=== PATIENT | male | born 1960 | race Caucasian/White ===

== ENCOUNTER 2018-08-09 10:18 | Emergency (ER) | payer OTHER ==
[2018-08-09 11:12] VITALS: RESP 18
--- NOTE | 2018-08-09 11:50 | ED ---
General Adult HPI - General Chief complaint: Fall Stated complaint: Knee popped Time Seen by Provider: 08/09/18 11:31 Source: patient Mode of arrival: wheelchair Limitations: no limitations - History of Present Illness Initial comments: Dictation was produced using [employer] dictation software. please excuse any grammatical, word or spelling errors. Chief Complaint: 58-year-old male presents with chief complaint of right knee pain. History of Present Illness: A 78-year-old male. Presents today with right knee pain. Patient [place] him. He lost balance and fell backwards. Prior to the fall he felt severe pain to his right knee. Patient states he is able to appear weight however is limping. He took 2 of his pain medications at home with persistent pain. Patient denies any significant swelling to the right knee. Patient denies any history of surgery to that knee. The ROS documented in this emergency department record has been reviewed and confirmed by me. Those systems with pertinent positive or negative responses have been documented in the HPI. All other systems are other negative and/or noncontributory. PHYSICAL EXAM: General Impression: Alert and oriented x3, not in acute distress HEENT: Normocephalic atraumatic, extra-ocular movements intact, pupils equal and reactive to light bilaterally, mucous membranes moist. Cardiovascular: Heart regular rate and rhythm, S1&S2 audible, no murmurs, rubs or gallops Chest: Lungs clear to auscultation bilaterally, no rhonchi, no wheeze, no rales Abdomen: Bowel sounds present, abdomen soft, non-tender, non-distended, no organomegaly Musculoskeletal: Pulses present and equal in all extremities, no peripheral edema, pain elicited with flexion of the right knee Motor: no focal deficits noted Neurological: CN II-XII grossly intact, no focal motor or sensory deficits noted Skin: Intact with no visualized rashes Psych: Normal affect and mood ED course: 58-year-old male presents with right knee pain after fall. Vital signs upon arrival are within acceptable limits.X-rays were obtained with no acute processes. Patient refusing pain medications at this time. Uncle presentation consistent with right knee strain. Patient requested Magno wrap. Patient given referral to orthopedic surgery for outpatient management of the symptoms. Return parameters discussed. - Related Data Home Medications Medication Instructions Recorded Confirmed Aspirin 325 mg PO DAILY 08/09/18 08/09/18 [id number] 1 tab PO DAILY 08/09/18 08/09/18 [Excedrin] Medication W/ Codiene (Unknown 2 tab PO Q8HR 08/09/18 08/09/18 Naproxen Sodium [Aleve] 220 mg PO DAILY 08/09/18 08/09/18 Allergies Allergy/AdvReac Type Severity Reaction Status Date / Time No Known Allergies Allergy Verified 08/09/18 11:38 Review of Systems ROS Statement: Those systems with pertinent positive or pertinent negative responses have been documented in the HPI. ROS Other: All systems not noted in ROS Statement are negative. Past Medical History Past Medical History: No Reported History History of Any Multi-Drug Resistant Organisms: None Reported Past Surgical History: Back Surgery, Cholecystectomy, Orthopedic Surgery Past Psychological History: No Psychological Hx Reported Smoking Status: Current every day smoker Past Alcohol Use History: Rare Past Drug Use History: None Reported General Exam Limitations: no limitations Course Vital Signs 08/09/18 11:08 Temperature 99.0 F Pulse Rate 95 Respiratory 18 Rate Blood Pressure 140/91 O2 Sat by Pulse 96 Oximetry Disposition Clinical Impression: Knee pain, acute Disposition: HOME SELF-CARE Condition: Good Instructions (If sedation given, give patient instructions): Knee Pain (ED) Is patient prescribed a controlled substance at d/c from ED?: No Referrals: Alphonso Thomson MD [STAFF PHYSICIAN] - 1-2 days Time of Disposition: 12:39
--- NOTE | 2018-08-09 12:20 | XR ---
EXAMINATION TYPE: XR knee complete RT DATE OF EXAM: 08/09/2018 CLINICAL HISTORY: Right knee pain since fall injury yesterday. TECHNIQUE: Three views of the right knee are obtained. COMPARISON: None. FINDINGS: There is no acute fracture/dislocation evident in right knee. The tri-compartment joint s paces appear within normal limits. Pants or clothing material overlies the distal femur. IMPRESSION: There is no acute fracture or dislocation in the right knee.
[2018-08-09 12:59] VITALS: BP 135/91; PULSE 80; TEMP 98.7
== END 2018-08-09 12:58 | disposition home or self-care (01) ==
LOC: EC 10:18
DX: M25.561 Pain in right knee (principal); F17.200 Nicotine dependence, unspecified, uncomplicated; Z79.1 Long term (current) use of non-steroidal anti-inflammatories (NSAID); Z79.82 Long term (current) use of aspirin; Z79.891 Long term (current) use of opiate analgesic; Z53.20 Procedure and treatment not carried out because of patient's decision for unspecified reasons; W01.0XXA Fall on same level from slipping, tripping and stumbling without subsequent striking against object, initial encounter; Y93.K1 Activity, walking an animal; Y92.832 Beach as the place of occurrence of the external cause
CPT/HCPCS: 99283

== ENCOUNTER 2018-11-27 11:36 | Emergency (ER) | payer OTHER ==
[2018-11-27] MEDS ORDERED: KETOROLAC 30 MG/ML 1 ML VIAL IVP STA (12:15)
[2018-11-27] MEDS ORDERED: METOCLOPRAMIDE 5 MG/ML 2 ML VIAL IVP STA (12:15)
[2018-11-27] MEDS ORDERED: SODIUM CHLORIDE 0.9% 1,000 ML IV STA (12:15)
--- NOTE | 2018-11-27 12:23 | ED ---
General Adult HPI - General Chief complaint: Abdominal Pain Stated complaint: abd, back pain Time Seen by Provider: 11/27/18 11:44 Source: patient, RN notes reviewed Mode of arrival: ambulatory Limitations: no limitations - History of Present Illness Initial comments: Patient is a pleasant 58-year-old male presenting to the emergency department with complaints of back and flank discomfort. Symptoms have been waxing and waning over the past couple of weeks. Symptoms are somewhat similar to previous kidney stones. Patient has noticed blood in his urine previously. Discomfort is moderate at this time. Discomfort is sometimes severe. Patient does have some associated nausea. No fevers. Discomfort is lower back and does radiate. Discomfort is also radiating to the bilateral flanks and somewhat towards the abdomen. No groin pain. No dysuria. 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 - Related Data Home Medications Medication Instructions Recorded Confirmed Naproxen Sodium [Aleve] 440 mg PO BID PRN 08/09/18 11/27/18 Previous Rx's Medication Instructions Recorded Levofloxacin [Levaquin] 500 mg PO DAILY #7 tab 11/27/18 Allergies Allergy/AdvReac Type Severity Reaction Status Date / Time No Known Allergies Allergy Verified 11/27/18 11:56 Review of Systems ROS Statement: Those systems with pertinent positive or pertinent negative responses have been documented in the HPI. ROS Other: All systems not noted in ROS Statement are negative. Constitutional: Denies: fever Eyes: Denies: eye pain ENT: Denies: ear pain Respiratory: Denies: cough Cardiovascular: Denies: chest pain Endocrine: Denies: fatigue Gastrointestinal: Reports: as per HPI Genitourinary: Reports: hematuria. Denies: dysuria Musculoskeletal: Reports: back pain Skin: Denies: rash Neurological: Denies: weakness Past Medical History Past Medical History: No Reported History History of Any Multi-Drug Resistant Organisms: None Reported Past Surgical History: Back Surgery, Cholecystectomy, Orthopedic Surgery Past Psychological History: No Psychological Hx Reported Smoking Status: Current every day smoker Past Alcohol Use History: Rare Past Drug Use History: None Reported General Exam Limitations: no limitations General appearance: alert, in no apparent distress Head exam: Present: normocephalic Eye exam: Present: normal appearance, PERRL ENT exam: Present: normal oropharynx Neck exam: Present: normal inspection Respiratory exam: Present: normal lung sounds bilaterally Cardiovascular Exam: Present: regular rate, normal rhythm Expanded Peripheral pulses: 2+: Radial (R), Radial (L), Posterior Tibialis (R), Posterior Tibialis (L) GI/Abdominal exam: Present: soft, normal bowel sounds. Absent: distended, tenderness, guarding, rebound, rigid, pulsatile mass Extremities exam: Present: normal inspection. Absent: pedal edema, calf tenderness Back exam: Present: normal inspection. Absent: tenderness, vertebral tenderness Neurological exam: Present: alert. Absent: motor sensory deficit Psychiatric exam: Present: normal affect, normal mood Skin exam: Present: normal color Course Vital Signs 11/27/18 11/27/18 11:46 12:53 Temperature 97.9 F Pulse Rate 76 75 Respiratory 16 16 Rate Blood Pressure 158/121 138/89 O2 Sat by Pulse 99 98 Oximetry Medical Decision Making - Medical Decision Making Patient reevaluated and resting comfortably in bed. Patient updated on results and plan. - Lab Data Result diagrams: 11/27/18 12:45 11/27/18 12:45 Lab Results 11/27/18 11/27/18 11/27/18 Range/Units 12:00 12:45 12:45 WBC 12.4 H (3.8-10.6) k/uL RBC 5.71 (4.30-5.90) m/uL Hgb 16.2 (13.0-17.5) gm/dL Hct 48.1 (39.0-53.0) % MCV 84.2 (80.0-100.0) fL MCH 28.4 (25.0-35.0) pg MCHC 33.7 (31.0-37.0) g/dL RDW 16.0 H (11.5-15.5) % Plt Count 220 (150-450) k/uL Neutrophils % 66 % Lymphocytes % 26 % Monocytes % 5 % Eosinophils % 2 % Basophils % 1 % Neutrophils # 8.1 H (1.3-7.7) k/uL Lymphocytes # 3.2 (1.0-4.8) k/uL Monocytes # 0.6 (0-1.0) k/uL Eosinophils # 0.2 (0-0.7) k/uL Basophils # 0.1 (0-0.2) k/uL Anisocytosis Slight PT (9.0-12.0) sec INR (<1.2) APTT (22.0-30.0) sec Sodium 143 (137-145) mmol/L Potassium 4.3 (3.5-5.1) mmol/L Chloride 106 (98-107) mmol/L Carbon Dioxide 29 (22-30) mmol/L Anion Gap 8 mmol/L BUN 20 (9-20) mg/dL Creatinine 0.81 (0.66-1.25) mg/dL Est GFR (CKD-EPI)AfAm >90 (>60 ml/min/1.73 sqM) Est GFR (CKD-EPI)NonAf >90 (>60 ml/min/1.73 sqM) Glucose 96 (74-99) mg/dL Calcium 9.8 (8.4-10.2) mg/dL Total Bilirubin 0.7 (0.2-1.3) mg/dL AST 23 (17-59) U/L ALT 31 (21-72) U/L Alkaline Phosphatase 79 (38-126) U/L Total Protein 7.0 (6.3-8.2) g/dL Albumin 4.1 (3.5-5.0) g/dL Amylase 38 (30-110) U/L Lipase 103 (23-300) U/L Urine Color Yellow Urine Appearance Clear (Clear) Urine pH 6.0 (5.0-8.0) Ur Specific [place] 1.023 (1.001-1.035) Urine Protein Negative (Negative) Urine Glucose (UA) Negative (Negative) Urine Ketones 2+ H (Negative) Urine Blood Negative (Negative) Urine Nitrite Negative (Negative) Urine Bilirubin Negative (Negative) Urine Urobilinogen 2.0 (<2.0) mg/dL Ur Leukocyte Esterase Trace H (Negative) Urine RBC 1 (0-5) /hpf Urine WBC 8 H (0-5) /hpf Ur Squamous Epith Cells <1 (0-4) /hpf Urine Mucus Few H (None) /hpf 11/27/18 Range/Units 12:45 WBC (3.8-10.6) k/uL RBC (4.30-5.90) m/uL Hgb (13.0-17.5) gm/dL Hct (39.0-53.0) % MCV (80.0-100.0) fL MCH (25.0-35.0) pg MCHC (31.0-37.0) g/dL RDW (11.5-15.5) % Plt Count (150-450) k/uL Neutrophils % % Lymphocytes % % Monocytes % % Eosinophils % % Basophils % % Neutrophils # (1.3-7.7) k/uL Lymphocytes # (1.0-4.8) k/uL Monocytes # (0-1.0) k/uL Eosinophils # (0-0.7) k/uL Basophils # (0-0.2) k/uL Anisocytosis PT 10.0 (9.0-12.0) sec INR 0.9 (<1.2) APTT 25.9 (22.0-30.0) sec Sodium (137-145) mmol/L Potassium (3.5-5.1) mmol/L Chloride (98-107) mmol/L Carbon Dioxide (22-30) mmol/L Anion Gap mmol/L BUN (9-20) mg/dL Creatinine (0.66-1.25) mg/dL Est GFR (CKD-EPI)AfAm (>60 ml/min/1.73 sqM) Est GFR (CKD-EPI)NonAf (>60 ml/min/1.73 sqM) Glucose (74-99) mg/dL Calcium (8.4-10.2) mg/dL Total Bilirubin (0.2-1.3) mg/dL AST (17-59) U/L ALT (21-72) U/L Alkaline Phosphatase (38-126) U/L Total Protein (6.3-8.2) g/dL Albumin (3.5-5.0) g/dL Amylase (30-110) U/L Lipase (23-300) U/L Urine Color Urine Appearance (Clear) Urine pH (5.0-8.0) Ur Specific [place] (1.001-1.035) Urine Protein (Negative) Urine Glucose (UA) (Negative) Urine Ketones (Negative) Urine Blood (Negative) Urine Nitrite (Negative) Urine Bilirubin (Negative) Urine Urobilinogen (<2.0) mg/dL Ur Leukocyte Esterase (Negative) Urine RBC (0-5) /hpf Urine WBC (0-5) /hpf Ur Squamous Epith Cells (0-4) /hpf Urine Mucus (None) /hpf - Radiology Data Radiology results: report reviewed (Computed tomography scan the abdomen pelvis shows some scattered groundglass opacities that may represent alveolitis or atypical pneumonia. No hepatosplenomegaly. Mucosal thickening with skip areas. Osiris for colitis.), image reviewed (KUB shows no acute process) Disposition Clinical Impression: Colitis Disposition: HOME SELF-CARE Condition: Stable Instructions (If sedation given, give patient instructions): Colitis (ED) Additional Instructions: Please follow-up with primary care physician in the next couple days for recheck. Return for increased pain, fevers, difficulty breathing, worsening symptoms or other concerns. Prescriptions sent to [facility] on Prescriptions: Levofloxacin [Levaquin] 500 mg PO DAILY #7 tab Is patient prescribed a controlled substance at d/c from ED?: No Referrals: Martha Suarez MD [STAFF PHYSICIAN] - 1-2 days Time of Disposition: 15:04
[2018-11-27 13:17] LABS: Anisocytosis Slight; Basophils # (A) 0.1 k/uL (0-0.2); Basophils % (A) 1 %; Eosinophils # (A) 0.2 k/uL (0-0.7); Eosinophils % (A) 2 %; HCT 48.1 % (39.0-53.0); HGB 16.2 gm/dL (13.0-17.5); Lymphocytes # (A) 3.2 k/uL (1.0-4.8); Lymphocytes % (A) 26 %; MCH 28.4 pg (25.0-35.0); MCHC 33.7 g/dL (31.0-37.0); MCV 84.2 fL (80.0-100.0); Mean Platelet Volume 8.8; Monocytes # (A) 0.6 k/uL (0-1.0); Monocytes % (A) 5 %; Neutrophils # (A) 8.1 k/uL (1.3-7.7); Neutrophils % (A) 66 %; Platelet Count 220 k/uL (150-450); RBC 5.71 m/uL (4.30-5.90); WBC 12.4 k/uL (3.8-10.6)
[2018-11-27 13:22] LABS: Appearance,Urine Clear (Clear); Bilirubin,Urine Negative (Negative); Blood,Urine Negative (Negative); Color,Urine Yellow; Glucose,Urine (UA) Negative (Negative); Ketones,Urine 2+ (Negative); Leukocyte Esterase,Urine Trace (Negative); Mucus,Urine Few /hpf; Nitrite,Urine Negative (Negative); Protein,Urine Negative (Negative); RBC,Urine 1 /hpf (0-5); Specific Gravity,Urine 1.023 (1.001-1.035); Squamous Epithelial Cell,Urine <1 /hpf (0-4); WBC,Urine 8 /hpf (0-5)
[2018-11-27 13:22] LABS: ALT 31 U/L (21-72); AST 23 U/L (17-59); African American GFR (CKD) >90 (>60 ml/min/1.73 sqM); Albumin 4.1 g/dL (3.5-5.0); Alkaline Phosphatase 79 U/L (38-126); Amylase 38 U/L (30-110); Anion Gap 8 mmol/L; Blood Urea Nitrogen 20 mg/dL (9-20); Calcium 9.8 mg/dL (8.4-10.2); Carbon Dioxide 29 mmol/L (22-30); Chloride 106 mmol/L (98-107); Glucose 96 mg/dL (74-99); Potassium 4.3 mmol/L (3.5-5.1); Sodium 143 mmol/L (137-145); Total Bilirubin 0.7 mg/dL (0.2-1.3)
--- NOTE | 2018-11-27 13:22 | XR ---
EXAMINATION TYPE: XR KUB , 2 VIEWS DATE OF EXAM ORDERED: 11/27/2018 HISTORY: abdominal pain. COMPARISON: Previous study dated 05/07/2011. FINDINGS: The lung bases are clear. Within the abdomen, the gallbladder is been removed. The abdominal gas pattern is within normal limit s. There is no evidence of obstruction or free air. There are phleboliths within the pelvis. IMPRESSION: NO ACUTE INTRA-ABDOMINAL ABNORMALITY.
[2018-11-27 13:23] LABS: INR 0.9 (<1.2); Partial Thromboplastin Time 25.9 sec (22.0-30.0)
--- NOTE | 2018-11-27 14:20 | CT ---
EXAMINATION TYPE: CT abdomen pelvis w con DATE OF EXAM: 11/27/2018 REFERENCE: NONE HISTORY: abdominal pain HISTORY: Abdominal and back pain CT DLP: 2203.6 mGy Automated exposure control for dose reduction was used. TECHNIQUE: Helical acquisition through the abdomen and pelvis was obtained following the oral ingesti on of without Oral Contrast and following intravenous administration of 100 ml mL of Isovue 300. The data was reformatted in axial, coronal and sagittal projections. FINDINGS: There are scattered groundglass opacities in the visualized portions of the lungs. There i s no pleural or pericardial fluid. The heart is not enlarged. Within the abdomen, there is mild hepatosplenomegaly with the liver measuring 19 cm and the spleen me asuring 14 cm. The liver is low attenuating and may be fatty infiltrated. The gallbladder is been rem truman. Both adrenal glands are normal. There is a 4.7 mm nonobstructing calculus in the anterior lower pole calyx of the left kidney and a s maller 1 to 2 mm calculus in the anterior middle pole calyx of the left kidney. The right kidney has a normal morphology. The pancreas is normal. There is no significant retroperitoneal, iliac or inguinal adenopathy. The bladder is unremarkable. There are multiple areas of mucosal thickening involving the sigmoid colon, descending colon and part s of the transverse colon. The appendix is not visualized with certainty. Small bowel loops are normal caliber. There is no free fluid and no free air. There is degenerative disc disease and vacuum phenomena present at L3-4, L4-5 and L5-S1 as well as T1 1-12. IMPRESSION: 1. SCATTERED GROUNDGLASS OPACITIES PRESENT BILATERALLY MAY REPRESENT ALVEOLITIS OR ATYPICAL PNEUMONIA . 2. MILD HEPATOSPLENOMEGALY WITH FATTY INFILTRATION OF THE LIVER NONOBSTRUCTING LEFT-SIDED NEPHROLITHI ASIS. 4. MUCOSAL THICKENING INVOLVING THE TRANSVERSE, DESCENDING AND SIGMOID COLONS WITH SKIP AREAS. PLEASE CORRELATE FOR COLITIS. 5. DEGENERATIVE CHANGES WITHIN THE SPINE.
[2018-11-27 16:12] VITALS: BP 132/88; PULSE 76; RESP 18; TEMP 97.8
== END 2018-11-27 16:00 | disposition home or self-care (01) ==
LOC: EC 11:36
DX: K52.9 Noninfective gastroenteritis and colitis, unspecified (principal); F17.200 Nicotine dependence, unspecified, uncomplicated; Z87.442 Personal history of urinary calculi
CPT/HCPCS: 36415; 80053; 82150; 83690; 85025; 85610; 85730; 81001; 74018; 74177; 99284; 96374; 96375; 96361 ×2; J2765; J1885; Q9967

== ENCOUNTER 2018-11-28 08:22 | Inpatient (IN) | payer MEDICARE, OTHER ==
[2018-11-28] MEDS ORDERED: KETOROLAC 30 MG/ML 1 ML VIAL IVP STA (08:48)
[2018-11-28] MEDS ORDERED: SODIUM CHLORIDE 0.9% 1,000 ML IV STA (08:48)
--- NOTE | 2018-11-28 08:51 | ED ---
Abdominal Pain HPI - General Chief Complaint: Abdominal Pain Stated Complaint: BACK AND ABDOMINAL PAIN, NAUSEA Time Seen by Provider: 11/28/18 08:27 Source: patient, RN notes reviewed Mode of arrival: ambulatory Limitations: no limitations - History of Present Illness Initial Comments: This is a 58-year-old male with a history of being diagnosed with colitis yesterday in this emergency department and was subsequently discharged on oral medication states his pain was doing well until about 2 or 3 hours after he left the pain started recurring thing going on since yesterday now. He's had nausea no vomiting he has moderate to severe pain mostly in the anterior upper abdomen some lower abdomen and some radiating to his back. He states this is similar to what it felt like yesterday. He does have a history of kidney stones but none were discovered yesterday. He back today because of the persistent pain. He has had some sweating with it also no other modifying factors other than he does state he gets worse with deep breathing and certain movements is worse in supine position than upright. MD Complaint: abdominal pain - Related Data Home Medications Medication Instructions Recorded Confirmed Naproxen Sodium [Aleve] 220 - 440 mg PO BID PRN 08/09/18 11/28/18 Levofloxacin [Levaquin] 500 mg PO DAILY 11/28/18 11/28/18 Previous Rx's Medication Instructions Recorded Famotidine [Pepcid] 20 mg PO BID #30 tablet 11/28/18 Allergies Allergy/AdvReac Type Severity Reaction Status Date / Time No Known Allergies Allergy Verified 11/28/18 08:57 Review of Systems ROS Statement: Those systems with pertinent positive or pertinent negative responses have been documented in the HPI. ROS Other: All systems not noted in ROS Statement are negative. Past Medical History Past Medical History: No Reported History History of Any Multi-Drug Resistant Organisms: None Reported Past Surgical History: Back Surgery, Cholecystectomy, Orthopedic Surgery Past Psychological History: No Psychological Hx Reported Smoking Status: Current every day smoker Past Alcohol Use History: Rare Past Drug Use History: None Reported General Exam - General Exam Comments Initial Comments: Is a well-developed well-nourished awake alert oriented 3 male Limitations: no limitations General appearance: alert, anxious, in distress Head exam: Present: atraumatic, normocephalic, normal inspection Eye exam: Present: normal appearance, PERRL, EOMI. Absent: scleral icterus, conjunctival injection, periorbital swelling ENT exam: Present: normal exam, mucous membranes moist Neck exam: Present: normal inspection. Absent: tenderness, meningismus, lymphadenopathy Respiratory exam: Present: normal lung sounds bilaterally. Absent: respiratory distress, wheezes, rales, rhonchi, stridor Cardiovascular Exam: Present: regular rate, normal rhythm, normal heart sounds. Absent: systolic murmur, diastolic murmur, rubs, gallop, clicks GI/Abdominal exam: Present: soft, tenderness (Obese abdomen some mild), normal bowel sounds. Absent: distended, guarding, rebound, rigid Rectal exam: Present: deferred ( mid abdominal tenderness no guarding rebound masses or bruits) Extremities exam: Present: normal inspection, full ROM, normal capillary refill. Absent: tenderness, pedal edema, joint swelling, calf tenderness Back exam: Present: normal inspection Neurological exam: Present: alert, oriented X3, CN II-XII intact Psychiatric exam: Present: normal affect, normal mood Skin exam: Present: warm, dry, intact, normal color. Absent: rash Course Vital Signs 11/28/18 08:23 Temperature 98.4 F Pulse Rate 89 Respiratory 18 Rate Blood Pressure 149/84 O2 Sat by Pulse 99 Oximetry Medical Decision Making - Medical Decision Making I did discuss [employer] the patient is feeling improved he was heme positive with respect to the guaiac. I did discuss the case with Dr. Farris. Patient will be able to be seen in the office tomorrow he is to call for an appointment today. The patient is in agreement with this. - Lab Data Result diagrams: 11/28/18 09:05 11/28/18 09:05 Lab Results 11/28/18 11/28/18 11/28/18 Range/Units 09:05 09:05 09:05 WBC 12.8 H (3.8-10.6) k/uL RBC 5.88 (4.30-5.90) m/uL Hgb 16.4 (13.0-17.5) gm/dL Hct 48.8 (39.0-53.0) % MCV 82.9 (80.0-100.0) fL MCH 27.9 (25.0-35.0) pg MCHC 33.7 (31.0-37.0) g/dL RDW 13.8 (11.5-15.5) % Plt Count 228 (150-450) k/uL Neutrophils % 71 % Lymphocytes % 20 % Monocytes % 5 % Eosinophils % 2 % Basophils % 1 % Neutrophils # 9.1 H (1.3-7.7) k/uL Lymphocytes # 2.6 (1.0-4.8) k/uL Monocytes # 0.6 (0-1.0) k/uL Eosinophils # 0.2 (0-0.7) k/uL Basophils # 0.1 (0-0.2) k/uL Sodium 144 (137-145) mmol/L Potassium 4.2 (3.5-5.1) mmol/L Chloride 108 H (98-107) mmol/L Carbon Dioxide 26 (22-30) mmol/L Anion Gap 10 mmol/L BUN 20 (9-20) mg/dL Creatinine 0.79 (0.66-1.25) mg/dL Est GFR (CKD-EPI)AfAm >90 (>60 ml/min/1.73 sqM) Est GFR (CKD-EPI)NonAf >90 (>60 ml/min/1.73 sqM) Glucose 101 H (74-99) mg/dL Calcium 9.9 (8.4-10.2) mg/dL Total Bilirubin 0.9 (0.2-1.3) mg/dL AST 22 (17-59) U/L ALT 34 (21-72) U/L Alkaline Phosphatase 81 (38-126) U/L Creatine Kinase 38 L (55-170) U/L Total Protein 7.1 (6.3-8.2) g/dL Albumin 4.2 (3.5-5.0) g/dL Amylase 38 (30-110) U/L Lipase 115 (23-300) U/L Urine Color Yellow Urine Appearance Clear (Clear) Urine pH 7.0 (5.0-8.0) Ur Specific [place] 1.018 (1.001-1.035) Urine Protein Negative (Negative) Urine Glucose (UA) Negative (Negative) Urine Ketones 2+ H (Negative) Urine Blood Negative (Negative) Urine Nitrite Negative (Negative) Urine Bilirubin Negative (Negative) Urine Urobilinogen 2.0 (<2.0) mg/dL Ur Leukocyte Esterase Negative (Negative) - Radiology Data Radiology results: report reviewed (I did review the imaging and report no acute findings.), image reviewed Disposition Clinical Impression: Gastritis, GI bleed Disposition: HOME SELF-CARE Condition: Good Instructions (If sedation given, give patient instructions): Gastritis (ED), Gastrointestinal Bleeding (ED) Additional Instructions: Call today for appointment to be seen tomorrow. Medication prescription sent to [facility] pharmacy Prescriptions: Famotidine [Pepcid] 20 mg PO BID #30 tablet Is patient prescribed a controlled substance at d/c from ED?: No Referrals: None,Stated [Primary Care Provider] - 1-2 days Angelita Farris MD [STAFF PHYSICIAN] - 1-2 days
[2018-11-28 09:18] LABS: Basophils # (A) 0.1 k/uL (0-0.2); Basophils % (A) 1 %; Eosinophils # (A) 0.2 k/uL (0-0.7); Eosinophils % (A) 2 %; HCT 48.8 % (39.0-53.0); HGB 16.4 gm/dL (13.0-17.5); Lymphocytes # (A) 2.6 k/uL (1.0-4.8); Lymphocytes % (A) 20 %; MCH 27.9 pg (25.0-35.0); MCHC 33.7 g/dL (31.0-37.0); MCV 82.9 fL (80.0-100.0); Mean Platelet Volume 8.5; Monocytes # (A) 0.6 k/uL (0-1.0); Monocytes % (A) 5 %; Neutrophils # (A) 9.1 k/uL (1.3-7.7); Neutrophils % (A) 71 %; Platelet Count 228 k/uL (150-450); RBC 5.88 m/uL (4.30-5.90); RDW 13.8 % (11.5-15.5); WBC 12.8 k/uL (3.8-10.6)
--- NOTE | 2018-11-28 09:18 | XR ---
EXAMINATION TYPE: XR KUB DATE OF EXAM: 11/28/2018 CLINICAL DATA: 58 year-old male abdominal pain, [facility] COMPARISON: 11/27/2018 FINDINGS: Lung bases are clear. No evidence for free intraperitoneal air. Scattered small colonic air-fluid levels. Mild overall stool burden. Cholecystectomy clips. No dilated small bowel or differential air-fluid levels IMPRESSION: Scattered small colonic air-fluid levels could represent generalized ileus or enteritis/colitis. Over all nonobstructive bowel gas pattern. No free air.
[2018-11-28] MEDS ORDERED: HYDROmorphone 1 MG/ML 1 ML SYRINGE IVP STA (09:23)
[2018-11-28 09:29] LABS: Appearance,Urine Clear (Clear); Bilirubin,Urine Negative (Negative); Blood,Urine Negative (Negative); Color,Urine Yellow; Glucose,Urine (UA) Negative (Negative); Ketones,Urine 2+ (Negative); Leukocyte Esterase,Urine Negative (Negative); Nitrite,Urine Negative (Negative); Protein,Urine Negative (Negative); Specific Gravity,Urine 1.018 (1.001-1.035)
[2018-11-28 09:30] LABS: ALT 34 U/L (21-72); AST 22 U/L (17-59); African American GFR (CKD) >90 (>60 ml/min/1.73 sqM); Albumin 4.2 g/dL (3.5-5.0); Alkaline Phosphatase 81 U/L (38-126); Amylase 38 U/L (30-110); Anion Gap 10 mmol/L; Blood Urea Nitrogen 20 mg/dL (9-20); Calcium 9.9 mg/dL (8.4-10.2); Carbon Dioxide 26 mmol/L (22-30); Chloride 108 mmol/L (98-107); Creatine Kinase 38 U/L (55-170); Glucose 101 mg/dL (74-99); Potassium 4.2 mmol/L (3.5-5.1); Sodium 144 mmol/L (137-145); Total Bilirubin 0.9 mg/dL (0.2-1.3); Total Protein 7.1 g/dL (6.3-8.2)
--- NOTE | 2018-11-28 09:58 | ED ---
Medical Decision Making - Medical Decision Making I did have discussion with the patient regarding findings he did get some improvement in pain however still has some discomfort in left lower quadrant tenderness palpation at this time. Will be admitted I did discuss case with Dr. Evans. GI will be consulted - Lab Data Result diagrams: 11/28/18 09:05 11/28/18 09:05 Lab Results 11/28/18 11/28/18 11/28/18 Range/Units 09:05 09:05 09:05 WBC 12.8 H (3.8-10.6) k/uL RBC 5.88 (4.30-5.90) m/uL Hgb 16.4 (13.0-17.5) gm/dL Hct 48.8 (39.0-53.0) % MCV 82.9 (80.0-100.0) fL MCH 27.9 (25.0-35.0) pg MCHC 33.7 (31.0-37.0) g/dL RDW 13.8 (11.5-15.5) % Plt Count 228 (150-450) k/uL Neutrophils % 71 % Lymphocytes % 20 % Monocytes % 5 % Eosinophils % 2 % Basophils % 1 % Neutrophils # 9.1 H (1.3-7.7) k/uL Lymphocytes # 2.6 (1.0-4.8) k/uL Monocytes # 0.6 (0-1.0) k/uL Eosinophils # 0.2 (0-0.7) k/uL Basophils # 0.1 (0-0.2) k/uL Sodium 144 (137-145) mmol/L Potassium 4.2 (3.5-5.1) mmol/L Chloride 108 H (98-107) mmol/L Carbon Dioxide 26 (22-30) mmol/L Anion Gap 10 mmol/L BUN 20 (9-20) mg/dL Creatinine 0.79 (0.66-1.25) mg/dL Est GFR (CKD-EPI)AfAm >90 (>60 ml/min/1.73 sqM) Est GFR (CKD-EPI)NonAf >90 (>60 ml/min/1.73 sqM) Glucose 101 H (74-99) mg/dL Calcium 9.9 (8.4-10.2) mg/dL Total Bilirubin 0.9 (0.2-1.3) mg/dL AST 22 (17-59) U/L ALT 34 (21-72) U/L Alkaline Phosphatase 81 (38-126) U/L Creatine Kinase 38 L (55-170) U/L Total Protein 7.1 (6.3-8.2) g/dL Albumin 4.2 (3.5-5.0) g/dL Amylase 38 (30-110) U/L Lipase 115 (23-300) U/L Urine Color Yellow Urine Appearance Clear (Clear) Urine pH 7.0 (5.0-8.0) Ur Specific [place] 1.018 (1.001-1.035) Urine Protein Negative (Negative) Urine Glucose (UA) Negative (Negative) Urine Ketones 2+ H (Negative) Urine Blood Negative (Negative) Urine Nitrite Negative (Negative) Urine Bilirubin Negative (Negative) Urine Urobilinogen 2.0 (<2.0) mg/dL Ur Leukocyte Esterase Negative (Negative) - Radiology Data Radiology results: report reviewed (CC the complete report. Evidence of ileus versus (), image reviewed Disposition Clinical Impression: Intractable abdominal pain, Colitis, Leukocytosis, Failure of outpatient treatment Disposition: ADMITTED IP TO THIS HOSP Condition: Fair Prescriptions: Famotidine [Pepcid] 20 mg PO BID #30 tablet Referrals: None,Stated [Primary Care Provider] - 1-2 days
[2018-11-28] MEDS ORDERED: NALOXONE 0.4 MG/ML 1 ML VIAL IV PRN (10:26)
[2018-11-28] MEDS ORDERED: PIPERACILLIN-TAZOBACTAM 3.375 GM in SODIUM CHLORIDE 0.9% 100 ML IVPB STA (10:33)
[2018-11-28] MEDS ORDERED: metroNIDAZOLE-NS PMX 500 MG in SALINE 1 100ML.BAG IVPB STA (10:36)
[2018-11-28] MEDS: SODIUM CHLORIDE 0.9% 1,000 ML IV SCH ×2 (10:52→17:53)
--- NOTE | 2018-11-28 12:11 | XR ---
EXAMINATION TYPE: XR chest 2V DATE OF EXAM: 11/28/2018 COMPARISON: Chest x-ray dated 11/13/[address] 11/27/2018 HISTORY: Abnormal CT TECHNIQUE: Frontal and lateral views of the chest are obtained. FINDINGS: Patient is increased. There is no evident airspace disease, pneumothorax, or pleural effus ion. The right hemidiaphragm is mildly elevated likely due to eventration. Heart size is normal. The aorta is dense. Patient is rotated. IMPRESSION: Interstitial lung disease.
[2018-11-28] MEDS: HYDROmorphone 1 MG/ML 1 ML SYRINGE IVP PRN ×2 (12:39→18:47)
[2018-11-28] MEDS: metroNIDAZOLE-NS PMX 500 MG in SALINE 1 100ML.BAG IVPB SCH (17:52)
[2018-11-28] MEDS: ONDANSETRON 4 MG/2 ML VIAL IVP PRN (18:57)
--- NOTE | 2018-11-28 22:44 | P.HPIM ---
History of Present Illness H&P Date: 11/28/18 Chief Complaint: Abdominal pain 78-year-old male with a known history of chronic back pain and history of back surgery and nicotine addiction came to ER with the complaints of abdominal pain mainly bilateral lower abdomen and patient felt like he was passing a stone. Patient says that he was similar to his previous pain with kidney stones. Patient presented to ER with similar complaints yesterday, but improved symptomatically and was discharged home with antibiotics. Patient cannot able to fill his prescriptions. WBC count was 12.4 yesterday. Patient started having abdominal pain again today associated with nausea and vomiting. patient says that he has been having moderate to severe pain mostly in the anterior lower abdominal bilaterally and radiating to his back. ct abdomen showed nonobstructing left renal calculus. patient also says that he has been having back pain since yesterday. He has had some sweating with it also no other modifying factors other than he does state he gets worse with deep breathing and certain movements is worse in supine position than upright. Patient denied any diarrhea. Able to pass flatus. No fever no chills. No chest pain or shortness of breath. Denied any recent illnesses or upper respiratory infections. No cough or sputum production. No sore throat or runny nose. Patient otherwise continues to smoke on a daily basis. CT of abdomen pelvis showed scattered groundglass opacities present bilaterally may represent Alveolytis or atypical pneumonia. Mild hepatosplenomegaly with fatty infiltration Nonobstructing 4.7 mm nonobstructing left renal calculus. Mucosal thickening involving transverse sigmoid and descending colons with skip areas: Correlate for colitis. Degenerative changes within the spine. Chest x-ray showed interstitial lung disease WBC 12.8 and UA negative for infection Liver enzymes within normal limits Review of Systems Constitutional: Patient denies any fever or chills . No generalized weakness or weight loss. Abdomen: Pain associated with nausea. No diarrhea. No constipation.. Cardiovascular: Patient denies any chest pain or short of breath no palpitations. Respiratory: patient denied any cough is from production. No shortness of breath Neurologic: Patient denied any numbness or tingling headache. Musculoskeletal: Patient denies any complaints of joint swelling or deformity. Skin: Negative Psychiatric: Negative Endocrine: No heat or cold intolerance. No recent weight gain. Genitourinary: No dysuria or hematuria. All other 14 point ROS negative except the above Past Medical History Past Medical History: No Reported History History of Any Multi-Drug Resistant Organisms: None Reported Past Surgical History: Back Surgery, Cholecystectomy, Orthopedic Surgery Past Psychological History: No Psychological Hx Reported Smoking Status: Current every day smoker Past Alcohol Use History: Rare Past Drug Use History: None Reported - Past Family History Father History Unknown: Yes Mother History Unknown: Yes Medications and Allergies Home Medications Medication Instructions Recorded Confirmed Type Naproxen Sodium [Aleve] 220 - 440 mg PO BID PRN 08/09/18 11/28/18 History Famotidine [Pepcid] 20 mg PO BID #30 tablet 11/28/18 Rx Levofloxacin [Levaquin] 500 mg PO DAILY 11/28/18 11/28/18 History Allergies Allergy/AdvReac Type Severity Reaction Status Date / Time No Known Allergies Allergy Verified 11/28/18 08:57 Physical Exam Vitals: Vital Signs Temp Pulse Resp BP Pulse Ox 11/28/18 10:56 75 16 146/83 99 11/28/18 08:23 98.4 F 89 18 149/84 99 Intake and Output 11/27/18 11/28/18 11/28/18 22:59 06:59 14:59 Other: Weight 115.212 kg PHYSICAL EXAMINATION: Patient is lying in the bed comfortably, no acute distress, awake alert and oriented.. HEENT: Normocephalic. Neck is supple. Pupils reactive. Nostrils clear. Oral cavity is moist. Ears reveal no drainage. Neck reveals no JVD, carotid bruits, or thyromegaly. CHEST EXAMINATION: Trachea is central. Symmetrical expansion. Lung whitaker clear to auscultation and percussion. CARDIAC: Normal S1, S2 with no gallops. No murmurs ABDOMEN: Soft. Mild to moderate tenderness left and right quadrants. No flank tenderness. Bowel sounds normal. No organomegaly. No abdominal bruits. Extremities: reveal no edema. No clubbing or cyanosis Neurologically awake, alert, oriented x3 with well-coordinated movements. No focal deficits noted Skin: No rash or skin lesions. Psychiatric: Coperative. Nonsuicidal Musculoskeletal: No joint swelling or deformity. Normal range of motion. Results CBC & Chem 7: 11/28/18 09:05 11/28/18 09:05 Labs: Abnormal Lab Results - Last 24 Hours (Table) 11/28/18 11/28/18 11/28/18 Range/Units 09:05 09:05 09:05 WBC 12.8 H (3.8-10.6) k/uL Neutrophils # 9.1 H (1.3-7.7) k/uL Chloride 108 H (98-107) mmol/L Glucose 101 H (74-99) mg/dL Creatine Kinase 38 L (55-170) U/L Urine Ketones 2+ H (Negative) Thrombosis Risk Factor Assmnt - DVT/VTE Prophylaxis DVT/VTE Prophylaxis: Pharmacologic Prophylaxis ordered Assessment and Plan Assessment: Abdominal pain likely due to colitis involving transverse sigmoid and descending colon. History of nephrolithiasis Nonobstructing 4.7 mm left renal stone Nicotine addiction More weak to the BMI 38.6 Chronic back pain with history of back surgery History of cholecystectomy DVT prophylaxis with heparin subcu Plan: Patient will be continued on IV hydration and antibiotics. Patient was given Zosyn and Flagyl in the ER. Continue with Levaquin and Flagyl at this time. Clear liquids. Gastroenterology was consulted for further evaluation due to colitis. Smoking cessation has been counseled extensively. Discussed with family at bedside in detail. Time with Patient: Greater than 30
[2018-11-28] MEDS: LEVOFLOXACIN 500MG-D5W PMX 500 MG in DEXTROSE/WATER 1 100ML.BAG IVPB SCH (22:47)
--- NOTE | 2018-11-28 23:50 | CONS ---
CONSULTATION DATE OF DICTATION: November 28, 2018. REQUESTING PHYSICIAN: Dr. Evans. REASON FOR CONSULTATION: Abdominal pain. HISTORY OF PRESENT ILLNESS: The patient is a 58-year-old white male who came to the emergency room complaining of diffuse abdominal pain mostly in the upper abdominal area on and off for the last 1 month duration. Symptoms have been going on for a few weeks. Initially, he thought it was related to the kidney stone as he thought he passed a kidney stone when he had some blood in the urine. However, the pain continued to progressively get worse and now it localized more in the epigastric area associated with nausea, vomiting. He also started having some discomfort in both flank areas. He denies any significant change in his bowel habits. He usually has bowel movements every 3-4 days. No rectal bleeding or melena. Came to the emergency room. He had a CT of the abdomen and pelvis done that showed mucosal thickening involving the descending and sigmoid colon suspicious for colitis. The patient was then discharged home. However, a few hours later, the pain continued to progressively get worse. He came back to the emergency room and now admitted to hospital for further evaluation. PAST MEDICAL HISTORY: Past medical history unremarkable. MEDICATIONS: At home, Aleve. ALLERGIES: No known drug allergies. FAMILY HISTORY: Unremarkable. PAST SURGICAL HISTORY: Back surgery, cholecystectomy. SOCIAL HISTORY: Chronic smoker but no alcohol use. REVIEW OF SYSTEMS: Cardiopulmonary: No chest pain, shortness of breath. Genitourinary: No dysuria or hematuria. Musculoskeletal unremarkable. Skin unremarkable. Endocrine unremarkable. Psychiatric unremarkable. Neurology unremarkable. ENT/vision unremarkable. CONSTITUTIONAL: No recent weight loss. No fever, chills, night sweats. PHYSICAL EXAMINATION: He appears comfortable. No apparent distress. VITAL SIGNS: Stable. Blood pressure is 112/86, pulse rate 75 per minute and afebrile. HEENT examination unremarkable. Conjunctivae pink. Sclerae anicteric. Oral cavity no lesions. NECK: No jugular venous distention or lymph node enlargement. CHEST: Clear to auscultation. HEART: Regular rate and rhythm. ABDOMEN: Soft. Bowel sounds are positive. There was mild diffuse tenderness. Extremities: No pedal edema. Skin no rashes. NEUROLOGIC: Alert and oriented x3. No focal deficits. LABS: Done today: WBC 12.8, hemoglobin 16.4, platelets are normal. Basic metabolic panel is within normal limits. ALT, AST, bilirubin and alkaline phosphatase are normal. Amylase and lipase are normal. Urinalysis is negative. IMPRESSION: Diffuse abdominal pain on and off for the last 1 month duration associated with nausea, vomiting, and some change in bowel habits. CT of the abdomen done yesterday in the emergency room showed thickening of the left colon suspicious for acute colitis. Presently, the patient does not have any diarrhea. He was given a dose of Zosyn and Flagyl in the emergency room and his symptoms are somewhat better today. RECOMMENDATIONS: 1. Continue with empiric antibiotics with Flagyl and Levaquin. 2. Clear liquid diet. 3. If symptoms do not improve in the next 1 or 2 days, we will consider an EGD and colonoscopy during this hospitalization. 4. The plan was discussed with the patient. He is agreeable to it. Thank you for this consultation. SOFIA / MIKE: [id number] /
[2018-11-29] MEDS: SODIUM CHLORIDE 0.9% 1,000 ML IV SCH ×3 (00:21→18:09)
[2018-11-29] MEDS: HEPARIN SODIUM,PORCINE 5,000 UNIT/ML 1 ML VIAL SQ SCH ×3 (00:21→16:11)
[2018-11-29] MEDS: metroNIDAZOLE-NS PMX 500 MG in SALINE 1 100ML.BAG IVPB SCH ×3 (00:21→16:10)
[2018-11-29] MEDS: HYDROmorphone 1 MG/ML 1 ML SYRINGE IVP PRN ×5 (00:30→20:58)
[2018-11-29] MEDS: ONDANSETRON 4 MG/2 ML VIAL IVP PRN ×2 (02:25→19:18)
[2018-11-29] MEDS: PANTOPRAZOLE 40 MG/10 ML VIAL IV SCH (07:52)
[2018-11-29 08:06] LABS: ALT 110 U/L (21-72); AST 78 U/L (17-59); African American GFR (CKD) >90 (>60 ml/min/1.73 sqM); Albumin 3.2 g/dL (3.5-5.0); Alkaline Phosphatase 72 U/L (38-126); Anion Gap 6 mmol/L; Blood Urea Nitrogen 18 mg/dL (9-20); Calcium 8.9 mg/dL (8.4-10.2); Carbon Dioxide 26 mmol/L (22-30); Chloride 108 mmol/L (98-107); Glucose 86 mg/dL (74-99); Potassium 4.3 mmol/L (3.5-5.1); Sodium 140 mmol/L (137-145); Total Bilirubin 0.9 mg/dL (0.2-1.3); Total Protein 5.8 g/dL (6.3-8.2)
[2018-11-29 11:49] VITALS: BMI 38.6
[2018-11-29 15:56] LABS: Basophils % (A) 0 %; Eosinophils # (A) 0.2 k/uL (0-0.7); Eosinophils % (A) 2 %; HGB 14.3 gm/dL (13.0-17.5); Lymphocytes # (A) 2.1 k/uL (1.0-4.8); Lymphocytes % (A) 22 %; MCH 28.3 pg (25.0-35.0); MCHC 33.4 g/dL (31.0-37.0); MCV 84.9 fL (80.0-100.0); Mean Platelet Volume 8.6; Monocytes # (A) 0.6 k/uL (0-1.0); Monocytes % (A) 6 %; Neutrophils # (A) 6.7 k/uL (1.3-7.7); Neutrophils % (A) 68 %; Platelet Count 171 k/uL (150-450); RBC 5.06 m/uL (4.30-5.90); RDW 13.9 % (11.5-15.5); WBC 9.8 k/uL (3.8-10.6)
--- NOTE | 2018-11-29 16:06 | US ---
EXAMINATION TYPE: US kidneys/renal and bladder DATE OF EXAM: 11/29/2018 COMPARISON: CT 11/27/2018 CLINICAL HISTORY: left Renal Calculi. Left flank pain. Patient states just voiding. EXAM MEASUREMENTS: Right Kidney: 10.5 x 4.7 x 4.9 cm Left Kidney: 9.6 x 4.0 x 5.2 cm Right Kidney: No hydronephrosis or masses seen Left Kidney: lower pole echogenic focus visualized - 0.5 x 0.5 cm Bladder: nondistended, limited visualization Bilateral Jets not seen Kidneys show normal cortical medullary differentiation. No evident hydronephrosis bilaterally. No sabas dent renal mass. IMPRESSION: Nephrolithiasis lower pole left kidney.
[2018-11-29] MEDS ORDERED: PEG 3350-NA SULF,BICARB,CL/KCL 4,000 ML BOTTLE PO ONE (17:00)
--- NOTE | 2018-11-29 18:27 | PN ---
PROGRESS NOTE DATE OF SERVICE: November 29, 2018 Patient is a 58-year-old pleasant white male admitted to the hospital with diffuse abdominal pain mostly in the upper abdominal area associated with nausea, vomiting on and off for the last 1 month duration. Symptoms have been progressively getting worse. He came to the emergency room yesterday, had a CT of the abdomen and pelvis done that showed thickening of the transverse and descending colon suspicious for acute nonspecific colitis. Surprisingly, the patient does not have any diarrhea. In fact, he has alternating diarrhea and constipation of almost 1 month duration. He denies any weight loss. Reports no fever, chills or night sweats. PHYSICAL EXAMINATION: Appears comfortable in no apparent distress. Vital signs stable. Blood pressure is 136/83, pulse is 65, temperature 98. HEENT examination unremarkable. Conjunctivae pink. Sclerae anicteric. Oral cavity no lesions. Neck: No JVD or lymph node enlargement. Chest: Clear to auscultation. HEART: Regular rate and rhythm. ABDOMEN: Soft. Mild tenderness in the epigastric and periumbilical area. Bowel sounds are positive. No organomegaly. Extremities: No pedal edema. Skin no rashes. NEUROLOGIC: Alert and oriented x3. No focal deficits. LABORATORY DATA: Labs from today AST and ALT are 78 and 110 respectively. Rest of the labs are within normal limits. IMPRESSION: Diffuse abdominal pain mostly in the upper abdomen associated with nausea, vomiting for the last 1 month duration. He also has been complaining of alternating diarrhea and constipation for the last few months. CT of the abdomen showed nonspecific colitis involving the left colon. The patient on empiric antibiotics with Levaquin and Flagyl with no significant improvement in his symptoms. RECOMMENDATIONS: 1. Proceed with EGD and colonoscopy tomorrow to investigate his symptoms. 2. Continue with antibiotics. 3. Clear liquid diet. 4. We will follow with you closely during his hospital stay. Thank you for this consultation. MMODL / IJN: [id number] /
--- NOTE | 2018-11-29 21:41 | P.PN ---
Subjective Progress Note Date: 11/29/18 Principal diagnosis: Abdominal pain secondary to colitis 78-year-old male with a known history of chronic back pain and history of back surgery and nicotine addiction came to ER with the complaints of abdominal pain mainly bilateral lower abdomen and patient felt like he was passing a stone. Patient says that he was similar to his previous pain with kidney stones. Patient presented to ER with similar complaints yesterday, but improved symptomatically and was discharged home with antibiotics. Patient cannot able to fill his prescriptions. WBC count was 12.4 yesterday. Patient started having abdominal pain again today associated with nausea and vomiting. patient says that he has been having moderate to severe pain mostly in the anterior lower abdominal bilaterally and radiating to his back. ct abdomen showed nonobstructing left renal calculus. patient also says that he has been having back pain since yesterday. He has had some sweating with it also no other modifying factors other than he does state he gets worse with deep breathing and certain movements is worse in supine position than upright. Patient denied any diarrhea. Able to pass flatus. No fever no chills. No chest pain or shortness of breath. Denied any recent illnesses or upper respiratory infections. No cough or sputum production. No sore throat or runny nose. Patient otherwise continues to smoke on a daily basis. CT of abdomen pelvis showed scattered groundglass opacities present bilaterally may represent Alveolytis or atypical pneumonia. Mild hepatosplenomegaly with fatty infiltration Nonobstructing 4.7 mm nonobstructing left renal calculus. Mucosal thickening involving transverse sigmoid and descending colons with skip areas: Correlate for colitis. Degenerative changes within the spine. Chest x-ray showed interstitial lung disease WBC 12.8 and UA negative for infection Liver enzymes within normal limits 11/29/2018 Patient is still having abdominal pain mainly bilateral anterior abdominen. Patient is being continued on antibiotics in the form of Levaquin and Flagyl. Ultrasound of THE KIDNEY SHOWED NO HYDRONEPHROSIS.. Patient says that he has been having symptoms for the first one we can CT showed evidence of colitis with skip areas. Pulse Is Planning for EGD and Colonoscopy Tomorrow for Further Evaluation. Patient Is Currently on Clear Liquid Diet. No Fever No Chills. Leukocytosis Improved. No Chest Pain or Shortness of Breath. Patient Is Also Complaining of Lower Back Pain. Current Medications Reviewed. Objective - Vital Signs Vital signs: Vital Signs Temp 97.7 F 11/29/18 07:00 Pulse 65 11/29/18 07:00 Resp 16 11/29/18 07:00 BP 145/76 11/29/18 07:00 Pulse Ox 97 11/29/18 07:00 Intake & Output 11/28/18 11/29/18 11/29/18 18:59 06:59 18:59 Intake Total 500 Balance 500 Weight 115.212 kg 115.212 kg Intake: Oral 500 Other: # Voids 0 1 - Exam PHYSICAL EXAMINATION: Patient is lying in the bed comfortably, no acute distress, awake alert and oriented.. HEENT: Normocephalic. Neck is supple. Pupils reactive. Nostrils clear. Oral cavity is moist. Ears reveal no drainage. Neck reveals no JVD, carotid bruits, or thyromegaly. CHEST EXAMINATION: Trachea is central. Symmetrical expansion. Lung whitaker clear to auscultation and percussion. CARDIAC: Normal S1, S2 with no gallops. No murmurs ABDOMEN: Soft. Mild to moderate tenderness left and right quadrants. No flank tenderness. Bowel sounds normal. No organomegaly. No abdominal bruits. Extremities: reveal no edema. No clubbing or cyanosis Neurologically awake, alert, oriented x3 with well-coordinated movements. No focal deficits noted Skin: No rash or skin lesions. Psychiatric: Coperative. Nonsuicidal Musculoskeletal: No joint swelling or deformity. Normal range of motion. - Labs CBC & Chem 7: 11/29/18 14:34 11/29/18 07:23 Labs: Abnormal Lab Results - Last 24 Hours (Table) 11/29/18 Range/Units 07:23 Chloride 108 H (98-107) mmol/L AST 78 H (17-59) U/L ALT 110 H (21-72) U/L Total Protein 5.8 L (6.3-8.2) g/dL Albumin 3.2 L (3.5-5.0) g/dL Microbiology - Last 24 Hours (Table) 11/28/18 10:50 Blood Culture Gram Stain - Preliminary Blood Blood Culture - Preliminary Coagulase Negative Staph 11/28/18 10:50 Blood Culture - Final Blood Assessment and Plan Assessment: Abdominal pain due to colitis involving transverse sigmoid and descending colon. GI is following. EGD and colonoscopy tomorrow. History of nephrolithiasis Nonobstructing 4.7 mm left renal stone. No evidence of hydronephrosis. Nicotine addiction More weak to the BMI 38.6 Chronic back pain with history of back surgery History of cholecystectomy DVT prophylaxis with heparin subcu Plan: Patient will be continued on IV hydration and antibiotics. Patient was given Zosyn and Flagyl in the ER. Continue with Levaquin and Flagyl at this time. Clear liquids. Gastroenterology is following. Continue with IV hydration. EGD and colonoscopy tomorrow.. Smoking cessation has been counseled extensively. Time with Patient: Greater than 30
[2018-11-30] MEDS: LEVOFLOXACIN 500MG-D5W PMX 500 MG in DEXTROSE/WATER 1 100ML.BAG IVPB SCH (01:21)
[2018-11-30] MEDS: HEPARIN SODIUM,PORCINE 5,000 UNIT/ML 1 ML VIAL SQ SCH ×3 (01:22→15:45)
[2018-11-30] MEDS: metroNIDAZOLE-NS PMX 500 MG in SALINE 1 100ML.BAG IVPB SCH ×3 (02:32→15:45)
[2018-11-30] MEDS: HYDROmorphone 1 MG/ML 1 ML SYRINGE IVP PRN ×2 (04:06→07:16)
[2018-11-30] MEDS ORDERED: LACTATED RINGERS 1,000 ML IV SCH ×2 (05:30→12:00)
[2018-11-30] MEDS: SODIUM CHLORIDE 0.9% 1,000 ML IV SCH (07:09)
[2018-11-30] MEDS: PANTOPRAZOLE 40 MG/10 ML VIAL IV SCH (07:16)
[2018-11-30 08:12] VITALS: RESP 16
[2018-11-30 09:08] LABS: Glucose,Whole Blood 71 mg/dL (75-99)
[2018-11-30] MEDS ORDERED: PROPOFOL 10 MG/ML 20 ML VIAL IV ONE (13:11)
[2018-11-30] MEDS ORDERED: MIDAZOLAM 2 MG/2 ML VIAL ONE (13:11)
[2018-11-30] MEDS ORDERED: LIDOCAINE 1% INJ 10MG/ML (20 ML MDV) ONE (13:11)
[2018-11-30] MEDS ORDERED: KETAMINE 10 MG/ML 20 ML VIAL ONE (13:11)
[2018-11-30] MEDS ORDERED: fentaNYL (PF) 50 MCG/ML 2 ML AMP ONE (13:11)
[2018-11-30] MEDS ORDERED: IV FLUID CONTINUATION 800 ML IV ONE (13:13)
--- NOTE | 2018-11-30 13:37 | P.PCN ---
Date of Procedure: 11/30/18 Procedure(s) Performed: Brief history: Patient is a pleasant 58-year-old pleasant white male admitted hospital with abdominal pain associated with nausea vomiting and change in bowel habits for the last 1 month duration. He has these episodes almost daily basis. He came into the emergency room and a CT of the abdomen done that showed thinning of the transverse colon and descending colon consistent with colitis. He was started on empiric antibiotics with Flagyl and Levaquin with no change in his symptoms. He is hence scheduled for an elective upper endoscopy as well as colonoscopy as a part of evaluation of abdominal pain and change in bowel Procedure performed: Esophagogastroduodenoscopy with biopsy Colonoscopy with biopsy Preoperative diagnosis: Abdominal pain/nausea vomiting Change in bowel habits/colitis Anesthesia: MAC Procedure: After informed consent was obtained from the patient was brought into the endoscopy unit and IV sedation was administered by anesthesia under continuous monitoring. Initially upper endoscopy was done. The Olympus GF 160 video endoscope was inserted inserted into the mouth and esophagus intubated without any difficulty and was gradually advanced into the stomach and duodenum and carefully examined. The bulb and second part of the duodenum appeared normal. The scope was then withdrawn into the stomach adequately insufflated with air and upon careful examination the antrum had diffuse antral erosive gastritis and a 1 cm superficial ulceration which was biopsied. The body, cardia and fundus appeared normal. The scope was then withdrawn into the esophagus. The GE junction was located at 40 cm to the incisors. It appeared regular with no erythema erosions or ulcerations. Rest of the esophagus appeared normal. Patient tolerated the procedure well. At this time the patient continued to remain sedation. Initial digital rectal examination was normal. Olympus CF 160 video colonoscope was then inserted into the rectum and gradually advanced to the cecum without any difficulty. Careful examination was performed as the scope was gradually being withdrawn. The prep was excellent. The cecum appeared normal. There was a 2 mm ascending colon polyp that was removed by cold biopsy. Rest of the ascending colon, transverse colon, descending colon, sigmoid colon and rectum appeared normal. The 5 mm mid rectal polyp that was removed by cold biopsy. Retroflexion was performed in the rectum and no lesions were noted. Patient tolerated the procedure well. Impression: 1. Upper endoscopy revealed antral erosive gastritis and a superficial 1 cm antral ulcers status post biopsy 2.. Colonoscopy revealed a 2 mm ascending colon polyp and a 5 mm rectal polyp both of which were removed by cold biopsy. No evidence of colitis. Recommendations: Findings of this examination were discussed with the patient . He was advised to follow with the biopsy results. He'll continue with Protonix 40 mg daily. Diet will be advanced as tolerated.
[2018-11-30 14:14] VITALS: TEMP 97.8
[2018-11-30] MEDS ORDERED: HYDROcodone/APAP 5-325MG 1 EACH TAB PO PRN (15:30)
[2018-11-30 16:02] VITALS: BP 141/82; PULSE 84
--- NOTE | 2018-11-30 18:32 | XR ---
EXAMINATION TYPE: XR lumbar spine 2 or 3V DATE OF EXAM: 11/30/2018 COMPARISON: NONE HISTORY: Back pain TECHNIQUE: 3 views FINDINGS: Lumbar vertebra have fairly normal alignment. There is mild spurring of the endplates. Ther e is no compression fracture. Posterior elements appear intact. Sacroiliac joints appear intact. IMPRESSION: Mild hypertrophic degenerative disc changes. L5-S1 disc space mild narrowing. No fracture .
--- NOTE | 2018-12-11 21:42 | P.DS ---
Providers Date of admission: 11/29/18 10:37 Expected date of discharge: 12/01/18 Attending physician: Poncho Evans Consults: 11/28/18 10:27 Consult Physician Routine Consulting Provider: Angelita Farris Consult Reason/Comments: Colitis, intractable pain Do you want consulting provider notified?: Yes Primary care physician: Stated None Hospital Course: Discharge diagnosis Abdominal pain due to colitis involving transverse sigmoid and descending colon. GI is following. EGD and colonoscopy today. No colitis noted.. Antral erosive gastritis History of nephrolithiasis Nonobstructing 4.7 mm left renal stone. No evidence of hydronephrosis. Nicotine addiction More weak to the BMI 38.6 Chronic back pain with history of back surgery History of cholecystectomy DVT prophylaxis with heparin subcu Hospital course 78-year-old male with a known history of chronic back pain and history of back surgery and nicotine addiction came to ER with the complaints of abdominal pain mainly bilateral lower abdomen and patient felt like he was passing a stone. Patient says that he was similar to his previous pain with kidney stones. Patient presented to ER with similar complaints yesterday, but improved symptomatically and was discharged home with antibiotics. Patient cannot able to fill his prescriptions. WBC count was 12.4 yesterday. Patient started having abdominal pain again today associated with nausea and vomiting. patient says that he has been having moderate to severe pain mostly in the anterior lower abdominal bilaterally and radiating to his back. ct abdomen showed nonobstructing left renal calculus. patient also says that he has been having back pain since yesterday. He has had some sweating with it also no other modifying factors other than he does state he gets worse with deep breathing and certain movements is worse in supine position than upright. Patient denied any diarrhea. Able to pass flatus. No fever no chills. No chest pain or shortness of breath. Denied any recent illnesses or upper respiratory infections. No cough or sputum production. No sore throat or runny nose. Patient otherwise continues to smoke on a daily basis. CT of abdomen pelvis showed scattered groundglass opacities present bilaterally may represent Alveolytis or atypical pneumonia. Mild hepatosplenomegaly with fatty infiltration Nonobstructing 4.7 mm nonobstructing left renal calculus. Mucosal thickening involving transverse sigmoid and descending colons with skip areas: Correlate for colitis. Degenerative changes within the spine. Chest x-ray showed interstitial lung disease WBC 12.8 and UA negative for infection Liver enzymes within normal limits 11/29/2018 Patient is still having abdominal pain mainly bilateral anterior abdominen. Patient is being continued on antibiotics in the form of Levaquin and Flagyl. Ultrasound of THE KIDNEY SHOWED NO HYDRONEPHROSIS.. Patient says that he has been having symptoms for the first one we can CT showed evidence of colitis with skip areas. Pulse Is Planning for EGD and Colonoscopy Tomorrow for Further Evaluation. Patient Is Currently on Clear Liquid Diet. No Fever No Chills. Leukocytosis Improved. No Chest Pain or Shortness of Breath. Patient Is Also Complaining of Lower Back Pain. 12/01/2018 Patient is status post EGD and colonoscopy today. Patient is being converted on PPI. Patient was cleared from gastroenterology standpoint. No complaints of chest pain or shortness of breath. No fever no chills. Improving clinically. Impression: 1. Upper endoscopy revealed antral erosive gastritis and a superficial 1 cm antral ulcers status post biopsy 2.. Colonoscopy revealed a 2 mm ascending colon polyp and a 5 mm rectal polyp both of which were removed by cold biopsy. No evidence of colitis. PHYSICAL EXAMINATION: Patient is lying in the bed comfortably, no acute distress, awake alert and oriented.. HEENT: Normocephalic. Neck is supple. Pupils reactive. Nostrils clear. Oral cavity is moist. Ears reveal no drainage. Neck reveals no JVD, carotid bruits, or thyromegaly. CHEST EXAMINATION: Trachea is central. Symmetrical expansion. Lung whitaker clear to auscultation and percussion. CARDIAC: Normal S1, S2 with no gallops. No murmurs ABDOMEN: Soft. Bowel sounds normal. No organomegaly. No abdominal bruits. Extremities: reveal no edema. No clubbing or cyanosis Neurologically awake, alert, oriented x3 with well-coordinated movements. No focal deficits noted Skin: No rash or skin lesions. Psychiatric: Coperative. Nonsuicidal Musculoskeletal: No joint swelling or deformity. Normal range of motion. Discharge vitals reviewed. Patient Condition at Discharge: Fair Plan - Discharge Summary Discharge Rx Participant: No New Discharge Prescriptions: New Pantoprazole Sodium [Protonix] [facility]. HYDROcodone/APAP 5-325MG [[place] 5-325] 1 tab PO Q6HR PRN 3 Days #12 tab PRN Reason: Pain Discontinued Naproxen Sodium [Aleve] 220 - 440 mg PO BID PRN PRN Reason: Pain Levofloxacin [Levaquin] 500 mg PO DAILY Discharge Medication List HYDROcodone/APAP 5-325MG [[place] 5-325] 1 tab PO Q6HR PRN 3 Days #12 tab 11/30/18 [Rx] Pantoprazole Sodium [Protonix] 40 mg PO [facility] #30 tablet. 11/30/18 [Rx] Follow up Appointment(s)/Referral(s): Angelita Farris MD [STAFF PHYSICIAN] - 1 Week None,Stated [Primary Care Provider] - 1-2 days Discharge Disposition: HOME SELF-CARE
== END 2018-11-30 19:03 | disposition home or self-care (01) | DRG 392 ==
LOC: EC 08:22 → 4MS4W 10:26 → OBSVTOIN 11-29 10:37
PROVIDERS: ADMIT Internal Medicine; ATTEND Internal Medicine
PROC: 0DBP8ZX Excision of Rectum, Via Natural or Artificial Opening Endoscopic, Diagnostic (ICD-10-PCS; 2018-11-30)
PROC: 0DB78ZX Excision of Stomach, Pylorus, Via Natural or Artificial Opening Endoscopic, Diagnostic (ICD-10-PCS; principal; 2018-11-30 08:00)
PROC: 0DBK8ZX Excision of Ascending Colon, Via Natural or Artificial Opening Endoscopic, Diagnostic (ICD-10-PCS; 2018-11-30 08:00)
DX: K52.9 Noninfective gastroenteritis and colitis, unspecified (principal); J84.9 Interstitial pulmonary disease, unspecified; D12.2 Benign neoplasm of ascending colon; R16.2 Hepatomegaly with splenomegaly, not elsewhere classified; K76.0 Fatty (change of) liver, not elsewhere classified; K63.5 Polyp of colon; K62.1 Rectal polyp; F17.200 Nicotine dependence, unspecified, uncomplicated; G89.29 Other chronic pain; N20.0 Calculus of kidney; K29.60 Other gastritis without bleeding; K25.9 Gastric ulcer, unspecified as acute or chronic, without hemorrhage or perforation; M54.9 Dorsalgia, unspecified; Z87.442 Personal history of urinary calculi; Z90.49 Acquired absence of other specified parts of digestive tract; Z71.6 Tobacco abuse counseling
CPT/HCPCS: 36415; 43239; 45380; 71046; 72100; 74018; 76770; 80053; 81003; 82150; 82550; 83690; 85025; 87040; 87077; 87186; 88305; 88342; 96361; 96365; 96367; 96375; 99285

== ENCOUNTER 2019-03-17 19:16 | Emergency (ER) | payer MEDICARE, OTHER ==
[2019-03-17] MEDS ORDERED: SODIUM CHLORIDE 0.9% 1,000 ML IV STA (20:11)
[2019-03-17] MEDS ORDERED: ONDANSETRON 4 MG/2 ML VIAL IVP STA (20:11)
[2019-03-17] MEDS ORDERED: HYDROmorphone 0.5 MG/0.5 ML SYRINGE IVP STA ×2 (20:11→22:41)
--- NOTE | 2019-03-17 20:22 | ED ---
General Adult HPI - General Chief complaint: Nausea/Vomiting/Diarrhea Stated complaint: abd pain/vomiting Time Seen by Provider: 03/17/19 19:52 Source: patient, RN notes reviewed Mode of arrival: ambulatory Limitations: no limitations - History of Present Illness Initial comments: 58-year-old male with a past medical history of pancreatic cancer, cholec ystectomy presents to the emergency department for a chief nausea vomiting as well as abdominal pain. Patient states he has had severe right abdominal pain for the past 2 days. States he has had nausea and vomiting as well. Patient states he is supposed to start chemo in about 5 days. States he called Dr. Pascal his oncologist today and his partner told him he needed to come to the emergency Department and wanted a CAT scan performed. He denies fevers or chills. States that he also ran out of his Zofran for nausea.Patient has no other complaints at this time including shortness of breath, chest pain, abdominal pain, nausea or vomiting, headache, or visual changes. - Related Data Previous Rx's Medication Instructions Recorded HYDROcodone/APAP 5-325MG [[place] 1 tab PO Q6HR PRN 3 Days #12 tab 11/30/18 5-325] Pantoprazole Sodium [Protonix] 40 mg PO [facility] #30 tablet. 11/30/18 Ondansetron [Zofran ODT] 4 mg PO Q8HR PRN #15 tab 03/17/19 Allergies Allergy/AdvReac Type Severity Reaction Status Date / Time No Known Allergies Allergy Verified 03/17/19 19:24 Review of Systems ROS Statement: Those systems with pertinent positive or pertinent negative responses have been documented in the HPI. ROS Other: All systems not noted in ROS Statement are negative. Past Medical History Past Medical History: No Reported History Additional Past Medical History / Comment(s): pancreatic cancer History of Any Multi-Drug Resistant Organisms: None Reported Past Surgical History: Back Surgery, Cholecystectomy, Orthopedic Surgery Additional Past Surgical History / Comment(s): Laminectomy L4-L5/S1-S2, lower back laser surgery to cut nerves, L knee arthroscopy-meniscal and ACL, L ankle reconstructive surgery x 3, R hand surgery d/t trauma, colonoscopy, lithostripsy. Past Anesthesia/Blood Transfusion Reactions: Motion Sickness Past Psychological History: No Psychological Hx Reported Smoking Status: Former smoker Past Alcohol Use History: None Reported Past Drug Use History: None Reported - Past Family History Father History Unknown: Yes Mother History Unknown: Yes General Exam Limitations: no limitations General appearance: alert, in no apparent distress Head exam: Present: atraumatic, normocephalic, normal inspection Eye exam: Present: normal appearance, PERRL, EOMI. Absent: scleral icterus, conjunctival injection, periorbital swelling ENT exam: Present: normal exam, mucous membranes moist Neck exam: Present: normal inspection. Absent: tenderness, meningismus, lymphadenopathy Respiratory exam: Present: normal lung sounds bilaterally. Absent: respiratory distress, wheezes, rales, rhonchi, stridor Cardiovascular Exam: Present: regular rate, normal rhythm, normal heart sounds. Absent: systolic murmur, diastolic murmur, rubs, gallop, clicks GI/Abdominal exam: Present: soft, tenderness (Right lower quadrant tenderness), normal bowel sounds. Absent: distended, guarding, rebound, rigid Expanded GI/Abdominal exam: Absent: psoas sign, obturator sign, heel tap sign, Thomson's sign, Rovsing's sign, tenderness at McBurney's Point Course Vital Signs 03/17/19 19:21 Temperature 98.6 F Pulse Rate 90 Respiratory 20 Rate Blood Pressure 138/79 O2 Sat by Pulse 96 Oximetry Medical Decision Making - Medical Decision Making Vitals are stable. On exam patient Has mild right mid abdominal pain. CBC does show mild leukocytosis of 12.8. Ketones in the urine are 1+, patient given fluids. CT abdomen and pelvis with contrast was obtained which was a new hypodensity measuring 2.7 cm within the body of the pancreas suspicious for neoplastic process but differential includes pseudocyst. 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 Appendix is normal as visualized. 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 At this time patient was given Dilaudid. He did not have any episodes of vomiting here in the emergency department. He did run out of Zofran so he was written a prescription. At this point patient is supposed to be getting chemo on Wednesday. I recommend he follows up with his oncologist Wednesday morning and return if he has any worsening symptoms over the weekend. - Lab Data Result diagrams: 03/17/19 21:07 03/17/19 21:07 Lab Results 03/17/19 03/17/19 03/17/19 Range/Units 21:07 21:07 21:20 WBC 12.3 H (3.8-10.6) k/uL RBC 5.58 (4.30-5.90) m/uL Hgb 15.2 (13.0-17.5) gm/dL Hct 47.0 (39.0-53.0) % MCV 84.2 (80.0-100.0) fL MCH 27.2 (25.0-35.0) pg MCHC 32.3 (31.0-37.0) g/dL RDW 13.7 (11.5-15.5) % Plt Count 444 (150-450) k/uL Neutrophils % 51 % Lymphocytes % 35 % Monocytes % 8 % Eosinophils % 4 % Basophils % 0 % Neutrophils # 6.3 (1.3-7.7) k/uL Lymphocytes # 4.3 (1.0-4.8) k/uL Monocytes # 1.0 (0-1.0) k/uL Eosinophils # 0.4 (0-0.7) k/uL Basophils # 0.0 (0-0.2) k/uL Sodium 139 (137-145) mmol/L Potassium 4.3 (3.5-5.1) mmol/L Chloride 103 (98-107) mmol/L Carbon Dioxide 26 (22-30) mmol/L Anion Gap 10 mmol/L BUN 16 (9-20) mg/dL Creatinine 0.67 (0.66-1.25) mg/dL Est GFR (CKD-EPI)AfAm >90 (>60 ml/min/1.73 sqM) Est GFR (CKD-EPI)NonAf >90 (>60 ml/min/1.73 sqM) Glucose 95 (74-99) mg/dL Calcium 10.2 (8.4-10.2) mg/dL Total Bilirubin 0.9 (0.2-1.3) mg/dL AST 35 (17-59) U/L ALT 35 (4-49) U/L Alkaline Phosphatase 76 (38-126) U/L Total Protein 7.1 (6.3-8.2) g/dL Albumin 4.1 (3.5-5.0) g/dL Amylase 39 (30-110) U/L Lipase 28 (23-300) U/L Urine Color Yellow Urine Appearance Cloudy (Clear) Urine pH 7.5 (5.0-8.0) Ur Specific [place] 1.024 (1.001-1.035) Urine Protein 1+ H (Negative) Urine Glucose (UA) Negative (Negative) Urine Ketones 1+ H (Negative) Urine Blood Negative (Negative) Urine Nitrite Negative (Negative) Urine Bilirubin Negative (Negative) Urine Urobilinogen 2.0 (<2.0) mg/dL Ur Leukocyte Esterase Negative (Negative) Urine RBC 3 (0-5) /hpf Urine WBC 2 (0-5) /hpf Calcium Oxalate Crystal Occasional H (None) /hpf Amorphous Sediment Rare H (None) /hpf Urine Bacteria Rare H (None) /hpf Urine Mucus Many H (None) /hpf Disposition Clinical Impression: Abdominal pain, Pancreatic lesion Disposition: HOME SELF-CARE Condition: Good Instructions (If sedation given, give patient instructions): Abdominal Pain (ED) Additional Instructions: Please follow-up with your oncologist on Wednesday. If you're having any worsening symptoms such as increased pain or worsening nausea vomiting return to the emergency department. Prescriptions: Ondansetron [Zofran ODT] 4 mg PO Q8HR PRN #15 tab PRN Reason: Nausea Is patient prescribed a controlled substance at d/c from ED?: No Referrals: Raghu Pascal MD [Primary Care Provider] - 1-2 days Time of Disposition: 22:59
[2019-03-17 21:13] LABS: Basophils % (A) 0 %; Eosinophils # (A) 0.4 k/uL (0-0.7); Eosinophils % (A) 4 %; HGB 15.2 gm/dL (13.0-17.5); Lymphocytes # (A) 4.3 k/uL (1.0-4.8); Lymphocytes % (A) 35 %; MCH 27.2 pg (25.0-35.0); MCHC 32.3 g/dL (31.0-37.0); MCV 84.2 fL (80.0-100.0); Mean Platelet Volume 8.8; Monocytes % (A) 8 %; Neutrophils # (A) 6.3 k/uL (1.3-7.7); Neutrophils % (A) 51 %; Platelet Count 444 k/uL (150-450); RBC 5.58 m/uL (4.30-5.90); RDW 13.7 % (11.5-15.5); WBC 12.3 k/uL (3.8-10.6)
[2019-03-17 21:19] LABS: ALT 35 U/L (4-49); AST 35 U/L (17-59); African American GFR (CKD) >90 (>60 ml/min/1.73 sqM); Albumin 4.1 g/dL (3.5-5.0); Alkaline Phosphatase 76 U/L (38-126); Amylase 39 U/L (30-110); Anion Gap 10 mmol/L; Blood Urea Nitrogen 16 mg/dL (9-20); Calcium 10.2 mg/dL (8.4-10.2); Carbon Dioxide 26 mmol/L (22-30); Chloride 103 mmol/L (98-107); Glucose 95 mg/dL (74-99); Non-African American GFR(CKD) >90 (>60 ml/min/1.73 sqM); Potassium 4.3 mmol/L (3.5-5.1); Sodium 139 mmol/L (137-145); Total Bilirubin 0.9 mg/dL (0.2-1.3); Total Protein 7.1 g/dL (6.3-8.2)
[2019-03-17 22:02] LABS: Amorphous Sediment,Urine Rare /hpf; Appearance,Urine Cloudy (Clear); Bacteria,Urine Rare /hpf; Bilirubin,Urine Negative (Negative); Blood,Urine Negative (Negative); Calcium Oxalate Crystals,Urine Occasional /hpf; Color,Urine Yellow; Glucose,Urine (UA) Negative (Negative); Ketones,Urine 1+ (Negative); Leukocyte Esterase,Urine Negative (Negative); Mucus,Urine Many /hpf; Nitrite,Urine Negative (Negative); PH, Urine 7.5 (5.0-8.0); Protein,Urine 1+ (Negative); RBC,Urine 3 /hpf (0-5); Specific Gravity,Urine 1.024 (1.001-1.035); WBC,Urine 2 /hpf (0-5)
--- NOTE | 2019-03-17 22:26 | CT ---
EXAMINATION TYPE: CT abdomen pelvis w con DATE OF EXAM: 03/17/2019 COMPARISON: 11/27/2018 INDICATION: Right sided abdominal pain. DLP: 1391.7 mGycm, Automated exposure control for dose reduction was used. CONTRAST: 100ml mL of Isovue 300. Study performed without Oral Contrast TECHNIQUE: Axial images were obtained from above the diaphragm to the pubic rami in the axial plane a t 5 mm thick sections. Reconstructed images are reviewed on the computer in the coronal plane. FINDINGS: Limited CT sections are obtained the lung bases. The lung bases are clear. CT ABDOMEN: Liver: Normal Spleen: Absent. Pancreas: There is interval development of a hypodensity within the posterior body of the pancreas di ameter 2.7 cm. Tail the pancreas is not identified. What may be a suture line is along the medial wal l of the hypodense collection. Correlate with surgical history. Has there been prior pancreatectomy Adrenal glands: The adrenal glands are normal. Gallbladder: Surgically absent Kidneys: No masses are evident. No hydronephrosis is present. No cysts are present. Delayed images were obtained through the kidneys, which remain unremarkable. Aorta: Vascular calcification is within the aorta. Inferior vena cava: Normal. CT PELVIS: Loops of bowel within the abdomen and pelvis are normal. Study is without oral contrast limiting bowel evaluation. Appendix: Normal as visualized. Urinary bladder: Decompressed with limited evaluation. Genitourinary structures: Prostate is unremarkable. Osseous structures: No suspicious lytic or sclerotic lesions. IMPRESSIONS: 1. There is a new hypodensity measuring 2.7 cm within the body of the pancreas suspicious for neopla stic process. Differential diagnosis could include a pseudocyst. Correlate with patient's surgical hi story.
[2019-03-17 23:43] VITALS: BP 147/91; PULSE 65; RESP 18; TEMP 98.2
== END 2019-03-17 23:53 | disposition home or self-care (01) ==
LOC: EC 19:16
DX: K86.89 Other specified diseases of pancreas (principal); R10.9 Unspecified abdominal pain; D72.829 Elevated white blood cell count, unspecified; R82.4 Acetonuria; Z76.0 Encounter for issue of repeat prescription; R11.2 Nausea with vomiting, unspecified; Z87.891 Personal history of nicotine dependence; Z85.07 Personal history of malignant neoplasm of pancreas; Z90.410 Acquired total absence of pancreas; Z90.81 Acquired absence of spleen; Z90.49 Acquired absence of other specified parts of digestive tract
CPT/HCPCS: 36415; 80053; 82150; 83690; 85025; 81001; 74177; 99284; 96374; 96375; 96376; 96361 ×3; J2405; J1170; Q9967

== ENCOUNTER 2019-03-27 15:20 | Inpatient (IN) | payer MEDICARE, OTHER ==
[2019-03-27] MEDS ORDERED: SODIUM CHLORIDE 0.9% 1,000 ML IV STA (16:06)
[2019-03-27] MEDS ORDERED: SODIUM CHLORIDE 0.9% 500 ML 500 ML IV STA (16:06)
[2019-03-27] MEDS ORDERED: ONDANSETRON 4 MG/2 ML VIAL IVP STA (16:12)
--- NOTE | 2019-03-27 16:19 | ED ---
General Adult HPI - General Chief complaint: Syncope Stated complaint: dizziness Time Seen by Provider: 03/27/19 15:40 Source: patient, RN notes reviewed, old records reviewed Mode of arrival: wheelchair Limitations: no limitations - History of Present Illness Initial comments: This a 58-year-old male who presents emergency Department complaining of syn copal episode. Patient states she has a past medical history significant for pancreas cancer. Patient states he's been having diarrhea for over a week now. Patient states he got his first chemo treatment last Wednesday and since then he is passed out yesterday at lunch he passed out again today. Patient states he hit the front of his forehead on the toilet but he has only a very minimal headache and no neck pain patient denies any numbness weakness. Patient states anytime he stands up he feels like is a passout. Patient denies any chest pain palpitations difficulty breathing shortness of breath. Patient denies any dark bloody stools. Patient denies any swelling to the legs or calf tenderness. - Related Data Home Medications Medication Instructions Recorded Confirmed HYDROcodone/APAP 5-325MG [[place] 1 tab PO TID PRN 03/27/19 03/27/19 5-325] Loperamide HCl [Imodium A-D] 2 mg PO Q8H PRN 03/27/19 03/27/19 Lubiprostone [Amitiza] 24 mcg PO BID 03/27/19 03/27/19 Morphine Sulfate ER [Ms Contin] 30 mg PO BID@0900,1200 03/27/19 03/27/19 Morphine Sulfate ER [Ms Contin] 30 mg PO HS 03/27/19 03/27/19 Prochlorperazine [Compazine] 10 mg PO TID PRN 03/27/19 03/27/19 Allergies Allergy/AdvReac Type Severity Reaction Status Date / Time No Known Allergies Allergy Verified 03/27/19 16:34 Review of Systems ROS Statement: Those systems with pertinent positive or pertinent negative responses have been documented in the HPI. ROS Other: All systems not noted in ROS Statement are negative. Past Medical History Past Medical History: No Reported History Additional Past Medical History / Comment(s): pancreatic cancer History of Any Multi-Drug Resistant Organisms: None Reported Past Surgical History: Back Surgery, Cholecystectomy, Orthopedic Surgery Additional Past Surgical History / Comment(s): Laminectomy L4-L5/S1-S2, lower back laser surgery to cut nerves, L knee arthroscopy-meniscal and ACL, L ankle reconstructive surgery x 3, R hand surgery d/t trauma, colonoscopy, lithostripsy. Past Anesthesia/Blood Transfusion Reactions: Motion Sickness Past Psychological History: No Psychological Hx Reported Smoking Status: Former smoker Past Alcohol Use History: None Reported Past Drug Use History: None Reported - Past Family History Father History Unknown: Yes Mother History Unknown: Yes General Exam - General Exam Comments Initial Comments: GENERAL: Patient is well-developed and well-nourished. Patient is nontoxic and well- hydrated and is in mild distress. ENT: Neck is soft and supple. No significant lymphadenopathy is noted. Oropharynx is clear. Moist mucous membranes. Neck has full range of motion without eliciting any pain. EYES: The sclera were anicteric and conjunctiva were pink and moist. Extraocular movements were intact and pupils were equal round and reactive to light. Eyelids were unremarkable. PULMONARY: Unlabored respirations. Good breath sounds bilaterally. No audible rales r honchi or wheezing was noted. CARDIOVASCULAR: There is a regular rate and rhythm without any murmurs gallops or rubs. ABDOMEN: Soft and nontender with normal bowel sounds. SKIN: Skin is clear with no lesions or rashes and otherwise unremarkable. NEUROLOGIC: Patient is alert and oriented x3. Cranial nerves II through XII are grossly intact. Motor and sensory are also intact. Normal speech, volume and content. Symmetrical smile. MUSCULOSKELETAL: Normal extremities with adequate strength and full range of motion. No lower extremity swelling or edema. No calf tenderness. LYMPHATICS: No significant lymphadenopathy is noted PSYCHIATRIC: Normal psychiatric evaluation. Limitations: no limitations Course Vital Signs 03/27/19 03/27/19 15:38 16:05 Temperature 98.6 F Pulse Rate 120 H 105 H Respiratory 18 18 Rate Blood Pressure 103/70 112/79 O2 Sat by Pulse 99 97 Oximetry Medical Decision Making - Medical Decision Making EKG shows normal sinus rhythm at 92 bpm UT interval 236 QRS is 86 QT interval 370 QTC is 457. Patient's EKG shows no ST segment elevation or depression. Patient did orthostatic but was unable to stand because of dizziness so therefore he was positive orthostatics I spoke with Dr. Howell he agreed that the patient needed to be admitted. I spoke with the [facility] hospitalist agreed to admit the patient admitted the patient to Dr. Weber and I consulted Dr. Howell. I also ordered a blood culture urinalysis and chest x-ray at this time we are holding antibiotics per Dr. Howell's instructions - Lab Data Result diagrams: 03/27/19 16:02 03/27/19 16:02 Lab Results 03/27/19 03/27/19 03/27/19 Range/Units 16:02 16:02 16:02 WBC 73.8 H* (3.8-10.6) k/uL RBC 5.47 (4.30-5.90) m/uL Hgb 14.9 (13.0-17.5) gm/dL Hct 45.5 (39.0-53.0) % MCV 83.3 (80.0-100.0) fL MCH 27.2 (25.0-35.0) pg MCHC 32.7 (31.0-37.0) g/dL RDW 13.6 (11.5-15.5) % Plt Count 285 (150-450) k/uL Neutrophils % 95 % Lymphocytes % 3 % Monocytes % 1 % Eosinophils % 1 % Basophils % 0 % Neutrophils # 70.0 H (1.3-7.7) k/uL Lymphocytes # 2.3 (1.0-4.8) k/uL Monocytes # 0.6 (0-1.0) k/uL Eosinophils # 0.6 (0-0.7) k/uL Basophils # 0.2 (0-0.2) k/uL PT 9.7 (9.0-12.0) sec INR 0.9 (<1.2) APTT 23.3 (22.0-30.0) sec Sodium 136 L (137-145) mmol/L Potassium 4.3 (3.5-5.1) mmol/L Chloride 104 (98-107) mmol/L Carbon Dioxide 20 L (22-30) mmol/L Anion Gap 12 mmol/L BUN 24 H (9-20) mg/dL Creatinine 0.61 L (0.66-1.25) mg/dL Est GFR (CKD-EPI)AfAm >90 (>60 ml/min/1.73 sqM) Est GFR (CKD-EPI)NonAf >90 (>60 ml/min/1.73 sqM) Glucose 108 H (74-99) mg/dL Calcium 10.0 (8.4-10.2) mg/dL Magnesium 1.8 (1.6-2.3) mg/dL Total Bilirubin 0.9 (0.2-1.3) mg/dL AST 61 H (17-59) U/L ALT 131 H (4-49) U/L Alkaline Phosphatase 139 H (38-126) U/L Troponin I (0.000-0.034) ng/mL Total Protein 6.8 (6.3-8.2) g/dL Albumin 4.0 (3.5-5.0) g/dL 03/27/19 Range/Units 16:02 WBC (3.8-10.6) k/uL RBC (4.30-5.90) m/uL Hgb (13.0-17.5) gm/dL Hct (39.0-53.0) % MCV (80.0-100.0) fL MCH (25.0-35.0) pg MCHC (31.0-37.0) g/dL RDW (11.5-15.5) % Plt Count (150-450) k/uL Neutrophils % % Lymphocytes % % Monocytes % % Eosinophils % % Basophils % % Neutrophils # (1.3-7.7) k/uL Lymphocytes # (1.0-4.8) k/uL Monocytes # (0-1.0) k/uL Eosinophils # (0-0.7) k/uL Basophils # (0-0.2) k/uL PT (9.0-12.0) sec INR (<1.2) APTT (22.0-30.0) sec Sodium (137-145) mmol/L Potassium (3.5-5.1) mmol/L Chloride (98-107) mmol/L Carbon Dioxide (22-30) mmol/L Anion Gap mmol/L BUN (9-20) mg/dL Creatinine (0.66-1.25) mg/dL Est GFR (CKD-EPI)AfAm (>60 ml/min/1.73 sqM) Est GFR (CKD-EPI)NonAf (>60 ml/min/1.73 sqM) Glucose (74-99) mg/dL Calcium (8.4-10.2) mg/dL Magnesium (1.6-2.3) mg/dL Total Bilirubin (0.2-1.3) mg/dL AST (17-59) U/L ALT (4-49) U/L Alkaline Phosphatase (38-126) U/L Troponin I <0.012 (0.000-0.034) ng/mL Total Protein (6.3-8.2) g/dL Albumin (3.5-5.0) g/dL Disposition Clinical Impression: Syncope, Orthostatic hypotension, Dehydration, Leukocytosis, History of pancreatic cancer Disposition: ADMITTED IP TO THIS HOSP Referrals: Raghu Pascal MD [Primary Care Provider] - 1-2 days Time of Disposition: 17:24
[2019-03-27 16:22] LABS: Basophils # (A) 0.2 k/uL (0-0.2); Basophils % (A) 0 %; Eosinophils # (A) 0.6 k/uL (0-0.7); Eosinophils % (A) 1 %; HCT 45.5 % (39.0-53.0); HGB 14.9 gm/dL (13.0-17.5); Lymphocytes # (A) 2.3 k/uL (1.0-4.8); Lymphocytes % (A) 3 %; MCH 27.2 pg (25.0-35.0); MCHC 32.7 g/dL (31.0-37.0); MCV 83.3 fL (80.0-100.0); Mean Platelet Volume 9.5; Monocytes # (A) 0.6 k/uL (0-1.0); Monocytes % (A) 1 %; Neutrophils % (A) 95 %; Platelet Count 285 k/uL (150-450); RBC 5.47 m/uL (4.30-5.90); RDW 13.6 % (11.5-15.5)
[2019-03-27 16:27] LABS: WBC 73.8 k/uL (3.8-10.6)
[2019-03-27 16:29] LABS: ALT 131 U/L (4-49); AST 61 U/L (17-59); African American GFR (CKD) >90 (>60 ml/min/1.73 sqM); Alkaline Phosphatase 139 U/L (38-126); Anion Gap 12 mmol/L; Blood Urea Nitrogen 24 mg/dL (9-20); Carbon Dioxide 20 mmol/L (22-30); Chloride 104 mmol/L (98-107); Glucose 108 mg/dL (74-99); Magnesium 1.8 mg/dL (1.6-2.3); Non-African American GFR(CKD) >90 (>60 ml/min/1.73 sqM); Potassium 4.3 mmol/L (3.5-5.1); Sodium 136 mmol/L (137-145); Total Bilirubin 0.9 mg/dL (0.2-1.3); Total Protein 6.8 g/dL (6.3-8.2)
[2019-03-27 16:31] LABS: INR 0.9 (<1.2); Partial Thromboplastin Time 23.3 sec (22.0-30.0); Prothrombin Time 9.7 sec (9.0-12.0)
[2019-03-27] MEDS ORDERED: NITROGLYCERIN SL TABS 0.4 MG TAB SUBLINGUAL PRN (17:19)
--- NOTE | 2019-03-27 18:35 | XR ---
EXAMINATION TYPE: XR chest 2V DATE OF EXAM: 03/27/2019 COMPARISON: 11/28/2018 HISTORY: Short of breath TECHNIQUE: FINDINGS: Heart is normal. There is some coarsening of the interstitial markings. There is no pulmona ry consolidation. There is no evidence of a pulmonary mass. There is no pleural effusion. Heart size is normal. There is right central venous catheter with the tip in the superior vena cava. There are c hest leads. Bony thorax is intact. IMPRESSION: Pulmonary interstitial fibrosis unchanged. Normal heart.
[2019-03-27 19:28] LABS: Appearance,Urine Clear (Clear); Bilirubin,Urine Negative (Negative); Blood,Urine Small (Negative); Calcium Oxalate Crystals,Urine Few /hpf; Color,Urine Yellow; Glucose,Urine (UA) Negative (Negative); Hyaline Casts,Urine 1 /lpf (0-2); Ketones,Urine 1+ (Negative); Leukocyte Esterase,Urine Negative (Negative); Mucus,Urine Few /hpf; Nitrite,Urine Negative (Negative); PH, Urine 5.5 (5.0-8.0); Protein,Urine Trace (Negative); RBC,Urine 35 /hpf (0-5); Specific Gravity,Urine 1.028 (1.001-1.035); Squamous Epithelial Cell,Urine <1 /hpf (0-4); Urobilinogen,Urine <2.0 mg/dL (<2.0); WBC,Urine 4 /hpf (0-5)
[2019-03-27] MEDS: SODIUM CHLORIDE 0.9% 1,000 ML IV SCH (22:45)
[2019-03-28 04:43] LABS: Cholesterol 72 mg/dL (<200); HDL Cholesterol 35 mg/dL (40-60); LDL Cholesterol,Calculated 26 mg/dL (0-99); Triglycerides 54 mg/dL (<150)
[2019-03-28] MEDS: SODIUM CHLORIDE 0.9% 1,000 ML IV SCH ×3 (05:44→15:46)
[2019-03-28] MEDS: ASPIRIN 325 MG TAB PO SCH (08:53)
--- NOTE | 2019-03-28 11:22 | P.HPIM ---
History of Present Illness This is a pleasant 58 years old male with past medical history of gastroesophageal reflux disease, pneumonia, pancreatic cancer diagnosed 7-8 months ago in [place] status post surgery and started chemotherapy on 03/22/2019. Chronic low back pain status post laminectomy on L4-L5/S1-S2. Patient presents because of 3-4 days duration of recurrent nausea vomiting and loose bowel movement, yesterday he had 3 loose bowel movements which were watery, since yesterday morning he has normal bowel movements. However he still have recurrent nausea vomiting including this morning and he could not eat. Patient was having symptoms of hypervolemia with low blood pressure, his blood pressure systolic was 109, where usually his blood pressure is 140-150/70-90 as per patient Also he had presyncope, passed out, feeling dizzy with postural symptoms. He states that his abdominal pain is at the same level he had that for the last 6-7 months with no notice recent worsening as per patient patient feels hungry and he wants liquid diet Vital signs stable. Patient is afebrile since admission. WBC is 73K, compared to 10 days ago was 12.3 K. Sodium 136, creatinine 0.6, liver enzymes slightly elevated with AST 61 and ALT 131, serial troponins are negative. Lipid profile left elevated. Chest x-ray showing pulmonary interstitial fibrosis and changes per Radiologist. EKG showing normal sinus rhythm at 92. In the emergency room patient was given fluids about 1.5 L and started on normal saline and 1 50 mL/h, also was started and aspirin. Hematology/oncology team was consulted From emergency room and as per staff Dr. Howell does not want antibiotics for now MAPS were checked and he is an [place] 5 mg and morphine sulfate 30 mg Review of Systems CONSTITUTIONAL: No fever, no malaise, no fatigue. HEENT: No recent visual problems or hearing problems. Denied any sore throat. CARDIOVASCULAR: No orthopnea, PND, no palpitations, no syncope. PULMONARY: No shortness of breath, no cough, no hemoptysis. GASTROINTESTINAL:Normoactive bowel sounds. NEUROLOGICAL: No headaches, no weakness, no numbness. HEMATOLOGICAL: Denies any bleeding or petechiae. GENITOURINARY: Denies any burning micturition, frequency, or urgency. MUSCULOSKELETAL/RHEUMATOLOGICAL: Denies any joint pain, swelling, or any muscle pain. ENDOCRINE: Denies any polyuria or polydipsia. Past Medical History Past Medical History: Cancer, GERD/Reflux, Pneumonia Additional Past Medical History / Comment(s): Pt states he was diagnosed with pancreatic cancer 7-8 months ago in [place]/had surgery in [place] and started chemo 03/22/19, EGD/colonoscopy dated 11/2018 states pt has duodenitis/antral gastritis/antral ulcer/colon and rectal polyp but pt does not recall this, nephrolithiasis, murmur. History of Any Multi-Drug Resistant Organisms: None Reported Past Surgical History: Back Surgery, Cholecystectomy, Orthopedic Surgery Additional Past Surgical History / Comment(s): Tail of pancreas removed along with spleen in [place], [facility], laminectomy L4-L5/S1-S2, lower back laser surgery to cut nerves, L knee arthroscopy-meniscal and ACL, L ankle reconstructive surgery x 3, R hand surgery d/t trauma, EGD/colonoscopy, lithostripsy. Past Anesthesia/Blood Transfusion Reactions: No Reported Reaction Additional Past Anesthesia/Blood Transfusion Reaction / Comment(s): Pt has received blood in past without reaction. Smoking Status: Former smoker - Past Family History Father History Unknown: Yes Additional Family Medical History / Comment(s): Pt does not know his father. Mother History Unknown: Yes Additional Family Medical History / Comment(s): Pt states he does not know mother's medical hx Medications and Allergies Home Medications Medication Instructions Recorded Confirmed Type HYDROcodone/APAP 5-325MG [[place] 1 tab PO TID PRN 03/27/19 03/27/19 History 5-325] Loperamide HCl [Imodium A-D] 2 mg PO Q8H PRN 03/27/19 03/27/19 History Lubiprostone [Amitiza] 24 mcg PO BID 03/27/19 03/27/19 History Morphine Sulfate ER [Ms Contin] 30 mg PO BID@0900,1200 03/27/19 03/27/19 History Morphine Sulfate ER [Ms Contin] 30 mg PO HS 03/27/19 03/27/19 History Prochlorperazine [Compazine] 10 mg PO TID PRN 03/27/19 03/27/19 History Allergies Allergy/AdvReac Type Severity Reaction Status Date / Time No Known Allergies Allergy Verified 03/27/19 16:34 Physical Exam Vitals: Vital Signs Temp Pulse Pulse Resp BP BP Pulse Ox 03/28/19 08:00 98.4 F 82 18 138/82 97 03/28/19 05:35 74 18 118/65 96 03/27/19 22:00 70 18 125/70 96 03/27/19 20:00 90 16 130/83 97 03/27/19 16:05 105 H 18 112/79 97 03/27/19 15:38 98.6 F 120 H 18 103/70 99 Intake and Output 03/27/19 03/28/19 03/28/19 22:59 06:59 14:59 Other: Voiding Method Urinal Weight 92.079 kg 92.079 kg GENERAL: The patient is alert and oriented x3, not in any acute distress. Well developed, well nourished. -HEENT: Pupils are round and equally reacting to light. EOMI. No scleral icterus. No conjunctival pallor. Normocephalic, atraumatic. No pharyngeal er ythema. No thyromegaly. Dry mucous membranes CARDIOVASCULAR: S1 and S2 present. No murmurs, rubs, or gallops. PULMONARY: Chest is clear to auscultation, no wheezing or crackles. -ABDOMEN: Soft, right lower quadrant tenderness, with no rebound tenderness or guarding (chronic since he had pancreatic cancer about 6 months ago as per patient) , nondistended, normoactive bowel sounds. No palpable organomegaly. MUSCULOSKELETAL: No joint swelling or deformity. EXTREMITIES: No cyanosis, clubbing, or pedal edema. NEUROLOGICAL: Gross neurological examination did not reveal any focal deficits. SKIN: No rashes. No petechiae Results CBC & Chem 7: 03/27/19 16:02 03/27/19 16:02 Labs: Abnormal Lab Results - Last 24 Hours (Table) 03/27/19 03/27/19 03/27/19 Range/Units 16:02 16:02 19:00 WBC 73.8 H* (3.8-10.6) k/uL Neutrophils # 70.0 H (1.3-7.7) k/uL Sodium 136 L (137-145) mmol/L Carbon Dioxide 20 L (22-30) mmol/L BUN 24 H (9-20) mg/dL Creatinine 0.61 L (0.66-1.25) mg/dL Glucose 108 H (74-99) mg/dL AST 61 H (17-59) U/L ALT 131 H (4-49) U/L Alkaline Phosphatase 139 H (38-126) U/L HDL Cholesterol (40-60) mg/dL Urine Protein Trace H (Negative) Urine Ketones 1+ H (Negative) Urine Blood Small H (Negative) Urine RBC 35 H (0-5) /hpf Calcium Oxalate Crystal Few H (None) /hpf Urine Mucus Few H (None) /hpf 03/28/19 Range/Units 04:01 WBC (3.8-10.6) k/uL Neutrophils # (1.3-7.7) k/uL Sodium (137-145) mmol/L Carbon Dioxide (22-30) mmol/L BUN (9-20) mg/dL Creatinine (0.66-1.25) mg/dL Glucose (74-99) mg/dL AST (17-59) U/L ALT (4-49) U/L Alkaline Phosphatase (38-126) U/L HDL Cholesterol 35 L (40-60) mg/dL Urine Protein (Negative) Urine Ketones (Negative) Urine Blood (Negative) Urine RBC (0-5) /hpf Calcium Oxalate Crystal (None) /hpf Urine Mucus (None) /hpf Thrombosis Risk Factor Assmnt - Choose All That Apply Any of the Below Risk Factors Present?: Yes Each Factor Represents 1 point: Age 41-60 years, Obesity (BMI >25) Other Risk Factors: Yes Each Risk Factor Represents 2 Points: Malignancy Other congenital or acquired thrombophilia - If yes, enter type in comment: No Thrombosis Risk Factor Assessment Total Risk Factor Score: 4 Thrombosis Risk Factor Assessment Level: Moderate Risk Assessment and Plan Assessment: Recurrent nausea and vomiting, with diarrhea suspicious for gastroenteritis versus others worsening Leukocytosis Dehydration Recent history of pancreatic cancer about 7-8 months ago status post surgery and chemotherapy started on 03/22/2019 Chronic low back pain status post laminectomy on L4-L5/S1-S2 Gastroesophageal reflux disease Recent history of colitis Peptic ulcer disease with duodenitis/gastritis on recent EGD done on 11/2018 History of nephrolithiasis , Nonobstructing 4.7 mm left renal stone. No evid ence of hydronephrosis. History of pneumonia Plan: This is a pleasant 58 years old male who presents with worsening leukocytosis. Follow-up recommendation by hematology/oncology team. Pain management.We'll do abdominal x-ray . Continue with IV hydration Labs and medication were reviewed.. Continue same treatment. Continue with symptomatic treatment. Resume home medication. Monitor lytes and vitals. DVT and GI prophylaxis. Further recommendations of the clinical course of the patient DVT prophylaxis: Subcutaneous heparin GI Prophylaxis: Pepcid PT/OT: Pending Prognosis is guarded
--- NOTE | 2019-03-28 12:30 | XR ---
2 view abdomen HISTORY: Recurrent nausea and vomiting 2 views the abdomen on 3 images correlated to prior CT 03/17/2019, prior KUB 11/28/2018 Surgical clips are present right upper quadrant. There are multiple air-fluid levels without bowel di stention. Lung bases are clear. There are overlying cardiac leads. No evident pneumoperitoneum. Thora cic and lumbar spondylosis is present. Probable vascular calcifications within the pelvis. Left adren al calcification is present. There are overlying cardiac leads. IMPRESSION: Correlate for enteritis, ileus, follow-up as indicated.
[2019-03-28] MEDS: metroNIDAZOLE-NS PMX 500 MG in SALINE 1 100ML.BAG IVPB SCH (19:29)
[2019-03-28] MEDS ORDERED: FAMOTIDINE 20 MG/2 ML VIAL IV SCH (21:00)
[2019-03-28] MEDS: HEPARIN SODIUM,PORCINE 5,000 UNIT/ML 1 ML VIAL SQ SCH (22:05)
[2019-03-28] MEDS: FAMOTIDINE 20 MG TAB PO SCH (22:06)
[2019-03-29] MEDS: metroNIDAZOLE-NS PMX 500 MG in SALINE 1 100ML.BAG IVPB SCH ×4 (00:43→23:40)
[2019-03-29] MEDS: SODIUM CHLORIDE 0.9% 1,000 ML IV SCH ×3 (06:54→23:41)
[2019-03-29 08:09] LABS: Basophils # (A) 0.1 k/uL (0-0.2); Basophils % (A) 0 %; Eosinophils # (A) 0.6 k/uL (0-0.7); Eosinophils % (A) 2 %; HCT 37.9 % (39.0-53.0); HGB 12.2 gm/dL (13.0-17.5); Lymphocytes % (A) 10 %; MCH 27.8 pg (25.0-35.0); MCHC 32.1 g/dL (31.0-37.0); MCV 86.4 fL (80.0-100.0); Mean Platelet Volume 10.4; Monocytes # (A) 0.6 k/uL (0-1.0); Monocytes % (A) 2 %; Neutrophils # (A) 24.7 k/uL (1.3-7.7); Neutrophils % (A) 85 %; Platelet Count 205 k/uL (150-450); RBC 4.38 m/uL (4.30-5.90); RDW 13.6 % (11.5-15.5); WBC 29.2 k/uL (3.8-10.6)
--- NOTE | 2019-03-29 08:11 | P.PN ---
Subjective This is a pleasant 58 years old male with past medical history of gastroesophageal reflux disease, pneumonia, pancreatic cancer diagnosed 7-8 months ago in [place] status post surgery and started chemotherapy on 03/22/2019. Chronic low back pain status post laminectomy on L4-L5/S1-S2. Patient presents because of 3-4 days duration of recurrent nausea vomiting and loose bowel movement, yesterday he had 3 loose bowel movements which were wate ry, since yesterday morning he has normal bowel movements. However he still have recurrent nausea vomiting including this morning and he could not eat. Patient was having symptoms of hypervolemia with low blood pressure, his blood pressure systolic was 109, where usually his blood pressure is 140-150/70-90 as per patient Also he had presyncope, passed out, feeling dizzy with postural symptoms. He states that his abdominal pain is at the same level he had that for the last 6-7 months with no notice recent worsening as per patient patient feels hungry and he wants liquid diet Vital signs stable. Patient is afebrile since admission. WBC is 73K, compared to 10 days ago was 12.3 K. Sodium 136, creatinine 0.6, liver enzymes slightly elevated with AST 61 and ALT 131, serial troponins are negative. Lipid profile left elevated. Chest x-ray showing pulmonary interstitial fibrosis and changes per Radiologist. EKG showing normal sinus rhythm at 92. In the emergency room patient was given fluids about 1.5 L and started on normal saline and 1 50 mL/h, also was started and aspirin. Hematology/oncology team was consulted From emergency room and as per staff Dr. Howell does not want antibiotics for now MAPS were checked and he is an [place] 5 mg and morphine sulfate 30 mg 03/29/2019 Patient feels better, he feels hungry, his nausea is better and he is not vomiting anymore. He still hadn't area when he had 1 watery bowel movements since yesterday. However patient wants his diet to be advanced from liquids to soft. He denies abdominal pain today. Vitals are stable. Labs are pending C. diff came back negative. Stool culture and see are pending. Patient was started on antibiotics for possible enteritis versus ileus. Surgical team consulted. Continue with Rocephin and Flagyl and lower IV fluids to 75 mL/h. Review of Systems Review of systems CONSTITUTIONAL: No fever, no malaise, no fatigue. HEENT: No recent visual problems or hearing problems. Denied any sore throat. CARDIOVASCULAR: No orthopnea, PND, no palpitations, no syncope. PULMONARY: No shortness of breath, no cough, no hemoptysis. GASTROINTESTINAL:Normoactive bowel sounds. NEUROLOGICAL: No headaches, no weakness, no numbness. HEMATOLOGICAL: Denies any bleeding or petechiae. GENITOURINARY: Denies any burning micturition, frequency, or urgency. MUSCULOSKELETAL/RHEUMATOLOGICAL: Denies any joint pain, swelling, or any muscle pain. ENDOCRINE: Denies any polyuria or polydipsia. Objective - Vital Signs Vital signs: Vital Signs Temp 98.1 F 03/29/19 05:42 Pulse 62 03/29/19 05:42 Resp 18 03/29/19 05:42 BP 112/63 03/29/19 05:42 Pulse Ox 97 03/29/19 05:42 Intake & Output 03/28/19 03/29/19 03/29/19 18:59 06:59 18:59 Intake Total 1700 Balance 1700 Weight 92.079 kg 91.5 kg Intake: Intake, IV Titration 1700 Amount Sodium Chloride 0.9% 1, 1500 000 ml @ 150 mls/hr IV . Q6H40M [facility] Rx#:[id number] metroNIDAZOLE-NS PMX 500 200 mg In Saline 1 100ml.bag @ 100 mls/hr IVPB Q8HR [facility] Rx#:[id number] Other: Voiding Method Urinal Urinal # Voids 1 - Exam GENERAL: The patient is alert and oriented x3, not in any acute distress. Well developed, well nourished. HEENT: Pupils are round and equally reacting to light. EOMI. No scleral icterus. No conjunctival pallor. Normocephalic, atraumatic. No pharyngeal erythema. No thyromegaly. CARDIOVASCULAR: S1 and S2 present. No murmurs, rubs, or gallops. PULMONARY: Chest is clear to auscultation, no wheezing or crackles. -ABDOMEN: Soft, right lower quadrant tenderness, with no rebound tenderness or guarding (chronic since he had pancreatic cancer about 6 months ago as per patient) , nondistended, normoactive bowel sounds. No palpable organomegaly. MUSCULOSKELETAL: No joint swelling or deformity. EXTREMITIES: No cyanosis, clubbing, or pedal edema. NEUROLOGICAL: Gross neurological examination did not reveal any focal deficits. SKIN: No rashes. No petechiae - Labs CBC & Chem 7: 03/27/19 16:02 03/27/19 16:02 Labs: Microbiology - Last 24 Hours (Table) 03/28/19 19:15 Stool Culture - Preliminary Stool 03/27/19 19:09 Blood Culture - Preliminary Blood No Growth after 24 hours Assessment and Plan Assessment: Recurrent nausea and vomiting, with diarrhea suspicious for gastroenteritis versus others Acute Gastroenteritis versus ileus worsening Leukocytosis Dehydration Recent history of pancreatic cancer about 7-8 months ago status post surgery and chemotherapy started on 03/22/2019 Chronic low back pain status post laminectomy on L4-L5/S1-S2 Gastroesophageal reflux disease Recent history of colitis Peptic ulcer disease with duodenitis/gastritis on recent EGD done on 11/2018 History of nephrolithiasis , Nonobstructing 4.7 mm left renal stone. No evidence of hydronephrosis. History of pneumonia Plan: This is a pleasant 58 years old male who presents with worsening leukocytosis. Follow-up recommendation by hematology/oncology team. Pain management.. Continue with IV hydration Labs and medication were reviewed.. Continue same treatment. Continue with symptomatic treatment. Resume home medication. Monitor lytes and vitals. DVT and GI prophylaxis. Further recommendations of the clinical course of the patient DVT prophylaxis: Subcutaneous heparin GI Prophylaxis: Pepcid PT/OT: Pending Prognosis is guarded
[2019-03-29] MEDS: HEPARIN SODIUM,PORCINE 5,000 UNIT/ML 1 ML VIAL SQ SCH ×2 (08:19→21:30)
[2019-03-29] MEDS: ASPIRIN 325 MG TAB PO SCH (08:19)
[2019-03-29] MEDS: FAMOTIDINE 20 MG TAB PO SCH ×2 (08:19→21:29)
[2019-03-29 08:37] LABS: ALT 81 U/L (4-49); AST 40 U/L (17-59); African American GFR (CKD) >90 (>60 ml/min/1.73 sqM); Albumin 2.9 g/dL (3.5-5.0); Alkaline Phosphatase 156 U/L (38-126); Anion Gap 6 mmol/L; Blood Urea Nitrogen 11 mg/dL (9-20); Calcium 8.7 mg/dL (8.4-10.2); Carbon Dioxide 23 mmol/L (22-30); Chloride 107 mmol/L (98-107); Glucose 72 mg/dL (74-99); Non-African American GFR(CKD) >90 (>60 ml/min/1.73 sqM); Sodium 136 mmol/L (137-145); Total Bilirubin 0.6 mg/dL (0.2-1.3); Total Protein 5.3 g/dL (6.3-8.2)
[2019-03-29 08:38] LABS: Potassium 3.8 mmol/L (3.5-5.1)
[2019-03-29] MEDS: ONDANSETRON 4 MG/2 ML VIAL IVP PRN ×2 (09:14→15:10)
--- NOTE | 2019-03-29 11:01 | P.GSCN ---
History of Present Illness Consult date: 03/29/19 Reason for Consult: ileus Requesting physician: Dario E Sheet History of present illness: CHIEF COMPLAINT: Ileus HISTORY OF PRESENT ILLNESS: This is a 58 year old male with a history of pancreatic cancer who completed his first round of chemotherapy on 03/22/2019. Patient developed nausea and an episode of vomiting yesterday. He had an abdominal x-ray completed yesterday revealing multiple air-fluid levels without bowel distention. Impression revealed correlate for enteritis or ileus. General surgery was consulted for evaluation. Patient examined this morning at the bedside. Patient denies abdominal pain. Denies further episodes of vomiting this morning. He is passing flatus and had a BM. He has been tolerating liquids. PAST MEDICAL HISTORY: See list. PAST SURGICAL HISTORY: See list. SOCIAL HISTORY: No illicit drug use. REVIEW OF SYSTEMS: CONSTITUTIONAL: Denies fever or chills. HEENT: Denies blurred vision, vision changes, or eye pain. Denies hemoptysis CARDIOVASCULAR: Denies chest pain or pressure. RESPIRATORY: No shortness of breath. GASTROINTESTINAL: Refer to [facility] for pertinent findings HEMATOLOGIC: Denies bleeding disorders. GENITOURINARY: Denies any blood in urine. SKIN: Denies pruitis. Denies rash. PHYSICAL EXAM: VITAL SIGNS: Reviewed. GENERAL: Well-developed in no acute distress. HEENT: No sclera icterus. Extraocular movements grossly intact. Moist buccal mucosa. Head is atraumatic, normocephalic. ABDOMEN: Soft. Nondistended. Nontender. NEUROLOGIC: Alert and oriented. Cranial nerves II through XII grossly intact. LABORATORY DATA: WBC 29.2. Hemoglobin 12.2. Platelet count 205. Potassium 3.8. BUN 11. Creatinine 0.50. IMAGING: Abdominal x-ray completed yesterday revealing multiple air-fluid levels without bowel distention. Impression revealed correlate for enteritis or ileus. ASSESSMENT: 1. Nausea and vomiting, resolved 2. Possible ileus versus enteritis per abdominal xray PLAN: Patients symptoms have resolved at the time of examination. He is requesting to have his diet advanced, which surgical team is agreeable to. Continue with supportive measures. No surgical intervention recommended. Nurse practitioner note has been reviewed by physician. Signing provider agrees with the documented findings, assessment, and plan of care. Past Medical History Past Medical History: Cancer, GERD/Reflux, Pneumonia Additional Past Medical History / Comment(s): Pt states he was diagnosed with pancreatic cancer 7-8 months ago in [place]/had surgery in [place] and started chemo 03/22/19, EGD/colonoscopy dated 11/2018 states pt has duodenitis/antral gastritis/antral ulcer/colon and rectal polyp but pt does not recall this, nephrolithiasis, murmur. History of Any Multi-Drug Resistant Organisms: None Reported Past Surgical History: Back Surgery, Cholecystectomy, Orthopedic Surgery Additional Past Surgical History / Comment(s): Tail of pancreas removed along with spleen in [place], [facility], laminectomy L4-L5/S1-S2, lower back laser surgery to cut nerves, L knee arthroscopy-meniscal and ACL, L ankle r econstructive surgery x 3, R hand surgery d/t trauma, EGD/colonoscopy, lithostripsy. Past Anesthesia/Blood Transfusion Reactions: No Reported Reaction Additional Past Anesthesia/Blood Transfusion Reaction / Comm: Pt has received blood in past without reaction. Smoking Status: Former smoker - Past Family History Father History Unknown: Yes Additional Family Medical History / Comment(s): Pt does not know his father. Mother History Unknown: Yes Additional Family Medical History / Comment(s): Pt states he does not know mother's medical hx Medications and Allergies Home Medications Medication Instructions Recorded Confirmed Type HYDROcodone/APAP 5-325MG [[place] 1 tab PO TID PRN 03/27/19 03/27/19 History 5-325] Loperamide HCl [Imodium A-D] 2 mg PO Q8H PRN 03/27/19 03/27/19 History Lubiprostone [Amitiza] 24 mcg PO BID 03/27/19 03/27/19 History Morphine Sulfate ER [Ms Contin] 30 mg PO BID@0900,1200 03/27/19 03/27/19 History Morphine Sulfate ER [Ms Contin] 30 mg PO HS 03/27/19 03/27/19 History Prochlorperazine [Compazine] 10 mg PO TID PRN 03/27/19 03/27/19 History Allergies Allergy/AdvReac Type Severity Reaction Status Date / Time No Known Allergies Allergy Verified 03/27/19 16:34 Surgical - Exam Vital Signs Temp Pulse Resp BP Pulse Ox 98.6 F 120 H 18 103/70 99 03/27/19 15:38 03/27/19 15:38 03/27/19 15:38 03/27/19 15:38 03/27/19 15:38 Results - Labs 03/29/19 07:23 03/29/19 07:23 Abnormal Lab Results - Last 24 Hours (Table) 03/29/19 03/29/19 Range/Units 07:23 07:23 WBC 29.2 H (3.8-10.6) k/uL Hgb 12.2 L (13.0-17.5) gm/dL Hct 37.9 L (39.0-53.0) % Neutrophils # 24.7 H (1.3-7.7) k/uL Sodium 136 L (137-145) mmol/L Creatinine 0.50 L (0.66-1.25) mg/dL Glucose 72 L (74-99) mg/dL ALT 81 H (4-49) U/L Alkaline Phosphatase 156 H (38-126) U/L Total Protein 5.3 L (6.3-8.2) g/dL Albumin 2.9 L (3.5-5.0) g/dL Microbiology - Last 24 Hours (Table) 03/28/19 19:15 Stool Culture - Preliminary Stool 03/27/19 19:09 Blood Culture - Preliminary Blood No Growth after 24 hours Diabetes panel 03/29/19 Range/Units 07:23 Sodium 136 L (137-145) mmol/L Potassium 3.8 (3.5-5.1) mmol/L Chloride 107 (98-107) mmol/L Carbon Dioxide 23 (22-30) mmol/L BUN 11 (9-20) mg/dL Creatinine 0.50 L (0.66-1.25) mg/dL Glucose 72 L (74-99) mg/dL Calcium 8.7 (8.4-10.2) mg/dL AST 40 (17-59) U/L ALT 81 H (4-49) U/L Alkaline Phosphatase 156 H (38-126) U/L Total Protein 5.3 L (6.3-8.2) g/dL Albumin 2.9 L (3.5-5.0) g/dL Calcium panel 03/29/19 Range/Units 07:23 Calcium 8.7 (8.4-10.2) mg/dL Albumin 2.9 L (3.5-5.0) g/dL Pituitary panel 03/29/19 Range/Units 07:23 Sodium 136 L (137-145) mmol/L Potassium 3.8 (3.5-5.1) mmol/L Chloride 107 (98-107) mmol/L Carbon Dioxide 23 (22-30) mmol/L BUN 11 (9-20) mg/dL Creatinine 0.50 L (0.66-1.25) mg/dL Glucose 72 L (74-99) mg/dL Calcium 8.7 (8.4-10.2) mg/dL Adrenal panel 03/29/19 Range/Units 07:23 Sodium 136 L (137-145) mmol/L Potassium 3.8 (3.5-5.1) mmol/L Chloride 107 (98-107) mmol/L Carbon Dioxide 23 (22-30) mmol/L BUN 11 (9-20) mg/dL Creatinine 0.50 L (0.66-1.25) mg/dL Glucose 72 L (74-99) mg/dL Calcium 8.7 (8.4-10.2) mg/dL Total Bilirubin 0.6 (0.2-1.3) mg/dL AST 40 (17-59) U/L ALT 81 H (4-49) U/L Alkaline Phosphatase 156 H (38-126) U/L Total Protein 5.3 L (6.3-8.2) g/dL Albumin 2.9 L (3.5-5.0) g/dL
[2019-03-29] MEDS: METOCLOPRAMIDE 5 MG/ML 2 ML VIAL IVP PRN ×2 (11:59→18:00)
[2019-03-29 13:17] VITALS: BMI 30.7
[2019-03-29] MEDS ORDERED: diphenhydrAMINE 50 MG/ML 1 ML VIAL IVP STA (18:26)
--- NOTE | 2019-03-29 18:31 | P.CONS ---
History of Present Illness - Reason for Consult Consult date: 03/29/19 pancreatic adenocarcinoma, leukocytosis Requesting physician: Tunde Murphy - Chief Complaint syncopy, head trauma - History of Present Illness Mr Jovel is a very pleasant 58-year-old male patient of Dr. Pascal who was first seen inpatient at [facility] on 02/04/2019. Patient was admitted at that time for urosepsis related to nephrolithiasis. Continued to have abdominal pain and in November 2018 at [facility] he had a CT of the abdomen which reported mild hepatosplenomegaly. EGD/colonoscopy were unremarkable. Patient then moved to [place]. December 2018, In [place], had a repeat CT of the abdomen showing an ill-defined mass in the body of the pancreas, MRI confirmed. On 12/29/18 he had a core biopsy, positive for adenocarcinoma. On 01/03/2019 he had a distal pancreatectomy with splenectomy, pathology revealed adenocarcinoma infiltrating the surrounding peripancreatic soft tissues and directly invading into 2 of 9 peripancreatic nodes, closely approaching serosal surface, extension to multiple cut surfaces, distal and proximal margins were negative, perineural invasion was positive, tumor measured 7.1 cm. He relocated to [place] in January/2019. Repeat CT AP 02/25/19 which revealed cystic lesion in the body of pancreas. He was seen by Dr. Pascal 03/01/19. Dr. Pascal discussed with him that he was a very high risk for systemic and local recurrence of disease. Adjuvant therapy, risk reduction, different treatments were reviewed. Adjuvant mFOLFIRINOX with Neulasta was decided upon, Radiation to be added after 6-8 cycles. Pt had his first cycle last week. Patient states that after treatment he had progressive nausea, vomiting, diarrhea, he was using antiemetics twice a day, he ultimately ended up with dizziness and syncope secondary to dehydration, hitting his head. Since admission patient feels he is doing better, we reviewed symptom management versus dose reduction for future treatments. Review of Systems 14 point review of systems is negative except as stated in HPI Past Medical History Past Medical History: Cancer, GERD/Reflux, Pneumonia Additional Past Medical History / Comment(s): Pt states he was diagnosed with pancreatic cancer 7-8 months ago in [place]/had surgery in [place] and started chemo 03/22/19, EGD/colonoscopy dated 11/2018 states pt has duodenitis/antral gastritis/antral ulcer/colon and rectal polyp but pt does not recall this, nephrolithiasis, murmur. History of Any Multi-Drug Resistant Organisms: None Reported Past Surgical History: Back Surgery, Cholecystectomy, Orthopedic Surgery Additional Past Surgical History / Comment(s): Tail of pancreas removed along with spleen in [place], [facility], laminectomy L4-L5/S1-S2, lower back laser surgery to cut nerves, L knee arthroscopy-meniscal and ACL, L ankle reconstructive surgery x 3, R hand surgery d/t trauma, EGD/colonoscopy, lithostripsy. Past Anesthesia/Blood Transfusion Reactions: No Reported Reaction Additional Past Anesthesia/Blood Transfusion Reaction / Comm: Pt has received blood in past without reaction. Smoking Status: Former smoker - Past Family History Father History Unknown: Yes Additional Family Medical History / Comment(s): Pt does not know his father. Mother History Unknown: Yes Additional Family Medical History / Comment(s): Pt states he does not know mother's medical hx Medications and Allergies Home Medications Medication Instructions Recorded Confirmed Type HYDROcodone/APAP 5-325MG [Cuero 1 tab PO TID PRN 03/27/19 03/27/19 History 5-325] Loperamide HCl [Imodium A-D] 2 mg PO Q8H PRN 03/27/19 03/27/19 History Lubiprostone [Amitiza] 24 mcg PO BID 03/27/19 03/27/19 History Morphine Sulfate ER [Ms Contin] 30 mg PO BID@0900,1200 03/27/19 03/27/19 History Morphine Sulfate ER [Ms Contin] 30 mg PO HS 03/27/19 03/27/19 History Prochlorperazine [Compazine] 10 mg PO TID PRN 03/27/19 03/27/19 History Allergies Allergy/AdvReac Type Severity Reaction Status Date / Time No Known Allergies Allergy Verified 03/27/19 16:34 Physical Exam Vitals: Vital Signs Temp Pulse Resp BP Pulse Ox 03/29/19 11:54 98.2 F 63 17 123/75 97 03/29/19 05:42 98.1 F 62 18 112/63 97 03/28/19 21:31 98.2 F 68 18 141/81 97 Intake and Output 03/29/19 03/29/1903/29/20 06:59 14:59 22:59 Intake Total 1700 600 Balance 1700 600 Intake: Intake, IV Titration 1700 600 Amount Sodium Chloride 0.9% 1, 1500 600 000 ml @ 75 mls/hr IV . [id number] [facility] Rx#:[id number] metroNIDAZOLE-NS PMX 500 200 mg In Saline 1 100ml.bag @ 100 mls/hr IVPB Q8HR [facility] Rx#:[id number] Other: Voiding Method Urinal Weight 91.5 kg 91.5 kg - Constitutional General appearance: average body habitus, cooperative, no acute distress - EENT Eyes: anicteric sclerae, EOMI ENT: hearing grossly normal, normal oropharynx - Neck Neck: no lymphadenopathy - Respiratory Respiratory: bilateral: CTA - Cardiovascular Rhythm: regular Heart sounds: normal: S1, S2 Abnormal Heart Sounds: no systolic murmur, no diastolic murmur, no rub, no S3 Gallop, no S4 Gallop, no click, no other leg Peripheral Edema: bilateral: None - Gastrointestinal General gastrointestinal: no absent bowel sounds, no decreased bowel sounds, no distended, no hepatomegaly, no hyperactive bowel sounds, normal bowel sounds, no organomegaly, no rigid, no scaphoid, soft, no splenomegaly, no tenderness, no umbilical hernia, no ventral hernia - Integumentary Integumentary: normal - Neurologic Neurologic: CNII-XII intact - Musculoskeletal Musculoskeletal: strength equal bilaterally - Psychiatric Psychiatric: A&O x's 3, appropriate affect, intact judgment & insight Results CBC & Chem 7: 03/29/19 07:23 03/29/19 07:23 Labs: Abnormal Lab Results - Last 24 Hours (Table) 03/28/19 03/29/19 03/29/19 Range/Units 19:15 07:23 07:23 WBC 29.2 H (3.8-10.6) k/uL Hgb 12.2 L (13.0-17.5) gm/dL Hct 37.9 L (39.0-53.0) % Neutrophils # 24.7 H (1.3-7.7) k/uL Sodium 136 L (137-145) mmol/L Creatinine 0.50 L (0.66-1.25) mg/dL Glucose 72 L (74-99) mg/dL ALT 81 H (4-49) U/L Alkaline Phosphatase 156 H (38-126) U/L Total Protein 5.3 L (6.3-8.2) g/dL Albumin 2.9 L (3.5-5.0) g/dL Stool Lactoferrin POSITIVE H (NEGATIVE) Microbiology - Last 24 Hours (Table) 03/28/19 19:15 Stool Culture - Preliminary Stool 03/27/19 19:09 Blood Culture - Preliminary Blood No Growth after 24 hours Chest x-ray: report reviewed Abdominal x-ray: report reviewed Assessment and Plan (1) Leukocytosis Narrative/Plan: Secondary to G-CSF administration. White blood cell count has come down signif icantly since, admission increase is all neutrophils. Patient is on antibiotics. No acute intervention is needed at this time. Current Visit: Yes Status: Acute Priority: Low Code(s): D72.829 - ELEVATED WHITE BLOOD CELL COUNT, UNSPECIFIED SNOMED Code(s): 639290463 (2) Nausea & vomiting Current Visit: Yes Status: Acute Priority: High Code(s): R11.2 - NAUSEA WITH VOMITING, UNSPECIFIED SNOMED Code(s): 62376707 (3) Diarrhea Current Visit: Yes Status: Acute Priority: High Code(s): R19.7 - DIARRHEA, UNSPECIFIED SNOMED Code(s): 93735381 (4) Dehydration Current Visit: Yes Status: Acute Priority: High Code(s): E86.0 - DEHYDRATION SNOMED Code(s): 81142504 (5) History of pancreatic cancer Narrative/Plan: Patient is on adjuvant treatment. This is to reduce his risk of recurrence. I discussed with patient side effects and side effect management. I mentioned dose reducing of chemo to reduce side effects, patient is opting for better side effect management. We reviewed appropriate use of anti-emetics, maximum doses, and antidiarrheals. Nutrition and hydration recommendations-need to be reinforced. Patient did verbalize understanding. Erx anti-emetic. Plan is to keep patient on time with treatment. Current Visit: No Status: Chronic Priority: Medium Code(s): Z85.07 - PERSONAL HISTORY OF MALIGNANT NEOPLASM OF PANCREAS SNOMED Code(s): 22343372776667 Plan: Agree wit hydration and symptom management, pt is doing well with the same. Pt is ok from Hem/Onc to be discharged once cleared by Attending and Consulting Physicians
[2019-03-30 07:37] LABS: Basophils # (A) 0.1 k/uL (0-0.2); Basophils % (A) 1 %; Eosinophils # (A) 0.3 k/uL (0-0.7); Eosinophils % (A) 2 %; HCT 38.7 % (39.0-53.0); HGB 13.1 gm/dL (13.0-17.5); Lymphocytes # (A) 2.9 k/uL (1.0-4.8); Lymphocytes % (A) 19 %; MCH 28.6 pg (25.0-35.0); MCHC 33.8 g/dL (31.0-37.0); MCV 84.7 fL (80.0-100.0); Mean Platelet Volume 10.1; Monocytes # (A) 0.5 k/uL (0-1.0); Monocytes % (A) 4 %; Neutrophils # (A) 11.1 k/uL (1.3-7.7); Neutrophils % (A) 73 %; Platelet Count 275 k/uL (150-450); RBC 4.57 m/uL (4.30-5.90); RDW 13.4 % (11.5-15.5); WBC 15.1 k/uL (3.8-10.6)
--- NOTE | 2019-03-30 07:42 | P.PN ---
Subjective This is a pleasant 58 years old male with past medical history of gastroesophageal reflux disease, pneumonia, pancreatic cancer diagnosed 7-8 months ago in [place] status post surgery and started chemotherapy on 03/22/2019. Chronic low back pain status post laminectomy on L4-L5/S1-S2. Patient presents because of 3-4 days duration of recurrent nausea vomiting and loose bowel movement, yesterday he had 3 loose bowel movements which were wate ry, since yesterday morning he has normal bowel movements. However he still have recurrent nausea vomiting including this morning and he could not eat. Patient was having symptoms of hypervolemia with low blood pressure, his blood pressure systolic was 109, where usually his blood pressure is 140-150/70-90 as per patient Also he had presyncope, passed out, feeling dizzy with postural symptoms. He states that his abdominal pain is at the same level he had that for the last 6-7 months with no notice recent worsening as per patient patient feels hungry and he wants liquid diet Vital signs stable. Patient is afebrile since admission. WBC is 73K, compared to 10 days ago was 12.3 K. Sodium 136, creatinine 0.6, liver enzymes slightly elevated with AST 61 and ALT 131, serial troponins are negative. Lipid profile left elevated. Chest x-ray showing pulmonary interstitial fibrosis and changes per Radiologist. EKG showing normal sinus rhythm at 92. In the emergency room patient was given fluids about 1.5 L and started on normal saline and 1 50 mL/h, also was started and aspirin. Hematology/oncology team was consulted From emergency room and as per staff Dr. Howell does not want antibiotics for now MAPS were checked and he is an Chambers 5 mg and morphine sulfate 30 mg 03/29/2019 Patient feels better, he feels hungry, his nausea is better and he is not vomiting anymore. He still hadn't area when he had 1 watery bowel movements since yesterday. However patient wants his diet to be advanced from liquids to soft. He denies abdominal pain today. Vitals are stable. Labs are pending C. diff came back negative. Stool culture and see are pending. Patient was started on antibiotics for possible enteritis versus ileus. Surgical team consulted. Continue with Rocephin and Flagyl and lower IV fluids to 75 mL/h. 03/30/2019 Patient inserted diet was advanced, however he could not tolerated and he started vomiting last night. No more vomiting this morning. Patient was placed back on liquid diet and is going to be advanced gradually as tolerated. Patient has chronic diarrhea for 3 months which is stable and controlled with oral hydration as per patient, patient was instructed to follow up with PCP and ABEL upon discharge and he agrees. His WBC is coming down significantly 15.1 K this morning , with antibiotics and stoping his colony-stimulating factor, as to test was positive for WBC with just indicative for possible gastroenteritis. Continue with ceftriaxone and Flagyl for now, continue with IV fluids C. diff negative Possible discharge in 24-48 hours if Patient keep improving Objective - Vital Signs Vital signs: Vital Signs Temp 98.6 F 03/30/19 05:11 Pulse 77 03/30/19 05:11 Resp 16 03/30/19 05:11 BP 129/76 03/30/19 05:11 Pulse Ox 97 03/30/19 05:11 Intake & Output 03/29/19 03/30/19 03/30/19 18:59 06:59 18:59 Intake Total 600 1395 Balance 600 1395 Weight 91.5 kg 90.5 kg Intake: Intake, IV Titration 600 975 Amount Sodium Chloride 0.9% 1, 600 775 000 ml @ 75 mls/hr IV . [id number] [facility] Rx#:[id number] metroNIDAZOLE-NS PMX 500 200 mg In Saline 1 100ml.bag @ 100 mls/hr IVPB Q8HR [facility] Rx#:[id number] Oral 420 Other: Voiding Method Urinal # Voids 2 - Exam GENERAL: The patient is alert and oriented x3, not in any acute distress. Well developed, well nourished. HEENT: Pupils are round and equally reacting to light. EOMI. No scleral icterus. No conjunctival pallor. Normocephalic, atraumatic. No pharyngeal erythema. No thyromegaly. CARDIOVASCULAR: S1 and S2 present. No murmurs, rubs, or gallops. PULMONARY: Chest is clear to auscultation, no wheezing or crackles. -ABDOMEN: Soft, right lower quadrant tenderness, with no rebound tenderness or guarding (chronic since he had pancreatic cancer about 6 months ago as per sussy cain) , nondistended, normoactive bowel sounds. No palpable organomegaly. MUSCULOSKELETAL: No joint swelling or deformity. EXTREMITIES: No cyanosis, clubbing, or pedal edema. NEUROLOGICAL: Gross neurological examination did not reveal any focal deficits. SKIN: No rashes. No petechiae - Labs CBC & Chem 7: 03/30/19 06:58 03/29/19 07:23 Labs: Abnormal Lab Results - Last 24 Hours (Table) 03/28/19 03/29/19 03/29/19 Range/Units 19:15 07:23 07:23 WBC 29.2 H (3.8-10.6) k/uL Hgb 12.2 L (13.0-17.5) gm/dL Hct 37.9 L (39.0-53.0) % Neutrophils # 24.7 H (1.3-7.7) k/uL Sodium 136 L (137-145) mmol/L Creatinine 0.50 L (0.66-1.25) mg/dL Glucose 72 L (74-99) mg/dL ALT 81 H (4-49) U/L Alkaline Phosphatase 156 H (38-126) U/L Total Protein 5.3 L (6.3-8.2) g/dL Albumin 2.9 L (3.5-5.0) g/dL Stool Lactoferrin POSITIVE H (NEGATIVE) 03/30/19 Range/Units 06:58 WBC 15.1 H (3.8-10.6) k/uL Hgb (13.0-17.5) gm/dL Hct 38.7 L (39.0-53.0) % Neutrophils # 11.1 H (1.3-7.7) k/uL Sodium (137-145) mmol/L Creatinine (0.66-1.25) mg/dL Glucose (74-99) mg/dL ALT (4-49) U/L Alkaline Phosphatase (38-126) U/L Total Protein (6.3-8.2) g/dL Albumin (3.5-5.0) g/dL Stool Lactoferrin (NEGATIVE) Microbiology - Last 24 Hours (Table) 03/27/19 19:09 Blood Culture - Preliminary Blood No Growth after 48 hours 03/28/19 19:15 Stool Culture - Preliminary Stool Assessment and Plan Assessment: Recurrent nausea and vomiting, with diarrhea suspicious for gastroenteritis versus others Acute Gastroenteritis versus ileus worsening Leukocytosis Dehydration Recent history of pancreatic cancer about 7-8 months ago status post surgery and chemotherapy started on 03/22/2019 Chronic low back pain status post laminectomy on L4-L5/S1-S2 Gastroesophageal reflux disease Recent history of colitis Peptic ulcer disease with duodenitis/gastritis on recent EGD done on 11/2018 History of nephrolithiasis , Nonobstructing 4.7 mm left renal stone. No evidence of hydronephrosis. History of pneumonia Plan: This is a pleasant 58 years old male who presents with worsening leukocytosis. Follow-up recommendation by hematology/oncology team. Pain management.. Continue with IV hydration Labs and medication were reviewed.. Continue same treatment. Continue with symptomatic treatment. Resume home medication. Monitor lytes and vitals. DVT and GI prophylaxis. Further recommendations of the clinical course of the patient DVT prophylaxis: Subcutaneous heparin GI Prophylaxis: Pepcid PT/OT: Pending Prognosis is guarded
[2019-03-30 07:48] LABS: ALT 71 U/L (4-49); AST 29 U/L (17-59); African American GFR (CKD) >90 (>60 ml/min/1.73 sqM); Albumin 3.1 g/dL (3.5-5.0); Alkaline Phosphatase 142 U/L (38-126); Anion Gap 10 mmol/L; Blood Urea Nitrogen 8 mg/dL (9-20); Calcium 9.1 mg/dL (8.4-10.2); Carbon Dioxide 22 mmol/L (22-30); Chloride 106 mmol/L (98-107); Glucose 76 mg/dL (74-99); Non-African American GFR(CKD) >90 (>60 ml/min/1.73 sqM); Potassium 3.6 mmol/L (3.5-5.1); Sodium 138 mmol/L (137-145); Total Bilirubin 0.5 mg/dL (0.2-1.3); Total Protein 5.6 g/dL (6.3-8.2)
[2019-03-30] MEDS: metroNIDAZOLE-NS PMX 500 MG in SALINE 1 100ML.BAG IVPB SCH ×2 (08:22→16:59)
[2019-03-30] MEDS: HEPARIN SODIUM,PORCINE 5,000 UNIT/ML 1 ML VIAL SQ SCH ×2 (08:23→21:51)
[2019-03-30] MEDS: FAMOTIDINE 20 MG TAB PO SCH ×2 (08:23→21:51)
[2019-03-30] MEDS: ASPIRIN 325 MG TAB PO SCH (08:23)
--- NOTE | 2019-03-30 13:10 | P.PN ---
Subjective Progress Note Date: 03/30/19 CHIEF COMPLAINT: Ileus HISTORY OF PRESENT ILLNESS: Patient examined this morning at the bedside with Dr. Bundy. Patients diet was advanced yesterday to a regular diet. Patient reports throwing up yesterday. No emesis today. He does report some nausea. Denies abdominal pain. WBC 15.1. PHYSICAL EXAM: VITAL SIGNS: Reviewed. GENERAL: Well-developed in no acute distress. HEENT: No sclera icterus. Extraocular movements grossly intact. Moist buccal mucosa. Head is atraumatic, normocephalic. ABDOMEN: Soft. Nondistended. Nontender. NEUROLOGIC: Alert and oriented. Cranial nerves II through XII grossly intact. ASSESSMENT: 1. Nausea and vomiting, resolved 2. Possible ileus versus enteritis per abdominal xray PLAN: Clear liquid diet. Advance as tolerated Continue antiemetics Dr. Bundy believes patients symptoms may be secondary to viral gastroenteritis or also may be secondary to recent chemotherapy. Continue with supportive measures. No surgical intervention recommended. Nurse practitioner note has been reviewed by physician. Signing provider agrees with the documented findings, assessment, and plan of care. Objective - Vital Signs Vital signs: Vital Signs Temp 98.4 F 03/30/19 11:40 Pulse 80 03/30/19 11:40 Resp 17 03/30/19 11:40 BP 133/81 03/30/19 11:40 Pulse Ox 98 03/30/19 11:40 Intake & Output 03/29/19 03/30/19 03/30/19 18:59 06:59 18:59 Intake Total 600 1395 Balance 600 1395 Weight 91.5 kg 90.5 kg Intake: Intake, IV Titration 600 975 Amount Sodium Chloride 0.9% 1, 600 775 000 ml @ 75 mls/hr IV . [id number] [facility] Rx#:[id number] metroNIDAZOLE-NS PMX 500 200 mg In Saline 1 100ml.bag @ 100 mls/hr IVPB Q8HR [facility] Rx#:[id number] Oral 420 Other: Voiding Method Urinal Urinal # Voids 2 - Labs CBC & Chem 7: 03/30/19 06:58 03/30/19 06:58 Labs: Abnormal Lab Results - Last 24 Hours (Table) 03/28/19 03/30/19 03/30/19 Range/Units 19:15 06:58 06:58 WBC 15.1 H (3.8-10.6) k/uL Hct 38.7 L (39.0-53.0) % Neutrophils # 11.1 H (1.3-7.7) k/uL BUN 8 L (9-20) mg/dL Creatinine 0.53 L (0.66-1.25) mg/dL ALT 71 H (4-49) U/L Alkaline Phosphatase 142 H (38-126) U/L Total Protein 5.6 L (6.3-8.2) g/dL Albumin 3.1 L (3.5-5.0) g/dL Stool Lactoferrin POSITIVE H (NEGATIVE) Microbiology - Last 24 Hours (Table) 03/27/19 19:09 Blood Culture - Preliminary Blood No Growth after 48 hours
[2019-03-30] MEDS: SODIUM CHLORIDE 0.9% 1,000 ML IV SCH (16:59)
[2019-03-30] MEDS: PANTOPRAZOLE 40 MG/10 ML VIAL IVP SCH (22:34)
[2019-03-31] MEDS: metroNIDAZOLE-NS PMX 500 MG in SALINE 1 100ML.BAG IVPB SCH ×2 (00:08→07:41)
[2019-03-31] MEDS: SODIUM CHLORIDE 0.9% 1,000 ML IV SCH (03:42)
[2019-03-31 07:40] LABS: Basophils # (A) 0.1 k/uL (0-0.2); Basophils % (A) 1 %; Eosinophils # (A) 0.4 k/uL (0-0.7); Eosinophils % (A) 3 %; HCT 39.7 % (39.0-53.0); HGB 12.8 gm/dL (13.0-17.5); Lymphocytes # (A) 3.6 k/uL (1.0-4.8); Lymphocytes % (A) 29 %; MCH 27.2 pg (25.0-35.0); MCHC 32.2 g/dL (31.0-37.0); MCV 84.4 fL (80.0-100.0); Mean Platelet Volume 10.2; Monocytes # (A) 0.6 k/uL (0-1.0); Monocytes % (A) 5 %; Neutrophils # (A) 7.3 k/uL (1.3-7.7); Neutrophils % (A) 59 %; Platelet Count 261 k/uL (150-450); RDW 13.8 % (11.5-15.5); WBC 12.4 k/uL (3.8-10.6)
[2019-03-31] MEDS: PANTOPRAZOLE 40 MG/10 ML VIAL IVP SCH (07:41)
[2019-03-31] MEDS: HEPARIN SODIUM,PORCINE 5,000 UNIT/ML 1 ML VIAL SQ SCH (07:41)
[2019-03-31] MEDS: ASPIRIN 325 MG TAB PO SCH (07:41)
[2019-03-31 07:54] LABS: ALT 60 U/L (4-49); AST 29 U/L (17-59); African American GFR (CKD) >90 (>60 ml/min/1.73 sqM); Alkaline Phosphatase 116 U/L (38-126); Anion Gap 9 mmol/L; Blood Urea Nitrogen 8 mg/dL (9-20); Calcium 8.9 mg/dL (8.4-10.2); Carbon Dioxide 22 mmol/L (22-30); Chloride 106 mmol/L (98-107); Glucose 84 mg/dL (74-99); Non-African American GFR(CKD) >90 (>60 ml/min/1.73 sqM); Potassium 3.6 mmol/L (3.5-5.1); Sodium 137 mmol/L (137-145); Total Bilirubin 0.5 mg/dL (0.2-1.3); Total Protein 5.3 g/dL (6.3-8.2)
--- NOTE | 2019-03-31 10:37 | P.PN ---
Subjective Progress Note Date: 03/31/19 CHIEF COMPLAINT: Ileus HISTORY OF PRESENT ILLNESS: Patient examined this morning at the bedside. Patient denies abdominal pain. He reports he is tolerating full liquid diet. Denies nausea or vomiting. WBC 12.4. Hemoglobin 12.8. Vital signs stable. He is afebrile. PHYSICAL EXAM: VITAL SIGNS: Reviewed. GENERAL: Well-developed in no acute distress. HEENT: No sclera icterus. Extraocular movements grossly intact. Moist buccal mucosa. Head is atraumatic, normocephalic. ABDOMEN: Soft. Nondistended. Nontender. NEUROLOGIC: Alert and oriented. Cranial nerves II through XII grossly intact. ASSESSMENT: 1. Nausea and vomiting, resolved 2. Possible ileus versus enteritis per abdominal xray PLAN: Continue diet as tolerated Continue antiemetics Dr. Bundy believes patients symptoms may be secondary to viral gastroenteritis or also may be secondary to recent chemotherapy. Continue with supportive measures. No surgical intervention recommended. Patient is stable for discharge from a surgical standpoint. We will sign off. Please reconsult if needed. Nurse practitioner note has been reviewed by physician. Signing provider agrees with the documented findings, assessment, and plan of care. Objective - Vital Signs Vital signs: Vital Signs Temp 98.2 F 03/31/19 05:08 Pulse 74 03/31/19 05:08 Resp 17 03/31/19 05:08 BP 136/84 03/31/19 05:08 Pulse Ox 97 03/31/19 05:08 Intake & Output 03/30/19 03/31/19 03/31/19 18:59 06:59 18:59 Intake Total 637.5 1170 Balance 637.5 1170 Weight 90.5 kg Intake: Intake, IV Titration 637.5 750 Amount Sodium Chloride 0.9% 1, 487.5 650 000 ml @ 75 mls/hr IV . [id number] [facility] Rx#:[id number] cefTRIAXone 1 gm In 50 Sodium Chloride 0.9% 50 ml @ 100 mls/hr IVPB Q24HR [facility] Rx#:[id number] metroNIDAZOLE-NS PMX 500 100 100 mg In Saline 1 100ml.bag @ 100 mls/hr IVPB Q8HR [facility] Rx#:[id number] Oral 420 Other: Voiding Method Urinal Urinal Urinal # Voids 2 - Labs CBC & Chem 7: 01/17/20 07:02 03/31/19 07:02 Labs: Abnormal Lab Results - Last 24 Hours (Table) 03/31/19 03/31/19 Range/Units 07:02 07:02 WBC 12.4 H (3.8-10.6) k/uL Hgb 12.8 L (13.0-17.5) gm/dL BUN 8 L (9-20) mg/dL Creatinine 0.52 L (0.66-1.25) mg/dL ALT 60 H (4-49) U/L Total Protein 5.3 L (6.3-8.2) g/dL Albumin 3.0 L (3.5-5.0) g/dL Microbiology - Last 24 Hours (Table) 03/27/19 19:09 Blood Culture - Preliminary Blood No Growth after 72 hours 03/28/19 19:15 Stool Culture - Preliminary Stool
[2019-03-31 12:01] VITALS: BP 151/81; PULSE 78; RESP 20; TEMP 97.8
--- NOTE | 2019-03-31 13:00 | P.DS ---
Providers Date of admission: 03/28/19 18:54 Attending physician: Erick Weber Consults: 03/27/19 17:22 Consult Physician Urgent Consulting Provider: Arnold Howell Consult Reason/Comments: History of pancreatitis, leukocytosis Do you want consulting provider notified?: Yes 03/28/19 16:53 Consult Physician Urgent Consulting Provider: Reid Bundy Consult Reason/Comments: possilpetra ilwalter Do you want consulting provider notified?: Yes Primary care physician: Raghu Naida [facility] Course: Diagnoses: Acute gastroenteritis, infectious versus chemotherapy-induced Acute Gastroenteritis versus ileus worsening Leukocytosis, improved Presyncope, related to dehydration. Improved Dehydration, improved Recent history of pancreatic cancer about 7-8 months ago status post surgery and chemotherapy started on 03/22/2019 Chronic low back pain status post laminectomy on L4-L5/S1-S2 Gastroesophageal reflux disease Recent history of colitis Peptic ulcer disease with duodenitis/gastritis on recent EGD done on 11/2018 History of nephrolithiasis , Nonobstructing 4.7 mm left renal stone. No evidence of hydronephrosis. History of pneumonia Hospital course: This is a pleasant 58 years old male with past medical history of gastroesophageal reflux disease, pneumonia, pancreatic cancer diagnosed 7-8 months ago in [place] status post surgery and started chemotherapy on 03/22/2019. Chronic low back pain status post laminectomy on L4-L5/S1-S2. Patient presents because of 3-4 days duration of recurrent nausea vomiting and loose bowel movement, yesterday he had 3 loose bowel movements which were wa laurence, since yesterday morning he has normal bowel movements. However he still have recurrent nausea vomiting including this morning and he could not eat. Patient was having symptoms of hypervolemia with low blood pressure, his blood pressure systolic was 109, where usually his blood pressure is 140-150/70-90 as per patient Also he had presyncope, passed out, feeling dizzy with postural symptoms. Patient had elevated WBC is 73K, compared to 10 days ago was 12.3 K. Patient was found to have acute gastroenteritis. Patient was treated with antibiotics and IV fluids. The patient showed interval improvement, his nausea vomiting has stopped, he is tolerating regular diet. He had no diarrhea. His mild right lower quadrant abdominal pain however is significantly improved with minimal or no tenderness. Patient feels he is ready to be discharged today. Patient will be discharged to short course of antibiotics No other symptoms. No chest pain or dyspnea. No fever. No urinary complaints. He is tolerating diet well Patient was cleared for surgery and oncology teams Problems and management plan were discussed with the patient and he verbalized understanding and acceptance Patient was found stable and can be discharged home however he needs follow-up as an outpatient. Patient was instructed to follow up with PCP within one week and patient agrees. Patient agrees with the appointments made for him with GI and PCP and the timing and states he will follow-up. Gen: patient is a AAOx3, no distress CVS: S1-S2, RRR, no murmur Lungs: B/L CTA, no wheezing Abdomen: soft, no distention, no tenderness, positive bowel sounds Extremity: no leg edema or induration Time spent more than 35 minutes Plan - Discharge Summary Discharge Rx Participant: No New Discharge Prescriptions: New Cefuroxime Axetil [Ceftin] 500 mg PO BID 3 Days #6 tab metroNIDAZOLE [Flagyl] 250 mg PO Q8H 4 Days #12 tab Pantoprazole Sodium [Protonix] 40 mg PO DAILY #15 tablet. Ondansetron HCl [Zofran] 4 mg PO Q8H PRN #20 tab PRN Reason: Nausea And Vomiting Continue Prochlorperazine [Compazine] 10 mg PO TID PRN PRN Reason: Nausea Lubiprostone [Amitiza] 24 mcg PO BID Morphine Sulfate ER [Ms Contin] 30 mg PO HS Morphine Sulfate ER [Ms Contin] 30 mg PO BID@0900,1200 HYDROcodone/APAP 5-325MG [[place] 5-325] 1 tab PO TID PRN PRN Reason: Pain Loperamide HCl [Imodium A-D] 2 mg PO Q8H PRN PRN Reason: Diarrhea Discharge Medication List HYDROcodone/APAP 5-325MG [[place] 5-325] 1 tab PO TID PRN 03/27/19 [History] Loperamide HCl [Imodium A-D] 2 mg PO Q8H PRN 03/27/19 [History] Lubiprostone [Amitiza] 24 mcg PO BID 03/27/19 [History] Morphine Sulfate ER [Ms Contin] 30 mg PO BID@0900,1200 03/27/19 [History] Morphine Sulfate ER [Ms Contin] 30 mg PO HS 03/27/19 [History] Prochlorperazine [Compazine] 10 mg PO TID PRN 03/27/19 [History] Cefuroxime Axetil [Ceftin] 500 mg PO BID 3 Days #6 tab 03/31/19 [Rx] Ondansetron HCl [Zofran] 4 mg PO Q8H PRN #20 tab 03/31/19 [Rx] Pantoprazole Sodium [Protonix] 40 mg PO DAILY #15 tablet. 03/31/19 [Rx] metroNIDAZOLE [Flagyl] 250 mg PO Q8H 4 Days #12 tab 03/31/19 [Rx] Follow up Appointment(s)/Referral(s): Angelita Farris MD [STAFF PHYSICIAN] - 04/13/19 4:30 pm ([facility], for your chronic diarrhea) Raghu Pascal MD [Primary Care Provider] - 04/05/19 8:30 am Patient Instructions/Handouts: Cefuroxime (By mouth), Metronidazole (By mouth), Ondansetron (By mouth), Pantoprazole (By mouth), Dehydration (DC), Syncope (DC) Activity/Diet/Wound Care/Special Instructions: Resume previous diet Activity is limited till you see your doctor Discharge Disposition: HOME SELF-CARE
== END 2019-03-31 13:10 | disposition home or self-care (01) | DRG 392 ==
LOC: EC 15:20 → 3SCARD 17:19 → INTOOBSV 17:19 → 3SCARD 23:12 → 5NMEDONC 03-28 11:23 → OBSVTOIN 03-28 18:54
PROVIDERS: ADMIT Internal Medicine; ATTEND Internal Medicine
DX: A09 Infectious gastroenteritis and colitis, unspecified (principal); K52.1 Toxic gastroenteritis and colitis; C25.2 Malignant neoplasm of tail of pancreas; K56.7 Ileus, unspecified; T45.1X5A Adverse effect of antineoplastic and immunosuppressive drugs, initial encounter; E86.0 Dehydration; G89.29 Other chronic pain; I95.1 Orthostatic hypotension; J84.10 Pulmonary fibrosis, unspecified; N20.0 Calculus of kidney; Z87.01 Personal history of pneumonia (recurrent); Z87.11 Personal history of peptic ulcer disease; Z87.442 Personal history of urinary calculi; Z87.891 Personal history of nicotine dependence; Z86.010 Personal history of colon polyps; Z90.49 Acquired absence of other specified parts of digestive tract; Z90.81 Acquired absence of spleen; M54.5 Low back pain; K21.9 Gastro-esophageal reflux disease without esophagitis; Z79.899 Other long term (current) drug therapy; Z79.891 Long term (current) use of opiate analgesic
CPT/HCPCS: 36415; 71046; 74019; 80053; 80061; 81001; 83630; 83735; 84145; 84484; 85025; 85610; 85730; 87040; 87045; 87046; 87324; 93005; 96361; 96374; 99285

== ENCOUNTER 2019-04-01 21:53 | Inpatient (IN) | payer MEDICARE, OTHER ==
[2019-04-01 22:25] LABS: Basophils # (A) 0.2 k/uL (0-0.2); Basophils % (A) 1 %; Eosinophils # (A) 0.4 k/uL (0-0.7); Eosinophils % (A) 2 %; HCT 42.4 % (39.0-53.0); HGB 13.9 gm/dL (13.0-17.5); Lymphocytes # (A) 4.5 k/uL (1.0-4.8); Lymphocytes % (A) 24 %; MCHC 32.8 g/dL (31.0-37.0); MCV 82.6 fL (80.0-100.0); Mean Platelet Volume 8.3; Monocytes # (A) 1.7 k/uL (0-1.0); Monocytes % (A) 9 %; Neutrophils # (A) 11.5 k/uL (1.3-7.7); Neutrophils % (A) 60 %; Platelet Count 331 k/uL (150-450); RBC 5.13 m/uL (4.30-5.90); RDW 14.2 % (11.5-15.5); WBC 19.1 k/uL (3.8-10.6)
--- NOTE | 2019-04-01 22:25 | ED ---
Weakness HPI - General Stated complaint: Chest pain Time Seen by Provider: 04/01/19 21:59 Source: patient, RN notes reviewed, old records reviewed Mode of arrival: ambulatory Limitations: no limitations - History of Present Illness Initial comments: This is a 38-year-old female who presents today for evaluation. This patient presents today for evaluation regards to weakness. Not Britney. Currently going through chemotherapy chemo story for pancreatic cancer. Patient was to severe dehydration severe weakness decreased appetite and weight loss. Generalized body aches and pains but new-onset headache. Mild nausea no active vomiting but no appetite. Patient states otherwise does not feel well. His been an ongoing issue and is progressively worsening. Denying fever MD Complaint: generalized weakness -: week(s) Location: generalized Severity: mild Severity scale (1-10): 3 Quality: numbness Consistency: constant Improves with: none Worsens with: medication (L[place] was stable at ovules [facility] without the use he [place]) Context: recent illness ('s usually do) Associated Symptoms: loss of appetite, nausea/vomiting, myalgias (rather ), shortness of breath - Related Data Home Medications Medication Instructions Recorded Confirmed HYDROcodone/APAP 5-325MG [[place] 1 tab PO TID PRN 03/27/19 03/27/19 5-325] Loperamide HCl [Imodium A-D] 2 mg PO Q8H PRN 03/27/19 03/27/19 Lubiprostone [Amitiza] 24 mcg PO BID 03/27/19 03/27/19 Morphine Sulfate ER [Ms Contin] 30 mg PO BID@0900,1200 03/27/19 03/27/19 Morphine Sulfate ER [Ms Contin] 30 mg PO HS 03/27/19 03/27/19 Prochlorperazine [Compazine] 10 mg PO TID PRN 03/27/19 03/27/19 Previous Rx's Medication Instructions Recorded Cefuroxime Axetil [Ceftin] 500 mg PO BID 3 Days #6 tab 03/31/19 Ondansetron HCl [Zofran] 4 mg PO Q8H PRN #20 tab 03/31/19 Pantoprazole Sodium [Protonix] 40 mg PO DAILY #15 tablet. 03/31/19 metroNIDAZOLE [Flagyl] 250 mg PO Q8H 4 Days #12 tab 03/31/19 Allergies Allergy/AdvReac Type Severity Reaction Status Date / Time No Known Allergies Allergy Verified 04/01/19 22:03 Review of Systems ROS Statement: Those systems with pertinent positive or pertinent negative responses have been documented in the HPI. ROS Other: All systems not noted in ROS Statement are negative. Past Medical History Past Medical History: Cancer, GERD/Reflux, Pneumonia Additional Past Medical History / Comment(s): Pt states he was diagnosed with pancreatic cancer 7-8 months ago in [place]/had surgery in [place] and started chemo 03/22/19, EGD/colonoscopy dated 11/2018 states pt has duodenitis/antral gastritis/antral ulcer/colon and rectal polyp but pt does not recall this, nephrolithiasis, murmur. History of Any Multi-Drug Resistant Organisms: None Reported Past Surgical History: Back Surgery, Cholecystectomy, Orthopedic Surgery Additional Past Surgical History / Comment(s): Tail of pancreas removed along with spleen in [place], [facility], laminectomy L4-L5/S1-S2, lower back laser surgery to cut nerves, L knee arthroscopy-meniscal and ACL, L ankle reconstructive surgery x 3, R hand surgery d/t trauma, EGD/colonoscopy, lithostripsy. Past Anesthesia/Blood Transfusion Reactions: No Reported Reaction Additional Past Anesthesia/Blood Transfusion Reaction / Comment(s): Pt has received blood in past without reaction. Past Psychological History: No Psychological Hx Reported Smoking Status: Former smoker - Past Family History Father History Unknown: Yes Additional Family Medical History / Comment(s): Pt does not know his father. Mother History Unknown: Yes Additional Family Medical History / Comment(s): Pt states he does not know mother's medical hx General Exam Limitations: no limitations General appearance: alert, in no apparent distress Head exam: Present: atraumatic, normocephalic, normal inspection Eye exam: Present: normal appearance, PERRL, EOMI. Absent: scleral icterus, conjunctival injection, periorbital swelling ENT exam: Present: normal exam, mucous membranes moist Neck exam: Present: normal inspection. Absent: tenderness, meningismus, lymphadenopathy Respiratory exam: Present: normal lung sounds bilaterally. Absent: respiratory distress, wheezes, rales, rhonchi, stridor Cardiovascular Exam: Present: regular rate, normal rhythm, normal heart sounds. Absent: systolic murmur, diastolic murmur, rubs, gallop, clicks GI/Abdominal exam: Present: soft, normal bowel sounds. Absent: distended, tenderness, guarding, rebound, rigid Extremities exam: Present: normal inspection, full ROM, normal capillary refill. Absent: tenderness, pedal edema, joint swelling, calf tenderness Back exam: Present: normal inspection Neurological exam: Present: alert, oriented X3, CN II-XII intact Psychiatric exam: Present: normal affect, normal mood Skin exam: Present: warm, dry, intact, normal color. Absent: rash Course Vital Signs 04/01/19 04/01/19 22:01 22:50 Temperature 98.7 F Pulse Rate 94 80 Respiratory 16 16 Rate Blood Pressure 156/104 132/90 O2 Sat by Pulse 97 94 L Oximetry - Reevaluation(s) Reevaluation #1: 04/01/19 23:52 Medical records reviewed Reevaluation #2: 04/01/19 23:52 no improvement in clinical signs - Consultations Consultation #1: spoke w [facility] who is agreeable to admit EKG Findings - EKG Comments: EKG Findings:: EKS shows Sinus Tach rate 111 AK 138 QRS 92 QTc 476 Medical Decision Making - Medical Decision Making 58 male with significant weakness cancer related symptoms, new pancreatic cancer with new chemo. Patient be admitted for severe dehydration, pain control and symptom management - Lab Data Result diagrams: 04/01/19 22:17 04/01/19 22:17 Lab Results 04/01/19 04/01/19 04/01/19 Range/Units 22:17 22:17 22:17 WBC 19.1 H (3.8-10.6) k/uL RBC 5.13 (4.30-5.90) m/uL Hgb 13.9 (13.0-17.5) gm/dL Hct 42.4 (39.0-53.0) % MCV 82.6 (80.0-100.0) fL MCH 27.0 (25.0-35.0) pg MCHC 32.8 (31.0-37.0) g/dL RDW 14.2 (11.5-15.5) % Plt Count 331 (150-450) k/uL Neutrophils % 60 % Lymphocytes % 24 % Monocytes % 9 % Eosinophils % 2 % Basophils % 1 % Neutrophils # 11.5 H (1.3-7.7) k/uL Lymphocytes # 4.5 (1.0-4.8) k/uL Monocytes # 1.7 H (0-1.0) k/uL Eosinophils # 0.4 (0-0.7) k/uL Basophils # 0.2 (0-0.2) k/uL PT (9.0-12.0) sec INR (<1.2) APTT (22.0-30.0) sec Sodium 137 (137-145) mmol/L Potassium 3.4 L (3.5-5.1) mmol/L Chloride 104 (98-107) mmol/L Carbon Dioxide 21 L (22-30) mmol/L Anion Gap 12 mmol/L BUN 7 L (9-20) mg/dL Creatinine 0.63 L (0.66-1.25) mg/dL Est GFR (CKD-EPI)AfAm >90 (>60 ml/min/1.73 sqM) Est GFR (CKD-EPI)NonAf >90 (>60 ml/min/1.73 sqM) Glucose 92 (74-99) mg/dL Calcium 9.8 (8.4-10.2) mg/dL Magnesium 1.5 L (1.6-2.3) mg/dL Total Bilirubin 0.5 (0.2-1.3) mg/dL AST 85 H (17-59) U/L ALT 109 H (4-49) U/L Alkaline Phosphatase 133 H (38-126) U/L Troponin I (0.000-0.034) ng/mL NT-Pro-B Natriuret Pep 128 pg/mL Total Protein 6.0 L (6.3-8.2) g/dL Albumin 3.6 (3.5-5.0) g/dL Lipase 65 (23-300) U/L Influenza Type A RNA (Not Detectd) Influenza Type B (PCR) (Not Detectd) 04/01/19 04/01/19 04/01/19 Range/Units 22:17 22:17 22:17 WBC (3.8-10.6) k/uL RBC (4.30-5.90) m/uL Hgb (13.0-17.5) gm/dL Hct (39.0-53.0) % MCV (80.0-100.0) fL MCH (25.0-35.0) pg MCHC (31.0-37.0) g/dL RDW (11.5-15.5) % Plt Count (150-450) k/uL Neutrophils % % Lymphocytes % % Monocytes % % Eosinophils % % Basophils % % Neutrophils # (1.3-7.7) k/uL Lymphocytes # (1.0-4.8) k/uL Monocytes # (0-1.0) k/uL Eosinophils # (0-0.7) k/uL Basophils # (0-0.2) k/uL PT 10.7 (9.0-12.0) sec INR 1.0 (<1.2) APTT 22.0 (22.0-30.0) sec Sodium (137-145) mmol/L Potassium (3.5-5.1) mmol/L Chloride (98-107) mmol/L Carbon Dioxide (22-30) mmol/L Anion Gap mmol/L BUN (9-20) mg/dL Creatinine (0.66-1.25) mg/dL Est GFR (CKD-EPI)AfAm (>60 ml/min/1.73 sqM) Est GFR (CKD-EPI)NonAf (>60 ml/min/1.73 sqM) Glucose (74-99) mg/dL Calcium (8.4-10.2) mg/dL Magnesium (1.6-2.3) mg/dL Total Bilirubin (0.2-1.3) mg/dL AST (17-59) U/L ALT (4-49) U/L Alkaline Phosphatase (38-126) U/L Troponin I <0.012 (0.000-0.034) ng/mL NT-Pro-B Natriuret Pep pg/mL Total Protein (6.3-8.2) g/dL Albumin (3.5-5.0) g/dL Lipase 67 (23-300) U/L Influenza Type A RNA (Not Detectd) Influenza Type B (PCR) (Not Detectd) 04/01/19 Range/Units 23:10 WBC (3.8-10.6) k/uL RBC (4.30-5.90) m/uL Hgb (13.0-17.5) gm/dL Hct (39.0-53.0) % MCV (80.0-100.0) fL MCH (25.0-35.0) pg MCHC (31.0-37.0) g/dL RDW (11.5-15.5) % Plt Count (150-450) k/uL Neutrophils % % Lymphocytes % % Monocytes % % Eosinophils % % Basophils % % Neutrophils # (1.3-7.7) k/uL Lymphocytes # (1.0-4.8) k/uL Monocytes # (0-1.0) k/uL Eosinophils # (0-0.7) k/uL Basophils # (0-0.2) k/uL PT (9.0-12.0) sec INR (<1.2) APTT (22.0-30.0) sec Sodium (137-145) mmol/L Potassium (3.5-5.1) mmol/L Chloride (98-107) mmol/L Carbon Dioxide (22-30) mmol/L Anion Gap mmol/L BUN (9-20) mg/dL Creatinine (0.66-1.25) mg/dL Est GFR (CKD-EPI)AfAm (>60 ml/min/1.73 sqM) Est GFR (CKD-EPI)NonAf (>60 ml/min/1.73 sqM) Glucose (74-99) mg/dL Calcium (8.4-10.2) mg/dL Magnesium (1.6-2.3) mg/dL Total Bilirubin (0.2-1.3) mg/dL AST (17-59) U/L ALT (4-49) U/L Alkaline Phosphatase (38-126) U/L Troponin I (0.000-0.034) ng/mL NT-Pro-B Natriuret Pep pg/mL Total Protein (6.3-8.2) g/dL Albumin (3.5-5.0) g/dL Lipase (23-300) U/L Influenza Type A RNA Not Detected (Not Detectd) Influenza Type B (PCR) Not Detected (Not Detectd) - Radiology Data Radiology results: report reviewed (CT brain is negative for acute disease), image reviewed Disposition Clinical Impression: History of pancreatic cancer, Pancreatic lesion, Dehydration, Intractable abdominal pain, Diarrhea Disposition: ADMITTED IP TO THIS HOSP Condition: Fair Is patient prescribed a controlled substance at d/c from ED?: No Referrals: Raghu Pascal MD [STAFF PHYSICIAN] - 1-2 days
[2019-04-01 22:36] LABS: ALT 109 U/L (4-49); AST 85 U/L (17-59); African American GFR (CKD) >90 (>60 ml/min/1.73 sqM); Albumin 3.6 g/dL (3.5-5.0); Alkaline Phosphatase 133 U/L (38-126); Anion Gap 12 mmol/L; Blood Urea Nitrogen 7 mg/dL (9-20); Calcium 9.8 mg/dL (8.4-10.2); Carbon Dioxide 21 mmol/L (22-30); Chloride 104 mmol/L (98-107); Glucose 92 mg/dL (74-99); Magnesium 1.5 mg/dL (1.6-2.3); Non-African American GFR(CKD) >90 (>60 ml/min/1.73 sqM); Potassium 3.4 mmol/L (3.5-5.1); Sodium 137 mmol/L (137-145); Total Bilirubin 0.5 mg/dL (0.2-1.3)
--- NOTE | 2019-04-01 22:42 | XR ---
EXAMINATION TYPE: XR chest 2V DATE OF EXAM: 04/01/2019 COMPARISON: 03/27/2019 HISTORY: Chest pain TECHNIQUE: FINDINGS: There is right central venous catheter with the tip in the superior vena cava. There is coa rse interstitial density in both lungs. There is no pleural effusion. Heart size is normal. There are no hilar masses. Bony thorax is intact. IMPRESSION: Pulmonary interstitial fibrotic changes. Stable compared to recent exam. Normal heart.
[2019-04-01 22:47] LABS: Prothrombin Time 10.7 sec (9.0-12.0)
--- NOTE | 2019-04-01 23:31 | CT ---
EXAMINATION TYPE: CT brain wo con DATE OF EXAM: 04/01/2019 COMPARISON: None HISTORY: Patient presents with headache. CT DLP: 1107.4 mGycm Automated exposure control for dose reduction was used. Multiple axial sections were obtained of the brain without contrast. Ventricles have normal size. There is no mass effect nor midline shift. There is no sign of intracran ial hemorrhage. Calvarium is intact. There is no evidence of cerebral edema. IMPRESSION: Negative head CT scan.
[2019-04-01] MEDS ORDERED: SODIUM CHLORIDE 0.9% 500 ML 500 ML IV STA (23:44)
[2019-04-01] MEDS ORDERED: SODIUM CHLORIDE 0.9% 1,000 ML IV STA ×2 (23:44)
[2019-04-01] MEDS ORDERED: MORPHINE SULFATE 4 MG/ML SYRINGE IV PRN (23:45)
[2019-04-01] MEDS ORDERED: NALOXONE 0.4 MG/ML 1 ML VIAL IV PRN (23:45)
[2019-04-02] MEDS: DEXTROSE 5%-0.45% NACL 1,000 ML IV SCH ×3 (00:22→19:52)
[2019-04-02] MEDS: ONDANSETRON 4 MG/2 ML VIAL IVP PRN ×2 (01:37→12:16)
[2019-04-02] MEDS: ENOXAPARIN 40 MG/0.4 ML SYRINGE SQ SCH (08:12)
[2019-04-02] MEDS ORDERED: PANTOPRAZOLE 40 MG/10 ML VIAL IV SCH (09:00)
[2019-04-02] MEDS ORDERED: PROCHLORPERAZINE 10 MG TAB PO PRN (11:06)
[2019-04-02] MEDS ORDERED: ONDANSETRON 4 MG TAB PO PRN (11:06)
[2019-04-02] MEDS ORDERED: HYDROcodone/APAP 5-325MG 1 EACH TAB PO PRN (11:06)
[2019-04-02] MEDS: MORPHINE SULFATE ER 30 MG TABLET PO SCH (12:42)
--- NOTE | 2019-04-02 15:30 | P.HPIM ---
History of Present Illness This is a pleasant 58 years old male with past medical history of gastroesophageal reflux disease, pneumonia, pancreatic cancer diagnosed 7-8 months ago in [place] status post surgery and started chemotherapy on 03/22/2019. Chronic low back pain status post laminectomy on L4-L5/S1-S2. Patient was recently discharged from this hospital 2 days ago for gastroenteritis and leukocytosis. He was discharged on Ceftin and Flagyl, However this time patient states that after his been discharged he starts having neck pain radiating from the left side down to the back and symptoms of the chest however his chest pain resolved and is still complaining from left sided neck pain and back pain. Also he was complaining of from nausea vomiting, he vomited about 3 times with no blood. However his bowel movement was loose but is getting forms gradually. Vitals stable are stable. He has worsening leukocytosis at 19.1 K, potassium was 3.4, magnesium 1.5, liver enzymes slightly elevated with ALT 109 compared to 60 the day before and AST of 85 compared to 29 the day before. Influenza is negative. Stool culture from recent admission is negative. He had negative for brain CT. Chest x-ray showing stable fibrotic interstitial changes compared to last exam by radiologist. EKG showing sinus tachycardia at 111, no significant ST-T changes and QTC is 476. [facility] [employer] team as per a consult from emergency room. He was started on normal saline Review of Systems CONSTITUTIONAL: No fever, no malaise, no fatigue. HEENT: No recent visual problems or hearing problems. Denied any sore throat. CARDIOVASCULAR: No orthopnea, PND, no palpitations, no syncope. PULMONARY: No shortness of breath, no cough, no hemoptysis. GASTROINTESTINAL: No diarrhea, no nausea, no vomiting, no abdominal pain. Normoactive bowel sounds. NEUROLOGICAL: No headaches, no weakness, no numbness. HEMATOLOGICAL: Denies any bleeding or petechiae. GENITOURINARY: Denies any burning micturition, frequency, or urgency. MUSCULOSKELETAL/RHEUMATOLOGICAL: Denies any joint pain, swelling, or any muscle pain. ENDOCRINE: Denies any polyuria or polydipsia. Past Medical History Past Medical History: Cancer, GERD/Reflux, Pneumonia Additional Past Medical History / Comment(s): Pt states he was diagnosed with pancreatic cancer 7-8 months ago in [place]/had surgery in [place] and started chemo 03/22/19, EGD/colonoscopy dated 11/2018 states pt has duodenitis/antral gastritis/antral ulcer/colon and rectal polyp but pt does not recall this, nephrolithiasis, murmur. History of Any Multi-Drug Resistant Organisms: None Reported Past Surgical History: Back Surgery, Cholecystectomy, Orthopedic Surgery Additional Past Surgical History / Comment(s): Tail of pancreas removed along with spleen in [place], mediport, laminectomy L4-L5/S1-S2, lower back laser surgery to cut nerves, L knee arthroscopy-meniscal and ACL, L ankle reconstructive surgery x 3, R hand surgery d/t trauma, EGD/colonoscopy, lithostripsy. Past Anesthesia/Blood Transfusion Reactions: No Reported Reaction Additional Past Anesthesia/Blood Transfusion Reaction / Comment(s): Pt has received blood in past without reaction. Past Psychological History: No Psychological Hx Reported Additional Psychological History / Comment(s): Pt resides alone in a home without steps. He uses no assistive devices. He does not drive, his kids are helpful and drive pt to [employer]. Smoking Status: Former smoker Past Alcohol Use History: Occasional Additional Past Alcohol Use History / Comment(s): Pt started smoking in 1969 and was up to 1.5 ppd. He quit smoking 7 months ago. Pt states he drinks alcohol occasionally. Past Drug Use History: None Reported - Past Family History Father History Unknown: Yes Additional Family Medical History / Comment(s): Pt does not know his father. Mother History Unknown: Yes Additional Family Medical History / Comment(s): Pt states he does not know mother's medical hx Medications and Allergies Home Medications Medication Instructions Recorded Confirmed Type HYDROcodone/APAP 5-325MG [[place] 1 tab PO TID PRN 03/27/19 04/02/19 History 5-325] Loperamide HCl [Imodium A-D] 2 mg PO Q8H PRN 03/27/19 04/02/19 History Lubiprostone [Amitiza] 24 mcg PO BID 03/27/19 04/02/19 History Morphine Sulfate ER [Ms Contin] 30 mg PO W/LUNCH 03/27/19 04/02/19 History Morphine Sulfate ER [Ms Contin] 60 mg PO BID@0900,1200 03/27/19 04/02/19 History Prochlorperazine [Compazine] 10 mg PO TID PRN 03/27/19 04/02/19 History Cefuroxime Axetil [Ceftin] 500 mg PO BID 3 Days #6 tab 03/31/19 04/02/19 Rx Ondansetron HCl [Zofran] 4 mg PO Q8H PRN #20 tab 03/31/19 04/02/19 Rx Pantoprazole Sodium [Protonix] 40 mg PO DAILY #15 tablet. 03/31/19 04/02/19 Rx metroNIDAZOLE [Flagyl] 250 mg PO Q8H 4 Days #12 tab 03/31/19 04/02/19 Rx Allergies Allergy/AdvReac Type Severity Reaction Status Date / Time No Known Allergies Allergy Verified 04/02/19 07:30 Physical Exam Vitals: Vital Signs Temp Pulse Pulse Resp BP BP Pulse Ox 04/02/19 11:29 98.2 F 73 17 123/76 97 04/02/19 04:31 97.9 F 80 18 120/70 92 L 04/02/19 01:17 97.7 F 88 18 144/86 96 04/02/19 00:53 90 18 127/90 97 04/01/19 22:50 80 16 132/90 94 L 04/01/19 22:01 98.7 F 94 16 156/104 97 Intake and Output 04/01/19 04/02/19 04/02/19 22:59 06:59 14:59 Intake Total 1000 Balance 1000 Intake: Intake, IV Titration 1000 Amount Dextrose 5%-0.45% NaCl 1, 500 000 ml @ 100 mls/hr IV . Q10H RENETTA Rx#:[id number] Sodium Chloride 0.9% 1, 500 000 ml @ 100 mls/hr IV . Q10H STA Rx#:[id number] Other: Voiding Method Toilet Toilet # Voids 1 Weight 92.079 kg 92.079 kg GENERAL: The patient is alert and oriented x3, not in any acute distress. Well developed, well nourished. HEENT: Pupils are round and equally reacting to light. EOMI. No scleral icterus. No conjunctival pallor. Normocephalic, atraumatic. No pharyngeal erythema. No thyromegaly. CARDIOVASCULAR: S1 and S2 present. No murmurs, rubs, or gallops. PULMONARY: Chest is clear to auscultation, no wheezing or crackles. ABDOMEN: Soft, nontender, nondistended, normoactive bowel sounds. No palpable organomegaly. MUSCULOSKELETAL: No joint swelling or deformity. EXTREMITIES: No cyanosis, clubbing, or pedal edema. NEUROLOGICAL: Gross neurological examination did not reveal any focal deficits. SKIN: No rashes. No petechiae Results CBC & Chem 7: 04/01/19 22:17 04/01/19 22:17 Labs: Abnormal Lab Results - Last 24 Hours (Table) 04/01/19 04/01/19 Range/Units 22:17 22:17 WBC 19.1 H (3.8-10.6) k/uL Neutrophils # 11.5 H (1.3-7.7) k/uL Monocytes # 1.7 H (0-1.0) k/uL Potassium 3.4 L (3.5-5.1) mmol/L Carbon Dioxide 21 L (22-30) mmol/L BUN 7 L (9-20) mg/dL Creatinine 0.63 L (0.66-1.25) mg/dL Magnesium 1.5 L (1.6-2.3) mg/dL AST 85 H (17-59) U/L ALT 109 H (4-49) U/L Alkaline Phosphatase 133 H (38-126) U/L Total Protein 6.0 L (6.3-8.2) g/dL Assessment and Plan Assessment: Recent history of Acute gastroenteritis, infectious versus chemotherapy-induced worsening Leukocytosis Presyncope, related to dehydration. Improved Dehydration, improved Recent history of pancreatic cancer about 7-8 months ago status post surgery and chemotherapy started on 03/22/2019 Chronic low back pain status post laminectomy on L4-L5/S1-S2 Gastroesophageal reflux disease Recent history of colitis Peptic ulcer disease with duodenitis/gastritis on recent EGD done on 11/2018 History of nephrolithiasis , Nonobstructing 4.7 mm left renal stone. No evidence of hydronephrosis. History of pneumonia Plan: this is a pleasant 58 years old male who presents with worsening symptoms and leukocytosis. Continue with IV fluid, advance diet as tolerated, to start Rocephin and Flagyl. Call infectious disease consult. Follow-up recommendation by photographic restorer/oncologist . Well order Neck x-ray and carotid duplex, I think his pain comes from his take her to the back of his chest pain resolved however we'll do serial troponin. Will consult infectious disease for recurrent gastroenteritis-like symptoms Labs and medication were reviewed.. Continue same treatment. Continue with symptomatic treatment. Resume home medication. Monitor lytes and vitals. DVT and GI prophylaxis. Further recommendations of the clinical course of the patient DVT prophylaxis: SubcutaneoLovenox GI Prophylaxis: Ppi PT/OT: Pending Prognosis is guarded
--- NOTE | 2019-04-02 15:51 | XR ---
EXAMINATION TYPE: XR cervical spine comp DATE OF EXAM: 04/02/2019 CLINICAL HISTORY: pain COMPARISON: NONE TECHNIQUE: Frontal, lateral, oblique, swimmers, and open mouth view of the cervical spine are obtaine d. FINDINGS: The cervical spine is visualized in its entirety from C1 thru the top of T1 level. It is s atisfactory in alignment without evidence of acute fracture or dislocation. The pre-vertebral soft t issue appears within normal limits. Mild degenerative narrowing C5-6 and C6-7. The C1-C2 articulation is unremarkable on the open mouth view. The oblique images are within normal limits. IMPRESSION: No acute fracture or dislocation is seen in the cervical spine.ICD 10 NO FRACTURE, INITI AL EVALUATION
--- NOTE | 2019-04-02 16:44 | CONS ---
CONSULTATION DATE OF SERVICE: April 02, 2019. REASON FOR CONSULTATION: Pancreatic cancer. CHIEF COMPLAINT: Diarrhea, nausea and vomiting. HISTORY OF PRESENT ILLNESS: Gio is a very pleasant 58-year-old gentleman, very well known to me. The patient was initially diagnosed with pancreatic cancer in [place] in December 2018 when he presented with abdominal pain and was found to have a mass in the body of his pancreas. He had a core biopsy of it, which was positive for adenocarcinoma of the pancreas. Subsequently on January 03, 2019, he underwent distal pancreatectomy along with splenectomy. Pathology revealed adenocarcinoma infiltrating the surrounding peripancreatic soft tissue and directly invaded 2 out of 9 peripancreatic nodes, closely upon approach to the serosal surface and extent to multiple cup surfaces at distal margins. Proximal margins were negative. There was evidence of perineural invasion and lymphovascular invasion. The tumor size was 7.1 cm. Subsequently, he was relocated back to [place] in January of 2019. He was initially seen at [facility] when he was admitted with pain and hydronephrosis from kidney stone. Subsequently, this has improved and discharged home. I did see him in the office on 03/01/2019 and after a lengthy discussion, he decided to proceed with systemic chemotherapy given his high risk of recurrence and after discussing multiple options, he decided to proceed with FOLFIRINOX regimen. Modified FOLFIRINOX regimen. He had his 1st cycle on 03/22/2019 to 03/24/2019. The patient came into the hospital because he has been having issues with nausea, vomiting, and also he has a lot of diarrhea. He has had issue with diarrhea before in the outpatient setting. He initially had constipation. However, he overdid laxatives and ended up with diarrhea even before starting his chemotherapy. Also, he has issue with nausea and vomiting, but this has improved during this hospital stay. He complains of abdominal pain and he has been on narcotic because of that. He denies any fever or chills. Denies any melena, hematochezia, hematuria, hemoptysis, hematemesis or epistaxis. He did have headaches and he ended up having a CT scan of the brain while in the emergency department, which was negative. PAST MEDICAL HISTORY: Other that what is stated above, is otherwise negative. PAST SURGICAL HISTORY: He had EGD, cholecystectomy, colonoscopy, left knee surgery, left ankle surgery, and as stated he recently had distal pancreatectomy and splenectomy. FAMILY HISTORY: Negative for malignancy. SOCIAL HISTORY: He used to smoke. He smoked 1 pack of cigarettes daily from 1970 until May of 2018. No alcohol abuse. He uses marijuana. REVIEW OF SYSTEMS: As stated above in history of present illness. MEDICATION: Reviewed in electronic medical record. ALLERGIES: Are reviewed in his electronic medical record. PHYSICAL EXAMINATION: He is alert, oriented x3. He does not appear to be in distress at this point in time. His vital signs are temperature 98.2. Afebrile, pulse 76 regular, respirations 16-17, blood pressure 123/76. HEENT: Normocephalic, atraumatic. No obvious scleral icterus. NECK: Supple. No jugular venous distention. CHEST: Equal expansion bilaterally. LUNGS: Clear to auscultation and percussion. HEART: Regular rate and rhythm. ABDOMEN: Soft. He has generalized tenderness, mostly also in the left upper quadrant. No ascites. No organomegaly are noted. EXTREMITIES reveal no edema. SKIN: No significant bruise, petechiae. LYMPHATICS: No peripherally enlarged cervical or supraclavicular nodes. MUSCULOSKELETAL: Moving all extremities appropriately. No percussion tenderness over the cervical spine or sternum. LABORATORY DATA: WBC are 19.1, hemoglobin 13.9, hematocrit 42.4, platelets are 330. Sodium 137, potassium 3.4, chloride is 104, BUN is 7, creatinine 0.63, AST 85, ALT 109, alkaline phosphatase is 133. IMPRESSION: 1. Nausea and vomiting probably related to recent chemotherapy. Appears to be improving with current antiemetic. 2. Clinical dehydration, improving with IV fluids. 3. Diarrhea. This also has improved. This is probably for over doing the laxatives. 4. Leukocytosis. Without any clinical signs to suggest infection. Probably related to recent use of Neulasta which he had with his first cycle of chemotherapy. 5. Elevated LFTs. He has had those even before in the past appeared to be slightly worse. This needs to be monitored. 6. Locally advanced pancreatic carcinoma with diagnostic and therapeutic circumstances stated above. RECOMMENDATION: 1. Continue current care with IV hydration, and antiemetics and current pain medication regimen. 2. Monitor CBC and LFTs. 3. In regards to next cycle of chemotherapy, may consider dose reduction. The above was discussed in detail with the patient. I have answered all his questions to his satisfaction. Thank you very much for asking me to participate in the care of this nice gentleman. SOFIA / ERICHN: [id number] /
--- NOTE | 2019-04-02 16:57 | US ---
EXAMINATION TYPE: US carotid duplex BILAT DATE OF EXAM: 04/02/2019 COMPARISON: MRA Brain CLINICAL HISTORY: neck pain . Left neck pain x 2 days and recently started chemotherapy for pancreati c CA; prior smoker greater than 40 years; patient denies stroke. EXAM MEASUREMENTS: RIGHT: Peak Systolic Velocity (PSV) cm/sec ----- Right CCA: 71.2 ----- Right ICA: 79.8 ----- Right ECA: 85.4 ICA/CCA ratio: 1.1 RIGHT: End Diastole cm/sec ----- Right CCA: 20.6 ----- Right ICA: 16.0 ----- Right ECA: 0.0 LEFT: Peak Systolic Velocity (PSV) cm/sec ----- Left CCA: 72.6 ----- Left ICA: 72.2 ----- Left ECA: 65.2 ICA/CCA ratio: 1.0 LEFT: End Diastole cm/sec ----- Left CCA: 19.7 ----- Left ICA: 29.3 ----- Left ECA: 0.0 VERTEBRALS (direction of flow): Right Vertebral: faint antegrade signal, small size compared to left dominant vertebral artery, and poor color filling right vertebral artery. Left Vertebral: Antegrade and dominant vertebral artery Rhythm: Normal Mild intimal wall thickening is noted at bilateral carotid bifurcation, but PSV is wnl bilaterally. Incidental complex right thyroid nodule is seen mid level = 1.2 x 1.0 x 0.6cm. IMPRESSION: No evidence for hemodynamically significant stenosis. Criteria for Assigning % of Stenosis / Diameter reduction (Estimation based on the indirect measurements of the internal carotid artery velocities (ICA PSV). 1. Normal (no stenosis)=ICA PSV < 125 cm/s: ratio < 2.0: ICA EDV<40 cm/s. 2. Less than 50% stenosis=ICA PSV < 125 cm/s: ratio < 2.0: ICA EDV<40 cm/s. 3. 50 to 69% stenosis=ICA PSV of 125 to 230 cm/s: ration 2.0 ? 4.0: ICA EDV 40-100 cm/s. 4. Greater than 70% stenosis to near occlusion= ICA PSV > 230 cm/s: ratio > 4.0: ICA EDV > 100 cm/s. 5. Near occlusion= ICA PSV velocities may be low or undetectable: variable ratio and ICA EDV. 6. Total occlusion=unable to detect flow.
[2019-04-02] MEDS: metroNIDAZOLE-NS PMX 500 MG in SALINE 1 100ML.BAG IVPB SCH ×2 (17:09→23:37)
[2019-04-02] MEDS ORDERED: PROMETHAZINE INJ 25 MG in SODIUM CHLORIDE 0.9% 50 ML IVPB PRN (18:17)
[2019-04-02] MEDS: MORPHINE SULFATE ER 60 MG TABLET PO SCH (21:30)
[2019-04-02] MEDS: NON FORMULARY DRUG (Lubiprostone [Amitiza] 24 MCG) PO SCH (21:31)
--- NOTE | 2019-04-03 00:05 | P.CONS ---
History of Present Illness - Reason for Consult Consult date: 04/02/19 gastroenteritis Requesting physician: Dario E Sheet - Chief Complaint vomiting and diarrhea x few days - History of Present Illness Patient is a 58-year-old male with recent diagnosis of pancreatic cancer that was diagnosed in December 2018 this patient who is status post distal pancreatectomy along with splenectomy patient recently has been started on chemotherapy and has received his last chemo from March 22 till March 24, 2019, patient is now presenting to [facility] with chief complaint of generalized weakness nausea vomiting and diarrhea that apparently started getting worse after his last chemo the patient said that has been going to more than normal 6-8 times with no blood or mucus in the stool has been complaining of feeling nauseated and having difficulty keeping anything down pain in the abdomen is mostly dull aching at times sharp about 4 to 5 out of 10 and no radiation has been denies any fever or chills with the symptom the patient was evaluated by the ER physician on arrival to the ER patient has been afebrile patient did have elevated white count 19,000 creatinine 0.63 influenza serology was negative lipase was normal stool for C. difficile was not checked patient has been treated with Rocephin and Flagyl infection was consulted for further recommendation regarding his diarrhea and question for infectious co litis. The patient however is mentioning overall improvement in his diarrhea as he did not have any bowel movement today Review of Systems Positive point has been mentioned in HPI rest of the systems are negative Past Medical History Past Medical History: Cancer, GERD/Reflux, Pneumonia Additional Past Medical History / Comment(s): Pt states he was diagnosed with pancreatic cancer 7-8 months ago in [place]/had surgery in [place] and started chemo 03/22/19, EGD/colonoscopy dated 11/2018 states pt has duodenitis/antral gastritis/antral ulcer/colon and rectal polyp but pt does not recall this, nephrolithiasis, murmur. History of Any Multi-Drug Resistant Organisms: None Reported Past Surgical History: Back Surgery, Cholecystectomy, Orthopedic Surgery Additional Past Surgical History / Comment(s): Tail of pancreas removed along with spleen in [place], [facility], laminectomy L4-L5/S1-S2, lower back laser surgery to cut nerves, L knee arthroscopy-meniscal and ACL, L ankle reconstructive surgery x 3, R hand surgery d/t trauma, EGD/colonoscopy, lithostripsy. Past Anesthesia/Blood Transfusion Reactions: No Reported Reaction Additional Past Anesthesia/Blood Transfusion Reaction / Comm: Pt has received blood in past without reaction. Past Psychological History: No Psychological Hx Reported Additional Psychological History / Comment(s): Pt resides alone in a home without steps. He uses no assistive devices. He does not drive, his kids are helpful and drive pt to appts. Smoking Status: Former smoker Past Alcohol Use History: Occasional Additional Past Alcohol Use History / Comment(s): Pt started smoking in 1969 and was up to 1.5 ppd. He quit smoking 7 months ago. Pt states he drinks alcohol occasionally. Past Drug Use History: None Reported - Past Family History Father History Unknown: Yes Additional Family Medical History / Comment(s): Pt does not know his father. Mother History Unknown: Yes Additional Family Medical History / Comment(s): Pt states he does not know mother's medical hx Medications and Allergies Home Medications Medication Instructions Recorded Confirmed Type HYDROcodone/APAP 5-325MG [[place] 1 tab PO TID PRN 03/27/19 04/02/19 History 5-325] Loperamide HCl [Imodium A-D] 2 mg PO Q8H PRN 03/27/19 04/02/19 History Lubiprostone [Amitiza] 24 mcg PO BID 03/27/19 04/02/19 History Morphine Sulfate ER [Ms Contin] 30 mg PO W/LUNCH 03/27/19 04/02/19 History Morphine Sulfate ER [Ms Contin] 60 mg PO BID@0900,1200 03/27/19 04/02/19 History Prochlorperazine [Compazine] 10 mg PO TID PRN 03/27/19 04/02/19 History Cefuroxime Axetil [Ceftin] 500 mg PO BID 3 Days #6 tab 03/31/19 04/02/19 Rx Ondansetron HCl [Zofran] 4 mg PO Q8H PRN #20 tab 03/31/19 04/02/19 Rx Pantoprazole Sodium [Protonix] 40 mg PO DAILY #15 tablet. 03/31/19 04/02/19 Rx metroNIDAZOLE [Flagyl] 250 mg PO Q8H 4 Days #12 tab 03/31/19 04/02/19 Rx Allergies Allergy/AdvReac Type Severity Reaction Status Date / Time No Known Allergies Allergy Verified 04/02/19 07:30 Physical Exam Vitals: Vital Signs Temp Pulse Pulse Resp BP BP Pulse Ox 04/02/19 11:29 98.2 F 73 17 123/76 97 04/02/19 04:31 97.9 F 80 18 120/70 92 L 04/02/19 01:17 97.7 F 88 18 144/86 96 04/02/19 00:53 90 18 127/90 97 04/01/19 22:50 80 16 132/90 94 L 04/01/19 22:01 98.7 F 94 16 156/104 97 Intake and Output 04/02/19 04/02/19 04/02/19 06:59 14:59 22:59 Intake Total 1000 Balance 1000 Intake: Intake, IV Titration 1000 Amount Dextrose 5%-0.45% NaCl 1, 500 000 ml @ 100 mls/hr IV . Q10H RENETTA Rx#:[id number] Sodium Chloride 0.9% 1, 500 000 ml @ 100 mls/hr IV . Q10H STA Rx#:[id number] Other: Voiding Method Toilet Toilet Toilet # Voids 1 Weight 92.079 kg 92.079 kg GENERAL DESCRIPTION: Middle-aged male lying in bed, no distress. No tachypnea or accessory muscle of respiration use. HEENT: Shows Pallor , no scleral icterus. Oral mucous membrane is dry. NECK: Trachea central, no thyromegaly. LUNGS: Unlabored breathing. Clear to auscultation anteriorly. No wheeze or crackle. HEART: S1, S2, regular rate and rhythm. ABDOMEN: Soft, no tenderness , guarding or rigidity EXTREMITIES: No edema of feet. SKIN: No rash, no masses palpable. NEUROLOGICAL: The patient is awake, alert, oriented x3, mood and affect normal. Results CBC & Chem 7: 04/01/19 22:17 04/01/19 22:17 Labs: Abnormal Lab Results - Last 24 Hours (Table) 04/01/19 04/01/19 Range/Units 22:17 22:17 WBC 19.1 H (3.8-10.6) k/uL Neutrophils # 11.5 H (1.3-7.7) k/uL Monocytes # 1.7 H (0-1.0) k/uL Potassium 3.4 L (3.5-5.1) mmol/L Carbon Dioxide 21 L (22-30) mmol/L BUN 7 L (9-20) mg/dL Creatinine 0.63 L (0.66-1.25) mg/dL Magnesium 1.5 L (1.6-2.3) mg/dL AST 85 H (17-59) U/L ALT 109 H (4-49) U/L Alkaline Phosphatase 133 H (38-126) U/L Total Protein 6.0 L (6.3-8.2) g/dL Assessment and Plan Assessment: patient presented hospital with acute nausea vomiting and diarrhea could be more likely chemo related underlying infectious etiology less likely but not entirely excluded in view of his elevated white count which at the same time could be related to Neulasta which the patient has received after his chemo as the patient currently little toxic does not relate any fever (1) Diarrhea Current Visit: Yes Status: Acute Priority: High Code(s): R19.7 - DIARRHEA, UNSPECIFIED SNOMED Code(s): 90407681 (2) Leukocytosis Current Visit: No Status: Acute Priority: Low Code(s): D72.829 - ELEVATED WHITE BLOOD CELL COUNT, UNSPECIFIED SNOMED Code(s): 315685193 Plan: 1-we will obtain a stool for C. difficile stool culture 2-continue with empiric Rocephin and Flagyl to which the patient seemed to have clinically responded 3-gentle IV fluid We will follow on clinical condition and cultures to further adjust medication if needed Thank you for this consultation we will follow the patient along with you Time with Patient: Greater than 30
[2019-04-03] MEDS: DEXTROSE 5%-0.45% NACL 1,000 ML IV SCH ×2 (05:06→14:46)
[2019-04-03] MEDS ORDERED: Magnesium Replacement Protocol 1 EACH MISC MISCELLANE PRN ×3 (06:53→18:16)
[2019-04-03] MEDS ORDERED: Potassium Replacement Protocol 1 EACH MISC MISCELLANE PRN ×2 (06:53→16:23)
--- NOTE | 2019-04-03 07:30 | P.PN ---
Subjective This is a pleasant 58 years old male with past medical history of gastroesophageal reflux disease, pneumonia, pancreatic cancer diagnosed 7-8 months ago in [place] status post surgery and started chemotherapy on 03/22/2019. Chronic low back pain status post laminectomy on L4-L5/S1-S2. Patient was recently discharged from this hospital 2 days ago for gastroenteritis and leukocytosis. He was discharged on Ceftin and Flagyl, However this time patient states that after his been discharged he starts having neck pain radiating from the left side down to the back and symptoms of the chest however his chest pain resolved and is still complaining from left sided neck pain and back pain. Also he was complaining of from nausea vomiting, he v omited about 3 times with no blood. However his bowel movement was loose but is getting forms gradually. Vitals stable are stable. He has worsening leukocytosis at 19.1 K, potassium was 3.4, magnesium 1.5, liver enzymes slightly elevated with ALT 109 compared to 60 the day before and AST of 85 compared to 29 the day before. Influenza is negative. Stool culture from recent admission is negative. He had negative for brain CT. Chest x-ray showing stable fibrotic interstitial changes compared to last exam by radiologist. EKG showing sinus tachycardia at 111, no significant ST-T changes and QTC is 476. [facility] team as per a consult from emergency room. He was started on normal saline 04/03/2019 Patient neck pain and back pain is improved significantly, he says that the pain is completely resolved, he thinks that he has some residual back effect but as we were talking he has no pain. Neck x-ray and carotid Doppler's came back negative. Vomiting, however he did not have bowel movements is yesterday, he has chronic right lower quadrant pain for 6 month mostly related to his history of pancreatic cancer, no other new pain. Patient wants to continue with regular diet, he does not want liquid or soft diet. He is on Phenergan and Zofran as needed, he is on Flagyl and Rocephin, isn't Protonix. Vitals are stable. Labs pending. We going to order abdominal x-ray in view of continuous vomiting Review of systems CONSTITUTIONAL: No fever, no malaise, no fatigue. HEENT: No recent visual problems or hearing problems. Denied any sore throat. CARDIOVASCULAR: No orthopnea, PND, no palpitations, no syncope. PULMONARY: No shortness of breath, no cough, no hemoptysis. GASTROINTESTINAL: No diarrhea, no nausea, no vomiting, no abdominal pain. Normoactive bowel sounds. NEUROLOGICAL: No headaches, no weakness, no numbness. HEMATOLOGICAL: Denies any bleeding or petechiae. GENITOURINARY: Denies any burning micturition, frequency, or urgency. MUSCULOSKELETAL/RHEUMATOLOGICAL: Denies any joint pain, swelling, or any muscle pain. ENDOCRINE: Denies any polyuria or polydipsia. Active Medications Generic Name Dose Route Start Last Admin Trade Name Freq PRN Reason Stop Dose Admin Hydrocodone Bitart/Acetaminophen 1 each 04/02/19 11:06 [place] 5-325 PO TID PRN Pain Enoxaparin Sodium 40 mg 04/02/19 09:00 04/02/19 08:12 Lovenox SQ 40 mg DAILY [facility] Administration Dextrose/Sodium Chloride 1,000 mls @ 100 mls/hr 04/01/19 23:45 04/03/19 05:06 Dextrose 5%-1/2ns Iv Soln IV 100 mls/hr .Q10H [facility] Administration Metronidazole 500 mg/ IV 100 mls @ 100 mls/hr 04/02/19 16:00 04/02/19 23:37 Solution IVPB 100 mls/hr Q8HR [facility] Administration Ceftriaxone Sodium 1 gm/ 50 mls @ 100 mls/hr 04/02/19 14:00 04/02/19 14:43 Sodium Chloride IVPB 100 mls/hr Q24HR [facility] Administration Promethazine HCl 25 mg/ Sodium 51 mls @ 200 mls/hr 04/02/19 18:17 04/02/19 19:52 Chloride IVPB 200 mls/hr Q6HR PRN Administration Nausea And Vomiting Loperamide HCl 2 mg 04/02/19 11:06 Imodium PO Q8H PRN Diarrhea Miscellaneous Information 1 each 04/03/19 06:53 Magnesium Per Protocol MISCELLANE DAILY PRN Per Protocol Protocol Miscellaneous Information 1 each 04/03/19 06:53 Potassium Per Protocol MISCELLANE DAILY PRN Per Protocol Protocol Morphine Sulfate 4 mg 04/01/19 23:45 04/02/19 08:14 Morphine Sulfate (Inj) IV 4 mg Q4HR PRN Administration Severe Pain Morphine Sulfate 60 mg 04/02/19 21:00 04/02/19 21:30 Ms Contin PO 60 mg BID@0900,2100 [facility] Administration Morphine Sulfate 30 mg 04/02/19 12:30 04/02/19 12:42 Ms Contin PO 30 mg W/LUNCH [facility] Administration Naloxone HCl 0.2 mg 04/01/19 23:45 Narcan IV Q2M PRN Opioid Reversal Non-Formulary Medication 24 mcg 04/02/19 21:00 04/02/19 21:31 Lubiprostone [Amitiza] PO Not Given BID [facility] Ondansetron HCl 4 mg 04/01/19 23:45 04/02/19 12:16 Zofran IVP 4 mg Q8HR PRN Administration Nausea And Vomiting Pantoprazole Sodium 40 mg 04/03/19 09:00 Protonix PO DAILY [facility] Prochlorperazine Maleate 10 mg 04/02/19 11:06 04/02/19 15:33 Compazine PO 10 mg TID PRN Administration Nausea Objective - Vital Signs Vital signs: Vital Signs Temp 98.6 F 04/03/19 04:15 Pulse 69 04/03/19 04:15 Resp 16 04/03/19 04:15 BP 105/64 04/03/19 04:15 Pulse Ox 95 04/03/19 04:15 Intake & Output 04/02/19 04/03/19 04/03/19 18:59 06:59 18:59 Intake Total 1100 Balance 1100 Weight 92.079 kg Intake: Intake, IV Titration 1100 Amount Dextrose 5%-0.45% NaCl 1, 1100 000 ml @ 100 mls/hr IV . Q10H [facility] Rx#:[id number] Other: Voiding Method Toilet Toilet # Voids 10 # Bowel Movements 1 - Exam GENERAL: The patient is alert and oriented x3, not in any acute distress. Well developed, well nourished. HEENT: Pupils are round and equally reacting to light. EOMI. No scleral icterus. No conjunctival pallor. Normocephalic, atraumatic. No pharyngeal erythema. No thyromegaly. CARDIOVASCULAR: S1 and S2 present. No murmurs, rubs, or gallops. PULMONARY: Chest is clear to auscultation, no wheezing or crackles. ABDOMEN: Soft, nontender, nondistended, normoactive bowel sounds. No palpable organomegaly. MUSCULOSKELETAL: No joint swelling or deformity. EXTREMITIES: No cyanosis, clubbing, or pedal edema. NEUROLOGICAL: Gross neurological examination did not reveal any focal deficits. SKIN: No rashes. No petechiae - Labs CBC & Chem 7: 04/01/19 22:17 04/01/19 22:17 Assessment and Plan Assessment: Recent history of Acute gastroenteritis, infectious versus chemotherapy-induced worsening Leukocytosis Presyncope, related to dehydration. Improved Dehydration, improved Recent history of pancreatic cancer about 7-8 months ago status post surgery and chemotherapy started on 03/22/2019 Chronic low back pain status post laminectomy on L4-L5/S1-S2 Gastroesophageal reflux disease Recent history of colitis Peptic ulcer disease with duodenitis/gastritis on recent EGD done on 11/2018 History of nephrolithiasis , Nonobstructing 4.7 mm left renal stone. No evidence of hydronephrosis. History of pneumonia Plan: this is a pleasant 58 years old male who presents with worsening symptoms and leukocytosis. Continue with IV fluid, advance diet as tolerated, continue with Rocephin and Flagyl. Follow-up recommendation by infectious disease consult. Follow-up recommendation by field contact person/oncologist . Abdominal x-ray Labs and medication were reviewed.. Continue same treatment. Continue with symptomatic treatment. Resume home medication. Monitor lytes and vitals. DVT and GI prophylaxis. Further recommendations of the clinical course of the patient DVT prophylaxis: Subcutaneous Lovenox GI Prophylaxis: Ppi PT/OT: Pending Prognosis is guarded
[2019-04-03] MEDS: metroNIDAZOLE-NS PMX 500 MG in SALINE 1 100ML.BAG IVPB SCH (08:16)
[2019-04-03] MEDS: ENOXAPARIN 40 MG/0.4 ML SYRINGE SQ SCH (08:17)
[2019-04-03] MEDS: NON FORMULARY DRUG (Lubiprostone [Amitiza] 24 MCG) PO SCH ×2 (08:18→20:30)
[2019-04-03] MEDS: MORPHINE SULFATE ER 60 MG TABLET PO SCH ×2 (08:18→20:29)
[2019-04-03] MEDS: PANTOPRAZOLE 40 MG TABLET PO SCH (08:19)
[2019-04-03] MEDS ORDERED: PANTOPRAZOLE 40 MG TABLET PO SCH (09:00)
--- NOTE | 2019-04-03 09:06 | XR ---
Abdomen 2 view HISTORY: Vomiting 2 views the abdomen submitted on 3 images. Correlation to previous exam March 28, 2019 There are multiple air-fluid levels without bowel distention. Surgical clips are present in the upper abdomen. Lung bases are clear. IMPRESSION: Correlate for enteritis, ileus, follow-up as indicated
[2019-04-03] MEDS: MORPHINE SULFATE ER 30 MG TABLET PO SCH (12:42)
[2019-04-03 15:41] LABS: Basophils # (A) 0.3 k/uL (0-0.2); Basophils % (A) 2 %; Eosinophils # (A) 0.8 k/uL (0-0.7); Eosinophils % (A) 5 %; HCT 41.3 % (39.0-53.0); Lymphocytes # (A) 5.2 k/uL (1.0-4.8); Lymphocytes % (A) 31 %; MCH 26.7 pg (25.0-35.0); MCHC 31.4 g/dL (31.0-37.0); MCV 85.1 fL (80.0-100.0); Mean Platelet Volume 8.5; Monocytes # (A) 1.8 k/uL (0-1.0); Monocytes % (A) 11 %; Neutrophils # (A) 8.4 k/uL (1.3-7.7); Neutrophils % (A) 50 %; Platelet Count 326 k/uL (150-450); RBC 4.86 m/uL (4.30-5.90); RDW 14.7 % (11.5-15.5); WBC 16.9 k/uL (3.8-10.6)
[2019-04-03] MEDS: metroNIDAZOLE 500 MG TAB PO SCH ×2 (15:44→23:32)
[2019-04-03 15:45] LABS: ALT 80 U/L (4-49); AST 43 U/L (17-59); African American GFR (CKD) >90 (>60 ml/min/1.73 sqM); Albumin 2.8 g/dL (3.5-5.0); Alkaline Phosphatase 92 U/L (38-126); Anion Gap 5 mmol/L; Blood Urea Nitrogen 4 mg/dL (9-20); Calcium 9.1 mg/dL (8.4-10.2); Carbon Dioxide 28 mmol/L (22-30); Chloride 107 mmol/L (98-107); Glucose 110 mg/dL (74-99); Magnesium 1.5 mg/dL (1.6-2.3); Non-African American GFR(CKD) >90 (>60 ml/min/1.73 sqM); Sodium 140 mmol/L (137-145); Total Bilirubin 0.2 mg/dL (0.2-1.3); Total Protein 5.1 g/dL (6.3-8.2)
[2019-04-03] MEDS: POTASSIUM CHLORIDE ER 20 MEQ TAB.ER PO SCH ×2 (17:32→18:27)
--- NOTE | 2019-04-03 18:03 | PN ---
PROGRESS NOTE DATE OF SERVICE: 04/03/2019 REASON FOR FOLLOWUP: Nausea, vomiting and gastroenteritis. INTERVAL HISTORY: The patient is currently afebrile. The patient is breathing comfortably. The patient mentioned slight improvement in his diarrhea as well as vomiting, as he was able to keep his breakfast down this morning. Denies having any chest pain or shortness of breath or cough. PHYSICAL EXAMINATION: Blood pressure is 131/79 with a pulse of 70, temperature 98.4. He is 96% on room air. General description is a middle-aged male lying in bed in no distress. RESPIRATORY SYSTEM: Unlabored breathing. Clear to auscultation anteriorly. HEART: S1, S2. Regular rate and rhythm. ABDOMEN: Soft. No tenderness. LABS: Hemoglobin is 13, white count 16.9, BUN of 4, creatinine 0.60. Potassium is low at 3.0. Stool culture pending. Stool for C difficile is negative. DIAGNOSTIC IMPRESSION AND PLAN: Patient admitted to hospital with acute nausea, vomiting and diarrhea in this patient who did have recent chemo; question of chemo-related versus infectious colitis. The patient responded to Rocephin and Flagyl; to continue while waiting for the stool culture to finalize. Continue with supportive care. MMODL / IJN: [id number] /
[2019-04-03] MEDS: MAGNESIUM SULFATE-D5W PMX 1 GM in DEXTROSE/WATER 1 100ML.BAG IVPB SCH ×2 (19:36→20:26)
[2019-04-03] MEDS: LOPERAMIDE 2 MG CAP PO PRN (20:36)
[2019-04-03] MEDS: POTASSIUM CHLORIDE 20 MEQ in WATER FOR INJECTION 1 100ML.BAG IVPB SCH ×2 (21:27→23:32)
[2019-04-04 02:49] LABS: Basophils # (A) 0.3 k/uL (0-0.2); Basophils % (A) 2 %; Eosinophils # (A) 0.9 k/uL (0-0.7); Eosinophils % (A) 5 %; HCT 38.1 % (39.0-53.0); HGB 12.7 gm/dL (13.0-17.5); Lymphocytes # (A) 4.9 k/uL (1.0-4.8); Lymphocytes % (A) 27 %; MCH 28.1 pg (25.0-35.0); MCHC 33.3 g/dL (31.0-37.0); MCV 84.2 fL (80.0-100.0); Monocytes # (A) 1.8 k/uL (0-1.0); Monocytes % (A) 10 %; Neutrophils # (A) 9.6 k/uL (1.3-7.7); Neutrophils % (A) 53 %; Platelet Count 332 k/uL (150-450); RBC 4.52 m/uL (4.30-5.90); RDW 14.4 % (11.5-15.5)
[2019-04-04 02:57] LABS: ALT 71 U/L (4-49); AST 30 U/L (17-59); African American GFR (CKD) >90 (>60 ml/min/1.73 sqM); Albumin 2.8 g/dL (3.5-5.0); Alkaline Phosphatase 94 U/L (38-126); Anion Gap 4 mmol/L; Blood Urea Nitrogen 3 mg/dL (9-20); Calcium 8.7 mg/dL (8.4-10.2); Carbon Dioxide 28 mmol/L (22-30); Chloride 107 mmol/L (98-107); Glucose 110 mg/dL (74-99); Magnesium 1.9 mg/dL (1.6-2.3); Non-African American GFR(CKD) >90 (>60 ml/min/1.73 sqM); Potassium 3.7 mmol/L (3.5-5.1); Sodium 139 mmol/L (137-145); Total Bilirubin 0.2 mg/dL (0.2-1.3); Total Protein 4.9 g/dL (6.3-8.2)
[2019-04-04] MEDS: POTASSIUM CHLORIDE 10 MEQ in WATER FOR INJECTION 1 100ML.BAG IVPB SCH ×2 (03:22→04:43)
[2019-04-04] MEDS: DEXTROSE 5%-0.45% NACL 1,000 ML IV SCH ×3 (03:23→20:55)
--- NOTE | 2019-04-04 07:36 | P.PN ---
Subjective This is a pleasant 58 years old male with past medical history of gastroesophageal reflux disease, pneumonia, pancreatic cancer diagnosed 7-8 months ago in [place] status post surgery and started chemotherapy on 03/22/2019. Chronic low back pain status post laminectomy on L4-L5/S1-S2. Patient was recently discharged from this hospital 2 days ago for gastroenteritis and leukocytosis. He was discharged on Ceftin and Flagyl, However this time patient states that after his been discharged he starts having neck pain radiating from the left side down to the back and symptoms of the chest however his chest pain resolved and is still complaining from left sided neck pain and back pain. Also he was complaining of from nausea vomiting, he v omited about 3 times with no blood. However his bowel movement was loose but is getting forms gradually. Vitals stable are stable. He has worsening leukocytosis at 19.1 K, potassium was 3.4, magnesium 1.5, liver enzymes slightly elevated with ALT 109 compared to 60 the day before and AST of 85 compared to 29 the day before. Influenza is negative. Stool culture from recent admission is negative. He had negative for brain CT. Chest x-ray showing stable fibrotic interstitial changes compared to last exam by radiologist. EKG showing sinus tachycardia at 111, no significant ST-T changes and QTC is 476. [facility] team as per a consult from emergency room. He was started on normal saline 04/03/2019 Patient neck pain and back pain is improved significantly, he says that the pain is completely resolved, he thinks that he has some residual back effect but as we were talking he has no pain. Neck x-ray and carotid Doppler's came back negative. Vomiting, however he did not have bowel movements is yesterday, he has chronic right lower quadrant pain for 6 month mostly related to his history of pancreatic cancer, no other new pain. Patient wants to continue with regular diet, he does not want liquid or soft diet. He is on Phenergan and Zofran as needed, he is on Flagyl and Rocephin, isn't Protonix. Vitals are stable. Labs pending. We going to order abdominal x-ray in view of continuous vomiting 04/04/2019 Patient neck and back pain completely resolved. No chest pain. Patient generally feels better as he told me. He is able to tolerate diet for breakfast, lunch and dinner from yesterday which was not an issue on the presentation. He had no more vomiting but he still have nausea and yesterday he had about 8-10 bouts of diarrhea. His abdominal pain is chronic with no acute exacerbation. And abdominal exam looks benign. Yesterday abdominal x-ray showed multiple fluid levels with enteritis versus ileus. Surgical team has been consulted. Follow-up abdominal x-ray from today. Stool culture still pending. WBC is 18.0 K. Braxton Amster normal and creatinine 0.5. Patient is afebrile. Lactic acid not elevated at 0.8 Review of systems CONSTITUTIONAL: No fever, no malaise, no fatigue. HEENT: No recent visual problems or hearing problems. Denied any sore throat. CARDIOVASCULAR: No orthopnea, PND, no palpitations, no syncope. PULMONARY: No shortness of breath, no cough, no hemoptysis. GASTROINTESTINAL: No diarrhea, no nausea, no vomiting, no abdominal pain. Normoactive bowel sounds. NEUROLOGICAL: No headaches, no weakness, no numbness. HEMATOLOGICAL: Denies any bleeding or petechiae. GENITOURINARY: Denies any burning micturition, frequency, or urgency. MUSCULOSKELETAL/RHEUMATOLOGICAL: Denies any joint pain, swelling, or any muscle pain. ENDOCRINE: Denies any polyuria or polydipsia. Active Medications Generic Name Dose Route Start Last Admin Trade Name Freq PRN Reason Stop Dose Admin Hydrocodone Bitart/Acetaminophen 1 each 04/02/19 11:06 [place] 5-325 PO TID PRN Pain Enoxaparin Sodium 40 mg 04/02/19 09:00 04/03/19 08:17 Lovenox SQ 40 mg DAILY [facility] Administration Dextrose/Sodium Chloride 1,000 mls @ 100 mls/hr 04/01/19 23:45 04/04/19 03:23 Dextrose 5%-1/2ns Iv Soln IV 100 mls/hr .Q10H [facility] Administration Ceftriaxone Sodium 1 gm/ 50 mls @ 100 mls/hr 04/02/19 14:00 04/03/19 09:24 Sodium Chloride IVPB 100 mls/hr Q24HR [facility] Administration Promethazine HCl 25 mg/ Sodium 51 mls @ 200 mls/hr 04/02/19 18:17 04/02/19 19:52 Chloride IVPB 200 mls/hr Q6HR PRN Administration Nausea And Vomiting Loperamide HCl 2 mg 04/02/19 11:06 04/03/19 20:36 Imodium PO 2 mg Q8H PRN Administration Diarrhea Metronidazole 500 mg 04/03/19 16:00 04/03/19 23:32 Flagyl PO 500 mg Q8HR [facility] Administration Miscellaneous Information 1 each 04/03/19 06:53 Magnesium Per Protocol MISCELLANE DAILY PRN Per Protocol Protocol Miscellaneous Information 1 each 04/03/19 06:53 Potassium Per Protocol MISCELLANE DAILY PRN Per Protocol Protocol Miscellaneous Information 1 each 04/03/19 16:23 Potassium Per Protocol MISCELLANE DAILY PRN Per Protocol Protocol Miscellaneous Information 1 each 04/03/19 18:16 Magnesium Per Protocol MISCELLANE DAILY PRN Per Protocol Protocol Morphine Sulfate 4 mg 04/01/19 23:45 04/02/19 08:14 Morphine Sulfate (Inj) IV 4 mg Q4HR PRN Administration Severe Pain Morphine Sulfate 60 mg 04/02/19 21:00 04/03/19 20:29 Ms Contin PO 60 mg BID@0900,2100 [facility] Administration Morphine Sulfate 30 mg 04/02/19 12:30 04/03/19 12:42 Ms Contin PO 30 mg W/LUNCH [facility] Administration Naloxone HCl 0.2 mg 04/01/19 23:45 Narcan IV Q2M PRN Opioid Reversal Non-Formulary Medication 24 mcg 04/02/19 21:00 04/03/19 20:30 Lubiprostone [Amitiza] PO Not Given BID [facility] Ondansetron HCl 4 mg 04/01/19 23:45 04/02/19 12:16 Zofran IVP 4 mg Q8HR PRN Administration Nausea And Vomiting Pantoprazole Sodium 40 mg 04/03/19 09:00 04/03/19 08:19 Protonix PO 40 mg DAILY [facility] Administration Prochlorperazine Maleate 10 mg 04/02/19 11:06 04/02/19 15:33 Compazine PO 10 mg TID PRN Administration Nausea Objective - Vital Signs Vital signs: Vital Signs Temp 97.8 F 04/04/19 05:00 Pulse 70 04/04/19 05:00 Resp 16 04/04/19 05:00 BP 111/73 04/04/19 05:00 Pulse Ox 97 04/04/19 05:00 Intake & Output 04/03/19 04/04/19 04/04/19 18:59 06:59 18:59 Intake Total 800 1960 Output Total 650 800 Balance 150 1160 Intake: Intake, IV Titration 800 1000 Amount Dextrose 5%-0.45% NaCl 1, 750 200 000 ml @ 100 mls/hr IV . Q10H [facility] Rx#:[id number] Magnesium Sulfate-D5w Pmx 200 1 gm In Dextrose/Water 1 100ml.bag @ 100 mls/hr IVPB Q1H [facility] Rx#: [id number] Potassium Chloride 10 meq 200 In Water For Injection 1 100ml.bag @ 100 mls/hr IVPB Q1H [facility] Rx#: [id number] Potassium Chloride 20 meq 400 In Water For Injection 1 100ml.bag @ 50 mls/hr IVPB Q2H [facility] Rx#: [id number] cefTRIAXone 1 gm In 50 Sodium Chloride 0.9% 50 ml @ 100 mls/hr IVPB Q24HR [facility] Rx#:[id number] Oral 960 Output: Stool 650 800 Other: Voiding Method Toilet # Voids 1 - Exam GENERAL: The patient is alert and oriented x3, not in any acute distress. Well developed, well nourished. HEENT: Pupils are round and equally reacting to light. EOMI. No scleral icterus. No conjunctival pallor. Normocephalic, atraumatic. No pharyngeal erythema. No thyromegaly. CARDIOVASCULAR: S1 and S2 present. No murmurs, rubs, or gallops. PULMONARY: Chest is clear to auscultation, no wheezing or crackles. ABDOMEN: Soft, nontender, nondistended, normoactive bowel sounds. No palpable organomegaly. MUSCULOSKELETAL: No joint swelling or deformity. EXTREMITIES: No cyanosis, clubbing, or pedal edema. NEUROLOGICAL: Gross neurological examination did not reveal any focal deficits. SKIN: No rashes. No petechiae - Labs CBC & Chem 7: 04/04/19 02:30 04/04/19 02:30 Labs: Abnormal Lab Results - Last 24 Hours (Table) 04/03/19 04/03/19 04/03/19 Range/Units 15:03 15:03 20:05 WBC 16.9 H (3.8-10.6) k/uL Hgb (13.0-17.5) gm/dL Hct (39.0-53.0) % Neutrophils # 8.4 H (1.3-7.7) k/uL Lymphocytes # 5.2 H (1.0-4.8) k/uL Monocytes # 1.8 H (0-1.0) k/uL Eosinophils # 0.8 H (0-0.7) k/uL Basophils # 0.3 H (0-0.2) k/uL Potassium 3.0 L 3.1 L (3.5-5.1) mmol/L BUN 4 L (9-20) mg/dL Creatinine 0.60 L (0.66-1.25) mg/dL Glucose 110 H (74-99) mg/dL Magnesium 1.5 L (1.6-2.3) mg/dL ALT 80 H (4-49) U/L Total Protein 5.1 L (6.3-8.2) g/dL Albumin 2.8 L (3.5-5.0) g/dL 04/04/19 04/04/19 Range/Units 02:30 02:30 WBC 18.0 H (3.8-10.6) k/uL Hgb 12.7 L (13.0-17.5) gm/dL Hct 38.1 L (39.0-53.0) % Neutrophils # 9.6 H (1.3-7.7) k/uL Lymphocytes # 4.9 H (1.0-4.8) k/uL Monocytes # 1.8 H (0-1.0) k/uL Eosinophils # 0.9 H (0-0.7) k/uL Basophils # 0.3 H (0-0.2) k/uL Potassium (3.5-5.1) mmol/L BUN 3 L (9-20) mg/dL Creatinine 0.56 L (0.66-1.25) mg/dL Glucose 110 H (74-99) mg/dL Magnesium (1.6-2.3) mg/dL ALT 71 H (4-49) U/L Total Protein 4.9 L (6.3-8.2) g/dL Albumin 2.8 L (3.5-5.0) g/dL Microbiology - Last 24 Hours (Table) 04/03/19 09:20 Stool Culture - Preliminary Stool Assessment and Plan Assessment: Recent history of Acute gastroenteritis, infectious versus chemotherapy-induced worsening Leukocytosis Multiple fluid levels on abdominal x-ray, ileus versus enteritis Presyncope, related to dehydration. Improved Dehydration, improved Recent history of pancreatic cancer about 7-8 months ago status post surgery and chemotherapy started on 03/22/2019 Chronic low back pain status post laminectomy on L4-L5/S1-S2 Gastroesophageal reflux disease Recent history of colitis Peptic ulcer disease with duodenitis/gastritis on recent EGD done on 11/2018 History of nephrolithiasis , Nonobstructing 4.7 mm left renal stone. No evidence of hydronephrosis. History of pneumonia Plan: this is a pleasant 58 years old male who presents with worsening symptoms and leukocytosis. Continue with IV fluid, advance diet as tolerated, continue with Rocephin and Flagyl. Follow-up recommendation by infectious disease consult. Follow-up recommendation by package lift operator/oncologist : Follow-up recommendation by surgery team. Labs and medication were reviewed.. Continue same treatment. Continue with symptomatic treatment. Resume home medication. Monitor lytes and vitals. DVT and GI prophylaxis. Further recommendations of the clinical course of the patient DVT prophylaxis: Subcutaneous Lovenox GI Prophylaxis: Ppi PT/OT: Pending Prognosis is guarded
--- NOTE | 2019-04-04 08:24 | XR ---
Abdomen HISTORY: Vomiting Frontal view the abdomen on 2 images Correlation to prior abdomen 04/03/2019 Surgical clips present in the upper abdomen. Lung bases are clear. Fibrosis noted in the thoracic lum bar spine. There are air-fluid levels without bowel distention. No evident pneumoperitoneum. IMPRESSION: Correlate for ileus, enteritis. Follow-up as indicated.
[2019-04-04] MEDS: MORPHINE SULFATE ER 60 MG TABLET PO SCH ×2 (09:01→20:54)
[2019-04-04] MEDS: metroNIDAZOLE 500 MG TAB PO SCH ×3 (09:03→23:15)
[2019-04-04] MEDS: PANTOPRAZOLE 40 MG TABLET PO SCH (09:03)
[2019-04-04] MEDS: NON FORMULARY DRUG (Lubiprostone [Amitiza] 24 MCG) PO SCH ×2 (09:03→20:20)
[2019-04-04] MEDS: ENOXAPARIN 40 MG/0.4 ML SYRINGE SQ SCH (09:03)
[2019-04-04] MEDS: LOPERAMIDE 2 MG CAP PO PRN (09:33)
--- NOTE | 2019-04-04 11:18 | P.PN ---
Subjective Progress Note Date: 04/04/19 Principal diagnosis: N,V, D, subsequent dehydration and weakness In follow up patient denies headache, change in thought process, dizziness, chest pain, shortness of breath, problems of eating, drinking, constipation, difficulty in urination, nausea, vomiting, or weakness. Stated diarrhea episodes have decreased in frequency but still having 2-3 episodes per day. Objective - Vital Signs Vital signs: Vital Signs Temp 97.8 F 04/04/19 05:00 Pulse 70 04/04/19 05:00 Resp 16 04/04/19 05:00 BP 111/73 04/04/19 05:00 Pulse Ox 97 04/04/19 05:00 Intake & Output 04/03/19 04/04/19 04/04/19 18:59 06:59 18:59 Intake Total 800 1960 Output Total 650 800 Balance 150 1160 Intake: Intake, IV Titration 800 1000 Amount Dextrose 5%-0.45% NaCl 1, 750 200 000 ml @ 100 mls/hr IV . Q10H [facility] Rx#:[id number] Magnesium Sulfate-D5w Pmx 200 1 gm In Dextrose/Water 1 100ml.bag @ 100 mls/hr IVPB Q1H [facility] Rx#: [id number] Potassium Chloride 10 meq 200 In Water For Injection 1 100ml.bag @ 100 mls/hr IVPB Q1H [facility] Rx#: [id number] Potassium Chloride 20 meq 400 In Water For Injection 1 100ml.bag @ 50 mls/hr IVPB Q2H [facility] Rx#: [id number] cefTRIAXone 1 gm In 50 Sodium Chloride 0.9% 50 ml @ 100 mls/hr IVPB Q24HR [facility] Rx#:[id number] Oral 960 Output: Stool 650 800 Other: Voiding Method Toilet # Voids 1 - Constitutional General appearance: Present: cooperative, morbidly obese, no acute distress - EENT Eyes: Present: anicteric sclerae, EOMI, dentition normal, normal appearance ENT: Present: hearing grossly normal - Neck Neck: Present: normal ROM - Respiratory Respiratory: bilateral: CTA (scattered crackles cleared with cough) - Cardiovascular Rhythm: regular Heart sounds: normal: S1, S2 - Gastrointestinal General gastrointestinal: Present: normal bowel sounds, soft Localized gastrointestinal: tender: RUQ, RLQ - Integumentary Integumentary: Present: normal, normal turgor - Neurologic Neurologic: Present: CNII-XII intact - Musculoskeletal Musculoskeletal: Present: strength equal bilaterally - Psychiatric Psychiatric: Present: appropriate affect, intact judgment & insight - Labs CBC & Chem 7: 04/04/19 02:30 04/04/19 02:30 Labs: Abnormal Lab Results - Last 24 Hours (Table) 04/03/19 04/03/19 04/03/19 Range/Units 15:03 15:03 20:05 WBC 16.9 H (3.8-10.6) k/uL Hgb (13.0-17.5) gm/dL Hct (39.0-53.0) % Neutrophils # 8.4 H (1.3-7.7) k/uL Lymphocytes # 5.2 H (1.0-4.8) k/uL Monocytes # 1.8 H (0-1.0) k/uL Eosinophils # 0.8 H (0-0.7) k/uL Basophils # 0.3 H (0-0.2) k/uL Potassium 3.0 L 3.1 L (3.5-5.1) mmol/L BUN 4 L (9-20) mg/dL Creatinine 0.60 L (0.66-1.25) mg/dL Glucose 110 H (74-99) mg/dL Magnesium 1.5 L (1.6-2.3) mg/dL ALT 80 H (4-49) U/L Total Protein 5.1 L (6.3-8.2) g/dL Albumin 2.8 L (3.5-5.0) g/dL 04/04/19 04/04/19 Range/Units 02:30 02:30 WBC 18.0 H (3.8-10.6) k/uL Hgb 12.7 L (13.0-17.5) gm/dL Hct 38.1 L (39.0-53.0) % Neutrophils # 9.6 H (1.3-7.7) k/uL Lymphocytes # 4.9 H (1.0-4.8) k/uL Monocytes # 1.8 H (0-1.0) k/uL Eosinophils # 0.9 H (0-0.7) k/uL Basophils # 0.3 H (0-0.2) k/uL Potassium (3.5-5.1) mmol/L BUN 3 L (9-20) mg/dL Creatinine 0.56 L (0.66-1.25) mg/dL Glucose 110 H (74-99) mg/dL Magnesium (1.6-2.3) mg/dL ALT 71 H (4-49) U/L Total Protein 4.9 L (6.3-8.2) g/dL Albumin 2.8 L (3.5-5.0) g/dL Microbiology - Last 24 Hours (Table) 04/03/19 09:20 Stool Culture - Preliminary Stool Assessment and Plan (1) Dehydration Narrative/Plan: Patient on IV fluid, on oral intake. Current Visit: Yes Status: Acute Priority: High Code(s): E86.0 - DEHYDRATION SNOMED Code(s): 03807691 (2) Diarrhea Narrative/Plan: Negative for C-DIFF, on imoudium, monitoring stool for volume. Current Visit: Yes Status: Acute Priority: High Code(s): R19.7 - DIARRHEA, UNSPECIFIED SNOMED Code(s): 33058036 (3) Nausea & vomiting Current Visit: Yes Status: Resolved Priority: High Code(s): R11.2 - NAUSEA WITH VOMITING, UNSPECIFIED SNOMED Code(s): 12862123 (4) History of pancreatic cancer Current Visit: No Status: Chronic Priority: Medium Code(s): Z85.07 - PERSONAL HISTORY OF MALIGNANT NEOPLASM OF PANCREAS SNOMED Code(s): 53472471933635 Plan: Patient status post one cycle of chemotherapy with chemotherapy side effects, requiring hospitalization and treatment. Second cycle will be delayed for thorough patient recovery. Dose is going to be reduced for patient tolerance.
--- NOTE | 2019-04-04 12:19 | P.GSCN ---
History of Present Illness Consult date: 04/04/19 Reason for Consult: Ileus History of present illness: This a 58-year-old male with history of pancreatic cancer. Patient is currently undergoing chemotherapy. Patient's complaints of nausea vomiting diarrhea. He was inserted on chemotherapy. Patient has had some improvement in his diarrhea. Past Medical History Past Medical History: Cancer, GERD/Reflux, Pneumonia Additional Past Medical History / Comment(s): Pt states he was diagnosed with pancreatic cancer 7-8 months ago in [place]/had surgery in [place] and started chemo 03/22/19, EGD/colonoscopy dated 11/2018 states pt has duodenitis/antral gastritis/antral ulcer/colon and rectal polyp but pt does not recall this, nephrolithiasis, murmur. History of Any Multi-Drug Resistant Organisms: None Reported Past Surgical History: Back Surgery, Cholecystectomy, Orthopedic Surgery Additional Past Surgical History / Comment(s): Tail of pancreas removed along with spleen in [place], mediport, laminectomy L4-L5/S1-S2, lower back laser surgery to cut nerves, L knee arthroscopy-meniscal and ACL, L ankle reconstructive surgery x 3, R hand surgery d/t trauma, EGD/colonoscopy, lithostripsy. Past Anesthesia/Blood Transfusion Reactions: No Reported Reaction Additional Past Anesthesia/Blood Transfusion Reaction / Comm: Pt has received blood in past without reaction. Past Psychological History: No Psychological Hx Reported Additional Psychological History / Comment(s): Pt resides alone in a home without steps. He uses no assistive devices. He does not drive, his kids are helpful and drive pt to appts. Smoking Status: Former smoker Past Alcohol Use History: Occasional Additional Past Alcohol Use History / Comment(s): Pt started smoking in 1969 and was up to 1.5 ppd. He quit smoking 7 months ago. Pt states he drinks alcohol occasionally. Past Drug Use History: None Reported - Past Family History Father History Unknown: Yes Additional Family Medical History / Comment(s): Pt does not know his father. Mother History Unknown: Yes Additional Family Medical History / Comment(s): Pt states he does not know mother's medical hx Medications and Allergies Home Medications Medication Instructions Recorded Confirmed Type HYDROcodone/APAP 5-325MG [Otis 1 tab PO TID PRN 03/27/19 04/02/19 History 5-325] Loperamide HCl [Imodium A-D] 2 mg PO Q8H PRN 03/27/19 04/02/19 History Lubiprostone [Amitiza] 24 mcg PO BID 03/27/19 04/02/19 History Morphine Sulfate ER [Ms Contin] 30 mg PO W/LUNCH 03/27/19 04/02/19 History Morphine Sulfate ER [Ms Contin] 60 mg PO BID@0900,1200 03/27/19 04/02/19 History Prochlorperazine [Compazine] 10 mg PO TID PRN 03/27/19 04/02/19 History Cefuroxime Axetil [Ceftin] 500 mg PO BID 3 Days #6 tab 03/31/19 04/02/19 Rx Ondansetron HCl [Zofran] 4 mg PO Q8H PRN #20 tab 03/31/19 04/02/19 Rx Pantoprazole Sodium [Protonix] 40 mg PO DAILY #15 tablet. 03/31/19 04/02/19 Rx metroNIDAZOLE [Flagyl] 250 mg PO Q8H 4 Days #12 tab 03/31/19 04/02/19 Rx Allergies Allergy/AdvReac Type Severity Reaction Status Date / Time No Known Allergies Allergy Verified 04/02/19 07:30 Surgical - Exam Vital Signs Temp Pulse Resp BP Pulse Ox 98.7 F 94 16 156/104 97 04/01/19 22:01 04/01/19 22:01 04/01/19 22:01 04/01/19 22:01 04/01/19 22:01 - General no distress, chronically ill - Eyes PERRL - ENT normal pinna - Neck no masses - Respiratory normal expansion - Cardiovascular Rhythm: regular - Abdomen Abdomen: soft, non tender Results - Labs 04/04/19 02:30 04/04/19 02:30 Abnormal Lab Results - Last 24 Hours (Table) 04/03/19 04/03/19 04/03/19 Range/Units 15:03 15:03 20:05 WBC 16.9 H (3.8-10.6) k/uL Hgb (13.0-17.5) gm/dL Hct (39.0-53.0) % Neutrophils # 8.4 H (1.3-7.7) k/uL Lymphocytes # 5.2 H (1.0-4.8) k/uL Monocytes # 1.8 H (0-1.0) k/uL Eosinophils # 0.8 H (0-0.7) k/uL Basophils # 0.3 H (0-0.2) k/uL Potassium 3.0 L 3.1 L (3.5-5.1) mmol/L BUN 4 L (9-20) mg/dL Creatinine 0.60 L (0.66-1.25) mg/dL Glucose 110 H (74-99) mg/dL Magnesium 1.5 L (1.6-2.3) mg/dL ALT 80 H (4-49) U/L Total Protein 5.1 L (6.3-8.2) g/dL Albumin 2.8 L (3.5-5.0) g/dL 04/04/19 04/04/19 Range/Units 02:30 02:30 WBC 18.0 H (3.8-10.6) k/uL Hgb 12.7 L (13.0-17.5) gm/dL Hct 38.1 L (39.0-53.0) % Neutrophils # 9.6 H (1.3-7.7) k/uL Lymphocytes # 4.9 H (1.0-4.8) k/uL Monocytes # 1.8 H (0-1.0) k/uL Eosinophils # 0.9 H (0-0.7) k/uL Basophils # 0.3 H (0-0.2) k/uL Potassium (3.5-5.1) mmol/L BUN 3 L (9-20) mg/dL Creatinine 0.56 L (0.66-1.25) mg/dL Glucose 110 H (74-99) mg/dL Magnesium (1.6-2.3) mg/dL ALT 71 H (4-49) U/L Total Protein 4.9 L (6.3-8.2) g/dL Albumin 2.8 L (3.5-5.0) g/dL Microbiology - Last 24 Hours (Table) 04/03/19 09:20 Stool Culture - Preliminary Stool Diabetes panel 04/03/19 04/03/19 04/04/19 Range/Units 15:03 20:05 02:30 Sodium 140 139 (137-145) mmol/L Potassium 3.0 L 3.1 L 3.7 (3.5-5.1) mmol/L Chloride 107 107 (98-107) mmol/L Carbon Dioxide 28 28 (22-30) mmol/L BUN 4 L 3 L (9-20) mg/dL Creatinine 0.60 L 0.56 L (0.66-1.25) mg/dL Glucose 110 H 110 H (74-99) mg/dL Calcium 9.1 8.7 (8.4-10.2) mg/dL AST 43 30 (17-59) U/L ALT 80 H 71 H (4-49) U/L Alkaline Phosphatase 92 94 (38-126) U/L Total Protein 5.1 L 4.9 L (6.3-8.2) g/dL Albumin 2.8 L 2.8 L (3.5-5.0) g/dL Calcium panel 04/03/19 04/04/19 Range/Units 15:03 02:30 Calcium 9.1 8.7 (8.4-10.2) mg/dL Albumin 2.8 L 2.8 L (3.5-5.0) g/dL Pituitary panel 04/03/19 04/03/19 04/04/19 Range/Units 15:03 20:05 02:30 Sodium 140 139 (137-145) mmol/L Potassium 3.0 L 3.1 L 3.7 (3.5-5.1) mmol/L Chloride 107 107 (98-107) mmol/L Carbon Dioxide 28 28 (22-30) mmol/L BUN 4 L 3 L (9-20) mg/dL Creatinine 0.60 L 0.56 L (0.66-1.25) mg/dL Glucose 110 H 110 H (74-99) mg/dL Calcium 9.1 8.7 (8.4-10.2) mg/dL Adrenal panel 04/03/19 04/03/19 04/04/19 Range/Units 15:03 20:05 02:30 Sodium 140 139 (137-145) mmol/L Potassium 3.0 L 3.1 L 3.7 (3.5-5.1) mmol/L Chloride 107 107 (98-107) mmol/L Carbon Dioxide 28 28 (22-30) mmol/L BUN 4 L 3 L (9-20) mg/dL Creatinine 0.60 L 0.56 L (0.66-1.25) mg/dL Glucose 110 H 110 H (74-99) mg/dL Calcium 9.1 8.7 (8.4-10.2) mg/dL Total Bilirubin 0.2 0.2 (0.2-1.3) mg/dL AST 43 30 (17-59) U/L ALT 80 H 71 H (4-49) U/L Alkaline Phosphatase 92 94 (38-126) U/L Total Protein 5.1 L 4.9 L (6.3-8.2) g/dL Albumin 2.8 L 2.8 L (3.5-5.0) g/dL - Imaging Additional studies: [place] x-ray consistent with ileus or possible enteritis Assessment and Plan Assessment: Nausea, diarrhea. This may be related to chemotherapy. Patient is undergoing workup for C. difficile this time. He'll continue receive IV antibiotics and IV fluid.
[2019-04-04] MEDS: MORPHINE SULFATE ER 30 MG TABLET PO SCH (13:55)
--- NOTE | 2019-04-04 13:59 | PN ---
PROGRESS NOTE DATE OF SERVICE: 04/04/2019 REASON FOR FOLLOWUP: Acute gastroenteritis. INTERVAL HISTORY: The patient is currently afebrile. Patient is breathing comfortably. Denies having any further nausea or vomiting. No chest pain, shortness of breath or cough. No abdominal pain. He is still having diarrhea, about 8 loose stool yesterday. PHYSICAL EXAMINATION: Blood pressure 157/88 with a pulse of 80, temperature 98.3, he is 98% on room air. General description is a middle-aged male up in the bed in no distress. RESPIRATORY SYSTEM: Unlabored breathing, clear to auscultation anteriorly. HEART: S1, S2. Regular rate and rhythm. ABDOMEN: Soft, no tenderness. LABS: Hemoglobin is 12.7, white count of 18, BUN of 3, creatinine 0.56. Stool for C difficile negative. Stool cultures currently pending. DIAGNOSTIC IMPRESSION AND PLAN: Patient admitted to the hospital with acute nausea, vomiting, and diarrhea in this patient with recent chemo with question of chemo effect versus infectious colitis. Stool for C difficile is negative with worsening of the white count. Recommend discontinuation of the Rocephin. Will add Questran for symptomatic relief and discontinue Imodium. Monitoring his clinical course closely. MMODL / IJN: [id number] /
[2019-04-04] MEDS: CHOLESTYRAMINE (WITH SUGAR) 4 GM PACKET PO SCH (17:37)
[2019-04-05 06:38] LABS: ALT 56 U/L (4-49); AST 32 U/L (17-59); African American GFR (CKD) >90 (>60 ml/min/1.73 sqM); Albumin 2.8 g/dL (3.5-5.0); Alkaline Phosphatase 96 U/L (38-126); Anion Gap 8 mmol/L; Basophils # (A) 0.1 k/uL (0-0.2); Basophils % (A) 1 %; Blood Urea Nitrogen 5 mg/dL (9-20); Calcium 8.8 mg/dL (8.4-10.2); Carbon Dioxide 26 mmol/L (22-30); Chloride 106 mmol/L (98-107); Eosinophils % (A) 6 %; Glucose 86 mg/dL (74-99); HCT 38.3 % (39.0-53.0); HGB 12.5 gm/dL (13.0-17.5); Lymphocytes # (A) 5.4 k/uL (1.0-4.8); Lymphocytes % (A) 35 %; MCH 27.6 pg (25.0-35.0); MCHC 32.6 g/dL (31.0-37.0); MCV 84.6 fL (80.0-100.0); Magnesium 1.7 mg/dL (1.6-2.3); Mean Platelet Volume 8.6; Monocytes # (A) 1.6 k/uL (0-1.0); Monocytes % (A) 10 %; Neutrophils # (A) 6.7 k/uL (1.3-7.7); Neutrophils % (A) 44 %; Non-African American GFR(CKD) >90 (>60 ml/min/1.73 sqM); Platelet Count 360 k/uL (150-450); Potassium 3.3 mmol/L (3.5-5.1); RBC 4.53 m/uL (4.30-5.90); RDW 14.6 % (11.5-15.5); Sodium 140 mmol/L (137-145); Total Bilirubin 0.3 mg/dL (0.2-1.3); Total Protein 5.1 g/dL (6.3-8.2); WBC 15.2 k/uL (3.8-10.6)
--- NOTE | 2019-04-05 07:00 | P.PN ---
Subjective This is a pleasant 58 years old male with past medical history of gastroesophageal reflux disease, pneumonia, pancreatic cancer diagnosed 7-8 months ago in [place] status post surgery and started chemotherapy on 03/22/2019. Chronic low back pain status post laminectomy on L4-L5/S1-S2. Patient was recently discharged from this hospital 2 days ago for gastroenteritis and leukocytosis. He was discharged on Ceftin and Flagyl, However this time patient states that after his been discharged he starts having neck pain radiating from the left side down to the back and symptoms of the chest however his chest pain resolved and is still complaining from left sided neck pain and back pain. Also he was complaining of from nausea vomiting, he v omited about 3 times with no blood. However his bowel movement was loose but is getting forms gradually. Vitals stable are stable. He has worsening leukocytosis at 19.1 K, potassium was 3.4, magnesium 1.5, liver enzymes slightly elevated with ALT 109 compared to 60 the day before and AST of 85 compared to 29 the day before. Influenza is negative. Stool culture from recent admission is negative. He had negative for brain CT. Chest x-ray showing stable fibrotic interstitial changes compared to last exam by radiologist. EKG showing sinus tachycardia at 111, no significant ST-T changes and QTC is 476. Systems Development Consultant team as per a consult from emergency room. He was started on normal saline 04/03/2019 Patient neck pain and back pain is improved significantly, he says that the pain is completely resolved, he thinks that he has some residual back effect but as we were talking he has no pain. Neck x-ray and carotid Doppler's came back negative. Vomiting, however he did not have bowel movements is yesterday, he has chronic right lower quadrant pain for 6 month mostly related to his history of pancreatic cancer, no other new pain. Patient wants to continue with regular diet, he does not want liquid or soft diet. He is on Phenergan and Zofran as needed, he is on Flagyl and Rocephin, isn't Protonix. Vitals are stable. Labs pending. We going to order abdominal x-ray in view of continuous vomiting 04/04/2019 Patient neck and back pain completely resolved. No chest pain. Patient generally feels better as he told me. He is able to tolerate diet for breakfast, lunch and dinner from yesterday which was not an issue on the presentation. He had no more vomiting but he still have nausea and yesterday he had about 8-10 bouts of diarrhea. His abdominal pain is chronic with no acute exacerbation. And abdominal exam looks benign. Yesterday abdominal x-ray showed multiple fluid levels with enteritis versus ileus. Surgical team has been consulted. Follow-up abdominal x-ray from today. Stool culture still pending. WBC is 18.0 K. Braxton Master normal and creatinine 0.5. Patient is afebrile. Lactic acid not elevated at 0.8 04/05/2019 Patient gradually improving, his is tolerating diet as usual, he has mild chronic right lower quadrant abdominal pain. He had 1 loose bowel movements yesterday. He is able to walk with no problems, no other complaints. Hemodynamically stable. WBC 18.0 K, potassium 3.3 and creatinine 0.6. He remains on Flagyl and Rocephin has been described. We will lower his D5 half normal saline to 50 mL per hour, change Imodium to quistran since yesterday. Objective - Vital Signs Vital signs: Vital Signs Temp 97.8 F 04/05/19 04:33 Pulse 82 04/05/19 04:33 Resp 18 04/05/19 04:33 BP 118/60 04/05/19 04:33 Pulse Ox 97 04/05/19 04:33 Intake & Output 04/04/19 04/04/19 04/05/19 06:59 18:59 06:59 Intake Total 1960 2350 2760 Output Total 800 1600 Balance 3313 214 1569 Intake: Intake, IV Titration 1000 1150 1200 Amount Dextrose 5%-0.45% NaCl 1, 200 1100 1200 000 ml @ 100 mls/hr IV . Q10H [facility] Rx#:[id number] Magnesium Sulfate-D5w Pmx 200 1 gm In Dextrose/Water 1 100ml.bag @ 100 mls/hr IVPB Q1H [facility] Rx#: [id number] Potassium Chloride 10 meq 200 In Water For Injection 1 100ml.bag @ 100 mls/hr IVPB Q1H [facility] Rx#: [id number] Potassium Chloride 20 meq 400 In Water For Injection 1 100ml.bag @ 50 mls/hr IVPB Q2H [facility] Rx#: [id number] cefTRIAXone 1 gm In 50 Sodium Chloride 0.9% 50 ml @ 100 mls/hr IVPB Q24HR [facility] Rx#:[id number] Oral 960 1200 1560 Output: Stool 800 1600 Other: Voiding Method Toilet Toilet Toilet # Voids 1 5 1 # Bowel Movements 0 - Exam GENERAL: The patient is alert and oriented x3, not in any acute distress. Well developed, well nourished. HEENT: Pupils are round and equally reacting to light. EOMI. No scleral icterus. No conjunctival pallor. Normocephalic, atraumatic. No pharyngeal erythema. No thyromegaly. CARDIOVASCULAR: S1 and S2 present. No murmurs, rubs, or gallops. PULMONARY: Chest is clear to auscultation, no wheezing or crackles. ABDOMEN: Soft, nontender, nondistended, normoactive bowel sounds. No palpable organomegaly. MUSCULOSKELETAL: No joint swelling or deformity. EXTREMITIES: No cyanosis, clubbing, or pedal edema. NEUROLOGICAL: Gross neurological examination did not reveal any focal deficits. SKIN: No rashes. No petechiae - Labs CBC & Chem 7: 04/04/19 02:30 04/05/19 05:45 Labs: Abnormal Lab Results - Last 24 Hours (Table) 04/05/19 Range/Units 05:45 Potassium 3.3 L (3.5-5.1) mmol/L BUN 5 L (9-20) mg/dL Creatinine 0.60 L (0.66-1.25) mg/dL ALT 56 H (4-49) U/L Total Protein 5.1 L (6.3-8.2) g/dL Albumin 2.8 L (3.5-5.0) g/dL Assessment and Plan Assessment: Recent history of Acute gastroenteritis, infectious versus chemotherapy-induced worsening Leukocytosis Multiple fluid levels on abdominal x-ray, ileus versus enteritis Presyncope, related to dehydration. Improved Dehydration, improved Recent history of pancreatic cancer about 7-8 months ago status post surgery and chemotherapy started on 03/22/2019 Chronic low back pain status post laminectomy on L4-L5/S1-S2 Gastroesophageal reflux disease Recent history of colitis Peptic ulcer disease with duodenitis/gastritis on recent EGD done on 11/2018 History of nephrolithiasis , Nonobstructing 4.7 mm left renal stone. No evidence of hydronephrosis. History of pneumonia Plan: this is a pleasant 58 years old male who presents with worsening symptoms and leukocytosis. Continue with IV fluid, advance diet as tolerated, continue with Rocephin and Flagyl. Follow-up recommendation by infectious disease consult. Follow-up recommendation by learning coach/oncologist : Follow-up recommendation by surgery team. Labs and medication were reviewed.. Continue same treatment. Continue with symptomatic treatment. Resume home medication. Monitor lytes and vitals. DVT and GI prophylaxis. Further recommendations of the clinical course of the patient DVT prophylaxis: Subcutaneous Lovenox GI Prophylaxis: Ppi PT/OT: Pending Prognosis is guarded
[2019-04-05] MEDS: MORPHINE SULFATE ER 60 MG TABLET PO SCH ×2 (07:25→20:26)
[2019-04-05] MEDS: PANTOPRAZOLE 40 MG TABLET PO SCH (07:25)
[2019-04-05] MEDS: metroNIDAZOLE 500 MG TAB PO SCH ×2 (07:25→16:00)
[2019-04-05] MEDS: CHOLESTYRAMINE (WITH SUGAR) 4 GM PACKET PO SCH ×2 (07:28→16:01)
[2019-04-05] MEDS: ENOXAPARIN 40 MG/0.4 ML SYRINGE SQ SCH (07:29)
[2019-04-05] MEDS: NON FORMULARY DRUG (Lubiprostone [Amitiza] 24 MCG) PO SCH ×2 (07:29→20:55)
[2019-04-05] MEDS: DEXTROSE 5%-0.45% NACL 1,000 ML IV SCH (07:30)
[2019-04-05 08:35] LABS: Anisocytosis (M) Present; Howell-Jolly Bodies Present; Poikilocytosis (M) Present
[2019-04-05 08:36] LABS: Target Cells Present
--- NOTE | 2019-04-05 10:03 | P.PN ---
Subjective Progress Note Date: 04/05/19 CHIEF COMPLAINT: nausea, vomiting, diarrhea HISTORY OF PRESENT ILLNESS: Patient examined at the bedside with Dr. Bnudy. He denies nausea or vomiting this morning. Tolerating diet. Continues to have diarrhea. Denies abdominal pain. C-Diff negative. PHYSICAL EXAM: VITAL SIGNS: Reviewed. GENERAL: Well-developed in no acute distress. HEENT: No sclera icterus. Extraocular movements grossly intact. Moist buccal mucosa. Head is atraumatic, normocephalic. ABDOMEN: Soft. Nondistended. Nontender. NEUROLOGIC: Alert and oriented. Cranial nerves II through XII grossly intact. ASSESSMENT: 1. Nausea, vomiting, diarrhea, suspect secondary to chemotherapy PLAN: Dr. Bundy examined patient at the bedside. No surgical intervention recommended. Continue supportive measures. We will sign off. Please re-consult if needed. Nurse practitioner note has been reviewed by physician. Signing provider agrees with the documented findings, assessment, and plan of care. Objective - Vital Signs Vital signs: Vital Signs Temp 97.8 F 04/05/19 04:33 Pulse 82 04/05/19 04:33 Resp 18 04/05/19 04:33 BP 118/60 04/05/19 04:33 Pulse Ox 97 04/05/19 04:33 Intake & Output 04/04/19 04/05/19 04/05/19 18:59 06:59 18:59 Intake Total 2350 2760 Output Total 1600 500 Balance 750 2760 -500 Intake: Intake, IV Titration 1150 1200 Amount Dextrose 5%-0.45% NaCl 1, 1100 1200 000 ml @ 50 mls/hr IV . Q20H [facility] Rx#:[id number] cefTRIAXone 1 gm In 50 Sodium Chloride 0.9% 50 ml @ 100 mls/hr IVPB Q24HR [facility] Rx#:[id number] Oral 1200 1560 Output: Stool 1600 500 Other: Voiding Method Toilet Toilet # Voids 5 1 # Bowel Movements 0 - Labs CBC & Chem 7: 04/05/19 05:45 04/05/19 05:45 Labs: Abnormal Lab Results - Last 24 Hours (Table) 04/05/19 04/05/19 Range/Units 05:45 05:45 WBC 15.2 H (3.8-10.6) k/uL Hgb 12.5 L (13.0-17.5) gm/dL Hct 38.3 L (39.0-53.0) % Lymphocytes # 5.4 H (1.0-4.8) k/uL Monocytes # 1.6 H (0-1.0) k/uL Eosinophils # 1.0 H (0-0.7) k/uL Potassium 3.3 L (3.5-5.1) mmol/L BUN 5 L (9-20) mg/dL Creatinine 0.60 L (0.66-1.25) mg/dL ALT 56 H (4-49) U/L Total Protein 5.1 L (6.3-8.2) g/dL Albumin 2.8 L (3.5-5.0) g/dL
[2019-04-05] MEDS ORDERED: ONDANSETRON 4 MG TAB PO PRN (10:13)
--- NOTE | 2019-04-05 10:33 | P.PN ---
Subjective Progress Note Date: 04/05/19 Principal diagnosis: N,V, D, subsequent dehydration and weakness In f/u today pt reports fewer episodes of diarrhea, mild nausea, he is ambulating independently. Objective - Vital Signs Vital signs: Vital Signs Temp 97.8 F 04/05/19 04:33 Pulse 82 04/05/19 04:33 Resp 18 04/05/19 04:33 BP 118/60 04/05/19 04:33 Pulse Ox 97 04/05/19 04:33 Intake & Output 04/04/19 04/05/19 04/05/19 18:59 06:59 18:59 Intake Total 2350 2760 Output Total 1600 500 Balance 750 2760 -500 Intake: Intake, IV Titration 1150 1200 Amount Dextrose 5%-0.45% NaCl 1, 1100 1200 000 ml @ 50 mls/hr IV . Q20H [facility] Rx#:[id number] cefTRIAXone 1 gm In 50 Sodium Chloride 0.9% 50 ml @ 100 mls/hr IVPB Q24HR [facility] Rx#:[id number] Oral 1200 1560 Output: Stool 1600 500 Other: Voiding Method Toilet Toilet # Voids 5 1 # Bowel Movements 0 - Constitutional General appearance: Present: average body habitus, cooperative, no acute distress - EENT Eyes: Present: anicteric sclerae, EOMI ENT: Present: hearing grossly normal, normal oropharynx - Respiratory Respiratory: bilateral: CTA - Cardiovascular Rhythm: regular Heart sounds: normal: S1, S2 Abnormal Heart Sounds: Absent: systolic murmur, diastolic murmur, rub, S3 Gallop, S4 Gallop, click, other - Peripheral edema leg Peripheral Edema: bilateral: None - Gastrointestinal General gastrointestinal: Present: hyperactive bowel sounds, soft. Absent: absent bowel sounds, decreased bowel sounds, distended, hepatomegaly, normal bowel sounds, organomegaly, rigid, scaphoid, splenomegaly, tenderness, umbilical hernia, ventral hernia - Integumentary Integumentary: Present: normal - Neurologic Neurologic: Present: CNII-XII intact - Musculoskeletal Musculoskeletal: Present: strength equal bilaterally - Psychiatric Psychiatric: Present: A&O x's 3, appropriate affect, intact judgment & insight - Labs CBC & Chem 7: 04/05/19 05:45 04/05/19 05:45 Labs: Abnormal Lab Results - Last 24 Hours (Table) 04/05/19 04/05/19 Range/Units 05:45 05:45 WBC 15.2 H (3.8-10.6) k/uL Hgb 12.5 L (13.0-17.5) gm/dL Hct 38.3 L (39.0-53.0) % Lymphocytes # 5.4 H (1.0-4.8) k/uL Monocytes # 1.6 H (0-1.0) k/uL Eosinophils # 1.0 H (0-0.7) k/uL Potassium 3.3 L (3.5-5.1) mmol/L BUN 5 L (9-20) mg/dL Creatinine 0.60 L (0.66-1.25) mg/dL ALT 56 H (4-49) U/L Total Protein 5.1 L (6.3-8.2) g/dL Albumin 2.8 L (3.5-5.0) g/dL Assessment and Plan (1) Dehydration Current Visit: Yes Status: Resolved Priority: High Code(s): E86.0 - DEHYDRATION SNOMED Code(s): 59297921 (2) Diarrhea Narrative/Plan: Surgery and Infectious Disease following. Questran started, imodium PRN, stool volume being recorded Current Visit: Yes Status: Acute Priority: High Code(s): R19.7 - DIARRHEA, UNSPECIFIED SNOMED Code(s): 42681510 (3) Nausea & vomiting Narrative/Plan: No antiemetic use since 04/03, changed to oral regimen PRN Current Visit: Yes Status: Resolved Priority: High Code(s): R11.2 - NAUSEA WITH VOMITING, UNSPECIFIED SNOMED Code(s): 52326316 (4) History of pancreatic cancer Narrative/Plan: Adjuvant to reduce risk of recurrence. Dose is going to be adjusted for side effects Pt re educated on use of supportive meds to manage side effects Current Visit: No Status: Chronic Priority: Medium Code(s): Z85.07 - PERSONAL HISTORY OF MALIGNANT NEOPLASM OF PANCREAS SNOMED Code(s): 57093510761913 Plan: Patient status post one cycle of chemotherapy with chemotherapy side effects, requiring hospitalization and treatment. Second cycle will be delayed for thorough patient recovery.
[2019-04-05] MEDS ORDERED: LOPERAMIDE 2 MG CAP PO PRN (10:58)
[2019-04-05 13:17] VITALS: BMI 28.6
[2019-04-05] MEDS: MORPHINE SULFATE ER 30 MG TABLET PO SCH (13:41)
[2019-04-05] MEDS: POTASSIUM CHLORIDE ER 20 MEQ TAB.ER PO SCH ×2 (16:01→17:36)
[2019-04-05] MEDS: MAGNESIUM OXIDE 400 MG TAB PO SCH (22:39)
--- NOTE | 2019-04-05 23:26 | PN ---
PROGRESS NOTE DATE OF SERVICE: 04/05/2019 REASON FOR FOLLOW UP: Diarrhea, question of infection. INTERVAL HISTORY: The patient is currently afebrile, has been breathing comfortably. The patient denies any further vomiting and diarrhea has slowed down. Did have 2 episodes of slightly formed stool today. Denies any chest pain, shortness of breath or cough. PHYSICAL EXAMINATION: Blood pressure 143/80 with a pulse of 65, temperature 98.9. He is 98% on room air. General description is a middle-aged male lying in bed in no distress. Respiratory system: Unlabored breathing. Clear to auscultation anteriorly. Heart S1, S2. Regular rate and rhythm. ABDOMEN: Soft. No tenderness. Extremities: No edema of the feet. LABS: Hemoglobin is 12.5, white count 15.2, BUN of 5, creatinine 0.60. Stool culture so far pending. DIAGNOSTIC IMPRESSION AND PLAN: Patient admitted to the hospital with increasing nausea, vomiting, diarrhea with question of infectious etiology. The patient seemed to have some clinical improvement with Questran and Flagyl, to continue. We will wait for stool culture to finalize and continue supportive care. MMODL / IJN: [id number] / HILARIO
[2019-04-06] MEDS: metroNIDAZOLE 500 MG TAB PO SCH ×4 (00:22→22:55)
--- NOTE | 2019-04-06 08:11 | P.PN ---
Subjective This is a pleasant 58 years old male with past medical history of gastroesophageal reflux disease, pneumonia, pancreatic cancer diagnosed 7-8 months ago in [place] status post surgery and started chemotherapy on 03/22/2019. Chronic low back pain status post laminectomy on L4-L5/S1-S2. Patient was recently discharged from this hospital 2 days ago for gastroenteritis and leukocytosis. He was discharged on Ceftin and Flagyl, However this time patient states that after his been discharged he starts having neck pain radiating from the left side down to the back and symptoms of the chest however his chest pain resolved and is still complaining from left sided neck pain and back pain. Also he was complaining of from nausea vomiting, he v omited about 3 times with no blood. However his bowel movement was loose but is getting forms gradually. Vitals stable are stable. He has worsening leukocytosis at 19.1 K, potassium was 3.4, magnesium 1.5, liver enzymes slightly elevated with ALT 109 compared to 60 the day before and AST of 85 compared to 29 the day before. Influenza is negative. Stool culture from recent admission is negative. He had negative for brain CT. Chest x-ray showing stable fibrotic interstitial changes compared to last exam by radiologist. EKG showing sinus tachycardia at 111, no significant ST-T changes and QTC is 476. 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 He was started on normal saline 04/03/2019 Patient neck pain and back pain is improved significantly, he says that the pain is completely resolved, he thinks that he has some residual back effect but as we were talking he has no pain. Neck x-ray and carotid Doppler's came back negative. Vomiting, however he did not have bowel movements is yesterday, he has chronic right lower quadrant pain for 6 month mostly related to his history of pancreatic cancer, no other new pain. Patient wants to continue with regular diet, he does not want liquid or soft diet. He is on Phenergan and Zofran as needed, he is on Flagyl and Rocephin, isn't Protonix. Vitals are stable. Labs pending. We going to order abdominal x-ray in view of continuous vomiting 04/04/2019 Patient neck and back pain completely resolved. No chest pain. Patient generally feels better as he told me. He is able to tolerate diet for breakfast, lunch and dinner from yesterday which was not an issue on the presentation. He had no more vomiting but he still have nausea and yesterday he had about 8-10 bouts of diarrhea. His abdominal pain is chronic with no acute exacerbation. And abdominal exam looks benign. Yesterday abdominal x-ray showed multiple fluid levels with enteritis versus ileus. Surgical team has been consulted. Follow-up abdominal x-ray from today. Stool culture still pending. WBC is 18.0 K. Braxton Master normal and creatinine 0.5. Patient is afebrile. Lactic acid not elevated at 0.8 04/05/2019 Patient gradually improving, his is tolerating diet as usual, he has mild chronic right lower quadrant abdominal pain. He had 1 loose bowel movements yesterday. He is able to walk with no problems, no other complaints. Hemodynamically stable. WBC 18.0 K, potassium 3.3 and creatinine 0.6. He remains on Flagyl and Rocephin has been described. We will lower his D5 half normal saline to 50 mL per hour, change Imodium to quistran since yesterday. 04/06/2019 Patient on regular diet, no vomiting. Has chronic abdominal pain. He has 1 loose bowel movement yesterday. Repeat abdominal x-ray from this morning are pending. Stool culture has not been finalized it. Patient remains on Flagyl, Questran and Imodium as needed. This morning are still pending. Objective - Vital Signs Vital signs: Vital Signs Temp 97.6 F 04/06/19 04:51 Pulse 63 04/06/19 04:51 Resp 16 04/06/19 04:51 BP 122/79 04/06/19 04:51 Pulse Ox 99 04/06/19 04:51 Intake & Output 04/05/19 04/06/19 04/06/19 18:59 06:59 18:59 Intake Total 2160 740 Output Total 1700 Balance 460 740 Weight 87.906 kg Intake: Intake, IV Titration 600 150 Amount Dextrose 5%-0.45% NaCl 1, 600 150 000 ml @ 50 mls/hr IV . Q20H [facility] Rx#:[id number] Oral 1560 590 Output: Stool 1700 Other: Voiding Method Toilet Toilet # Voids 5 2 - Exam GENERAL: The patient is alert and oriented x3, not in any acute distress. Well developed, well nourished. HEENT: Pupils are round and equally reacting to light. EOMI. No scleral icterus. No conjunctival pallor. Normocephalic, atraumatic. No pharyngeal erythema. No thyromegaly. CARDIOVASCULAR: S1 and S2 present. No murmurs, rubs, or gallops. PULMONARY: Chest is clear to auscultation, no wheezing or crackles. ABDOMEN: Soft, nontender, nondistended, normoactive bowel sounds. No palpable organomegaly. MUSCULOSKELETAL: No joint swelling or deformity. EXTREMITIES: No cyanosis, clubbing, or pedal edema. NEUROLOGICAL: Gross neurological examination did not reveal any focal deficits. SKIN: No rashes. No petechiae - Labs CBC & Chem 7: 04/05/19 05:45 04/06/19 06:00 Labs: Abnormal Lab Results - Last 24 Hours (Table) 04/05/19 04/05/19 Range/Units 05:45 05:45 WBC 15.2 H (3.8-10.6) k/uL Hgb 12.5 L (13.0-17.5) gm/dL Hct 38.3 L (39.0-53.0) % Lymphocytes # 5.4 H (1.0-4.8) k/uL Monocytes # 1.6 H (0-1.0) k/uL Eosinophils # 1.0 H (0-0.7) k/uL Potassium 3.3 L (3.5-5.1) mmol/L BUN 5 L (9-20) mg/dL Creatinine 0.60 L (0.66-1.25) mg/dL ALT 56 H (4-49) U/L Total Protein 5.1 L (6.3-8.2) g/dL Albumin 2.8 L (3.5-5.0) g/dL Microbiology - Last 24 Hours (Table) 04/03/19 09:20 Stool Culture - Preliminary Stool Assessment and Plan Assessment: Recent history of Acute gastroenteritis, infectious versus chemotherapy-induced worsening Leukocytosis Multiple fluid levels on abdominal x-ray, ileus versus enteritis Presyncope, related to dehydration. Improved Dehydration, improved Recent history of pancreatic cancer about 7-8 months ago status post surgery and chemotherapy started on 03/22/2019 Chronic low back pain status post laminectomy on L4-L5/S1-S2 Gastroesophageal reflux disease Recent history of colitis Peptic ulcer disease with duodenitis/gastritis on recent EGD done on 11/2018 History of nephrolithiasis , Nonobstructing 4.7 mm left renal stone. No ev idence of hydronephrosis. History of pneumonia Plan: this is a pleasant 58 years old male who presents with worsening symptoms and leukocytosis. Continue with IV fluid, advance diet as tolerated, continue with Rocephin and Flagyl. Follow-up recommendation by infectious disease consult. Follow-up recommendation by admissions consultant/oncologist : Follow-up recommendation by surgery team. Follow-up abdominal x-ray, labs and stool culture Labs and medication were reviewed.. Continue same treatment. Continue with symptomatic treatment. Resume home medication. Monitor lytes and vitals. DVT and GI prophylaxis. Further recommendations of the clinical course of the patient DVT prophylaxis: Subcutaneous Lovenox GI Prophylaxis: Ppi PT/OT: Pending Prognosis is guarded
[2019-04-06] MEDS: ENOXAPARIN 40 MG/0.4 ML SYRINGE SQ SCH (08:24)
[2019-04-06] MEDS: PANTOPRAZOLE 40 MG TABLET PO SCH (08:24)
[2019-04-06] MEDS: MAGNESIUM OXIDE 400 MG TAB PO SCH (08:24)
[2019-04-06] MEDS: MORPHINE SULFATE ER 60 MG TABLET PO SCH ×2 (08:24→19:50)
[2019-04-06] MEDS: CHOLESTYRAMINE (WITH SUGAR) 4 GM PACKET PO SCH ×2 (08:25→17:24)
--- NOTE | 2019-04-06 08:42 | XR ---
EXAMINATION TYPE: XR abdomen 1V DATE OF EXAM: 04/06/2019 COMPARISON: 04/04/2019 HISTORY: Pain TECHNIQUE: One view abdominal series FINDINGS: The osseous structures are intact. The bowel gas pattern is nonspecific. Persistent air-fluid levels are seen with prominent small bowel loops. Surgical clips in the abdomen are noted. Arthropathy of t he hip joints. Hypertrophic change of the spine. Lung bases are clear. IMPRESSION: 1. Nonspecific abdomen. Correlate for ileus versus partial obstruction.
[2019-04-06] MEDS: NON FORMULARY DRUG (Lubiprostone [Amitiza] 24 MCG) PO SCH ×2 (09:34→19:48)
[2019-04-06] MEDS: MORPHINE SULFATE ER 30 MG TABLET PO SCH (12:32)
--- NOTE | 2019-04-06 15:38 | PN ---
PROGRESS NOTE DATE OF SERVICE: 04/06/2019 REASON FOR FOLLOWUP: Acute gastroenteritis, possible MRSA bacteremia. INTERVAL HISTORY: The patient is currently afebrile. Patient has been feeling better. Did have only one bowel movement yesterday, none since then. No nausea, no vomiting. No chest pain, shortness of breath or cough and no abdominal pain. PHYSICAL EXAMINATION: Blood pressure 113/75 with a pulse of 55, temperature 98, he is 97% on room air. General description is a middle-aged male, lying in bed in no distress. RESPIRATORY SYSTEM: Unlabored breathing, clear to auscultation anteriorly. HEART: S1, S2. Regular rate and rhythm. ABDOMEN: Soft, no tenderness. LABS: Culture, stool cultures have been negative. Stool for C diff was negative. X-rays show nonspecific abdomen. DIAGNOSTIC IMPRESSION AND PLAN: Patient with acute nausea, vomiting and diarrhea with concern for possible gastroenteritis. Patient has shown clinical improvement on oral Flagyl to continue for about a week and monitor clinical course closely. MMODL / IJN: [id number] /
[2019-04-07 05:04] VITALS: BP 111/64; PULSE 82; RESP 16; TEMP 98.1
[2019-04-07 07:10] LABS: HCT 41.2 % (39.0-53.0); HGB 13.1 gm/dL (13.0-17.5); MCH 27.3 pg (25.0-35.0); MCHC 31.8 g/dL (31.0-37.0); MCV 85.8 fL (80.0-100.0); Mean Platelet Volume 9.1; Platelet Count 377 k/uL (150-450); RDW 15.3 % (11.5-15.5); WBC 12.9 k/uL (3.8-10.6)
[2019-04-07 07:26] LABS: Magnesium 1.9 mg/dL (1.6-2.3); Potassium 4.5 mmol/L (3.5-5.1)
--- NOTE | 2019-04-07 07:26 | P.DS ---
Providers Date of admission: 04/01/19 23:45 Attending physician: Yuridia Garcia Consults: 04/01/19 23:47 Consult Physician Routine Consulting Provider: Raghu Pascal Consult Reason/Comments: known Do you want consulting provider notified?: Yes 04/02/19 15:26 Consult Physician Urgent Consulting Provider: Luis Schultz Consult Reason/Comments: Gastroenteritis, recently discharged Do you want consulting provider notified?: Yes Primary care physician: Stated None Hospital Course: Diagnoses: Acute gastroenteritis, infectious versus chemotherapy-induced worsening Leukocytosis Multiple fluid levels on abdominal x-ray, ileus versus enteritis Presyncope, related to dehydration. Improved Dehydration, improved Recent history of pancreatic cancer about 7-8 months ago status post surgery and chemotherapy started on 03/22/2019 Chronic low back pain status post laminectomy on L4-L5/S1-S2 Gastroesophageal reflux disease Recent history of colitis Peptic ulcer disease with duodenitis/gastritis on recent EGD done on 11/2018 History of nephrolithiasis , Nonobstructing 4.7 mm left renal stone. No evidence of hydronephrosis. History of pneumonia Hospital course: This is a pleasant 58 years old male with past medical history of gastroesophageal reflux disease, pneumonia, pancreatic cancer diagnosed 7-8 months ago in [place] status post surgery and started chemotherapy on 03/22/2019. Chronic low back pain status post laminectomy on L4-L5/S1-S2. Patient was recently discharged from this hospital 2 days earlier for gastroenteritis and leukocytosis. He was discharged on Ceftin and Flagyl, However this time patient states that after his been discharged he starts having neck pain radiating from the left side down to the back and symptoms of the chest however his chest pain resolved and his neck pain resolved also next day X-ray and carotid duplex were unremarkable. Patient has been evaluated by infectious, surgery team and oncology/hematology team, and frequent bowel movements with therapy it is improved, patient had only one bowel movement per day over the last 2 days, and is getting more formed as per patient no nausea vomiting and his tolerating diet well. He has chronic right lower quadrant abdominal pain for months, about 6 months as patient told me and is a stable since then. Abdominal x-ray was suspicious for ileus or enteritis. Patient still culture came back negative. Patient was treated with antibiotics and IV fluids, patient denies other symptoms no chest pain or dyspnea. His walking the hallway with no problem. Patient was eager to go [facility] And this morning he told me he wants to go home this morning Patient is cleared for discharge by all consultants including infectious disease team, surgery team and hematology/oncology teams. Patient will be discharged on one week of Flagyl as per ID recommendation. Problems and management plan were discussed with the patient and he verbalized understanding and acceptance Patient was found stable and can be discharged home however he needs follow-up as an outpatient. Patient was instructed to follow up with PCP Dr. Pascal within one week and patient agrees. Also patient was instructed to follow up with his surgeon Dr. Corrigan in one week and he agrees. Patient wants to make his own appointments because he does not want them to conflict with his chemotherapy this Gen: patient is a AAOx3, no distress CVS: S1-S2, RRR, no murmur Lungs: B/L CTA, no wheezing Abdomen: soft, no distention, no tenderness, positive bowel sounds Extremity: no leg edema or induration Time spent more than 35 minutes Patient Condition at Discharge: Fair Plan - Discharge Summary Discharge Rx Participant: Yes New Discharge Prescriptions: No Action Prochlorperazine [Compazine] 10 mg PO TID PRN PRN Reason: Nausea Lubiprostone [Amitiza] 24 mcg PO BID Morphine Sulfate ER [Ms Contin] 30 mg PO W/LUNCH Morphine Sulfate ER [Ms Contin] 60 mg PO BID@0900,1200 HYDROcodone/APAP 5-325MG [Nazlini 5-325] 1 tab PO TID PRN PRN Reason: Pain Loperamide HCl [Imodium A-D] 2 mg PO Q8H PRN PRN Reason: Diarrhea Cefuroxime Axetil [Ceftin] 500 mg PO BID 3 Days #6 tab metroNIDAZOLE [Flagyl] 250 mg PO Q8H 4 Days #12 tab Pantoprazole Sodium [Protonix] 40 mg PO DAILY #15 tablet. Ondansetron HCl [Zofran] 4 mg PO Q8H PRN #20 tab PRN Reason: Nausea And Vomiting Discharge Medication List HYDROcodone/APAP 5-325MG [Nazlini 5-325] 1 tab PO TID PRN 03/27/19 [History] Loperamide HCl [Imodium A-D] 2 mg PO Q8H PRN 03/27/19 [History] Lubiprostone [Amitiza] 24 mcg PO BID 03/27/19 [History] Morphine Sulfate ER [Ms Contin] 30 mg PO W/LUNCH 03/27/19 [History] Morphine Sulfate ER [Ms Contin] 60 mg PO BID@0900,1200 03/27/19 [History] Prochlorperazine [Compazine] 10 mg PO TID PRN 03/27/19 [History] Cefuroxime Axetil [Ceftin] 500 mg PO BID 3 Days #6 tab 03/31/19 [Rx] Ondansetron HCl [Zofran] 4 mg PO Q8H PRN #20 tab 03/31/19 [Rx] Pantoprazole Sodium [Protonix] 40 mg PO DAILY #15 tablet.dr 03/31/19 [Rx] metroNIDAZOLE [Flagyl] 250 mg PO Q8H 4 Days #12 tab 03/31/19 [Rx] Follow up Appointment(s)/Referral(s): [facility], [NON-STAFF] - 1 Week Raghu Pascal MD [STAFF PHYSICIAN] - 1-2 days
[2019-04-07] MEDS: MORPHINE SULFATE ER 60 MG TABLET PO SCH (08:41)
[2019-04-07] MEDS: metroNIDAZOLE 500 MG TAB PO SCH (08:41)
[2019-04-07] MEDS: ENOXAPARIN 40 MG/0.4 ML SYRINGE SQ SCH (08:41)
[2019-04-07] MEDS: PANTOPRAZOLE 40 MG TABLET PO SCH (08:41)
[2019-04-07] MEDS: MAGNESIUM OXIDE 400 MG TAB PO SCH (08:41)
[2019-04-07] MEDS: NON FORMULARY DRUG (Lubiprostone [Amitiza] 24 MCG) PO SCH (08:42)
[2019-04-07] MEDS: CHOLESTYRAMINE (WITH SUGAR) 4 GM PACKET PO SCH (08:42)
[2019-04-07 09:59] LABS: Basophils # (M) 0.13 k/uL (0-0.2); Metamyelocytes # (M) 0.13 k/uL (0); Metamyelocytes % 1 %; Myelocytes # (M) 0.13 k/uL (0); Myelocytes % 1 %; Nucleated Red Blood Cells 0 /100 WBC (0-0)
[2019-04-07 10:00] LABS: Lymphocytes # (M) 5.16 k/uL (1.0-4.8); Monocytes # (M) 1.55 k/uL (0-1.0); Neutrophils # (M) 5.29 k/uL (1.3-7.7); Neutrophils % (M) 41 %; Total Cells Counted 200
[2019-04-07 10:01] LABS: Poikilocytosis (M) Present
== END 2019-04-07 10:25 | disposition home or self-care (01) | DRG 394 ==
LOC: EC 21:53 → 5NMEDONC 23:45
PROVIDERS: ADMIT Hospitalist; ATTEND Hospitalist
DX: K52.1 Toxic gastroenteritis and colitis (principal); A09 Infectious gastroenteritis and colitis, unspecified; C25.9 Malignant neoplasm of pancreas, unspecified; K56.7 Ileus, unspecified; E86.0 Dehydration; G89.29 Other chronic pain; M54.5 Low back pain; K21.9 Gastro-esophageal reflux disease without esophagitis; R00.0 Tachycardia, unspecified; R79.89 Other specified abnormal findings of blood chemistry; K62.1 Rectal polyp; T45.1X5A Adverse effect of antineoplastic and immunosuppressive drugs, initial encounter; Z71.3 Dietary counseling and surveillance; Z79.899 Other long term (current) drug therapy; Z79.891 Long term (current) use of opiate analgesic; Z87.442 Personal history of urinary calculi; Z92.21 Personal history of antineoplastic chemotherapy; Z87.11 Personal history of peptic ulcer disease; Z87.19 Personal history of other diseases of the digestive system; Z87.01 Personal history of pneumonia (recurrent); Z90.49 Acquired absence of other specified parts of digestive tract; Z87.891 Personal history of nicotine dependence; Z90.81 Acquired absence of spleen; Z98.890 Other specified postprocedural states; Z90.411 Acquired partial absence of pancreas
CPT/HCPCS: 36415; 70450; 71046; 72050; 74018; 74019; 80053; 83605; 83690; 83735; 83880; 84132; 84484; 85025; 85610; 85730; 87045; 87046; 87324; 87502; 93005; 93880; 96360; 99285

== ENCOUNTER 2019-04-15 14:28 | Emergency (ER) | payer OTHER ==
[2019-04-15] MEDS ORDERED: ONDANSETRON 4 MG/2 ML VIAL IVP STA (15:01)
[2019-04-15] MEDS ORDERED: SODIUM CHLORIDE 0.9% 1,000 ML IV STA (15:01)
--- NOTE | 2019-04-15 15:30 | ED ---
General Adult HPI - General Chief complaint: Weakness Stated complaint: SOB Time Seen by Provider: 04/15/19 14:55 Source: patient Mode of arrival: wheelchair Limitations: no limitations - History of Present Illness Initial comments: Patient is a 58-year-old male with history of pancreatic cancer presenting to emergency Department with a chief complaint of generalized weakness. Patient reports 3 days ago he went to his second chemotherapy round and developed nausea with multiple nonbilious, nonbloody vomiting episodes. States that he feels very dehydrated like his last visit to the ED. he also reports an episode of dizziness earlier today with a room was spinning around him. Denies any dizziness currently. States she has been using Zofran with minimal improvement. States that he is able to keep water down but nothing else. Denies any diarr hea. States that he also developed mild shortness of breath but nothing of significance. Denies any chest pain back pain. Denies hematuria, hematochezia or melena. - Related Data Home Medications Medication Instructions Recorded Confirmed HYDROcodone/APAP 5-325MG [[place] 1 tab PO TID PRN 03/27/19 04/02/19 5-325] Loperamide HCl [Imodium A-D] 2 mg PO Q8H PRN 03/27/19 04/02/19 Lubiprostone [Amitiza] 24 mcg PO BID 03/27/19 04/02/19 Morphine Sulfate ER [Ms Contin] 30 mg PO W/LUNCH 03/27/19 04/02/19 Morphine Sulfate ER [Ms Contin] 60 mg PO BID@0900,1200 03/27/19 04/02/19 Prochlorperazine [Compazine] 10 mg PO TID PRN 03/27/19 04/02/19 Previous Rx's Medication Instructions Recorded Cefuroxime Axetil [Ceftin] 500 mg PO BID 3 Days #6 tab 03/31/19 Ondansetron HCl [Zofran] 4 mg PO Q8H PRN #20 tab 03/31/19 Pantoprazole Sodium [Protonix] 40 mg PO DAILY #15 tablet. 03/31/19 metroNIDAZOLE [Flagyl] 250 mg PO Q8H 4 Days #12 tab 03/31/19 Cholestyramine (with Sugar) 4 gm PO BID@1000,1800 #14 packet 04/07/19 [Questran Packet] metroNIDAZOLE [Flagyl] 500 mg PO Q8HR 7 Days #21 tab 04/07/19 Meclizine [Antivert] 25 mg PO TID PRN #15 tab 04/15/19 Sulfamethox-Tmp 800-160Mg [Bactrim 1 each PO Q12HR #20 tab 04/15/19 Ds] Allergies Allergy/AdvReac Type Severity Reaction Status Date / Time No Known Allergies Allergy Verified 04/02/19 07:30 Review of Systems ROS Statement: Those systems with pertinent positive or pertinent negative responses have been documented in the HPI. ROS Other: All systems not noted in ROS Statement are negative. Past Medical History Past Medical History: Cancer, GERD/Reflux, Pneumonia Additional Past Medical History / Comment(s): Pt states he was diagnosed with pancreatic cancer 7-8 months ago in [place]/had surgery in [place] and started chemo 03/22/19, EGD/colonoscopy dated 11/2018 states pt has duodenitis/antral gastritis/antral ulcer/colon and rectal polyp but pt does not recall this, nephrolithiasis, murmur. History of Any Multi-Drug Resistant Organisms: None Reported Past Surgical History: Back Surgery, Cholecystectomy, Orthopedic Surgery Additional Past Surgical History / Comment(s): Tail of pancreas removed along with spleen in [place], [facility], laminectomy L4-L5/S1-S2, lower back laser surgery to cut nerves, L knee arthroscopy-meniscal and ACL, L ankle reconstructive surgery x 3, R hand surgery d/t trauma, EGD/colonoscopy, lithostripsy. Past Anesthesia/Blood Transfusion Reactions: No Reported Reaction Additional Past Anesthesia/Blood Transfusion Reaction / Comment(s): Pt has received blood in past without reaction. Past Psychological History: No Psychological Hx Reported Smoking Status: Former smoker Past Alcohol Use History: Occasional Past Drug Use History: None Reported - Past Family History Father History Unknown: Yes Additional Family Medical History / Comment(s): Pt does not know his father. Mother History Unknown: Yes Additional Family Medical History / Comment(s): Pt states he does not know mother's medical hx General Exam Limitations: no limitations General appearance: alert, in no apparent distress Head exam: Present: atraumatic, normocephalic, normal inspection Eye exam: Present: normal appearance, PERRL, EOMI Pupils: Present: normal accommodation ENT exam: Present: normal exam, normal oropharynx, mucous membranes dry, TM's normal bilaterally, normal external ear exam Neck exam: Present: normal inspection, full ROM Respiratory exam: Present: normal lung sounds bilaterally Cardiovascular Exam: Present: regular rate, normal rhythm, normal heart sounds GI/Abdominal exam: Present: soft. Absent: distended, tenderness Extremities exam: Present: normal inspection, full ROM Back exam: Present: normal inspection, full ROM Neurological exam: Present: alert, oriented X3 Psychiatric exam: Present: normal affect, normal mood Skin exam: Present: warm, dry, intact, normal color Course Vital Signs 04/15/19 04/15/19 04/15/19 14:47 15:58 16:43 Temperature 97.6 F Pulse Rate 87 67 67 Respiratory 16 18 20 Rate Blood Pressure 94/66 98/57 112/70 O2 Sat by Pulse 98 98 100 Oximetry 04/15/19 04/15/19 04/15/19 17:18 18:00 18:48 Temperature 98.1 F Pulse Rate 72 69 69 Respiratory 20 20 20 Rate Blood Pressure 127/73 106/66 110/80 O2 Sat by Pulse 100 100 99 Oximetry Medical Decision Making - Medical Decision Making Patient 58-year-old male with history of pancreatic cancer presenting to the emergency department with a chief complaint of generalized weakness. Patient also complaining of some dizziness where the room was spinning around him and the only thing that relieved his symptom was when he was laying down. Patient also had some mild shortness of breath. EKG did show changes compared to last exam. Patient did have small S depressions in lead 1. Q-wave and inverted T waves in lead 3. D-dimer was obtained showing elevation. CT chest to rule out pulmonary embolism was obtained showing no acute pulmonary embolism. Patient was given 2 L of fluids. CBC[place] white blood count. No signs of neutropenic fever. CMP shows elevation a BUN decreasing creatinine suggesting mild dehydration along with trace ketones in the urine. Patient was also found to have asymptomatic bacteriuria. Considering the patient is on chemotherapy, he will be started on antibiotics to prevent a urinary tract infection. On reevaluation patient reports improvement in symptoms. He denies any lightheadedness dizziness or shortness of breath at this time. Patient was able to get out of bed and walk circles around the ED without any complaints. Patient states that he would rather go home. I recommended hospital stay but he declined. Patient states she feels more confident going home otherwise will return if his symptoms worsen. Patient will be discharged with meclizine as well in order to prevent future dizziness. Strict return parameters were thoroughly discussed the patient was understanding and agreeable. Case discussed with physician. - Lab Data Result diagrams: 04/15/19 15:00 04/15/19 15:00 Lab Results 04/15/19 04/15/19 04/15/19 Range/Units 15:00 15:00 15:00 WBC 13.9 H (3.8-10.6) k/uL RBC 4.92 (4.30-5.90) m/uL Hgb 13.5 (13.0-17.5) gm/dL Hct 41.4 (39.0-53.0) % MCV 84.2 (80.0-100.0) fL MCH 27.4 (25.0-35.0) pg MCHC 32.5 (31.0-37.0) g/dL RDW 15.2 (11.5-15.5) % Plt Count 506 H (150-450) k/uL Neutrophils % 66 % Lymphocytes % 29 % Monocytes % 1 % Eosinophils % 3 % Basophils % 1 % Neutrophils # 9.1 H (1.3-7.7) k/uL Lymphocytes # 4.0 (1.0-4.8) k/uL Monocytes # 0.2 (0-1.0) k/uL Eosinophils # 0.4 (0-0.7) k/uL Basophils # 0.1 (0-0.2) k/uL PT (9.0-12.0) sec INR (<1.2) APTT (22.0-30.0) sec D-Dimer (<0.60) mg/L FEU Sodium 134 L (137-145) mmol/L Potassium 4.5 (3.5-5.1) mmol/L Chloride 104 (98-107) mmol/L Carbon Dioxide 23 (22-30) mmol/L Anion Gap 7 mmol/L BUN 21 H (9-20) mg/dL Creatinine 0.57 L (0.66-1.25) mg/dL Est GFR (CKD-EPI)AfAm >90 (>60 ml/min/1.73 sqM) Est GFR (CKD-EPI)NonAf >90 (>60 ml/min/1.73 sqM) Glucose 90 (74-99) mg/dL Plasma Lactic Acid [place] 1.3 (0.7-2.0) mmol/L Calcium 9.7 (8.4-10.2) mg/dL Total Bilirubin 1.1 (0.2-1.3) mg/dL AST 27 (17-59) U/L ALT 25 (4-49) U/L Alkaline Phosphatase 82 (38-126) U/L Troponin I (0.000-0.034) ng/mL Total Protein 6.1 L (6.3-8.2) g/dL Albumin 3.6 (3.5-5.0) g/dL Urine Color Urine Appearance (Clear) Urine pH (5.0-8.0) Ur Specific [place] (1.001-1.035) Urine Protein (Negative) Urine Glucose (UA) (Negative) Urine Ketones (Negative) Urine Blood (Negative) Urine Nitrite (Negative) Urine Bilirubin (Negative) Urine Urobilinogen (<2.0) mg/dL Ur Leukocyte Esterase (Negative) Urine RBC (0-5) /hpf Urine WBC (0-5) /hpf Urine Mucus (None) /hpf 04/15/19 04/15/19 04/15/19 Range/Units 15:00 15:00 16:10 WBC (3.8-10.6) k/uL RBC (4.30-5.90) m/uL Hgb (13.0-17.5) gm/dL Hct (39.0-53.0) % MCV (80.0-100.0) fL MCH (25.0-35.0) pg MCHC (31.0-37.0) g/dL RDW (11.5-15.5) % Plt Count (150-450) k/uL Neutrophils % % Lymphocytes % % Monocytes % % Eosinophils % % Basophils % % Neutrophils # (1.3-7.7) k/uL Lymphocytes # (1.0-4.8) k/uL Monocytes # (0-1.0) k/uL Eosinophils # (0-0.7) k/uL Basophils # (0-0.2) k/uL PT 9.5 (9.0-12.0) sec INR 0.9 (<1.2) APTT 21.4 L (22.0-30.0) sec D-Dimer 0.97 H (<0.60) mg/L FEU Sodium (137-145) mmol/L Potassium (3.5-5.1) mmol/L Chloride (98-107) mmol/L Carbon Dioxide (22-30) mmol/L Anion Gap mmol/L BUN (9-20) mg/dL Creatinine (0.66-1.25) mg/dL Est GFR (CKD-EPI)AfAm (>60 ml/min/1.73 sqM) Est GFR (CKD-EPI)NonAf (>60 ml/min/1.73 sqM) Glucose (74-99) mg/dL Plasma Lactic Acid [place] (0.7-2.0) mmol/L Calcium (8.4-10.2) mg/dL Total Bilirubin (0.2-1.3) mg/dL AST (17-59) U/L ALT (4-49) U/L Alkaline Phosphatase (38-126) U/L Troponin I <0.012 (0.000-0.034) ng/mL Total Protein (6.3-8.2) g/dL Albumin (3.5-5.0) g/dL Urine Color Yellow Urine Appearance Clear (Clear) Urine pH 6.0 (5.0-8.0) Ur Specific [place] 1.025 (1.001-1.035) Urine Protein 1+ H (Negative) Urine Glucose (UA) Negative (Negative) Urine Ketones Trace H (Negative) Urine Blood Trace H (Negative) Urine Nitrite Negative (Negative) Urine Bilirubin Negative (Negative) Urine Urobilinogen <2.0 (<2.0) mg/dL Ur Leukocyte Esterase Small H (Negative) Urine RBC 23 H (0-5) /hpf Urine WBC 15 H (0-5) /hpf Urine Mucus Many H (None) /hpf Disposition Clinical Impression: Dehydration, Weakness generalized, Dizziness Disposition: HOME SELF-CARE Condition: Stable Instructions (If sedation given, give patient instructions): Dizziness (ED) Additional Instructions: Take prescribed medication as directed. Follow-up with primary care. Return to emergency department if symptoms worsen. Prescriptions: Meclizine [Antivert] 25 mg PO TID PRN #15 tab PRN Reason: Vertigo Sulfamethox-Tmp 800-160Mg [Bactrim Ds] 1 each PO Q12HR #20 tab Is patient prescribed a controlled substance at d/c from ED?: No Referrals: Raghu Pascal MD [Primary Care Provider] - 1-2 days Time of Disposition: 18:36
--- NOTE | 2019-04-15 15:42 | XR ---
EXAMINATION TYPE: XR chest 2V DATE OF EXAM: 04/15/2019 COMPARISON: 04/01/2019 HISTORY: 58-year-old male with weakness and shortness of breath TECHNIQUE: AP and lateral views FINDINGS: Heart normal size. Aorta within normal limits. Some patchy right greater than left bibasilar opacitie s. Mild interstitial prominence appears similar. Right anterior chest wall injection port with a subc lavian access and catheter tip at the lower right subclavian vein level. IMPRESSION: Some mild patchy bibasilar densities, right greater than left could represent areas of atelectasis or early developing infiltrate. Possible background COPD.
[2019-04-15 15:47] LABS: Basophils # (A) 0.1 k/uL (0-0.2); Basophils % (A) 1 %; Eosinophils # (A) 0.4 k/uL (0-0.7); Eosinophils % (A) 3 %; HCT 41.4 % (39.0-53.0); HGB 13.5 gm/dL (13.0-17.5); Lymphocytes % (A) 29 %; MCH 27.4 pg (25.0-35.0); MCHC 32.5 g/dL (31.0-37.0); MCV 84.2 fL (80.0-100.0); Mean Platelet Volume 9.2; Monocytes # (A) 0.2 k/uL (0-1.0); Monocytes % (A) 1 %; Neutrophils # (A) 9.1 k/uL (1.3-7.7); Neutrophils % (A) 66 %; Platelet Count 506 k/uL (150-450); RBC 4.92 m/uL (4.30-5.90); RDW 15.2 % (11.5-15.5); WBC 13.9 k/uL (3.8-10.6)
[2019-04-15 15:50] LABS: ALT 25 U/L (4-49); AST 27 U/L (17-59); African American GFR (CKD) >90 (>60 ml/min/1.73 sqM); Albumin 3.6 g/dL (3.5-5.0); Alkaline Phosphatase 82 U/L (38-126); Anion Gap 7 mmol/L; Blood Urea Nitrogen 21 mg/dL (9-20); Calcium 9.7 mg/dL (8.4-10.2); Carbon Dioxide 23 mmol/L (22-30); Chloride 104 mmol/L (98-107); Glucose 90 mg/dL (74-99); Non-African American GFR(CKD) >90 (>60 ml/min/1.73 sqM); Potassium 4.5 mmol/L (3.5-5.1); Sodium 134 mmol/L (137-145); Total Bilirubin 1.1 mg/dL (0.2-1.3); Total Protein 6.1 g/dL (6.3-8.2)
[2019-04-15 16:25] LABS: INR 0.9 (<1.2); Prothrombin Time 9.5 sec (9.0-12.0)
[2019-04-15 16:26] LABS: D-Dimer 0.97 mg/L FEU (<0.60)
[2019-04-15 16:27] LABS: Partial Thromboplastin Time 21.4 sec (22.0-30.0)
[2019-04-15] MEDS ORDERED: SODIUM CHLORIDE 0.9% 1,000 ML IV ONE (16:39)
[2019-04-15 16:44] VITALS: RESP 20
[2019-04-15 16:57] LABS: Appearance,Urine Clear (Clear); Bilirubin,Urine Negative (Negative); Blood,Urine Trace (Negative); Color,Urine Yellow; Glucose,Urine (UA) Negative (Negative); Ketones,Urine Trace (Negative); Leukocyte Esterase,Urine Small (Negative); Mucus,Urine Many /hpf; Nitrite,Urine Negative (Negative); Protein,Urine 1+ (Negative); RBC,Urine 23 /hpf (0-5); Specific Gravity,Urine 1.025 (1.001-1.035); Urobilinogen,Urine <2.0 mg/dL (<2.0); WBC,Urine 15 /hpf (0-5)
--- NOTE | 2019-04-15 18:06 | CT ---
EXAMINATION TYPE: CT chest angio for PE DATE OF EXAM: 04/15/2019 COMPARISON: Radiograph same day HISTORY: 58-year-old male Positive D-dimer. Pt hx HTN, SD TECHNIQUE: Contiguous axial scanning of the chest performed with IV Contrast, patient injected with 1 00 mL of Isovue 300. Delayed Coronal/sagittal MIP reconstructions performed. CT DLP: 513.9 mGycm Automated exposure control for dose reduction was used. FINDINGS: Right anterior chest was injection port with catheter tip in the lower right subclavian vein. Heart normal size without pericardial effusion. No flattening of the interventricular septum or reflu x of contrast into the hepatic veins. Aorta normal caliber with conventional arch vessel branching anatomy. Scattered nonenlarged and borderline to mildly enlarged mediastinal lymph nodes are present measuring up to 9 mm high right paratracheal, 1 cm prevascular space, 9 mm lower right paratracheal, 9 mm AP w indow, and 1.1 cm right hilar. Satisfactory opacification of the pulmonary arterial system without evidence for pulmonary embolus. Interstitial reticulation greatest within the upper and mid lungs with subpleural microcystic change and associated mild groundglass. There may be some superimposed centrilobular emphysema. No yumiko con solidation or pleural effusion. Possible mass of the pancreatic neck/distal body measuring 4.1 cm AP by 2.5 cm wide. This has some ma ss effect on the proximal common hepatic artery. Splenic artery and spleen not seen. Mild left-sided pelvocaliectasis which may be transient. Bones: Mild degenerative disc disease midthoracic spine. IMPRESSION: 1. NO EVIDENCE FOR PULMONARY EMBOLUS. 2. SIMILAR LESION AT THE LEVEL OF THE PANCREATIC NECK MEASURING 4.1 X 2.5 CM SEEN ON 03/17/2019. POS SIBLE POSTSURGICAL PSEUDOCYST THE TAIL OF THE PANCREAS AND SPLEEN APPEAR ABSENT. CORRELATE WITH TODD RUTHERFORD'S SURGICAL HISTORY AND REASON FOR SURGERY. ONGOING FOLLOW-UP INDICATED. 3. RETICULAR AND SUBPLEURAL CYSTIC CHANGES GREATEST IN THE UPPER AND MIDLUNGS WITH SOME ASSOCIATED SD LD GROUNDGLASS. POSTINFECTIOUS/INFLAMMATORY FIBROSIS, FIBROTIC NSIP, AND CHRONIC HYPERSENSITIVITY PNE UMONITIS ARE SOME DIFFERENTIAL CONSIDERATIONS. THERE MAY BE SOME SUPERIMPOSED EMPHYSEMA. 4. A FEW BORDERLINE AND MILDLY ENLARGED MEDIASTINAL AND RIGHT HILAR LYMPH NODES MEASURING UP TO 1.1 C M. 3-[address] MONTH FOLLOW-UP CT RECOMMENDED TO REASSESS.
[2019-04-15 18:21] VITALS: PULSE 69
[2019-04-15] MEDS ORDERED: cefTRIAXone IN SWFI 1,000 MG/10 ML SYRINGE IVP STA (18:34)
[2019-04-15 18:55] VITALS: BP 110/80; TEMP 98.1
== END 2019-04-15 18:54 | disposition home or self-care (01) ==
LOC: EC 14:28
DX: E86.0 Dehydration (principal); R53.1 Weakness; R94.31 Abnormal electrocardiogram [ECG] [EKG]; R79.1 Abnormal coagulation profile; R82.71 Bacteriuria; R06.02 Shortness of breath; Z87.891 Personal history of nicotine dependence; Z79.891 Long term (current) use of opiate analgesic; Z79.899 Other long term (current) drug therapy; Z85.07 Personal history of malignant neoplasm of pancreas; Z92.21 Personal history of antineoplastic chemotherapy; Z90.411 Acquired partial absence of pancreas; Z90.81 Acquired absence of spleen; Z53.29 Procedure and treatment not carried out because of patient's decision for other reasons
CPT/HCPCS: 36415; 93005; 85379; 80053; 83605; 84484; 85025; 85610; 85730; 81001; 87040; 87086; 71046; 71275; 99285; 96374; 96375; 96361 ×2; J2405; J0696; Q9967

== ENCOUNTER 2019-04-22 16:19 | Emergency (ER) | payer OTHER ==
[2019-04-22 16:27] VITALS: TEMP 97.8
[2019-04-22] MEDS ORDERED: diphenhydrAMINE 50 MG/ML 1 ML VIAL IVP STA (17:06)
[2019-04-22] MEDS ORDERED: METOCLOPRAMIDE 5 MG/ML 2 ML VIAL IVP STA (17:06)
[2019-04-22] MEDS ORDERED: SODIUM CHLORIDE 0.9% 2,000 ML IV STA (17:06)
[2019-04-22 17:57] LABS: Appearance,Urine Cloudy (Clear); Bacteria,Urine Rare /hpf; Bilirubin,Urine Negative (Negative); Blood,Urine Moderate (Negative); Color,Urine Yellow; Glucose,Urine (UA) Negative (Negative); Ketones,Urine Negative (Negative); Leukocyte Esterase,Urine Small (Negative); Mucus,Urine Many /hpf; Nitrite,Urine Negative (Negative); Protein,Urine 1+ (Negative); RBC,Urine 133 /hpf (0-5); Squamous Epithelial Cell,Urine 1 /hpf (0-4); WBC,Urine 14 /hpf (0-5)
[2019-04-22 18:04] LABS: Anisocytosis Slight; Basophils # (A) 0.1 k/uL (0-0.2); Basophils % (A) 2 %; Eosinophils # (A) 0.3 k/uL (0-0.7); Eosinophils % (A) 3 %; HCT 39.4 % (39.0-53.0); Lymphocytes # (A) 3.8 k/uL (1.0-4.8); Lymphocytes % (A) 40 %; MCH 27.5 pg (25.0-35.0); MCHC 32.9 g/dL (31.0-37.0); MCV 83.6 fL (80.0-100.0); Mean Platelet Volume 8.1; Monocytes # (A) 0.9 k/uL (0-1.0); Monocytes % (A) 10 %; Neutrophils % (A) 42 %; Platelet Count 344 k/uL (150-450); RBC 4.72 m/uL (4.30-5.90); RDW 16.1 % (11.5-15.5); WBC 9.5 k/uL (3.8-10.6)
[2019-04-22] MEDS ORDERED: MORPHINE SULFATE 4 MG/ML SYRINGE IVP STA (18:07)
[2019-04-22 18:22] LABS: ALT 26 U/L (4-49); AST 24 U/L (17-59); African American GFR (CKD) >90 (>60 ml/min/1.73 sqM); Albumin 3.8 g/dL (3.5-5.0); Alkaline Phosphatase 95 U/L (38-126); Anion Gap 8 mmol/L; Blood Urea Nitrogen 16 mg/dL (9-20); Calcium 9.9 mg/dL (8.4-10.2); Carbon Dioxide 24 mmol/L (22-30); Chloride 105 mmol/L (98-107); Glucose 92 mg/dL (74-99); Non-African American GFR(CKD) >90 (>60 ml/min/1.73 sqM); Potassium 3.5 mmol/L (3.5-5.1); Sodium 137 mmol/L (137-145); Total Bilirubin 0.6 mg/dL (0.2-1.3); Total Protein 6.3 g/dL (6.3-8.2)
[2019-04-22 18:23] VITALS: RESP 18
--- NOTE | 2019-04-22 19:06 | ED ---
General Adult HPI - General Chief complaint: Nausea/Vomiting/Diarrhea Stated complaint: dehydration Time Seen by Provider: 04/22/19 16:25 Source: patient Mode of arrival: wheelchair Limitations: no limitations - History of Present Illness Initial comments: The patient is a 59-year-old male past medical history of pancreatic cancer currently on chemo every other week who presents emergency room with reported dehydration. He states that the chemo causes him to have nausea with decreased appetite. He also has diarrhea. He denies any episodes of vomiting. No hematemesis. Denies any melanotic stools or hematochezia. States that he has been able to hold down water however it causes him to have diarrhea. He does have an antiemetic at home however states that normally doesn't help him. He cannot remember the name of it. He is reporting to increased fatigue. Denies any chest pain or shortness of breath. Denies abdominal pain. States that he will occasionally need to come into the emergency department and give fluid hydration. He denies any chest pain or shortness of breath. He follows with Dr. Pascal in office. Last chemo was last week. There are no alleviating, precipitating or modifying factors - Related Data Home Medications Medication Instructions Recorded Confirmed HYDROcodone/APAP 5-325MG [[place] 1 tab PO TID PRN 03/27/19 04/02/19 5-325] Loperamide HCl [Imodium A-D] 2 mg PO Q8H PRN 03/27/19 04/02/19 Lubiprostone [Amitiza] 24 mcg PO BID 03/27/19 04/02/19 Morphine Sulfate ER [Ms Contin] 30 mg PO W/LUNCH 03/27/19 04/02/19 Morphine Sulfate ER [Ms Contin] 60 mg PO BID@0900,1200 03/27/19 04/02/19 Prochlorperazine [Compazine] 10 mg PO TID PRN 03/27/19 04/02/19 Previous Rx's Medication Instructions Recorded Cefuroxime Axetil [Ceftin] 500 mg PO BID 3 Days #6 tab 03/31/19 Ondansetron HCl [Zofran] 4 mg PO Q8H PRN #20 tab 03/31/19 Pantoprazole Sodium [Protonix] 40 mg PO DAILY #15 tablet. 03/31/19 metroNIDAZOLE [Flagyl] 250 mg PO Q8H 4 Days #12 tab 03/31/19 Cholestyramine (with Sugar) 4 gm PO BID@1000,1800 #14 packet 04/07/19 [Questran Packet] metroNIDAZOLE [Flagyl] 500 mg PO Q8HR 7 Days #21 tab 04/07/19 Meclizine [Antivert] 25 mg PO TID PRN #15 tab 04/15/19 Sulfamethox-Tmp 800-160Mg [Bactrim 1 each PO Q12HR #20 tab 04/15/19 Ds] Cephalexin [Keflex] 500 mg PO Q6HR #28 cap 04/22/19 Metoclopramide [Reglan] 10 mg PO TID PRN #20 tab 04/22/19 Allergies Allergy/AdvReac Type Severity Reaction Status Date / Time No Known Allergies Allergy Verified 04/22/19 16:27 Review of Systems ROS Statement: Those systems with pertinent positive or pertinent negative responses have been documented in the HPI. ROS Other: All systems not noted in ROS Statement are negative. Past Medical History Past Medical History: Cancer, GERD/Reflux, Pneumonia Additional Past Medical History / Comment(s): Pt states he was diagnosed with pancreatic cancer 7-8 months ago in [place]/had surgery in [place] and started chemo 03/22/19, EGD/colonoscopy dated 11/2018 states pt has duodenitis/antral gastritis/antral ulcer/colon and rectal polyp but pt does not recall this, nephrolithiasis, murmur. History of Any Multi-Drug Resistant Organisms: None Reported Past Surgical History: Back Surgery, Cholecystectomy, Orthopedic Surgery Additional Past Surgical History / Comment(s): Tail of pancreas removed along with spleen in [place], [facility], laminectomy L4-L5/S1-S2, lower back laser surgery to cut nerves, L knee arthroscopy-meniscal and ACL, L ankle reconstructive surgery x 3, R hand surgery d/t trauma, EGD/colonoscopy, lithostripsy. Past Anesthesia/Blood Transfusion Reactions: No Reported Reaction Additional Past Anesthesia/Blood Transfusion Reaction / Comment(s): Pt has received blood in past without reaction. Past Psychological History: No Psychological Hx Reported Smoking Status: Former smoker Past Alcohol Use History: Occasional Past Drug Use History: None Reported - Past Family History Father History Unknown: Yes Additional Family Medical History / Comment(s): Pt does not know his father. Mother History Unknown: Yes Additional Family Medical History / Comment(s): Pt states he does not know mother's medical hx General Exam Limitations: no limitations General appearance: alert, in no apparent distress Head exam: Present: atraumatic, normocephalic, normal inspection Eye exam: Present: normal appearance, PERRL, EOMI. Absent: scleral icterus, conjunctival injection, periorbital swelling ENT exam: Present: normal exam, mucous membranes moist Neck exam: Present: normal inspection. Absent: tenderness, meningismus, lymphadenopathy Respiratory exam: Present: normal lung sounds bilaterally. Absent: respiratory distress, wheezes, rales, rhonchi, stridor Cardiovascular Exam: Present: regular rate, normal rhythm, normal heart sounds. Absent: systolic murmur, diastolic murmur, rubs, gallop, clicks GI/Abdominal exam: Present: soft, normal bowel sounds. Absent: distended, tenderness, guarding, rebound, rigid Extremities exam: Present: normal inspection, full ROM, normal capillary refill. Absent: tenderness, pedal edema, joint swelling, calf tenderness Back exam: Present: normal inspection Neurological exam: Present: alert, oriented X3, CN II-XII intact Psychiatric exam: Present: normal affect, normal mood Skin exam: Present: warm, dry, intact, normal color. Absent: rash Course Vital Signs 04/22/19 04/22/19 04/22/19 16:24 18:21 19:16 Temperature 97.8 F Pulse Rate 100 83 80 Respiratory 16 18 18 Rate Blood Pressure 126/80 143/99 140/88 O2 Sat by Pulse 100 98 Oximetry Medical Decision Making - Medical Decision Making Upon arrival the patient was placed in room 16. A thorough history and physical exam was performed. Peripheral IV was established. The patient was given a 2 L bolus of normal saline as he does not have a history of congestive heart failure. He was also given 4 mg of morphine, 10 mg of Reglan and 25 mg of Benadryl. Laboratories results were conducted. CBC and CMP are unremarkable. Urinalysis shows moderate blood, small leukocyte Estrace, 133 red blood cells, 14 white blood cells, rare bacteria. I reevaluated the patient feels much improved at this time. I discussed diagnosis, differential and treatment options. I did provide the patient with a dose of Rocephin. I will write him for a prescription of Reglan and Keflex. He is to follow-up with Dr. Pascal to speak in office. Return to the emergency room for any new worsening symptoms. Patient was discharged home in stable condition - Lab Data Result diagrams: 04/22/19 17:53 04/22/19 17:53 Lab Results 04/22/19 04/22/19 04/22/19 Range/Units 17:18 17:53 17:53 WBC 9.5 (3.8-10.6) k/uL RBC 4.72 (4.30-5.90) m/uL Hgb 13.0 (13.0-17.5) gm/dL Hct 39.4 (39.0-53.0) % MCV 83.6 (80.0-100.0) fL MCH 27.5 (25.0-35.0) pg MCHC 32.9 (31.0-37.0) g/dL RDW 16.1 H (11.5-15.5) % Plt Count 344 (150-450) k/uL Neutrophils % 42 % Lymphocytes % 40 % Monocytes % 10 % Eosinophils % 3 % Basophils % 2 % Neutrophils # 4.0 (1.3-7.7) k/uL Lymphocytes # 3.8 (1.0-4.8) k/uL Monocytes # 0.9 (0-1.0) k/uL Eosinophils # 0.3 (0-0.7) k/uL Basophils # 0.1 (0-0.2) k/uL Anisocytosis Slight Sodium 137 (137-145) mmol/L Potassium 3.5 (3.5-5.1) mmol/L Chloride 105 (98-107) mmol/L Carbon Dioxide 24 (22-30) mmol/L Anion Gap 8 mmol/L BUN 16 (9-20) mg/dL Creatinine 0.58 L (0.66-1.25) mg/dL Est GFR (CKD-EPI)AfAm >90 (>60 ml/min/1.73 sqM) Est GFR (CKD-EPI)NonAf >90 (>60 ml/min/1.73 sqM) Glucose 92 (74-99) mg/dL Calcium 9.9 (8.4-10.2) mg/dL Total Bilirubin 0.6 (0.2-1.3) mg/dL AST 24 (17-59) U/L ALT 26 (4-49) U/L Alkaline Phosphatase 95 (38-126) U/L Total Protein 6.3 (6.3-8.2) g/dL Albumin 3.8 (3.5-5.0) g/dL Lipase 75 (23-300) U/L Urine Color Yellow Urine Appearance Cloudy (Clear) Urine pH 6.0 (5.0-8.0) Ur Specific [place] 1.030 (1.001-1.035) Urine Protein 1+ H (Negative) Urine Glucose (UA) Negative (Negative) Urine Ketones Negative (Negative) Urine Blood Moderate H (Negative) Urine Nitrite Negative (Negative) Urine Bilirubin Negative (Negative) Urine Urobilinogen 2.0 (<2.0) mg/dL Ur Leukocyte Esterase Small H (Negative) Urine RBC 133 H (0-5) /hpf Urine WBC 14 H (0-5) /hpf Ur Squamous Epith Cells 1 (0-4) /hpf Urine Bacteria Rare H (None) /hpf Urine Mucus Many H (None) /hpf Disposition Clinical Impression: Dehydration, Weakness generalized, Diarrhea Disposition: HOME SELF-CARE Condition: Stable Instructions (If sedation given, give patient instructions): Acute Nausea and Vomiting (ED), Acute Diarrhea (ED) Additional Instructions: Please follow-up with your oncologist this week. Return to the emergency room for any new worsening symptoms Prescriptions: Cephalexin [Keflex] 500 mg PO Q6HR #28 cap Metoclopramide [Reglan] 10 mg PO TID PRN #20 tab PRN Reason: GERD Is patient prescribed a controlled substance at d/c from ED?: No Referrals: Raghu Pascal MD [Primary Care Provider] - 1-2 days Time of Disposition: 19:06
[2019-04-22 19:17] VITALS: BP 140/88; PULSE 80
== END 2019-04-22 20:01 | disposition home or self-care (01) ==
LOC: EC 16:19
DX: E86.0 Dehydration (principal); R53.1 Weakness; R19.7 Diarrhea, unspecified; R31.9 Hematuria, unspecified; R82.71 Bacteriuria; R82.81 Pyuria; R82.998 Other abnormal findings in urine; R11.0 Nausea; R63.8 Other symptoms and signs concerning food and fluid intake; Z87.891 Personal history of nicotine dependence; Z79.891 Long term (current) use of opiate analgesic; Z79.899 Other long term (current) drug therapy; Z85.07 Personal history of malignant neoplasm of pancreas; Z92.21 Personal history of antineoplastic chemotherapy; Z90.411 Acquired partial absence of pancreas; Z90.81 Acquired absence of spleen; Z90.49 Acquired absence of other specified parts of digestive tract
CPT/HCPCS: 99284; 96365; 96375 ×3; 96361; 36415; 80053; 83690; 85025; 81001; 87086; J2270; J1200; J2765; J0696

== ENCOUNTER → 2019-05-15 | Outpatient (CLI) | payer MEDICARE, OTHER ==
[2019-05-15 11:09] LABS: African American GFR (CKD) >90 (>60 ml/min/1.73 sqM); Blood Urea Nitrogen 13 mg/dL (9-20); Non-African American GFR(CKD) >90 (>60 ml/min/1.73 sqM)
--- NOTE | 2019-05-15 12:40 | CT ---
EXAMINATION TYPE: CT ChestAbdPelvis w con DATE OF EXAM: 05/15/2019 COMPARISON: CTA chest April 15, 2019. Most recent CT abdomen and pelvis March 17, 2019 and older C Ts HISTORY: Pancreatic CA CT DLP: 1666 mGycm. Automated Exposure Control for Dose Reduction was Utilized. CONTRAST: CT scan of the thorax, abdomen and pelvis is performed with IV Contrast, patient injected with 100 mL of Isovue 300. FINDINGS: LUNGS: Background moderate underlying emphysematous along with peripheral parenchymal fibrotic change s more prominent anteriorly in both lungs with involvement of upper and to lesser degree lower lungs. No suspicious new nodules or masses. MEDIASTINUM: Prominent thoracic lymph nodes appear stable or decreased in size from prior. For refere nce prevascular lymph node measures 1.2 x 1.0 cm axial image 21 stable in size from prior. For refere nce right paratracheal lymph node measures 8 x 7 mm prior study image 15 slightly diminished in size or prominence measuring 10 x 9 mm prior study axial image 33. Stable prominent right hilar lymph node 10 x 9 mm axial image 27. No cardiomegaly or pericardial effusion is seen. OTHER: Stable right subclavian Mediport catheter terminating in SVC. LIVER/GB: Cholecystectomy clips are redemonstrated. PANCREAS: Surgical changes to the body and tail of pancreas redemonstrated. Remnant head and uncinate process again seen. Previously visualized 2.7 cm low dense lesion near site of sutures is diminished in size measuring ro ughly 1.6 x 1.4 cm axial image 61. There is ill-defined soft tissue density near this level extending posteriorly encasing the celiac artery axial image 60 redemonstrated causing some narrowing on coron al images for reference coronal image 45. Some encasement of the SMA also present axial image 64, thi s is better seen on current study versus most recent prior. SPLEEN: Spleen is surgically absent similar to most recent prior. ADRENALS: No significant abnormality is seen. KIDNEYS: There is 3 mm nonobstructing calculus upper pole level left kidney coronal image 68. Symmetr ic cortical medullary uptake and excretion without hydronephrosis seen bilaterally. BOWEL: Oral contrast reaches level of the sigmoid rectal colon. No suspicious small and large bowel d ilatation. Some focal moderate wall thickening right colon just above the terminal ileum coronal imag e 41 redemonstrated, nonspecific should be correlated with recent colonoscopy. Similar finding noted on most recent CT. GENITAL ORGANS: Heterogeneous prostate gland measures upper limits of normal. LYMPH NODES: No definitive new greater than 1cm abdominal or pelvic lymph nodes are appreciated. Mild mesenteric edema left mid abdomen coronal image 42 slightly more prominent from prior with subcentim eter lymph nodes redemonstrated. Suspicious right mid abdominal lymph node now present anterior to th ird portion of duodenum measuring 1.4 x 1.0 cm axial images 72 corresponding to coronal image 41. OSSEOUS STRUCTURES: No significant abnormality is seen. OTHER: No significant additional abnormality is seen. IMPRESSION: 1. Diminished size to the oval thin-walled hypodense lesion pancreas suggests resolving seroma. Of m ore concern however is the adjacent irregular soft tissue extending inferiorly and posteriorly that e ncases that has mass effect on the celiac axis and appears to encase portion of the SMA. This is new finding from the original CT and is strongly suspicious for recurrent neoplasm at this level. Some woo spicious local adenopathy noted.
== END | disposition home or self-care (01) ==
LOC: RADPROMAIN 09:13
PROVIDERS: ATTEND Internal Medicine Hematology & Oncology
DX: Z03.89 Encounter for observation for other suspected diseases and conditions ruled out (principal); C25.1 Malignant neoplasm of body of pancreas
CPT/HCPCS: 82565; 84520; 71260; 74177; 36415; J1642; Q9967

== ENCOUNTER 2019-05-17 09:11 | Emergency (ER) | payer MEDICARE, OTHER ==
[2019-05-17 09:32] VITALS: RESP 18; TEMP 98.6
[2019-05-17] MEDS ORDERED: SODIUM CHLORIDE 0.9% 2,000 ML IV STA (09:59)
[2019-05-17] MEDS ORDERED: ONDANSETRON 4 MG/2 ML VIAL IVP STA (09:59)
--- NOTE | 2019-05-17 10:06 | ED ---
Nausea/Vomiting/Diarrhea HPI - General Chief complaint: Nausea/Vomiting/Diarrhea Stated complaint: N/V/D Time Seen by Provider: 05/17/19 09:27 Source: patient, RN notes reviewed Mode of arrival: wheelchair Limitations: no limitations - History of Present Illness Initial comments: This a 59-year-old male presents emergency Department chief complaint of d ehydration. Patient states that he received recent chemotherapy. Patient states that he's had persistent diarrhea, vomiting nausea. He's been receiving fluids at home states that he cannot keep anything down he is losing too much fluids. Patient states he feels very weak. Patient denies any increasing abdominal pain. Patient is currently being treated for pancreatic cancer. Patient denies fever, chills no URI symptoms. Denies any dysuria, hematuria - Related Data Home Medications Medication Instructions Recorded Confirmed HYDROcodone/APAP 5-325MG [[place] 1 tab PO TID PRN 03/27/19 04/02/19 5-325] Loperamide HCl [Imodium A-D] 2 mg PO Q8H PRN 03/27/19 04/02/19 Lubiprostone [Amitiza] 24 mcg PO BID 03/27/19 04/02/19 Morphine Sulfate ER [Ms Contin] 30 mg PO W/LUNCH 03/27/19 04/02/19 Morphine Sulfate ER [Ms Contin] 60 mg PO BID@0900,1200 03/27/19 04/02/19 Prochlorperazine [Compazine] 10 mg PO TID PRN 03/27/19 04/02/19 Previous Rx's Medication Instructions Recorded Cefuroxime Axetil [Ceftin] 500 mg PO BID 3 Days #6 tab 03/31/19 Ondansetron HCl [Zofran] 4 mg PO Q8H PRN #20 tab 03/31/19 Pantoprazole Sodium [Protonix] 40 mg PO DAILY #15 tablet. 03/31/19 metroNIDAZOLE [Flagyl] 250 mg PO Q8H 4 Days #12 tab 03/31/19 Cholestyramine (with Sugar) 4 gm PO BID@1000,1800 #14 packet 04/07/19 [Questran Packet] metroNIDAZOLE [Flagyl] 500 mg PO Q8HR 7 Days #21 tab 04/07/19 Meclizine [Antivert] 25 mg PO TID PRN #15 tab 04/15/19 Sulfamethox-Tmp 800-160Mg [Bactrim 1 each PO Q12HR #20 tab 04/15/19 Ds] Cephalexin [Keflex] 500 mg PO Q6HR #28 cap 04/22/19 Metoclopramide [Reglan] 10 mg PO TID PRN #20 tab 04/22/19 Allergies Allergy/AdvReac Type Severity Reaction Status Date / Time No Known Allergies Allergy Verified 05/17/19 09:24 Review of Systems ROS Statement: Those systems with pertinent positive or pertinent negative responses have been documented in the HPI. ROS Other: All systems not noted in ROS Statement are negative. Past Medical History Past Medical History: Cancer, GERD/Reflux, Pneumonia Additional Past Medical History / Comment(s): Pt states he was diagnosed with pancreatic cancer 7-8 months ago in [place]/had surgery in [place] and started chemo 03/22/19, EGD/colonoscopy dated 11/2018 states pt has duodenitis/antral gastritis/antral ulcer/colon and rectal polyp but pt does not recall this, nephrolithiasis, murmur. History of Any Multi-Drug Resistant Organisms: None Reported Past Surgical History: Back Surgery, Cholecystectomy, Orthopedic Surgery Additional Past Surgical History / Comment(s): Tail of pancreas removed along with spleen in [place], [facility], laminectomy L4-L5/S1-S2, lower back laser surgery to cut nerves, L knee arthroscopy-meniscal and ACL, L ankle reconstructive surgery x 3, R hand surgery d/t trauma, EGD/colonoscopy, lithostripsy. Past Anesthesia/Blood Transfusion Reactions: No Reported Reaction Additional Past Anesthesia/Blood Transfusion Reaction / Comment(s): Pt has received blood in past without reaction. Past Psychological History: No Psychological Hx Reported Smoking Status: Former smoker Past Alcohol Use History: Occasional Past Drug Use History: None Reported - Past Family History Father History Unknown: Yes Additional Family Medical History / Comment(s): Pt does not know his father. Mother History Unknown: Yes Additional Family Medical History / Comment(s): Pt states he does not know mother's medical hx General Exam Limitations: no limitations General appearance: alert, in no apparent distress Head exam: Present: atraumatic, normocephalic, normal inspection Eye exam: Present: normal appearance, PERRL, EOMI. Absent: scleral icterus, conjunctival injection, periorbital swelling ENT exam: Present: normal exam, normal oropharynx, mucous membranes moist, TM's normal bilaterally Neck exam: Present: normal inspection, full ROM. Absent: tenderness, meningismus, lymphadenopathy Respiratory exam: Present: normal lung sounds bilaterally. Absent: respiratory distress, wheezes, rales, rhonchi, stridor Cardiovascular Exam: Present: normal rhythm, tachycardia, normal heart sounds. Absent: systolic murmur, diastolic murmur, rubs, gallop, clicks GI/Abdominal exam: Present: soft, normal bowel sounds. Absent: distended, tenderness, guarding, rebound, rigid Back exam: Absent: CVA tenderness (R), CVA tenderness (L) Skin exam: Present: warm, dry, intact, normal color. Absent: rash Course Vital Signs 05/17/19 05/17/19 05/17/19 09:21 10:59 13:04 Temperature 98.6 F Pulse Rate 107 H 85 87 Respiratory 18 18 18 Rate Blood Pressure 124/97 121/85 129/81 O2 Sat by Pulse 98 99 100 Oximetry Medical Decision Making - Medical Decision Making Patient presented for nausea vomiting to chemotherapy. Patient was hydrated 2 L of fluid. Patient states he feels greatly improved he has no current nausea. He was informed that he has large amount blood in his urine though he has no symptoms. Patient history kidney stones. He is advised to have this rechecked. Return parameters were discussed. Patient was offered admission though he states that he feels well enough to go home. - Lab Data Result diagrams: 05/17/19 12:14 05/17/19 12:14 Lab Results 05/17/19 05/17/19 05/17/19 Range/Units 12:14 12:14 12:14 WBC 5.1 (3.8-10.6) k/uL RBC 4.88 (4.30-5.90) m/uL Hgb 13.6 (13.0-17.5) gm/dL Hct 41.5 (39.0-53.0) % MCV 85.0 (80.0-100.0) fL MCH 27.8 (25.0-35.0) pg MCHC 32.7 (31.0-37.0) g/dL RDW 18.2 H (11.5-15.5) % Plt Count 223 (150-450) k/uL Anisocytosis Slight Sodium 137 (137-145) mmol/L Potassium 3.4 L (3.5-5.1) mmol/L Chloride 108 H (98-107) mmol/L Carbon Dioxide 18 L (22-30) mmol/L Anion Gap 11 mmol/L BUN 17 (9-20) mg/dL Creatinine 0.63 L (0.66-1.25) mg/dL Est GFR (CKD-EPI)AfAm >90 (>60 ml/min/1.73 sqM) Est GFR (CKD-EPI)NonAf >90 (>60 ml/min/1.73 sqM) Glucose 82 (74-99) mg/dL Plasma Lactic Acid Austin 1.0 (0.7-2.0) mmol/L Calcium 9.1 (8.4-10.2) mg/dL Magnesium 1.8 (1.6-2.3) mg/dL Total Bilirubin 0.5 (0.2-1.3) mg/dL AST 38 (17-59) U/L ALT 41 (4-49) U/L Alkaline Phosphatase 82 (38-126) U/L Total Protein 6.1 L (6.3-8.2) g/dL Albumin 3.4 L (3.5-5.0) g/dL Amylase <30 L (30-110) U/L Lipase 38 (23-300) U/L Urine Color Urine Appearance (Clear) Urine pH (5.0-8.0) Ur Specific Neville (1.001-1.035) Urine Protein (Negative) Urine Glucose (UA) (Negative) Urine Ketones (Negative) Urine Blood (Negative) Urine Nitrite (Negative) Urine Bilirubin (Negative) Urine Urobilinogen (<2.0) mg/dL Ur Leukocyte Esterase (Negative) Urine RBC (0-5) /hpf Urine WBC (0-5) /hpf Calcium Oxalate Crystal (None) /hpf Urine Bacteria (None) /hpf Urine Mucus (None) /hpf 05/17/19 Range/Units 12:25 WBC (3.8-10.6) k/uL RBC (4.30-5.90) m/uL Hgb (13.0-17.5) gm/dL Hct (39.0-53.0) % MCV (80.0-100.0) fL MCH (25.0-35.0) pg MCHC (31.0-37.0) g/dL RDW (11.5-15.5) % Plt Count (150-450) k/uL Anisocytosis Sodium (137-145) mmol/L Potassium (3.5-5.1) mmol/L Chloride (98-107) mmol/L Carbon Dioxide (22-30) mmol/L Anion Gap mmol/L BUN (9-20) mg/dL Creatinine (0.66-1.25) mg/dL Est GFR (CKD-EPI)AfAm (>60 ml/min/1.73 sqM) Est GFR (CKD-EPI)NonAf (>60 ml/min/1.73 sqM) Glucose (74-99) mg/dL Plasma Lactic Acid Austin (0.7-2.0) mmol/L Calcium (8.4-10.2) mg/dL Magnesium (1.6-2.3) mg/dL Total Bilirubin (0.2-1.3) mg/dL AST (17-59) U/L ALT (4-49) U/L Alkaline Phosphatase (38-126) U/L Total Protein (6.3-8.2) g/dL Albumin (3.5-5.0) g/dL Amylase (30-110) U/L Lipase (23-300) U/L Urine Color Yellow Urine Appearance Cloudy (Clear) Urine pH 6.0 (5.0-8.0) Ur Specific Neville 1.028 (1.001-1.035) Urine Protein 1+ H (Negative) Urine Glucose (UA) Negative (Negative) Urine Ketones 1+ H (Negative) Urine Blood Moderate H (Negative) Urine Nitrite Negative (Negative) Urine Bilirubin Negative (Negative) Urine Urobilinogen 2.0 (<2.0) mg/dL Ur Leukocyte Esterase Small H (Negative) Urine RBC >182 H (0-5) /hpf Urine WBC 34 H (0-5) /hpf Calcium Oxalate Crystal Occasional H (None) /hpf Urine Bacteria Rare H (None) /hpf Urine Mucus Many H (None) /hpf Disposition Clinical Impression: Nausea vomiting and diarrhea, Mild dehydration Disposition: HOME SELF-CARE Condition: Stable Instructions (If sedation given, give patient instructions): Acute Nausea and Vomiting (ED) Additional Instructions: Please return to the Emergency Department if symptoms worsen or any other concerns. Is patient prescribed a controlled substance at d/c from ED?: No Referrals: Garrett Pascal MD [Primary Care Provider] - 1-2 days
[2019-05-17] MEDS ORDERED: METOCLOPRAMIDE 5 MG/ML 2 ML VIAL IVP STA (10:57)
[2019-05-17] MEDS ORDERED: diphenhydrAMINE 50 MG/ML 1 ML VIAL IVP STA (10:57)
[2019-05-17 12:52] LABS: ALT 41 U/L (4-49); AST 38 U/L (17-59); African American GFR (CKD) >90 (>60 ml/min/1.73 sqM); Albumin 3.4 g/dL (3.5-5.0); Alkaline Phosphatase 82 U/L (38-126); Amylase <30 U/L (30-110); Anion Gap 11 mmol/L; Blood Urea Nitrogen 17 mg/dL (9-20); Calcium 9.1 mg/dL (8.4-10.2); Carbon Dioxide 18 mmol/L (22-30); Chloride 108 mmol/L (98-107); Glucose 82 mg/dL (74-99); Magnesium 1.8 mg/dL (1.6-2.3); Non-African American GFR(CKD) >90 (>60 ml/min/1.73 sqM); Sodium 137 mmol/L (137-145); Total Bilirubin 0.5 mg/dL (0.2-1.3); Total Protein 6.1 g/dL (6.3-8.2)
[2019-05-17 12:57] LABS: Anisocytosis Slight; HCT 41.5 % (39.0-53.0); HGB 13.6 gm/dL (13.0-17.5); MCH 27.8 pg (25.0-35.0); MCHC 32.7 g/dL (31.0-37.0); Mean Platelet Volume 9.2; Platelet Count 223 k/uL (150-450); RBC 4.88 m/uL (4.30-5.90); RDW 18.2 % (11.5-15.5); WBC 5.1 k/uL (3.8-10.6)
[2019-05-17 12:58] LABS: Potassium 3.4 mmol/L (3.5-5.1)
[2019-05-17 13:05] VITALS: BP 129/81; PULSE 87
[2019-05-17 13:24] LABS: Appearance,Urine Cloudy (Clear); Bacteria,Urine Rare /hpf; Bilirubin,Urine Negative (Negative); Blood,Urine Moderate (Negative); Calcium Oxalate Crystals,Urine Occasional /hpf; Color,Urine Yellow; Glucose,Urine (UA) Negative (Negative); Ketones,Urine 1+ (Negative); Leukocyte Esterase,Urine Small (Negative); Mucus,Urine Many /hpf; Nitrite,Urine Negative (Negative); Protein,Urine 1+ (Negative); RBC,Urine >182 /hpf (0-5); Specific Gravity,Urine 1.028 (1.001-1.035); WBC,Urine 34 /hpf (0-5)
[2019-05-17 14:14] LABS: Lymphocytes # (M) 2.55 k/uL (1.0-4.8); Monocytes # (M) 0.56 k/uL (0-1.0); Neutrophils # (M) 1.99 k/uL (1.3-7.7); Neutrophils % (M) 39 %; Nucleated Red Blood Cells 0 /100 WBC (0-0); Total Cells Counted 100
[2019-05-17 14:28] LABS: Poikilocytosis (M) Present
[2019-05-17 14:30] LABS: Target Cells Present
[2019-05-17 14:31] LABS: Large Platelets Present
== END 2019-05-17 13:42 | disposition home or self-care (01) ==
LOC: EC 09:11
DX: E86.0 Dehydration (principal); R11.2 Nausea with vomiting, unspecified; R19.7 Diarrhea, unspecified; R31.9 Hematuria, unspecified; R00.0 Tachycardia, unspecified; R53.1 Weakness; C25.9 Malignant neoplasm of pancreas, unspecified; Z87.891 Personal history of nicotine dependence; Z79.891 Long term (current) use of opiate analgesic; Z79.899 Other long term (current) drug therapy; Z92.21 Personal history of antineoplastic chemotherapy; Z87.442 Personal history of urinary calculi; Z87.19 Personal history of other diseases of the digestive system; Z90.411 Acquired partial absence of pancreas; Z90.81 Acquired absence of spleen; Z98.890 Other specified postprocedural states
CPT/HCPCS: 36415; 80053; 82150; 83605; 83690; 83735; 85025; 81001; 87086; 99284; 96374; 96375 ×2; 96361 ×3; J1200; J2765; J2405

== ENCOUNTER 2019-06-23 12:09 | Inpatient (IN) | payer MEDICARE, OTHER ==
[2019-06-23] MEDS ORDERED: SODIUM CHLORIDE 0.9% 1,000 ML IV STA (12:33)
--- NOTE | 2019-06-23 13:05 | ED ---
GI Bleed HPI - General Source: patient, RN notes reviewed Mode of arrival: wheelchair Limitations: no limitations <Ramírez Valdez - Last Filed: 06/23/19 15:22> <Jayden Barker - Last Filed: 06/23/19 23:10> - General Chief complaint: GI Bleed Stated complaint: blood in stool Time Seen by Provider: 06/23/19 12:15 - History of Present Illness Initial comments: This 59-year-old male presents emergency Department chief complaint of bright red blood in stool. Patient states that he's had chronic diarrhea over the last 7-8 months. Patient states that he noticed mucousy blood yesterday. He denies any rectal pain denies any increase abdominal pain. Patient states that he had surgery within the last year for pain. 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 Patient denies any fever, chills, chest pain, shortness breath, headache or dizziness. Patient has no complaints of dysuria hematuria denies being on blood thinner. Patient states he is currently on chemotherapy he does every other week and fusions. Patient states she sees Dr. Pascal he had his abdominal surgery in [place]. (Ramírez Valdez) - Related Data Home Medications Medication Instructions Recorded Confirmed HYDROcodone/APAP 5-325MG [[place] 1 tab PO TID PRN 03/27/19 06/23/19 5-325] Morphine Sulfate ER [Ms Contin] 30 mg PO W/LUNCH 03/27/19 06/23/19 Allergies Allergy/AdvReac Type Severity Reaction Status Date / Time No Known Allergies Allergy Verified 06/23/19 15:39 Review of Systems ROS Other: All systems not noted in ROS Statement are negative. <Ramírez Valdez - Last Filed: 06/23/19 15:22> ROS Other: All systems not noted in ROS Statement are negative. <Jayden Barker - Last Filed: 06/23/19 23:10> ROS Statement: Those systems with pertinent positive or pertinent negative responses have been documented in the HPI. Past Medical History Past Medical History: Cancer, GERD/Reflux, Pneumonia Additional Past Medical History / Comment(s): Pt states he was diagnosed with pancreatic cancer 7-8 months ago in [place]/had surgery in [place] and started chemo 03/22/19, EGD/colonoscopy dated 11/2018 states pt has duodenitis/antral gastritis/antral ulcer/colon and rectal polyp but pt does not recall this, nephrolithiasis, murmur. History of Any Multi-Drug Resistant Organisms: None Reported Past Surgical History: Back Surgery, Cholecystectomy, Orthopedic Surgery Additional Past Surgical History / Comment(s): Tail of pancreas removed along with spleen in [place], [facility], laminectomy L4-L5/S1-S2, lower back laser surgery to cut nerves, L knee arthroscopy-meniscal and ACL, L ankle reconstructive surgery x 3, R hand surgery d/t trauma, EGD/colonoscopy, litho stripsy. Past Anesthesia/Blood Transfusion Reactions: No Reported Reaction Additional Past Anesthesia/Blood Transfusion Reaction / Comment(s): Pt has received blood in past without reaction. Past Psychological History: No Psychological Hx Reported Smoking Status: Former smoker Past Alcohol Use History: Occasional Past Drug Use History: None Reported - Past Family History Father History Unknown: Yes Additional Family Medical History / Comment(s): Pt does not know his father. Mother History Unknown: Yes Additional Family Medical History / Comment(s): Pt states he does not know mother's medical hx <Ramírez Valdez - Last Filed: 06/23/19 15:22> General Exam Limitations: no limitations General appearance: alert, in no apparent distress Head exam: Present: atraumatic, normocephalic, normal inspection Eye exam: Present: normal appearance, PERRL, EOMI. Absent: scleral icterus, conjunctival injection, periorbital swelling ENT exam: Present: normal exam, mucous membranes moist Neck exam: Present: normal inspection, full ROM. Absent: tenderness, meningismus, lymphadenopathy Respiratory exam: Present: normal lung sounds bilaterally. Absent: respiratory distress, wheezes, rales, rhonchi, stridor Cardiovascular Exam: Present: regular rate (Heart rate 86 on EKG, exam.), normal rhythm, normal heart sounds. Absent: systolic murmur, diastolic murmur, rubs, gallop, clicks GI/Abdominal exam: Present: soft, tenderness (Mild right upper quadrant no rebound), normal bowel sounds. Absent: distended, guarding, rebound, rigid Back exam: Absent: CVA tenderness (R), CVA tenderness (L) Neurological exam: Present: alert, oriented X3, CN II-XII intact Skin exam: Present: warm, dry, intact, normal color. Absent: rash <Dedoe,Ramírez M - Last Filed: 06/23/19 15:22> Course Vital Signs 06/23/19 06/23/19 06/23/19 12:10 13:28 14:00 Temperature 98.4 F 98.8 F Pulse Rate 121 H 63 77 Respiratory 18 16 20 Rate Blood Pressure 113/71 154/100 102/70 O2 Sat by Pulse 98 98 96 Oximetry 06/23/19 06/23/19 06/23/19 15:00 16:00 17:07 Temperature 98.2 F Pulse Rate 87 86 72 Respiratory 20 20 20 Rate Blood Pressure 107/67 105/69 113/65 O2 Sat by Pulse 99 98 99 Oximetry Medical Decision Making - Lab Data Result diagrams: 06/23/19 13:22 06/23/19 13:22 <Ramírez Valdez - Last Filed: 06/23/19 15:22> - Lab Data Result diagrams: 06/23/19 13:22 06/23/19 13:22 <Jayden Barker - Last Filed: 06/23/19 23:10> - Medical Decision Making 51-year-old male presented for abdominal pain, reported history of rectal bleeding. Patient has pancolitis, abdominal pain is concerning as his mental compromise with splenectomy and on current chemotherapy. Patient will be admitted for IV antibiotics, GI consult. (Ramírez Valdez) - Lab Data Lab Results 06/23/19 06/23/19 06/23/19 Range/Units 13:05 13:22 13:22 WBC 18.4 H (3.8-10.6) k/uL RBC 4.07 L (4.30-5.90) m/uL Hgb 12.1 L (13.0-17.5) gm/dL Hct 37.0 L (39.0-53.0) % MCV 90.8 D (80.0-100.0) fL MCH 29.7 (25.0-35.0) pg MCHC 32.7 (31.0-37.0) g/dL RDW 18.2 H (11.5-15.5) % Plt Count 276 (150-450) k/uL Neutrophils % 62 % Lymphocytes % 23 % Monocytes % 9 % Eosinophils % 2 % Basophils % 0 % Neutrophils # 11.5 H (1.3-7.7) k/uL Lymphocytes # 4.1 (1.0-4.8) k/uL Monocytes # 1.7 H (0-1.0) k/uL Eosinophils # 0.4 (0-0.7) k/uL Basophils # 0.0 (0-0.2) k/uL Anisocytosis Slight PT 9.6 (9.0-12.0) sec INR 0.9 (<1.2) APTT 22.3 (22.0-30.0) sec Sodium (137-145) mmol/L Potassium (3.5-5.1) mmol/L Chloride (98-107) mmol/L Carbon Dioxide (22-30) mmol/L Anion Gap mmol/L BUN (9-20) mg/dL Creatinine (0.66-1.25) mg/dL Est GFR (CKD-EPI)AfAm (>60 ml/min/1.73 sqM) Est GFR (CKD-EPI)NonAf (>60 ml/min/1.73 sqM) Glucose (74-99) mg/dL Lactic Ac Sepsis Rflx Plasma Lactic Acid Austin (0.7-2.0) mmol/L Calcium (8.4-10.2) mg/dL Total Bilirubin (0.2-1.3) mg/dL AST (17-59) U/L ALT (4-49) U/L Alkaline Phosphatase (38-126) U/L Ammonia (<30) umol/L Troponin I (0.000-0.034) ng/mL Total Protein (6.3-8.2) g/dL Albumin (3.5-5.0) g/dL Urine Color Yellow Urine Appearance Cloudy (Clear) Urine pH 5.5 (5.0-8.0) Ur Specific Buena 1.018 (1.001-1.035) Urine Protein 1+ H (Negative) Urine Glucose (UA) Negative (Negative) Urine Ketones Negative (Negative) Urine Blood Negative (Negative) Urine Nitrite Negative (Negative) Urine Bilirubin Negative (Negative) Urine Urobilinogen <2.0 (<2.0) mg/dL Ur Leukocyte Esterase Trace H (Negative) Urine RBC 13 H (0-5) /hpf Urine WBC 7 H (0-5) /hpf Urine Bacteria Rare H (None) /hpf Hyaline Casts 31 H (0-2) /lpf Urine Mucus Many H (None) /hpf Urine Yeast (Budding) Few H (None) /hpf Coronavirus (PCR) (Not Detectd) 06/23/19 06/23/19 06/23/19 Range/Units 13:22 13:22 13:22 WBC (3.8-10.6) k/uL RBC (4.30-5.90) m/uL Hgb (13.0-17.5) gm/dL Hct (39.0-53.0) % MCV (80.0-100.0) fL MCH (25.0-35.0) pg MCHC (31.0-37.0) g/dL RDW (11.5-15.5) % Plt Count (150-450) k/uL Neutrophils % % Lymphocytes % % Monocytes % % Eosinophils % % Basophils % % Neutrophils # (1.3-7.7) k/uL Lymphocytes # (1.0-4.8) k/uL Monocytes # (0-1.0) k/uL Eosinophils # (0-0.7) k/uL Basophils # (0-0.2) k/uL Anisocytosis PT (9.0-12.0) sec INR (<1.2) APTT (22.0-30.0) sec Sodium 135 L (137-145) mmol/L Potassium 3.3 L (3.5-5.1) mmol/L Chloride 108 H (98-107) mmol/L Carbon Dioxide 18 L (22-30) mmol/L Anion Gap 9 mmol/L BUN 8 L (9-20) mg/dL Creatinine 0.57 L (0.66-1.25) mg/dL Est GFR (CKD-EPI)AfAm >90 (>60 ml/min/1.73 sqM) Est GFR (CKD-EPI)NonAf >90 (>60 ml/min/1.73 sqM) Glucose 92 (74-99) mg/dL Lactic Ac Sepsis Rflx Plasma Lactic Acid Austin 3.6 H* (0.7-2.0) mmol/L Calcium 9.4 (8.4-10.2) mg/dL Total Bilirubin 0.6 (0.2-1.3) mg/dL AST 26 (17-59) U/L ALT 34 (4-49) U/L Alkaline Phosphatase 155 H (38-126) U/L Ammonia 15 (<30) umol/L Troponin I <0.012 (0.000-0.034) ng/mL Total Protein 6.0 L (6.3-8.2) g/dL Albumin 3.2 L (3.5-5.0) g/dL Urine Color Urine Appearance (Clear) Urine pH (5.0-8.0) Ur Specific Buena (1.001-1.035) Urine Protein (Negative) Urine Glucose (UA) (Negative) Urine Ketones (Negative) Urine Blood (Negative) Urine Nitrite (Negative) Urine Bilirubin (Negative) Urine Urobilinogen (<2.0) mg/dL Ur Leukocyte Esterase (Negative) Urine RBC (0-5) /hpf Urine WBC (0-5) /hpf Urine Bacteria (None) /hpf Hyaline Casts (0-2) /lpf Urine Mucus (None) /hpf Urine Yeast (Budding) (None) /hpf Coronavirus (PCR) (Not Detectd) 06/23/19 06/23/19 Range/Units 13:57 16:05 WBC (3.8-10.6) k/uL RBC (4.30-5.90) m/uL Hgb (13.0-17.5) gm/dL Hct (39.0-53.0) % MCV (80.0-100.0) fL MCH (25.0-35.0) pg MCHC (31.0-37.0) g/dL RDW (11.5-15.5) % Plt Count (150-450) k/uL Neutrophils % % Lymphocytes % % Monocytes % % Eosinophils % % Basophils % % Neutrophils # (1.3-7.7) k/uL Lymphocytes # (1.0-4.8) k/uL Monocytes # (0-1.0) k/uL Eosinophils # (0-0.7) k/uL Basophils # (0-0.2) k/uL Anisocytosis PT (9.0-12.0) sec INR (<1.2) APTT (22.0-30.0) sec Sodium (137-145) mmol/L Potassium (3.5-5.1) mmol/L Chloride (98-107) mmol/L Carbon Dioxide (22-30) mmol/L Anion Gap mmol/L BUN (9-20) mg/dL Creatinine (0.66-1.25) mg/dL Est GFR (CKD-EPI)AfAm (>60 ml/min/1.73 sqM) Est GFR (CKD-EPI)NonAf (>60 ml/min/1.73 sqM) Glucose (74-99) mg/dL Lactic Ac Sepsis Rflx Y Plasma Lactic Acid Austin (0.7-2.0) mmol/L Calcium (8.4-10.2) mg/dL Total Bilirubin (0.2-1.3) mg/dL AST (17-59) U/L ALT (4-49) U/L Alkaline Phosphatase (38-126) U/L Ammonia (<30) umol/L Troponin I (0.000-0.034) ng/mL Total Protein (6.3-8.2) g/dL Albumin (3.5-5.0) g/dL Urine Color Urine Appearance (Clear) Urine pH (5.0-8.0) Ur Specific Buena (1.001-1.035) Urine Protein (Negative) Urine Glucose (UA) (Negative) Urine Ketones (Negative) Urine Blood (Negative) Urine Nitrite (Negative) Urine Bilirubin (Negative) Urine Urobilinogen (<2.0) mg/dL Ur Leukocyte Esterase (Negative) Urine RBC (0-5) /hpf Urine WBC (0-5) /hpf Urine Bacteria (None) /hpf Hyaline Casts (0-2) /lpf Urine Mucus (None) /hpf Urine Yeast (Budding) (None) /hpf Coronavirus (PCR) Not Detected (Not Detectd) Disposition <Ramírez Valdez - Last Filed: 06/23/19 15:22> <Jayden Barker - Last Filed: 06/23/19 23:10> Clinical Impression: Abdominal pain, Pancolitis Disposition: ADMITTED IP TO THIS HOSP Condition: Serious
[2019-06-23 13:39] LABS: Appearance,Urine Cloudy (Clear); Bacteria,Urine Rare /hpf; Bilirubin,Urine Negative (Negative); Blood,Urine Negative (Negative); Budding Yeast,Urine Few /hpf; Color,Urine Yellow; Glucose,Urine (UA) Negative (Negative); Hyaline Casts,Urine 31 /lpf (0-2); Ketones,Urine Negative (Negative); Leukocyte Esterase,Urine Trace (Negative); Mucus,Urine Many /hpf; Nitrite,Urine Negative (Negative); PH, Urine 5.5 (5.0-8.0); Protein,Urine 1+ (Negative); RBC,Urine 13 /hpf (0-5); Specific Gravity,Urine 1.018 (1.001-1.035); Urobilinogen,Urine <2.0 mg/dL (<2.0); WBC,Urine 7 /hpf (0-5)
[2019-06-23 13:45] LABS: ALT 34 U/L (4-49); AST 26 U/L (17-59); African American GFR (CKD) >90 (>60 ml/min/1.73 sqM); Albumin 3.2 g/dL (3.5-5.0); Alkaline Phosphatase 155 U/L (38-126); Anion Gap 9 mmol/L; Blood Urea Nitrogen 8 mg/dL (9-20); Calcium 9.4 mg/dL (8.4-10.2); Carbon Dioxide 18 mmol/L (22-30); Chloride 108 mmol/L (98-107); Glucose 92 mg/dL (74-99); Non-African American GFR(CKD) >90 (>60 ml/min/1.73 sqM); Potassium 3.3 mmol/L (3.5-5.1); Sodium 135 mmol/L (137-145); Total Bilirubin 0.6 mg/dL (0.2-1.3)
[2019-06-23 13:51] LABS: INR 0.9 (<1.2); Partial Thromboplastin Time 22.3 sec (22.0-30.0); Prothrombin Time 9.6 sec (9.0-12.0)
[2019-06-23 13:57] LABS: Lactic Acid, Venous 3.6 mmol/L (0.7-2.0)
[2019-06-23 14:01] LABS: Anisocytosis Slight; Basophils % (A) 0 %; Eosinophils # (A) 0.4 k/uL (0-0.7); Eosinophils % (A) 2 %; HGB 12.1 gm/dL (13.0-17.5); Lymphocytes # (A) 4.1 k/uL (1.0-4.8); Lymphocytes % (A) 23 %; MCH 29.7 pg (25.0-35.0); MCHC 32.7 g/dL (31.0-37.0); Mean Platelet Volume 8.6; Monocytes # (A) 1.7 k/uL (0-1.0); Monocytes % (A) 9 %; Neutrophils # (A) 11.5 k/uL (1.3-7.7); Neutrophils % (A) 62 %; Platelet Count 276 k/uL (150-450); RBC 4.07 m/uL (4.30-5.90); RDW 18.2 % (11.5-15.5); WBC 18.4 k/uL (3.8-10.6)
[2019-06-23 14:05] LABS: MCV 90.8 fL (80.0-100.0)
--- NOTE | 2019-06-23 15:13 | CT ---
EXAMINATION TYPE: CT abdomen pelvis w con DATE OF EXAM: 06/23/2019 COMPARISON: 05/15/2019 HISTORY: Blood in stool. History of pancreatic cancer. CT DLP: 987.1 mGycm Automated exposure control for dose reduction was used. TECHNIQUE: Helical acquisition of images was performed from the lung bases through the pelvis. CONTRAST: Performed without Oral Contrast and with IV Contrast, patient injected with 100ml mL of Isovue 300. FINDINGS: LUNG BASES: Similar reticular opacities at the lung bases with fibrotic changes and underlying emphys ematous change. LIVER/GB: There are 2 punctate stable hepatic lesions in the right hepatic lobe in segment 7 and 8 ma rked on images 13 and 14. Slight background hepatic steatosis suspected. Gallbladder surgically absen t. PANCREAS: There is postsurgical change of the pancreatic body and tail redemonstrated with remnant un cinate process and pancreatic head seen in peripheral calcifications with sutures. Desmoplastic react ion is present around the celiac artery as seen on the prior measuring 2.3 cm, previously measuring 2 .7 cm on the exam of 05/15/2019. Trace fluid collection around the suture site marked on image 25 is si milar to the prior. SPLEEN: Surgically absent. ADRENALS: No significant abnormality is seen. Sutures seen near the inferior margin of the left adren al gland unchanged from the prior. KIDNEYS: The previously seen 3 mm calculus at the left renal midpole is not well visualized and could be related to degree of contrast opacification. No hydronephrosis of either kidney or suspicious enh ancement. ADENOPATHY: The previously seen mesenteric lymph node anterior to the third portion of the duodenum on image 38 measures 1.2 cm in short axis and is similar to the prior previously measuring approximat lara 1.4 cm in short axis. OSSEOUS STRUCTURES: Mild multilevel degenerative change of the spine. BOWEL: Severe bowel wall thickening is seen of the cecum, ascending colon, hepatic flexure, transver se colon, splenic flexure and to much lesser degree of the descending colon. This is not seen in the sigmoid colon. Incomplete distention of the rectum limits evaluation for rectal wall thickening. OTHER: Small amount of free fluid in the pelvis IMPRESSION: 1. Severe near pancolitis. Considerations are for infectious or inflammatory etiology, C. difficile, or typhillitis given the more pronounced features in the cecum. 2. Similar postsurgical changes of the pancreas and able size of the solitary suspicious peripancreat ic mildly enlarged lymph node. The soft tissue density seen encasing the SMA are similar in measureme nt to the prior.
[2019-06-23] MEDS ORDERED: PIPERACILLIN-TAZOBACTAM 3.375 GM in SODIUM CHLORIDE 0.9% 100 ML IVPB STA (15:21)
[2019-06-23] MEDS ORDERED: MORPHINE SULFATE 4 MG/ML SYRINGE IV PRN (15:23)
[2019-06-23] MEDS ORDERED: HYDROcodone/APAP 5-325MG 1 EACH TAB PO PRN ×2 (15:23→16:38)
[2019-06-23] MEDS ORDERED: NALOXONE 0.4 MG/ML 1 ML VIAL IV PRN (15:23)
[2019-06-23] MEDS ORDERED: ONDANSETRON 4 MG/2 ML VIAL IVP PRN (15:23)
[2019-06-23] MEDS: SODIUM CHLORIDE 0.9% 1,000 ML IV SCH (16:25)
[2019-06-23] MEDS ORDERED: ALPRAZolam 0.25 MG TAB PO PRN (16:39)
[2019-06-23] MEDS ORDERED: TEMAZEPAM 15 MG CAP PO PRN (16:39)
[2019-06-23] MEDS ORDERED: Potassium Replacement Protocol 1 EACH MISC MISCELLANE PRN ×2 (16:42→19:13)
[2019-06-23] MEDS ORDERED: Magnesium Replacement Protocol 1 EACH MISC MISCELLANE PRN (16:42)
--- NOTE | 2019-06-23 17:27 | XR ---
EXAMINATION TYPE: XR chest 1V portable DATE OF EXAM: 06/23/2019 COMPARISON: 04/15/2019 INDICATION: Pneumonia, rectal bleeding history of pancreatic cancer TECHNIQUE: Single frontal view of the chest is obtained. FINDINGS: The heart size is normal. The pulmonary vasculature is indistinct. There is mild increased lung markings present bilaterally. Focal consolidation is not evident. Findin gs are nonspecific. There is a port on the prior right with the tip in the region of the distal subclavian vein superior vena cava junction, stable in position. IMPRESSION: 1. Some mild increased lung markings are present which are nonspecific diffusely through the bilatera l lungs.
--- NOTE | 2019-06-23 17:35 | HP ---
HISTORY AND PHYSICAL DATE OF SERVICE: 06/23/2019 CHIEF COMPLAINT: GI bleed. HISTORY OF PRESENT ILLNESS: This 59-year-old gentleman with a past medical history of multiple medical problems, including history of GERD, history of pneumonia, history of cholecystectomy, history of DJD, being followed by Dr. Pascal in the outpatient setting, previously had episodes of colitis. 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 This was about 7 or 8 months ago. The patient had surgery in [place] with removal of the pancreatic tail and spleen and chemotherapy was initiated, but subsequently the patient has been following with Dr. Pascal for continued chemotherapy at this time. Previous EGD showed duodenitis, antral gastritis, antral ulcer and a colon and rectal polyp. Patient also has a history of nephrolithiasis. The patient also had a MediPort and history of laminectomy. There is no history of any fever, rigor or chills. No history of headache, loss of consciousness, seizures. Last night the patient was noted to have fresh blood in the stool. Patient was rather having diarrhea for several months, but the stool was bright red in color, significant amount. The patient was concerned. The patient came to [facility] and was admitted for further evaluation and treatment. The patient also had right-sided abdominal pain, somewhat like a cramping pain. At the time of admission CT scan of the abdomen and pelvis was done in the ER which showed multiple findings, including severe, almost near pancolitis, suggestive of infectious or inflammatory pathology, and post-surgical changes of the pancreas with peripancreatic mildly enlarged lymph node was also noted. A soft tissue density encasing the SMA was also noted. There is no history of any fever, rigor, chills. No history of headache, loss of consciousness or seizures at this time. PAST MEDICAL HISTORY: History of recently diagnosed pancreatic cancer with surgery and chemotherapy, history of EGD, history of GERD, history of pneumonia, back surgery, history of partial pancreatectomy as well as splenectomy. HOME MEDICATIONS: Reviewed. They include: 1. MS Contin 30 mg with lunch. 2. Hydrocodone 5 mg t.i.d. p.r.n. ALLERGIES: NONE. FAMILY HISTORY: Unknown. SOCIAL HISTORY: Previous history of smoking. No history of alcohol intake. REVIEW OF SYSTEMS: ENT: No diminished hearing. No diminished vision. CARDIOVASCULAR SYSTEM: No angina, palpitations. RESPIRATORY SYSTEM: No cough, hemoptysis. GI: As mentioned earlier. : No dysuria or retention. NERVOUS SYSTEM: No numbness, weakness. ALLERGY/IMMUNOLOGY: No asthma, hayfever. MUSCULOSKELETAL: As mentioned earlier. HEMATOLOGY/ONCOLOGY: As mentioned earlier. ENDOCRINE: No history of diabetes, hypothyroidism. CONSTITUTIONAL: As mentioned earlier. DERMATOLOGY: Negative. RHEUMATOLOGY: Negative. PSYCHIATRY: As mentioned earlier. PHYSICAL EXAMINATION: Patient alert and oriented x3. Pulse 87, blood pressure 107/67, respiration 20, temperature 98.8, pulse ox 99% on room air. HEENT: Conjunctivae normal. Oral mucosa moist. NECK: No jugular venous distention. No carotid bruit. No lymph node enlargement. CARDIOVASCULAR SYSTEM: S1, S2 muffled. No S3. No S4. RESPIRATORY SYSTEM: Breath sounds diminished at the bases. A few scattered rhonchi and crackles. Expiratory wheezing also present. ABDOMEN: Soft. Mild diffuse discomfort on palpation, mainly in the right side upper quadrant as well as epigastric area. No guarding. No rigidity. LEGS: No edema. No swelling. NERVOUS SYSTEM: Higher functions as mentioned earlier. Moves all 4 limbs. No focal motor or sensory deficit. LYMPHATICS: No lymph node palpable in neck, axillae or groin. JOINTS: No active deforming arthropathy. LABS: WBC 18.2, hemoglobin 12.1. Sodium 134, potassium 3.3. CO2 is 18 and lactic acid 4.6. Albumin is 3.2. UA with RBCs. ASSESSMENT: 1. Acute pancolitis with abdominal pain with possible sepsis, present on admission. 2. Lower gastrointestinal bleeding, possibly acute, from colitis. 3. History of recent pancreatic malignancy and partial pancreatectomy and splenectomy. 4. Status post chemotherapy. 5. Increased white count. 6. Anemia, normocytic; anemia of malignancy. 7. Hyponatremia. 8. Hypokalemia. 9. Mild acidosis, metabolic, multifactorial. 10.History of gastroesophageal reflux disease. 11.History of pneumonia. 12.History of duodenitis and antral gastritis. 13.History of degenerative joint disease and back surgery. 14.History of cholecystectomy. 15.Previous history of nicotine dependence. 16.FULL CODE. RECOMMENDATIONS AND DISCUSSION: In this 59-year-old gentleman who presented with multiple complex medical issues, we will monitor the patient closely, continue the current medications, continue symptomatic treatment. Otherwise at this time I would recommend continuing the pain medications. I would also initiate empiric antibiotics. Will replace potassium. Monitor electrolytes closely. IV hydration. Consult Hematology/Oncology. Will check for COVID-19. Prognosis is guarded because of multiple complex medical issues. Further recommendations to follow. See orders for further details. A chest x-ray will also be ordered for completion purposes. Further recommendations to follow. A copy of this dictation is being forwarded to Dr. Pascal, who is the primary physician. MMODL / IJN: [id number] /
[2019-06-23] MEDS: LEVOFLOXACIN 500MG-D5W PMX 500 MG in DEXTROSE/WATER 1 100ML.BAG IVPB SCH (17:50)
[2019-06-23] MEDS ORDERED: MORPHINE SULFATE ER 30 MG TABLET PO STA (18:17)
[2019-06-23] MEDS: metroNIDAZOLE-NS PMX 500 MG in SALINE 1 100ML.BAG IVPB SCH (18:57)
[2019-06-23] MEDS: POTASSIUM CHLORIDE ER 20 MEQ TAB.ER PO SCH (21:31)
[2019-06-24] MEDS: POTASSIUM CHLORIDE ER 20 MEQ TAB.ER PO SCH (00:29)
[2019-06-24] MEDS: metroNIDAZOLE-NS PMX 500 MG in SALINE 1 100ML.BAG IVPB SCH ×3 (00:30→15:34)
[2019-06-24] MEDS: SODIUM CHLORIDE 0.9% 1,000 ML IV SCH ×2 (06:51→16:57)
[2019-06-24 08:03] LABS: Anisocytosis Slight; HCT 32.6 % (39.0-53.0); HGB 10.7 gm/dL (13.0-17.5); MCH 29.2 pg (25.0-35.0); MCHC 32.9 g/dL (31.0-37.0); MCV 88.9 fL (80.0-100.0); Mean Platelet Volume 9.2; Platelet Count 305 k/uL (150-450); RBC 3.66 m/uL (4.30-5.90); RDW 18.3 % (11.5-15.5)
[2019-06-24 08:04] LABS: African American GFR (CKD) >90 (>60 ml/min/1.73 sqM); Anion Gap 5 mmol/L; Blood Urea Nitrogen 7 mg/dL (9-20); Calcium 8.8 mg/dL (8.4-10.2); Carbon Dioxide 20 mmol/L (22-30); Chloride 112 mmol/L (98-107); Glucose 73 mg/dL (74-99); Magnesium 1.4 mg/dL (1.6-2.3); Non-African American GFR(CKD) >90 (>60 ml/min/1.73 sqM); Potassium 3.5 mmol/L (3.5-5.1); Sodium 137 mmol/L (137-145)
[2019-06-24 08:28] LABS: Band Neutrophils % 5 %; Lymphocytes # (M) 5.78 k/uL (1.0-4.8); Monocytes # (M) 2.63 k/uL (0-1.0); Myelocytes # (M) 0.18 k/uL (0); Myelocytes % 1 %; Neutrophils % (M) 43 %; Nucleated Red Blood Cells 1 /100 WBC (0-0); Total Cells Counted 200; WBC 17.5 k/uL (3.8-10.6)
[2019-06-24 08:30] LABS: Poikilocytosis (M) Present; RBC Fragments Present
[2019-06-24] MEDS: PANTOPRAZOLE 40 MG TABLET PO SCH (08:57)
[2019-06-24] MEDS ORDERED: Magnesium Replacement Protocol 1 EACH MISC MISCELLANE PRN (10:56)
[2019-06-24] MEDS ORDERED: Potassium Replacement Protocol 1 EACH MISC MISCELLANE PRN (10:56)
[2019-06-24] MEDS ORDERED: MORPHINE SULFATE ER 30 MG TABLET PO SCH (12:30)
[2019-06-24] MEDS: MORPHINE SULFATE ER 30 MG TABLET PO SCH (15:35)
--- NOTE | 2019-06-24 16:01 | P.CONS ---
History of Present Illness - Reason for Consult Consult date: 06/24/19 Pancreatic Cancer Requesting physician: Ramírez Valdez - Chief Complaint Blood in stool - History of Present Illness This is a very nice patient who I first saw as inpatient at [facility] on 02/04/2019 when was admitted for urosepsis related to kidney stones,he started to have abdominal pain in November/2018,went to [facility],had a CT scan of abdomen which was reported mild hepatospenomegaly,had EGD/colonoscopy which were unremarkable,the he moved to [place],had recurrent abdominal pain,was re admitted to the hospital in December/2018, had a repeat CT scan of abdomen which showed ill defined mass in the body of the pancreas,MRI of abdomen confirmed a mass in the body of pancreas. On 12/29/2018,he had a core biopsy which was positive for adenocarcinoma. On 01/03/2019,he had distal pancreatectomy and splenectomy,pathology revealed adenocarcinoma infiltrating surrounding peripancreatic soft tissu and directly invades 2/9 peripancreatic nodes,closely approach serosal surface and extends to multiple cut surfaces at distal margins,proximal margins were negative,+ perine ural invasion and LVI,the tumor measured 7.1cm. The above treatment was in [place]. He relocated t [place] in January/2019. He had repeat CT scan of abdomen/pelvis on 02/25/2019 which revealed cystic lesion in the body of pancreas. 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 He had total of 4 cycles of mFOLFIRINOx, last was on 05/08/2019 and he decided to stop it, but did resume after taking the month of May off, and he now has completed 5 of 6 ordered cycles. He stated at last follow-up telemed visit last week he is eating and drinking fine, but continues with the persistent diarrhea which has been a struggle since diagnosis. I do question his adherence to the supportive medications and how he was utilizing them. He could and still does not directly answer my question when asking him, how often he takes, when he takes, and how many consecutuve days. He states "none of them work so I just stopped them" His last Chemo FOLFIRINOX was 06/14/2019 and he did receive neulasta on 06/16/19. He presented with bright red blood in stool. COntinues with chronic diarrhea. CT abd and pelvis, showed significant inflammation versus infectious etiology. He was recently at [place] would like to request the CT. Review of Systems A 14 point review of systems assessed and completed and all negative except HPI Past Medical History Past Medical History: Cancer, GERD/Reflux, Pneumonia Additional Past Medical History / Comment(s): Pt states he was diagnosed with pancreatic cancer, 10-12 months ago in [place]/had surgery in [place] and started chemo 03/22/19, EGD/colonoscopy dated 11/2018 states pt has duodenitis/antral gastritis/antral ulcer/colon and rectal polyp but pt does not recall this, nephrolithiasis. History of Any Multi-Drug Resistant Organisms: None Reported Past Surgical History: Back Surgery, Cholecystectomy, Orthopedic Surgery Additional Past Surgical History / Comment(s): Tail of pancreas removed along with spleen in [place], [facility], laminectomy L4-L5/S1-S2, lower back laser surgery to cut nerves, L knee arthroscopy-meniscal and ACL, L ankle reconstructive surgery x 3, R hand surgery d/t trauma, EGD/colonoscopy, lithostripsy. Past Anesthesia/Blood Transfusion Reactions: No Reported Reaction Additional Past Anesthesia/Blood Transfusion Reaction / Comm: Pt has received blood in past without reaction. Past Psychological History: No Psychological Hx Reported Additional Psychological History / Comment(s): Pt resides in a home with 1 step. He lives with his adult children and grandc He uses no assistive devices. He does not drive, his kids are helpful and drive pt to appts. Smoking Status: Former smoker Past Alcohol Use History: Occasional Additional Past Alcohol Use History / Comment(s): Pt started smoking in 1969 and was up to 1.5 ppd. He quit smoking 7 months ago. Pt states he drinks alcohol occasionally. Past Drug Use History: None Reported - Past Family History Father History Unknown: Yes Additional Family Medical History / Comment(s): Pt does not know his father. Mother History Unknown: Yes Additional Family Medical History / Comment(s): Pt states he does not know mother's medical hx Medications and Allergies Home Medications Medication Instructions Recorded Confirmed Type HYDROcodone/APAP 5-325MG [Adrian 1 tab PO TID PRN 03/27/19 06/23/19 History 5-325] Morphine Sulfate ER [Ms Contin] 30 mg PO W/LUNCH 03/27/19 06/23/19 History Allergies Allergy/AdvReac Type Severity Reaction Status Date / Time No Known Allergies Allergy Verified 06/23/19 15:39 Physical Exam Vitals: Vital Signs Temp Pulse Pulse Resp BP BP Pulse Ox 06/24/19 07:15 98 F 74 17 91/56 97 06/23/19 20:26 98.8 F 73 20 96/52 97 06/23/19 18:00 98.8 F 85 16 90/61 98 06/23/19 17:07 98.2 F 72 20 113/65 99 06/23/19 16:00 86 20 105/69 98 06/23/19 15:00 87 20 107/67 99 Intake and Output 06/23/19 06/24/19 06/24/19 22:59 06:59 14:59 Intake Total 800 Balance 800 Intake: IV 800 Sodium Chloride 0.9% 1, 600 000 ml @ 75 mls/hr IV . [id number] RENETTA Rx#:[id number] metroNIDAZOLE-NS PMX 500 200 mg In Saline 1 100ml.bag @ 100 mls/hr IVPB Q8HR RENETTA Rx#:[id number] Other: # Voids 1 1 Weight 80.739 kg Telemed visit, patient is alert, NAD Results CBC & Chem 7: 06/24/19 07:13 06/24/19 07:13 Labs: Abnormal Lab Results - Last 24 Hours (Table) 06/23/19 06/24/19 06/24/19 Range/Units 18:07 07:13 07:13 WBC 17.5 H (3.8-10.6) k/uL RBC 3.66 L (4.30-5.90) m/uL Hgb 10.7 L (13.0-17.5) gm/dL Hct 32.6 L (39.0-53.0) % RDW 18.3 H (11.5-15.5) % Neutrophils # (Manual) 8.40 H (1.3-7.7) k/uL Lymphocytes # (Manual) 5.78 H (1.0-4.8) k/uL Monocytes # (Manual) 2.63 H (0-1.0) k/uL Myelocytes # (Manual) 0.18 H (0) k/uL Nucleated RBCs 1 H (0-0) /100 WBC Chloride 112 H (98-107) mmol/L Carbon Dioxide 20 L (22-30) mmol/L BUN 7 L (9-20) mg/dL Creatinine 0.55 L (0.66-1.25) mg/dL Glucose 73 L (74-99) mg/dL Plasma Lactic Acid [place] 2.4 H* (0.7-2.0) mmol/L Magnesium 1.4 L (1.6-2.3) mg/dL Microbiology - Last 24 Hours (Table) 06/23/19 17:42 Stool Culture - Preliminary Stool CT scan - abdomen: report reviewed CT scan - pelvis: report reviewed Assessment and Plan Plan: Assessment and Recommendations: 1. Pancreatic Cancer Stage III (T3, N1, M0) - Currently receiving adjuvant FOLFIRINOX - Status Post treatment 5 of 6 on 06/14/19, and neulasta on 06/16/19 - CT abdomen in May 2019 was suspicious for recurrence, no mention of acute inflammatory or infectious process at that time. - Hold Chemo until GI asses's patient and acute symptoms improve 2. Leukocytosis: - Multifactorial with component of colony stimulating factor neulasta and acute/chronic inflammatory process 3. Chronic Diarrhea: - C diff Negative. 4. Blood in stool: - CBC is stable and in a safe range at this time, continue to monitor no acute intervention is needed. Due to the current COVID pandemic patient was seen utilizing telemed facetime visit. Greater than 22 minutes spent with patient and in reviewing of chart, lab values and pertinent information related to admission.
[2019-06-24] MEDS: LEVOFLOXACIN 500MG-D5W PMX 500 MG in DEXTROSE/WATER 1 100ML.BAG IVPB SCH (16:57)
--- NOTE | 2019-06-24 19:11 | PN ---
PROGRESS NOTE DATE OF SERVICE: 06/24/2019 This 59-year-old gentleman who was admitted with acute vaughan colitis with abdominal pain also had possible sepsis. The patient is started on empiric antibiotics. Broad- spectrum C difficile is negative. Covid-19 is also negative. Patient also elevated WBC 17.5. Lactic acid improved to 1.9 at this time. The patient also had magnesium 1.4. The patient also has gastrointestinal bleed and some diarrhea last night also. Gastroenterology following the patient closely and as well as Hematology/Oncology. PAST MEDICAL HISTORY: Reviewed. REVIEW OF SYSTEMS: Cardiovascular system: No angina or palpitations. Respiratory: As mentioned earlier. GI: As mentioned earlier. : No dysuria. CENTRAL NERVOUS SYSTEM: No numbness or weakness. CURRENT MEDICATIONS: Reviewed and include: 1. [place]brook 5 mg q.4 p.r.n. 2. Xanax 0.5 t.i.d. 3. Levaquin 500 mg daily. 4. Flagyl 500 mg daily. 5. P.r.n. protocol. 6. Narcan. 7. Zofran. 8. Restoril. 9. Protonix. PHYSICAL EXAM: Patient is alert and oriented times three. Pulse 76. Blood pressure 100/62, respiratory rate 16, temperature 98 degrees, pulse ox 98% on room air. HEENT: Conjunctivae normal. NECK: No JVD. CARDIOVASCULAR: S1, S2 muffled. RESPIRATORY: Breath sounds diminished in the bases. A few scattered rhonchi and crackles. ABDOMEN: Soft. Nontender. LEGS are no edema. No swelling. CENTRAL NERVOUS SYSTEM: No focal deficits. LABS: WBC 17.5, hemoglobin 10.7, sodium 137, potassium 3.5. ASSESSMENT: 1. Acute vaughan colitis with abdominal pain with possible sepsis, present on admission. 2. Lower gastrointestinal bleeding with possible acute colitis. 3. History of recent pancreatic malignancy with partial pancreatectomy and splenectomy. 4. Status post chemotherapy. 5. Increased WBC. 6. Anemia, normocytic anemia of malignancy. 7. Hyponatremia. 8. Hypokalemia. 9. Mild acidosis, metabolic multifactorial. 10.History of gastroesophageal reflux disease. 11.History of pneumonia. 12.History of duodenitis and antral gastritis. 13.History of degenerative joint disease and back surgery. 14.History of cholecystectomy. 15.Previous history of nicotine dependence. 16.FULL CODE. RECOMMENDATIONS AND DISCUSSION: This 59-year-old gentleman who presented with multiple complex medical issues, we will monitor the patient closely. Continue the current medications, management and symptomatic treatment. Otherwise, at this time, continue with IV antibiotics. IV fluids. DVT prophylaxis. Guarded prognosis because of multiple complex medical issues. Further recommendations to follow. MMODL / IJN: [id number] /
[2019-06-24] MEDS ORDERED: DIPHENOX-ATROP 2.5-0.025 MG 1 EACH TAB PO PRN (22:32)
--- NOTE | 2019-06-24 22:41 | P.CONS ---
History of Present Illness - Reason for Consult Consult date: 06/24/19 Diarrhea, blood per rectum Requesting physician: Yuridia Garcia - Chief Complaint Diarrhea, blood per rectum - History of Present Illness This 59-year-old male with a prior medical history significant for GERD, past history of pneumonia and pancreatic cancer status post partial pancreatectomy and currently on chemotherapy who presented to the hospital with blood per rectum. The patient reports chronic symptoms of diarrhea with approximately 6-8 bowel movements daily. Diarrhea has been present for approximately one year since the diagnosis of pancreatic cancer. Bowel movements generally are loose and frequent. However prior to presentation to the hospital the patient reported episodes of blood per rectum. He reports blood with wiping and in the toilet at that time. He denies any nausea or vomiting. He does report some sharp, achy diffuse abdominal pain which is also been chronic in nature. The patient reports having been prescribed a medication for diarrhea in the past but does not feel any of it is helped. He is unable to state which medications he h as tried. He previously underwent EGD and colonoscopy on 11/30/2018 which were performed in evaluation of his symptoms of diarrhea which were present at that time as well in addition to findings of left-sided colitis on imaging at that time with findings of an antral ulcer and polypectomy with no evidence of colitis on colonoscopy to correlate with CT findings. On current presentation computed tomography scan of the abdomen shows postsurgical changes of the pancreas as well as pancolitis. Review of Systems REVIEW OF SYSTEMS: CONSTITUTIONAL: Denies any fevers, chills, weight change or fatigue. CARDIOVASCULAR: Denies any chest pain, palpitations high or low blood pressures RESPIRATORY: Denies any shortness of breath, hemoptysis or cough. GENITOURINARY: No dysuria or hematuria. MUSCULOSKELETAL: No weakness reported. SKIN: Denies any new rashes or lesions, jaundice or pallor. PSYCHIATRIC: Denies any depression or anxiety. NEUROLOGY: Denies headache, denies any new focal deficits. EARS/NOSE/THROAT: No recent hearing change, congestion, nasal discharge or sore throat. EYES: No pain in eyes, discharge or change in vision. GASTROINTESTINAL: As per HPI. Past Medical History Past Medical History: Cancer, GERD/Reflux, Pneumonia Additional Past Medical History / Comment(s): Pt states he was diagnosed with pancreatic cancer, 10-12 months ago in [place]/had surgery in [place] and started chemo 03/22/19, EGD/colonoscopy dated 11/2018 states pt has duod enitis/antral gastritis/antral ulcer/colon and rectal polyp but pt does not recall this, nephrolithiasis. History of Any Multi-Drug Resistant Organisms: None Reported Past Surgical History: Back Surgery, Cholecystectomy, Orthopedic Surgery Additional Past Surgical History / Comment(s): Tail [facility] pancreas [facility] along with spleen [facility] [place], laminectomy L4-L5/S1-S2, lower back laser surgery to cut nerves, L knee arthroscopy-meniscal and ACL, L ankle reconstructive surgery x 3, R hand surgery d/t trauma, EGD/colonoscopy, lithostripsy. Past Anesthesia/Blood Transfusion Reactions: No Reported Reaction Additional Past Anesthesia/Blood Transfusion Reaction / Comm: Pt has received blood in past without reaction. Past Psychological History: No Psychological Hx Reported Additional Psychological History / Comment(s): Pt resides in a home with 1 step. He lives with his adult children and grandc He uses no assistive devices. He does not drive, his kids are helpful and drive pt to [employer]. Smoking Status: Former smoker Past Alcohol Use History: Occasional Additional Past Alcohol Use History / Comment(s): Pt started smoking in 1969 and was up to 1.5 ppd. He quit smoking 7 months ago. Pt states he drinks alcohol occasionally. Past Drug Use History: None Reported - Past Family History Father History Unknown: Yes Additional Family Medical History / Comment(s): Pt does not know his father. Mother History Unknown: Yes Additional Family Medical History / Comment(s): Pt states he does not know mother's medical hx Medications and Allergies Home Medications Medication Instructions Recorded Confirmed Type HYDROcodone/APAP 5-325MG [[place] 1 tab PO TID PRN 03/27/19 06/23/19 History 5-325] Morphine Sulfate ER [Ms Contin] 30 mg PO W/LUNCH 03/27/19 06/23/19 History Allergies Allergy/AdvReac Type Severity Reaction Status Date / Time No Known Allergies Allergy Verified 06/23/19 15:39 Physical Exam Vitals: Vital Signs Temp Pulse Pulse Resp BP BP Pulse Ox 06/24/19 07:15 98 F 74 17 91/56 97 06/23/19 20:26 98.8 F 73 20 96/52 97 06/23/19 18:00 98.8 F 85 16 90/61 98 06/23/19 17:07 98.2 F 72 20 113/65 99 06/23/19 16:00 86 20 105/69 98 06/23/19 15:00 87 20 107/67 99 06/23/19 14:00 77 20 102/70 96 06/23/19 13:28 98.8 F 63 16 154/100 98 Intake and Output 06/23/19 06/24/19 06/24/19 22:59 06:59 14:59 Other: # Voids 1 1 Weight 80.739 kg On physical examination, patient appears comfortable in no apparent distress. HEAD: Normocephalic, atraumatic. EYES: No scleral icterus. No conjunctival injection. MOUTH: No lesions, tongue midline. NECK: Trachea midline, no gross abnormalities. CHEST: Clear to auscultation with no wheezing or rhonchi appreciated. HEART: Regular rate and rhythm. ABDOMEN: Soft, obese. Bowel sounds are positive. No organomegaly. No guarding or rigidity. EXTREMITIES: No pedal edema. SKIN: No rashes, no jaundice. NEUROLOGIC: Alert and oriented x3. No focal deficits. Results CBC & Chem 7: 06/24/19 07:13 06/24/19 07:13 Labs: Abnormal Lab Results - Last 24 Hours (Table) 06/23/19 06/23/19 06/23/19 Range/Units 13:05 13:22 13:22 WBC 18.4 H (3.8-10.6) k/uL RBC 4.07 L (4.30-5.90) m/uL Hgb 12.1 L (13.0-17.5) gm/dL Hct 37.0 L (39.0-53.0) % RDW 18.2 H (11.5-15.5) % Neutrophils # 11.5 H (1.3-7.7) k/uL Neutrophils # (Manual) (1.3-7.7) k/uL Lymphocytes # (Manual) (1.0-4.8) k/uL Monocytes # 1.7 H (0-1.0) k/uL Monocytes # (Manual) (0-1.0) k/uL Myelocytes # (Manual) (0) k/uL Nucleated RBCs (0-0) /100 WBC Sodium 135 L (137-145) mmol/L Potassium 3.3 L (3.5-5.1) mmol/L Chloride 108 H (98-107) mmol/L Carbon Dioxide 18 L (22-30) mmol/L BUN 8 L (9-20) mg/dL Creatinine 0.57 L (0.66-1.25) mg/dL Glucose (74-99) mg/dL Plasma Lactic Acid [place] (0.7-2.0) mmol/L Magnesium (1.6-2.3) mg/dL Alkaline Phosphatase 155 H (38-126) U/L Total Protein 6.0 L (6.3-8.2) g/dL Albumin 3.2 L (3.5-5.0) g/dL Urine Protein 1+ H (Negative) Ur Leukocyte Esterase Trace H (Negative) Urine RBC 13 H (0-5) /hpf Urine WBC 7 H (0-5) /hpf Urine Bacteria Rare H (None) /hpf Hyaline Casts 31 H (0-2) /lpf Urine Mucus Many H (None) /hpf Urine Yeast (Budding) Few H (None) /hpf 06/23/19 06/23/19 06/24/19 Range/Units 13:22 18:07 07:13 WBC 17.5 H (3.8-10.6) k/uL RBC 3.66 L (4.30-5.90) m/uL Hgb 10.7 L (13.0-17.5) gm/dL Hct 32.6 L (39.0-53.0) % RDW 18.3 H (11.5-15.5) % Neutrophils # (1.3-7.7) k/uL Neutrophils # (Manual) 8.40 H (1.3-7.7) k/uL Lymphocytes # (Manual) 5.78 H (1.0-4.8) k/uL Monocytes # (0-1.0) k/uL Monocytes # (Manual) 2.63 H (0-1.0) k/uL Myelocytes # (Manual) 0.18 H (0) k/uL Nucleated RBCs 1 H (0-0) /100 WBC Sodium (137-145) mmol/L Potassium (3.5-5.1) mmol/L Chloride (98-107) mmol/L Carbon Dioxide (22-30) mmol/L BUN (9-20) mg/dL Creatinine (0.66-1.25) mg/dL Glucose (74-99) mg/dL Plasma Lactic Acid [place] 3.6 H* 2.4 H* (0.7-2.0) mmol/L Magnesium (1.6-2.3) mg/dL Alkaline Phosphatase (38-126) U/L Total Protein (6.3-8.2) g/dL Albumin (3.5-5.0) g/dL Urine Protein (Negative) Ur Leukocyte Esterase (Negative) Urine RBC (0-5) /hpf Urine WBC (0-5) /hpf Urine Bacteria (None) /hpf Hyaline Casts (0-2) /lpf Urine Mucus (None) /hpf Urine Yeast (Budding) (None) /hpf 06/24/19 Range/Units 07:13 WBC (3.8-10.6) k/uL RBC (4.30-5.90) m/uL Hgb (13.0-17.5) gm/dL Hct (39.0-53.0) % RDW (11.5-15.5) % Neutrophils # (1.3-7.7) k/uL Neutrophils # (Manual) (1.3-7.7) k/uL Lymphocytes # (Manual) (1.0-4.8) k/uL Monocytes # (0-1.0) k/uL Monocytes # (Manual) (0-1.0) k/uL Myelocytes # (Manual) (0) k/uL Nucleated RBCs (0-0) /100 WBC Sodium (137-145) mmol/L Potassium (3.5-5.1) mmol/L Chloride 112 H (98-107) mmol/L Carbon Dioxide 20 L (22-30) mmol/L BUN 7 L (9-20) mg/dL Creatinine 0.55 L (0.66-1.25) mg/dL Glucose 73 L (74-99) mg/dL Plasma Lactic Acid [place] (0.7-2.0) mmol/L Magnesium 1.4 L (1.6-2.3) mg/dL Alkaline Phosphatase (38-126) U/L Total Protein (6.3-8.2) g/dL Albumin (3.5-5.0) g/dL Urine Protein (Negative) Ur Leukocyte Esterase (Negative) Urine RBC (0-5) /hpf Urine WBC (0-5) /hpf Urine Bacteria (None) /hpf Hyaline Casts (0-2) /lpf Urine Mucus (None) /hpf Urine Yeast (Budding) (None) /hpf Microbiology - Last 24 Hours (Table) 06/23/19 17:42 Stool Culture - Preliminary Stool CT scan - abdomen: report reviewed (computed tomography scan of the abdomen shows postsurgical changes of the pancreas as well as pancolitis.) Assessment and Plan (1) Pancolitis Narrative/Plan: 59-year-old male with a medical history of pancreatic cancer status post partial pancreatectomy and currently receiving treatment with the oncology service who presented with symptoms of blood per rectum. Patient has had chronic diarrhea for the past year after diagnosis of pancreatic cancer. He underwent investigation of symptoms on 11/2018 due to symptoms of diarrhea as well as findings of left-sided colitis on imaging EGD at that time showed antral ulcer and colonoscopy significant for polypectomy with no evidence of colitis to correlate with computed tomography scan findings. Patient reports trying multiple medications for treatment of diarrhea however is unable to state which these were. Currently he is not taking pancreatic enzyme replacement therapy. He reports worsening of diarrhea with blood per rectum prior to presentation. Computed tomography scan showed pancolitis. Currently receiving antibiotic therapy. Unknown etiology need be infectious colitis, medication related, with a component of chronic diarrhea which may be secondary to pancreatic enzyme insufficiency. Current Visit: Yes Status: Acute Code(s): K51.00 - ULCERATIVE (CHRONIC) PANCOLITIS WITHOUT COMPLICATIONS SNOMED Code(s): 787030198 (2) Abdominal pain Current Visit: Yes Status: Acute Code(s): R10.9 - UNSPECIFIED ABDOMINAL PAIN SNOMED Code(s): 32445577 (3) Diarrhea Current Visit: No Status: Acute Priority: High Code(s): R19.7 - DIARRHEA, UNSPECIFIED SNOMED Code(s): 75267726 (4) History of pancreatic cancer Current Visit: No Status: Chronic Priority: Medium Code(s): Z85.07 - PERSONAL HISTORY OF MALIGNANT NEOPLASM OF PANCREAS SNOMED Code(s): 55647821569724 Plan: Supportive care Okay for diet as tolerated Lomotil added as needed Zenpep added with meals for pancreatic enzyme replacement Continue broad-spectrum antibiotic therapy Reports from EGD and colonoscopy on 11/2018 reviewed Continue supportive care Continue IV fluid hydration Oncology service following the patient Thank you for allowing us to participate in the care of the patient
[2019-06-25] MEDS: metroNIDAZOLE-NS PMX 500 MG in SALINE 1 100ML.BAG IVPB SCH ×4 (00:27→23:27)
[2019-06-25 07:32] LABS: African American GFR (CKD) >90 (>60 ml/min/1.73 sqM); Anion Gap 5 mmol/L; Blood Urea Nitrogen 4 mg/dL (9-20); Carbon Dioxide 23 mmol/L (22-30); Chloride 111 mmol/L (98-107); Glucose 80 mg/dL (74-99); Magnesium 1.5 mg/dL (1.6-2.3); Non-African American GFR(CKD) >90 (>60 ml/min/1.73 sqM); Potassium 2.9 mmol/L (3.5-5.1); Sodium 139 mmol/L (137-145)
[2019-06-25 07:33] LABS: Anisocytosis Slight; HCT 35.3 % (39.0-53.0); HGB 11.6 gm/dL (13.0-17.5); MCH 29.5 pg (25.0-35.0); MCHC 32.9 g/dL (31.0-37.0); MCV 89.7 fL (80.0-100.0); Mean Platelet Volume 8.1; Platelet Count 322 k/uL (150-450); RBC 3.93 m/uL (4.30-5.90); RDW 18.4 % (11.5-15.5); WBC 21.7 k/uL (3.8-10.6)
[2019-06-25 08:12] LABS: Band Neutrophils % 5 %; Eosinophils # (M) 0.87 k/uL (0-0.7); Lymphocytes # (M) 6.08 k/uL (1.0-4.8); Metamyelocytes # (M) 0.43 k/uL (0); Metamyelocytes % 2 %; Myelocytes # (M) 0.43 k/uL (0); Myelocytes % 2 %; Neutrophils % (M) 48 %; Nucleated Red Blood Cells 0 /100 WBC (0-0); Total Cells Counted 200
[2019-06-25 08:13] LABS: Poikilocytosis (M) Present; RBC Fragments Present; Target Cells Present
[2019-06-25] MEDS: CHOLESTYRAMINE (WITH SUGAR) 4 GM PACKET PO SCH ×3 (10:11→15:49)
[2019-06-25] MEDS: PANTOPRAZOLE 40 MG TABLET PO SCH (10:11)
[2019-06-25] MEDS: LIPASE 5,000/PROTEASE 17,000/AMYLASE 24,000 PO SCH ×3 (10:11→17:16)
[2019-06-25] MEDS: SODIUM CHLORIDE 0.9% 1,000 ML IV SCH (10:12)
[2019-06-25] MEDS ORDERED: Magnesium Replacement Protocol 1 EACH MISC MISCELLANE PRN (10:16)
[2019-06-25] MEDS ORDERED: Potassium Replacement Protocol 1 EACH MISC MISCELLANE PRN (10:17)
[2019-06-25] MEDS: MAGNESIUM SULFATE-D5W PMX 1 GM in DEXTROSE/WATER 1 100ML.BAG IVPB SCH ×2 (11:45→13:09)
[2019-06-25] MEDS: POTASSIUM CHLORIDE ER 20 MEQ TAB.ER PO SCH ×4 (11:45→20:21)
[2019-06-25] MEDS: 0.9% NACL WITH KCL 40 MEQ/L 1,000 ML IV SCH ×2 (12:32→23:26)
[2019-06-25] MEDS: MORPHINE SULFATE ER 30 MG TABLET PO SCH (15:52)
[2019-06-25 17:04] LABS: Potassium 3.2 mmol/L (3.5-5.1)
[2019-06-25] MEDS: LEVOFLOXACIN 500MG-D5W PMX 500 MG in DEXTROSE/WATER 1 100ML.BAG IVPB SCH (17:16)
--- NOTE | 2019-06-25 19:40 | P.PN ---
Subjective Progress Note Date: 06/25/19 Principal diagnosis: Chronic diarrhea, pancreatic cancer Patient seen lying in bed reporting he is still having diarrhea. When asked if he is taken the as needed medication in the reports that he has tried all the medications in the past and nothing helps and he is not interested in him. Objective - Vital Signs Vital signs: Vital Signs Temp 97.6 F 06/25/19 08:25 Pulse 73 06/25/19 08:25 Resp 16 06/25/19 08:25 BP 112/74 06/25/19 08:25 Pulse Ox 100 06/25/19 08:25 Intake & Output 06/24/19 06/25/19 06/25/19 18:59 06:59 18:59 Intake Total 800 1190 Balance 800 1190 Intake: IV 800 Sodium Chloride 0.9% 1, 600 000 ml @ 75 mls/hr IV . [id number] RENETTA Rx#:[id number] metroNIDAZOLE-NS PMX 500 200 mg In Saline 1 100ml.bag @ 100 mls/hr IVPB Q8HR RENETTA Rx#:[id number] Oral 1190 Other: Voiding Method Toilet # Voids 1 - Exam On physical examination, patient appears comfortable in no apparent distress. HEAD: Normocephalic, atraumatic. EYES: No scleral icterus. No conjunctival injection. MOUTH: No lesions, tongue midline. HEART: Regular rate and rhythm. ABDOMEN: Soft, obese. Bowel sounds are positive. No organomegaly. No guarding or rigidity. EXTREMITIES: No pedal edema. SKIN: No rashes, no jaundice. NEUROLOGIC: Alert and oriented x3. No focal deficits. - Labs CBC & Chem 7: 06/25/19 07:07 06/25/19 16:34 Labs: Abnormal Lab Results - Last 24 Hours (Table) 06/25/19 06/25/19 Range/Units 07:07 07:07 WBC 21.7 H (3.8-10.6) k/uL RBC 3.93 L (4.30-5.90) m/uL Hgb 11.6 L (13.0-17.5) gm/dL Hct 35.3 L (39.0-53.0) % RDW 18.4 H (11.5-15.5) % Neutrophils # (Manual) 11.50 H (1.3-7.7) k/uL Lymphocytes # (Manual) 6.08 H (1.0-4.8) k/uL Monocytes # (Manual) 2.60 H (0-1.0) k/uL Eosinophils # (Manual) 0.87 H (0-0.7) k/uL Metamyelocytes # (Man) 0.43 H (0) k/uL Myelocytes # (Manual) 0.43 H (0) k/uL Potassium 2.9 L (3.5-5.1) mmol/L Chloride 111 H (98-107) mmol/L BUN 4 L (9-20) mg/dL Creatinine 0.56 L (0.66-1.25) mg/dL Magnesium 1.5 L (1.6-2.3) mg/dL Microbiology - Last 24 Hours (Table) 06/23/19 16:05 Blood Culture - Preliminary Blood No Growth after 24 hours Assessment and Plan (1) Pancolitis Narrative/Plan: 59-year-old male with a medical history of pancreatic cancer status post partial pancreatectomy and currently receiving treatment with the oncology service who presented with symptoms of blood per rectum. Patient has had chronic diarrhea for the past year after diagnosis of pancreatic cancer. He underwent investigation of symptoms on 11/2018 due to symptoms of diarrhea as well as findings of left-sided colitis on imaging EGD at that time showed antral ulcer and colonoscopy significant for polypectomy with no evidence of colitis to correlate with computed tomography scan findings. Patient reports trying multiple medications for treatment of diarrhea however is unable to state which these were. Currently he is not taking pancreatic enzyme replacement therapy. He reports worsening of diarrhea with blood per rectum prior to presentation. Computed tomography scan showed pancolitis. Currently receiving antibiotic therapy. Unknown etiology need be infectious colitis, medication related, with a component of chronic diarrhea which may be secondary to pancreatic enzyme insufficiency. Current Visit: Yes Status: Acute Code(s): K51.00 - ULCERATIVE (CHRONIC) PANCOLITIS WITHOUT COMPLICATIONS SNOMED Code(s): 354361317 (2) Abdominal pain Current Visit: Yes Status: Acute Code(s): R10.9 - UNSPECIFIED ABDOMINAL PAIN SNOMED Code(s): 19436138 (3) Diarrhea Current Visit: No Status: Acute Priority: High Code(s): R19.7 - DIARRHEA, UNSPECIFIED SNOMED Code(s): 72415328 (4) History of pancreatic cancer Current Visit: No Status: Chronic Priority: Medium Code(s): Z85.07 - PERSONAL HISTORY OF MALIGNANT NEOPLASM OF PANCREAS SNOMED Code(s): 00720 [id number] Plan: Supportive care Okay for diet as tolerated Lomotil added as needed Zenpep added with meals for pancreatic enzyme replacement Continue broad-spectrum antibiotic therapy Reports from EGD and colonoscopy on 11/2018 reviewed when patient presented with diarrhea and findings of left-sided colitis on computed tomography scan with colonoscopy revealing polypectomy and no evidence of colitis and EGD showing an antral ulcer Continue supportive care Continue IV fluid hydration Oncology service following the patient Thank you for allowing us to participate in the care of the patient
--- NOTE | 2019-06-25 21:02 | PN ---
PROGRESS NOTE DATE OF SERVICE: 06/25/2019 This 59-year-old gentleman who was admitted with significant GI bleed also had evidence of pancolitis. Patient treated empirically with antibiotics. Patient also had consistent long-standing diarrhea also. The patient being closely monitored. Covid-19 was negative. PAST MEDICAL HISTORY: Reviewed. REVIEW OF SYSTEMS: CARDIOVASCULAR SYSTEM: No angina or palpitations. RESPIRATIONS: As mentioned earlier. GI: As mentioned earlier. : No dysuria. CENTRAL NERVOUS SYSTEM: No numbness or weakness. CURRENT MEDICATIONS: Reviewed and include: 1. [place] 5 mg q.4 p.r.n. 2. Xanax 0.5 t.i.d. 3. Zenpep. 4. Questran 4 g b.i.d. 5. Lomotil p.r.n. 6. Levaquin 500 mg daily. 7. Flagyl 500 mg IV q.8. 8. Replacement protocols. 9. Narcan. 10.MS Contin. 11.Morphine sulfate. 12.Protonix. 13.Restoril. PHYSICAL EXAM: Patient is alert, oriented x3. Pulse 73, blood pressure 112/74, respirations 16, temperature 97.3, pulse ox 100 percent on room air. HEENT: Conjunctivae normal. NECK: No JVD. CARDIOVASCULAR: S1, S2. RESPIRATIONS: Breath sounds diminished in the bases. A few scattered rhonchi and crackles. ABDOMEN: Soft. Mild diffuse discomfort. Legs are no edema. No swelling. CENTRAL NERVOUS SYSTEM: No focal deficits. LAB STUDIES: WBC 21.2, hemoglobin 11.6, sodium 139, potassium 2.9. ASSESSMENT: 1. Acute vaughan colitis with abdominal pain with possible sepsis present on admission. 2. Lower gastrointestinal bleeding with possible acute colitis. 3. History of recent pancreatic malignancy with partial pancreatectomy and splenectomy. 4. Status post chemotherapy. 5. Severe hypokalemia. 6. Increased WBC. 7. Anemia, normocytic anemia of malignancy. 8. Hyponatremia. 9. Acute metabolic acidosis, multifactorial. 10.History of gastroesophageal reflux disease. 11.History of pneumonia. 12.History of duodenitis and antral gastritis. 13.History of degenerative joint disease and back surgery. 14.History of cholecystectomy. 15.Previous history of nicotine dependence. 16.FULL CODE. RECOMMENDATIONS AND DISCUSSION: This 59-year-old gentleman with a past medical history of multiple medical problems. We will monitor the patient closely. Continue the current medications, management and symptomatic treatment. Otherwise, at this time, continue the empiric antibiotics. Otherwise, I will recommend possible endoscopy by Dr. Allred as well. Prognosis guarded. Further recommendations to follow. SOFIA / MIKE: [id number] /
[2019-06-26 05:29] VITALS: BP 106/68; PULSE 65; RESP 16; TEMP 97.9
[2019-06-26 07:55] LABS: Anisocytosis Slight; Basophils # (A) 0.1 k/uL (0-0.2); Basophils % (A) 0 %; Eosinophils # (A) 0.6 k/uL (0-0.7); Eosinophils % (A) 2 %; HCT 34.7 % (39.0-53.0); HGB 11.3 gm/dL (13.0-17.5); Lymphocytes # (A) 6.3 k/uL (1.0-4.8); Lymphocytes % (A) 23 %; MCH 29.4 pg (25.0-35.0); MCHC 32.4 g/dL (31.0-37.0); MCV 90.9 fL (80.0-100.0); Mean Platelet Volume 8.2; Monocytes # (A) 2.9 k/uL (0-1.0); Monocytes % (A) 10 %; Neutrophils # (A) 17.6 k/uL (1.3-7.7); Neutrophils % (A) 63 %; Platelet Count 345 k/uL (150-450); RBC 3.82 m/uL (4.30-5.90); RDW 18.5 % (11.5-15.5); WBC 28.2 k/uL (3.8-10.6)
[2019-06-26 08:28] LABS: African American GFR (CKD) >90 (>60 ml/min/1.73 sqM); Anion Gap 5 mmol/L; Blood Urea Nitrogen 2 mg/dL (9-20); Calcium 8.6 mg/dL (8.4-10.2); Carbon Dioxide 23 mmol/L (22-30); Chloride 111 mmol/L (98-107); Glucose 62 mg/dL (74-99); Magnesium 1.7 mg/dL (1.6-2.3); Non-African American GFR(CKD) >90 (>60 ml/min/1.73 sqM); Potassium 3.8 mmol/L (3.5-5.1); Sodium 139 mmol/L (137-145)
[2019-06-26] MEDS: CHOLESTYRAMINE (WITH SUGAR) 4 GM PACKET PO SCH (08:34)
[2019-06-26] MEDS: PANTOPRAZOLE 40 MG TABLET PO SCH (08:36)
[2019-06-26] MEDS: POTASSIUM CHLORIDE ER 20 MEQ TAB.ER PO SCH (08:36)
[2019-06-26] MEDS: metroNIDAZOLE-NS PMX 500 MG in SALINE 1 100ML.BAG IVPB SCH (08:37)
[2019-06-26] MEDS: LIPASE 5,000/PROTEASE 17,000/AMYLASE 24,000 PO SCH ×2 (08:37→12:35)
[2019-06-26 08:56] LABS: RBC Fragments Present
[2019-06-26 08:57] LABS: Howell-Jolly Bodies Present
[2019-06-26 08:58] LABS: Poikilocytosis (M) Present
--- NOTE | 2019-06-26 11:18 | P.PN ---
Subjective Progress Note Date: 06/26/19 Principal diagnosis: Abdominal pain, hematochezia In follow-up today patient states 7 diarrhea episodes yesterday, denies any blood, one episode of diarrhea today, denies any blood. Hemoglobin is stable. He has right abdominal discomfort, denies fevers, nausea, vomiting, difficulty in breathing, new cough, swelling in the lower extremities. Objective - Vital Signs Vital signs: Vital Signs Temp 97.9 F 06/26/19 05:28 Pulse 65 06/26/19 05:28 Resp 16 06/26/19 05:28 BP 106/68 06/26/19 05:28 Pulse Ox 94 L 06/26/19 05:28 Intake & Output 06/25/19 06/26/19 06/26/19 18:59 06:59 18:59 Intake Total 900 900 Balance 900 900 Intake: IV 200 metroNIDAZOLE-NS PMX 500 200 mg In Saline 1 100ml.bag @ 100 mls/hr IVPB Q8HR [facility] Rx#:[id number] Intake, IV Titration 700 Amount 0.9% NaCl with KCl 40 Meq 600 /l 1,000 ml @ 75 mls/hr IV .[id number] RENETTA Rx#: [id number] Levofloxacin 500Mg-D5w 100 Pmx 500 mg In Dextrose/ Water 1 100ml.bag @ 100 mls/hr IVPB Q24H RENETTA Rx#: [id number] Oral 900 Other: Voiding Method Toilet # Voids 3 2 # Bowel Movements 3 - Constitutional General appearance: Present: average body habitus, cooperative, no acute distress - EENT Eyes: Present: anicteric sclerae, EOMI ENT: Present: hearing grossly normal - Respiratory Respiratory: bilateral: CTA - Cardiovascular Rhythm: regular Heart sounds: normal: S1, S2 Abnormal Heart Sounds: Absent: systolic murmur, diastolic murmur, rub, S3 Gallop, S4 Gallop, click, other - Peripheral edema leg Peripheral Edema: bilateral: None - Gastrointestinal General gastrointestinal: Present: normal bowel sounds, soft, tenderness. Absent: absent bowel sounds, decreased bowel sounds, distended, hepatomegaly, hyperactive bowel sounds, organomegaly, rigid, scaphoid, splenomegaly, umbilical hernia, ventral hernia Localized gastrointestinal: tender: RLQ - Integumentary Integumentary: Present: normal - Neurologic Neurologic: Present: CNII-XII intact - Musculoskeletal Musculoskeletal: Present: strength equal bilaterally - Psychiatric Psychiatric: Present: A&O x's 3, appropriate affect, intact judgment & insight - Labs CBC & Chem 7: 06/26/19 05:56 06/26/19 05:56 Labs: Abnormal Lab Results - Last 24 Hours (Table) 06/25/19 06/26/19 06/26/19 Range/Units 16:34 05:56 05:56 WBC 28.2 H (3.8-10.6) k/uL RBC 3.82 L (4.30-5.90) m/uL Hgb 11.3 L (13.0-17.5) gm/dL Hct 34.7 L (39.0-53.0) % RDW 18.5 H (11.5-15.5) % Neutrophils # 17.6 H (1.3-7.7) k/uL Lymphocytes # 6.3 H (1.0-4.8) k/uL Monocytes # 2.9 H (0-1.0) k/uL Potassium 3.2 L (3.5-5.1) mmol/L Chloride 108 H 111 H (98-107) mmol/L BUN 2 L (9-20) mg/dL Creatinine 0.62 L (0.66-1.25) mg/dL Glucose 62 L (74-99) mg/dL Microbiology - Last 24 Hours (Table) 06/23/19 16:05 Blood Culture - Preliminary Blood No Growth after 48 hours - Imaging and Cardiology CT scan - abdomen: report reviewed CT scan - pelvis: report reviewed Assessment and Plan (1) Pancolitis Narrative/Plan: Gastroenterology has evaluated patient. Pending further recommendations. Patient states stable diarrhea, abdominal discomfort, no further hematochezia Current Visit: Yes Status: Acute Priority: High Code(s): K51.00 - ULCERATIVE (CHRONIC) PANCOLITIS WITHOUT COMPLICATIONS SNOMED Code(s): 910659993 (2) Diarrhea Narrative/Plan: Patient has had diarrhea for about one year now with occasional exacerbations. Patient's current chemotherapy regimen is associated with diarrhea. He states 7 BMs yesterday, he states his baseline is 6-7 a day. Hematochezia has ceased Current Visit: Yes Status: Chronic Priority: High Code(s): R19.7 - CRISTY RRHEA, UNSPECIFIED SNOMED Code(s): 56293544 (3) Leukocytosis Narrative/Plan: Mostly neutrophilia, patient received G-CSF on the third, today is a 10 when the drug is at its peak. Also likely some association with colitis. No acute intervention Current Visit: Yes Status: Acute Priority: Low Code(s): D72.829 - ELEVATED WHITE BLOOD CELL COUNT, UNSPECIFIED SNOMED Code(s): 500152893 (4) History of pancreatic cancer Narrative/Plan: Patient is currently on adjuvant treatment. Last treatment for with Neulasta. Patient is due for his next cycle tomorrow. Treatment may be delayed based on antibiotic course that is prescribed for colitis, as well as Gastroenterology's plan Current Visit: No Status: Chronic Priority: Medium Code(s): Z85.07 - PERSONAL HISTORY OF MALIGNANT NEOPLASM OF PANCREAS SNOMED Code(s): 73 [id number]
[2019-06-26] MEDS: 0.9% NACL WITH KCL 40 MEQ/L 1,000 ML IV SCH (12:36)
--- NOTE | 2019-06-26 13:59 | P.DS ---
Providers Date of admission: 06/23/19 16:25 Expected date of discharge: 06/26/19 Attending physician: Yuridia Garcia Consults: 06/23/19 15:24 Consult Physician Urgent Consulting Provider: Raghu Pascal Consult Reason/Comments: Established patient Do you want consulting provider notified?: Yes 06/23/19 16:42 Consult Physician Routine Consulting Provider: Kenneth Allred Consult Reason/Comments: colitis Do you want consulting provider notified?: Yes Primary care physician: Raghu Pascal Hospital Course: Final diagnosis Acute pancolitis with abdominal pain with possible sepsis, present on admission Lower gastrointestinal bleeding with possible acute colitis History of recent pancreatic malignancy with partial pancreatectomy and splenectomy Status post chemotherapy Severe hypokalemia increased white blood count Anemia, normocytic anemia of malignancy Hyponatremia acute metabolic acidosis, multifactorial History of GERD History of pneumonia history of duodenitis and antral gastritis History of degenerative joint disease and back surgery history of cholecystectomy previous history of nicotine dependence Full code Discharge disposition Patient is being discharged in a stable condition with guarded prognosis to home. Patient will follow-up with Dr. Pascal in the outpatient setting along upon discharge. Patient was prescribed with a short course of oral antibiotics in the form of Flagyl and Levaquin to complete the course along with some Imodium and Questran for continuous diarrhea. Total time taken is 35 minutes. History of present illness This is a 59-year-old male who was recently admitted with significant GI bleed and also evidence of pancolitis and was being closely monitored. GI and oncology following the patient. Per GI recommendations no EGD or colonoscopy needed at this time as he recently had this. Patient will continue following up with oncology in the outpatient setting upon discharge. Patient instructed to continue using Questran and Imodium for diarrhea as this is been chronic. Patient will continue with short course of Flagyl and Levaquin to complete the course of antibiotics. During hospitalization patient was tested for Covid 19 as he did have some fever upon admission. Currently no reports of chest pain, shortness of breath, or palpitations. Patient is afebrile. No reports of nausea or vomiting and patient is tolerating diet. Patient will be going home today. On exam vital signs are stable. Temp is 97.9 F, pulse is 65, respirations are 16, blood pressure is 106/68, oxygen saturation is 94% on room air. Cardio S1, S2 are muffled. Respiratory system shows diminished breath sounds at the bases no wheezing or rhonchi noted. Abdomen is soft and mildly tender on the right side with deep palpation. Nervous system shows no focal deficits Please refer to medication reconciliation sheet for a list of medications. Patient Condition at Discharge: Stable Plan - Discharge Summary Discharge Rx Participant: No New Discharge Prescriptions: New Diphenox-Atrop 2.5-0.025 mg [Lomotil] 1 - 2 tab PO QID PRN 3 Days #24 tab PRN Reason: diarrhea Cholestyramine (with Sugar) [Questran] 4 gm PO QID #120 packet metroNIDAZOLE [Flagyl] 500 mg PO TID 4 Days #12 tab Potassium Chloride ER [K-Dur 20] 40 meq PO BID 30 Days #60 tab.er.prt Levofloxacin [Levaquin] 500 mg PO DAILY 3 Days #3 tab Pantoprazole [Protonix] 40 mg PO AC-BRKFST 30 Days #30 tablet. Lipase/Protease/Amylase [Julieta Webber 5,000 Unit Capsule] 4 each PO TID-W/MEALS #60 capsule. Continue Morphine Sulfate ER [Ms Contin] 30 mg PO W/LUNCH HYDROcodone/APAP 5-325MG [[place] 5-325] 1 tab PO TID PRN PRN Reason: Pain Discharge Medication List HYDROcodone/APAP 5-325MG [Con[place] 5-325] 1 tab PO TID PRN 03/27/19 [History] Morphine Sulfate ER [Ms Contin] 30 mg PO W/LUNCH 03/27/19 [History] Cholestyramine (with Sugar) [Questran] 4 gm PO QID #120 packet 06/26/19 [Rx] Diphenox-Atrop 2.5-0.025 mg [Lomotil] 1 - 2 tab PO QID PRN 3 Days #24 tab 06/26/19 [Rx] Levofloxacin [Levaquin] 500 mg PO DAILY 3 Days #3 tab 06/26/19 [Rx] Lipase/Protease/Amylase [Julieta Webber 5,000 Unit Capsule] 4 each PO TID-W/MEALS #60 capsule. 06/26/19 [Rx] Pantoprazole [Protonix] 40 mg PO AC-BRKFST 30 Days #30 tablet. 06/26/19 [Rx] Potassium Chloride ER [K-Dur 20] 40 meq PO BID 30 Days #60 tab.er.prt 06/26/19 [Rx] metroNIDAZOLE [Flagyl] 500 mg PO TID 4 Days #12 tab 06/26/19 [Rx] Follow up Appointment(s)/Referral(s): [facility], [NON-STAFF] - 1-2 Days Kenneth Allred MD [STAFF PHYSICIAN] - 2 Weeks (Office closed please call to make hospital follow up) Raghu Pascal MD [Primary Care Provider] - 1-2 days (Please call office to make Hospital follow up ) Ambulatory/Diagnostic Orders: Basic Metabolic Panel [LAB.AMB] Time Frame: 2 Days, Location: None Selected Complete Blood Count w/diff [LAB.AMB] Time Frame: 2 Days, Location: None Selected Patient Instructions/Handouts: Colitis (ED) Activity/Diet/Wound Care/Special Instructions: Reviewed with patient low residual diet, HARSHAD diet Antidiarrheal prescriptions sent to pt preferred [facility] pharmacy Will discuss with primary Oncologist about pt doing treatment tomorrow. Our office will contact [facility] [employer] until follow-up Follow-up with primary care provider upon discharge Continue with antibiotics until finished Repeat labs in 2-3 days Discharge Disposition: HOME WITH HOME HEALTH SERVICES
--- NOTE | 2019-06-26 14:37 | PN ---
PROGRESS NOTE DATE OF DICTATION: 06/26/2019 The patient is a 59-year-old pleasant white male who was admitted to hospital with severe ongoing diarrhea with some rectal bleeding. The patient has chronic diarrhea for the last one year duration. He has been having 7 to 8 loose watery bowel movements daily. During this hospitalization, he started having some blood in the stool that started about 7 days prior to his admission and he had a CAT scan of the abdomen and pelvis done in the ER that showed pancolitis. He was started on empiric Flagyl and Levaquin. He is also maintained on Questran as well as Lomotil on an outpatient basis for the diarrhea with no improvement. He did have an EGD, colonoscopy in October of 2017 with multiple biopsies done and there was no evidence of inflammatory bowel disease. He was also started on pancreatic enzyme supplements by Dr. Allred yesterday with no help. The patient in fact is going home today. He continues to have bowel movements anywhere from 7 to 8 a day which are loose to watery in consistency. No blood or mucus in the stool. Prior history of pancreatic cancer, status post surgery a year ago, undergoing chemotherapy currently. PHYSICAL EXAMINATION: On physical examination, he appears comfortable. No apparent distress. Vital signs are stable. Blood pressure is 106/68, pulse rate 65, temperature 99.7. HEENT: Examination unremarkable. Conjunctivae pink. Sclerae anicteric. Oral cavity, no lesions. NECK: No JVD or lymph node enlargement. CHEST: Clear to auscultation. HEART: Regular rate and rhythm. ABDOMEN: Soft. Bowel sounds are positive. No organomegaly. EXTREMITIES: No pedal edema. NEURO: He is alert and oriented x3. No focal deficits. LABS: Labs from today: WBC 28.2, hemoglobin 11.3, platelets normal. Basic metabolic panel is within normal limits. BUN 2 and creatinine 0.62. IMPRESSION: 1. Chronic diarrhea for the last one year duration. Recently during this hospitalization, he was noted to have rectal bleeding. CAT scan showed pancolitis, possible superimposed infectious colitis on empiric Flagyl and Levaquin. Bleeding has resolved, but still has persistent diarrhea. He remains on Questran as well as Lomotil. 2. History of pancreatic cancer with distal pancreatectomy and splenectomy done a year ago, currently undergoing chemotherapy and follows with Dr. Pascal. 3. Electrolyte abnormalities, improving. 4. Leukocytosis. RECOMMENDATIONS: 1. Continue with empiric antibiotics with Levaquin and Flagyl. 2. Continue with agents. 3. Advance diet as tolerated. 4. The patient apparently is being discharged home today and I advised him to follow up with Dr. Allred in 2 weeks. Thank you for this consultation. MMMARA / MIKE: [id number] /
== END 2019-06-26 14:25 | disposition home health service (06) | DRG 872 ==
LOC: EC 12:09 → 6NMEDSUR 16:25
PROVIDERS: ADMIT Hospitalist; ATTEND Hospitalist
DX: A41.9 Sepsis, unspecified organism (principal); A09 Infectious gastroenteritis and colitis, unspecified; C25.9 Malignant neoplasm of pancreas, unspecified; E87.1 Hypo-osmolality and hyponatremia; E87.2 Acidosis; K62.5 Hemorrhage of anus and rectum; K51.00 Ulcerative (chronic) pancolitis without complications; K86.89 Other specified diseases of pancreas; Z20.828 Contact with and (suspected) exposure to other viral communicable diseases; D63.0 Anemia in neoplastic disease; E87.6 Hypokalemia; M19.90 Unspecified osteoarthritis, unspecified site; K21.9 Gastro-esophageal reflux disease without esophagitis; R59.0 Localized enlarged lymph nodes; K52.9 Noninfective gastroenteritis and colitis, unspecified; G89.29 Other chronic pain; Z87.01 Personal history of pneumonia (recurrent); Z87.11 Personal history of peptic ulcer disease; Z87.442 Personal history of urinary calculi; Z87.891 Personal history of nicotine dependence; Z90.411 Acquired partial absence of pancreas; Z90.49 Acquired absence of other specified parts of digestive tract; Z90.81 Acquired absence of spleen; Z79.891 Long term (current) use of opiate analgesic; Z86.010 Personal history of colon polyps; Z87.19 Personal history of other diseases of the digestive system
CPT/HCPCS: 36415; 71045; 74177; 80048; 80051; 80053; 81001; 82140; 82272; 83605; 83735; 84484; 85025; 85610; 85730; 87040; 87045; 87046; 87324; 87635; 93005; 96361; 96365; 99285

== ENCOUNTER → 2019-07-27 | Outpatient (CLI) | payer MEDICARE, OTHER ==
[2019-07-27 10:11] LABS: African American GFR (CKD) >90 (>60 ml/min/1.73 sqM); Blood Urea Nitrogen 9 mg/dL (9-20); Non-African American GFR(CKD) >90 (>60 ml/min/1.73 sqM)
--- NOTE | 2019-07-27 14:01 | CT ---
EXAMINATION TYPE: CT ChestAbdPelvis w con DATE OF EXAM: 07/27/2019 COMPARISON: Ct 07/03/19 and 05/15/2019 HISTORY: Follow up pancreatic cancer. CT DLP: 856.3 mGycm Automated exposure control for dose reduction was used. CONTRAST: CT scan of the chest, abdomen and pelvis is performed with Oral Contrast and with IV Contrast, patien t injected with 100 mL of Isovue 300. FINDINGS: Within the superior mesenteric vein there is low attenuation present seen on axial image #7 4, coronal reconstructions images #32 and 31. On delayed images, abnormality not seen as well. LUNGS: The lungs are stable, there is no concerning parenchymal mass or nodule identified. There are interstitial changes present as on prior There is no pleural effusion or pneumothorax seen. The tra cheobronchial tree is patent. MEDIASTINUM: Borderline enlarged retrocaval pretracheal nodes , prevascular node and right hilar node show similar appearance. No pericardial effusion is seen. AORTA: No significant abnormality is seen. At the level of the superior mesenteric artery some peria rterial soft tissue is again noted as on prior which may be due to patient's treatment OTHER: No additional significant abnormality is seen. LIVER/GB: No significant interval change is appreciated, mild heterogeneity in the density within the liver, there may be underlying hepatic steatosis with some focal sparing noted on axial image 584, t here is a wedge-shaped area extending to the periphery in the medial segment of the left lobe. PANCREAS: No significant interval change is seen. SPLEEN: not seen. ADRENALS: No significant interval change is seen. KIDNEYS: No significant abnormality is seen. REPRODUCTIVE ORGANS: No change seen. BOWEL: Some improvement suggested. Colon shows bowel wall thickening on the right similar to prior, there may be some improvement in colon thickening along the ascending colon. FREE AIR: No Free Air visible. ASCITES: None seen. RETROPERITONEAL ADENOPATHY: No retroperitoneal adenopathy is seen. LYMPH NODES: No greater than 1 cm abdominal or pelvic lymph nodes are appreciated. URINARY BLADDER: No significant abnormality is seen. PELVIC ADENOPATHY: None visualized. OSSEOUS STRUCTURES: No significant abnormality is seen. 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 Postprocedural changes are stable. Periarterial soft tissue density similar to prior exam at the superior mesenteric artery. Correlate for possible colitis, possible improvement as compared to prior exam. A [place] critical message alert has been initiated for Raghu Pascal MD via the [facility] Critical Results System on 07/27/2019 1:57 PM. This message alert has been sent to Raghu Pascal MD via the preferences provided by the clinician for the receipt of Radiology Critical Findings. Message ID [id number].
== END | disposition home or self-care (01) ==
LOC: RADPROMAIN 09:30
PROVIDERS: ATTEND Internal Medicine Hematology & Oncology
DX: C25.1 Malignant neoplasm of body of pancreas (principal); M79.89 Other specified soft tissue disorders; Z98.890 Other specified postprocedural states
CPT/HCPCS: 82565; 84520; 71260; 74177; J1642; Q9967

== ENCOUNTER → 2019-08-02 | Outpatient (CLI) | payer MEDICARE, OTHER ==
--- NOTE | 2019-08-02 08:54 | MR ---
EXAMINATION TYPE: MR angio abdomen wo/w con DATE OF EXAM: 08/02/2019 COMPARISON: Most recent CT July 27, 2019 HISTORY: CT showed possible SMV Thrombus. History of pancreatic cancer. CONTRAST: Standard multiplanar, multisequence MRI departmental protocol utilizing 10 mL intravenous Gadavist ga dolinium contrast. 2-D and 3-D reconstructive images are created on an independent workstation and r eviewed. FINDINGS: Vascular: Demonstration of patent celiac artery, SMA, bilateral single renal arteries and [place]. No ane urysm in the abdominal aorta. Adjacent IVC is patent, there is mass effect or compression level of th e third portion of duodenum image 50 series 1701 noted. Redemonstration of patent main portal vein. Splenic vein not seen similar to CT suspected surgically absent. Poor visualization of the portal vein and SMV confluence similar to CT as there is surgical c hange and soft tissue density noted at this level near superior aspect of the pancreatic head, this i s better seen on CT where it appears patent. SMV is deviated to the left of midline similar to prior CT. SMV is visualized patent best on series 1701 . Area of concern on CT coronal image 31, there is c onfluence of a nonopacified and opacified draining veins seen best more inferiorly on coronal image 3 2 accounting for the area of suspicion on CT. Other: Redemonstration of splenectomy and distal pancreatic resection with prominence of the head and uncinate process of the pancreas and surgical change centrally in the upper abdomen. No new signific ant findings are evident. IMPRESSION: No partial occlusive thrombus in the SMV.
== END | disposition home or self-care (01) ==
LOC: RADMRIMAIN 06:44
PROVIDERS: ATTEND Internal Medicine Hematology & Oncology
DX: I82.890 Acute embolism and thrombosis of other specified veins (principal)
CPT/HCPCS: C8902; A9585; 74185

== ENCOUNTER 2019-09-10 01:49 | Emergency (ER) | payer MEDICARE, OTHER ==
[2019-09-10] MEDS ORDERED: PANTOPRAZOLE 40 MG/10 ML VIAL IVP STA (02:04)
[2019-09-10] MEDS ORDERED: SODIUM CHLORIDE 0.9% 1,000 ML IV STA ×3 (02:04→04:22)
[2019-09-10] MEDS ORDERED: HYDROmorphone 1 MG/ML 1 ML SYRINGE IVP STA (02:04)
[2019-09-10] MEDS ORDERED: ONDANSETRON 4 MG/2 ML VIAL IVP STA (02:04)
[2019-09-10] MEDS ORDERED: SODIUM CHLORIDE 0.9% 500 ML 500 ML IV STA (02:04)
--- NOTE | 2019-09-10 02:11 | ED ---
Abdominal Pain HPI - General Chief Complaint: Abdominal Pain Stated Complaint: Abdominal Pain Time Seen by Provider: 09/10/19 02:04 Source: patient, RN notes reviewed, old records reviewed Mode of arrival: ambulatory Limitations: no limitations - History of Present Illness Initial Comments: This is a 51-year-old male DF for evaluation patient Dese for evaluation regards to severe abdominal pain left-sided flank pain with radiation to groin. Mild nausea no vomiting does have history of kidney stones no blood in the urine -: hour(s), days(s) Location: LLQ, suprapubic Radiation: L flank Migration to: L flank Severity: severe Severity scale (1-10): 8 Quality: stabbing Consistency: constant Improves With: nothing Worsens With: nothing Context: other (None) Associated Symptoms: nausea Treatments Prior to Arrival: other (None) - Related Data Home Medications Medication Instructions Recorded Confirmed Morphine Sulfate ER [Ms Contin] 30 mg PO DAILY PRN 03/27/19 09/12/19 Cannabidiol (Cbd) Extract 0 mg PO DIRECTED PRN 09/08/19 09/12/19 [Epidiolex] Chemo Meds (Pt To Bring List) 1 dose PO BID 09/08/19 09/12/19 Cholestyramine (Unknown Dose) 1 dose PO DIRECTED PRN 09/08/19 09/12/19 Previous Rx's Medication Instructions Recorded Diphenox-Atrop 2.5-0.025 mg 1 - 2 tab PO QID PRN 3 Days #24 tab 06/26/19 [Lomotil] Allergies Allergy/AdvReac Type Severity Reaction Status Date / Time No Known Allergies Allergy Verified 09/10/19 02:02 Review of Systems ROS Statement: Those systems with pertinent positive or pertinent negative responses have been documented in the HPI. ROS Other: All systems not noted in ROS Statement are negative. Past Medical History Past Medical History: Cancer, GERD/Reflux Additional Past Medical History / Comment(s): Dx - pancreatic cancer 12/2018 in [place] had surgery in [place] and started chemo 03/22/19, EGD/colonoscopy dated 11/2018 states pt has duodenitis/antral gastritis/antral ulcer/colon and rectal polyp , hx nephrolithiasis., diarrhea., Mediport. History of Any Multi-Drug Resistant Organisms: None Reported Past Surgical History: Back Surgery, Cholecystectomy, Orthopedic Surgery Additional Past Surgical History / Comment(s): Tail of pancreas removed along with spleen in [place], [facility], laminectomy L4-L5/S1-S2, lower back laser surgery to cut nerves, L knee arthroscopy-meniscal and ACL, L ankle reconstructive surgery x 3, R hand surgery d/t trauma, EGD/colonoscopy, lithostripsy. Past Anesthesia/Blood Transfusion Reactions: No Reported Reaction Additional Past Anesthesia/Blood Transfusion Reaction / Comment(s): Pt has received blood in past without reaction. Past Psychological History: No Psychological Hx Reported Smoking Status: Former smoker Past Alcohol Use History: Rare Past Drug Use History: Marijuana - Past Family History Father History Unknown: Yes Additional Family Medical History / Comment(s): Pt does not know his father. Mother History Unknown: Yes Additional Family Medical History / Comment(s): Pt states he does not know moth er's medical hx General Exam Limitations: no limitations General appearance: alert, in no apparent distress, anxious Head exam: Present: atraumatic, normocephalic, normal inspection Eye exam: Present: normal appearance, PERRL, EOMI. Absent: scleral icterus, conjunctival injection, periorbital swelling ENT exam: Present: normal exam, mucous membranes moist Neck exam: Present: normal inspection. Absent: tenderness, meningismus, lym phadenopathy Respiratory exam: Present: normal lung sounds bilaterally. Absent: respiratory distress, wheezes, rales, rhonchi, stridor Cardiovascular Exam: Present: normal rhythm, tachycardia, normal heart sounds. Absent: systolic murmur, diastolic murmur, rubs, gallop, clicks GI/Abdominal exam: Present: soft, normal bowel sounds. Absent: distended, tenderness, guarding, rebound, rigid Extremities exam: Present: normal inspection, full ROM, normal capillary refill. Absent: tenderness, pedal edema, joint swelling, calf tenderness Back exam: Present: normal inspection Neurological exam: Present: alert, oriented X3, CN II-XII intact Psychiatric exam: Present: normal affect, normal mood Skin exam: Present: warm, dry, intact, normal color. Absent: rash Course Vital Signs 09/10/19 09/10/19 01:56 04:57 Temperature 98 F 97.7 F Pulse Rate 103 H 62 Respiratory 18 19 Rate Blood Pressure 106/74 118/87 O2 Sat by Pulse 99 99 Oximetry - Reevaluation(s) Reevaluation #1: Medical records reviewed Pain is controlled Medical Decision Making - Medical Decision Making 61 female DF for evaluation of severe flank pain. Patient has severe left-sided flank pain secondary to kidney stone. Patient given symptomatic therapy will be discharged home. Encouraged fluid intake - Lab Data Result diagrams: 09/10/19 02:43 09/10/19 02:43 Lab Results 09/10/19 09/10/19 09/10/19 Range/Units 02:43 02:43 02:43 WBC 14.6 H (3.8-10.6) k/uL RBC 4.52 (4.30-5.90) m/uL Hgb 14.0 (13.0-17.5) gm/dL Hct 43.8 (39.0-53.0) % MCV 96.9 (80.0-100.0) fL MCH 31.0 (25.0-35.0) pg MCHC 32.0 (31.0-37.0) g/dL RDW 15.0 (11.5-15.5) % Plt Count 277 (150-450) k/uL Neutrophils % 73 % Lymphocytes % 13 % Monocytes % 9 % Eosinophils % 3 % Basophils % 0 % Neutrophils # 10.6 H (1.3-7.7) k/uL Lymphocytes # 1.9 (1.0-4.8) k/uL Monocytes # 1.3 H (0-1.0) k/uL Eosinophils # 0.5 (0-0.7) k/uL Basophils # 0.0 (0-0.2) k/uL Sodium 139 (137-145) mmol/L Potassium 2.4 L* (3.5-5.1) mmol/L Chloride 106 (98-107) mmol/L Carbon Dioxide 25 (22-30) mmol/L Anion Gap 8 mmol/L BUN 9 (9-20) mg/dL Creatinine 0.66 (0.66-1.25) mg/dL Est GFR (CKD-EPI)AfAm >90 (>60 ml/min/1.73 sqM) Est GFR (CKD-EPI)NonAf >90 (>60 ml/min/1.73 sqM) Glucose 110 H (74-99) mg/dL Plasma Lactic Acid [place] 1.6 (0.7-2.0) mmol/L Calcium 9.5 (8.4-10.2) mg/dL Total Bilirubin 0.7 (0.2-1.3) mg/dL AST 22 (17-59) U/L ALT 11 (4-49) U/L Alkaline Phosphatase 89 (38-126) U/L Creatine Kinase 28 L (55-170) U/L Total Protein 6.3 (6.3-8.2) g/dL Albumin 3.5 (3.5-5.0) g/dL Amylase <30 L (30-110) U/L Lipase 16 L (23-300) U/L Urine Color Urine Appearance (Clear) Urine pH (5.0-8.0) Ur Specific [place] (1.001-1.035) Urine Protein (Negative) Urine Glucose (UA) (Negative) Urine Ketones (Negative) Urine Blood (Negative) Urine Nitrite (Negative) Urine Bilirubin (Negative) Urine Urobilinogen (<2.0) mg/dL Ur Leukocyte Esterase (Negative) Urine RBC (0-5) /hpf Urine WBC (0-5) /hpf Urine WBC Clumps (None) /hpf Calcium Oxalate Crystal (None) /hpf Urine Bacteria (None) /hpf Hyaline Casts (0-2) /lpf Urine Mucus (None) /hpf 09/09/ Range/Units 03:29 WBC (3.8-10.6) k/uL RBC (4.30-5.90) m/uL Hgb (13.0-17.5) gm/dL Hct (39.0-53.0) % MCV (80.0-100.0) fL MCH (25.0-35.0) pg MCHC (31.0-37.0) g/dL RDW (11.5-15.5) % Plt Count (150-450) k/uL Neutrophils % % Lymphocytes % % Monocytes % % Eosinophils % % Basophils % % Neutrophils # (1.3-7.7) k/uL Lymphocytes # (1.0-4.8) k/uL Monocytes # (0-1.0) k/uL Eosinophils # (0-0.7) k/uL Basophils # (0-0.2) k/uL Sodium (137-145) mmol/L Potassium (3.5-5.1) mmol/L Chloride (98-107) mmol/L Carbon Dioxide (22-30) mmol/L Anion Gap mmol/L BUN (9-20) mg/dL Creatinine (0.66-1.25) mg/dL Est GFR (CKD-EPI)AfAm (>60 ml/min/1.73 sqM) Est GFR (CKD-EPI)NonAf (>60 ml/min/1.73 sqM) Glucose (74-99) mg/dL Plasma Lactic Acid [place] (0.7-2.0) mmol/L Calcium (8.4-10.2) mg/dL Total Bilirubin (0.2-1.3) mg/dL AST (17-59) U/L ALT (4-49) U/L Alkaline Phosphatase (38-126) U/L Creatine Kinase (55-170) U/L Total Protein (6.3-8.2) g/dL Albumin (3.5-5.0) g/dL Amylase (30-110) U/L Lipase (23-300) U/L Urine Color Yellow Urine Appearance Cloudy (Clear) Urine pH 6.0 (5.0-8.0) Ur Specific [place] 1.019 (1.001-1.035) Urine Protein 1+ H (Negative) Urine Glucose (UA) Negative (Negative) Urine Ketones Negative (Negative) Urine Blood Moderate H (Negative) Urine Nitrite Negative (Negative) Urine Bilirubin Negative (Negative) Urine Urobilinogen <2.0 (<2.0) mg/dL Ur Leukocyte Esterase Small H (Negative) Urine RBC 48 H (0-5) /hpf Urine WBC 27 H (0-5) /hpf Urine WBC Clumps Rare H (None) /hpf Calcium Oxalate Crystal Few H (None) /hpf Urine Bacteria Rare H (None) /hpf Hyaline Casts 26 H (0-2) /lpf Urine Mucus Many H (None) /hpf - Radiology Data Radiology results: report reviewed (CT abdomen and pelvis does show left-sided kidney stone), image reviewed Disposition Clinical Impression: Ureteral calculus, left Disposition: HOME SELF-CARE Condition: Good Instructions (If sedation given, give patient instructions): Kidney Stones (ED) Is patient prescribed a controlled substance at d/c from ED?: No Referrals: None,Stated [Primary Care Provider] - 1-2 days
[2019-09-10 03:17] LABS: Basophils % (A) 0 %; Eosinophils # (A) 0.5 k/uL (0-0.7); Eosinophils % (A) 3 %; HCT 43.8 % (39.0-53.0); Lymphocytes # (A) 1.9 k/uL (1.0-4.8); Lymphocytes % (A) 13 %; MCV 96.9 fL (80.0-100.0); Mean Platelet Volume 8.6; Monocytes # (A) 1.3 k/uL (0-1.0); Monocytes % (A) 9 %; Neutrophils # (A) 10.6 k/uL (1.3-7.7); Neutrophils % (A) 73 %; Platelet Count 277 k/uL (150-450); RBC 4.52 m/uL (4.30-5.90); WBC 14.6 k/uL (3.8-10.6)
[2019-09-10 03:19] LABS: ALT 11 U/L (4-49); AST 22 U/L (17-59); African American GFR (CKD) >90 (>60 ml/min/1.73 sqM); Albumin 3.5 g/dL (3.5-5.0); Alkaline Phosphatase 89 U/L (38-126); Amylase <30 U/L (30-110); Anion Gap 8 mmol/L; Blood Urea Nitrogen 9 mg/dL (9-20); Calcium 9.5 mg/dL (8.4-10.2); Carbon Dioxide 25 mmol/L (22-30); Chloride 106 mmol/L (98-107); Creatine Kinase 28 U/L (55-170); Glucose 110 mg/dL (74-99); Non-African American GFR(CKD) >90 (>60 ml/min/1.73 sqM); Sodium 139 mmol/L (137-145); Total Bilirubin 0.7 mg/dL (0.2-1.3); Total Protein 6.3 g/dL (6.3-8.2)
[2019-09-10 03:29] LABS: Potassium 2.4 mmol/L (3.5-5.1)
[2019-09-10] MEDS ORDERED: POTASSIUM BICARBONATE/CIT AC 20 MEQ TABLET.EFF PO ONE (03:43)
[2019-09-10] MEDS ORDERED: POTASSIUM CHLORIDE 10 MEQ in WATER FOR INJECTION 1 100ML.BAG IVPB ONE (03:43)
[2019-09-10 03:49] LABS: Appearance,Urine Cloudy (Clear); Bacteria,Urine Rare /hpf; Bilirubin,Urine Negative (Negative); Blood,Urine Moderate (Negative); Calcium Oxalate Crystals,Urine Few /hpf; Color,Urine Yellow; Glucose,Urine (UA) Negative (Negative); Hyaline Casts,Urine 26 /lpf (0-2); Ketones,Urine Negative (Negative); Leukocyte Esterase,Urine Small (Negative); Mucus,Urine Many /hpf; Nitrite,Urine Negative (Negative); Protein,Urine 1+ (Negative); RBC,Urine 48 /hpf (0-5); Specific Gravity,Urine 1.019 (1.001-1.035); Urobilinogen,Urine <2.0 mg/dL (<2.0); WBC,Urine 27 /hpf (0-5)
--- NOTE | 2019-09-10 04:00 | CT ---
EXAMINATION TYPE: CT abdomen pelvis w con DATE OF EXAM: 09/10/2019 COMPARISON: 07/27/2019 HISTORY: abd pain CT DLP: 1068.3 mGycm Automated exposure control for dose reduction was used. CONTRAST: Performed with IV Contrast, patient injected with 100 mL of Isovue 300. There is some mild interstitial density and subsegmental atelectasis at the posterior lung bases. The re is no pleural effusion. Heart size is normal. There is no pericardial effusion. Liver appears normal. Bile ducts are not dilated. There are clips from cholecystectomy. The stomach a ppears intact. 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 There is absence of the body and tail of the pancreas. Pancreatic head has normal size. There are surgical clips or calcifications at the left side of the pancreatic head. There is no adrenal mass. Kidneys have normal size. There is left-sided hydronephrosis with obstructi ng 6 mm calculus at the left ureteropelvic junction. There is a second proximal ureteral calculus kylah t measures 6 mm. Bladder distends smoothly. The right kidney shows normal excretion and no sign of ob struction. There is 2 mm calculus posterior left kidney. There is 2 mm calculus lateral right kidney. There is no retroperitoneal adenopathy. There is left side perinephric edema. The bladder distends smoothly. There is no free fluid in the pelvis. There is no inguinal hernia. The appendix is medial and appears normal. There is no mesenteric edema. There is no ascites or free air . There is no sign of a bowel obstruction. Lumbar vertebra have normal alignment. There is possible r ight-sided laminectomy at L5. The bony pelvis is intact. Hip joints are intact. I see no bony destruc tive process. IMPRESSION: There are 2 obstructing calculi in the proximal left ureter with left-sided hydronephrosis. There are bilateral small renal calculi. Normal appendix. Previous pancreatic and splenic surgery. Unchanged. Obstruction is new compared to old exam.
[2019-09-10] MEDS ORDERED: KETOROLAC 30 MG/ML 1 ML VIAL IVP STA (04:21)
[2019-09-10] MEDS ORDERED: TAMSULOSIN 0.4 MG CAP.ER.24H PO STA (04:22)
[2019-09-10] MEDS ORDERED: IBUPROFEN 600 MG STARTER PACK 4 TAB BTL PO STA (04:22)
[2019-09-10] MEDS ORDERED: ACET/COD 300 MG/30 MG STARTER PACK 6 TAB BTL PO STA (04:22)
[2019-09-10] MEDS ORDERED: POTASSIUM CHLORIDE ER 20 MEQ TAB.ER PO STA ×2 (04:23)
[2019-09-10 05:00] VITALS: BP 118/87; PULSE 62; RESP 19; TEMP 97.7
[2019-09-10] MEDS ORDERED: cefTRIAXone IN SWFI 1,000 MG/10 ML SYRINGE IVP STA (05:09)
== END 2019-09-10 05:29 | disposition home or self-care (01) ==
LOC: EC 01:49
DX: N20.2 Calculus of kidney with calculus of ureter (principal); Z85.07 Personal history of malignant neoplasm of pancreas; Z87.891 Personal history of nicotine dependence; Z87.19 Personal history of other diseases of the digestive system; Z92.21 Personal history of antineoplastic chemotherapy; Z90.49 Acquired absence of other specified parts of digestive tract; Z98.890 Other specified postprocedural states
CPT/HCPCS: 36415; 80053; 82150; 82550; 83605; 83690; 85025; 81001; 87086; 74177; 99285; 96365; 96375 ×5; 96361; J2405; J0696; J1885; J1170; J3480; C9113; Q9967

== ENCOUNTER 2019-09-12 10:03 | Day surgery (SDC) | payer MEDICARE, OTHER ==
[2019-09-08 15:21] VITALS: BMI 24.9
[~2019-09-12 10:03] MED LIST: LACTATED RINGERS 1,000 ML IV SCH
[2019-09-12 10:32] VITALS: RESP 16; TEMP 97
[2019-09-12] MEDS ORDERED: PROPOFOL 10 MG/ML 20 ML VIAL IV ONE (11:38)
--- NOTE | 2019-09-12 12:07 | P.PCN ---
Date of Procedure: 09/12/19 Description of Procedure: BRIEF HISTORY: Patient is a 59-year-old male who presents for outpatient colonoscopy for evaluation of diarrhea. Patient reports chronic diarrhea since diagnosis of pancreatic cancer for which she underwent partial pancreatectomy and is receiving chemotherapy and radiation therapy. He describes 16 watery bowel movements daily which is been refractory to antidiarrheals. PROCEDURE PERFORMED: Colonoscopy with polypectomy and biopsy. PREOPERATIVE DIAGNOSIS: Diarrhea, altered bowel function. ESTIMATED BLOOD LOSS: Minimal. IV sedation per Anesthesia. PROCEDURE: After informed consent was obtained, the patient, was brought into the endoscopy unit. IV sedation was administered by Anesthesia under continuous monitoring. Digital rectal examination was normal. Initially the Olympus CF-190 flexible video colonoscope was then inserted in the rectum, gradually advanced into the cecum without any difficulty. Careful examination was performed as the scope was gradually being withdrawn. Ileocecal valve and the appendiceal orifice were visualized and appeared normal. Prep was excellent. Mucosa of the cecum, ascending colon, transverse colon, descending colon, sigmoid colon, and rectum appeared normal. A few scattered diverticula were noted in the sigmoid colon. A diminutive 3 mm transverse colon polyp was removed with cold forcep polypectomy. Random biopsies were taken of the right and left colon in the setting of diarrhea. Retroflexion was performed in the rectum and no lesions were seen, low-grade internal hemorrhoids. The patient tolerated the procedure well. IMPRESSION: Normal-appearing colon from rectum to cecum, with random biopsies taken of the right and left colon in the setting of altered bowel function/diarrhea. Mild sigmoid diverticulosis. Low-grade internal hemorrhoids. Diminutive transverse colon polyp removed with cold forceps polypectomy. RECOMMENDATIONS: Findings of this examination were discussed with the patient and his son. Okay to resume diet. Okay to resume medication. Continue Lomotil therapy as discussed. Continue pancreatic enzyme replacement therapy as discussed with patient instructed to take the medication in between or after meals. Will likely need repeat colonoscopy in 7 years for colon polyps if medically stable at that time.
[2019-09-12 12:23] VITALS: BP 119/75; PULSE 58
== END 2019-09-12 12:35 | disposition home or self-care (01) ==
LOC: ORWHC2ENDO 10:03
PROVIDERS: ATTEND Internal Medicine
DX: D12.3 Benign neoplasm of transverse colon (principal); K57.30 Diverticulosis of large intestine without perforation or abscess without bleeding; K64.8 Other hemorrhoids; Z87.891 Personal history of nicotine dependence; Z90.411 Acquired partial absence of pancreas; C25.9 Malignant neoplasm of pancreas, unspecified; Z90.49 Acquired absence of other specified parts of digestive tract; Z98.890 Other specified postprocedural states; Z97.2 Presence of dental prosthetic device (complete) (partial); Z79.891 Long term (current) use of opiate analgesic; Z79.899 Other long term (current) drug therapy
CPT/HCPCS: 45380; 88305; J2704

== ENCOUNTER → 2019-09-28 | Outpatient (CLI) | payer MEDICARE, OTHER ==
[2019-09-28 12:17] LABS: Basophils % (A) 0 %; Eosinophils # (A) 0.3 k/uL (0-0.7); Eosinophils % (A) 3 %; HCT 46.1 % (39.0-53.0); HGB 15.2 gm/dL (13.0-17.5); Lymphocytes # (A) 1.7 k/uL (1.0-4.8); Lymphocytes % (A) 16 %; MCH 32.4 pg (25.0-35.0); MCHC 32.9 g/dL (31.0-37.0); MCV 98.4 fL (80.0-100.0); Macrocytosis Slight; Mean Platelet Volume 9.2; Monocytes # (A) 0.9 k/uL (0-1.0); Monocytes % (A) 8 %; Neutrophils # (A) 7.7 k/uL (1.3-7.7); Neutrophils % (A) 72 %; Platelet Count 298 k/uL (150-450); RBC 4.69 m/uL (4.30-5.90); RDW 15.2 % (11.5-15.5); WBC 10.8 k/uL (3.8-10.6)
[2019-09-28 12:29] LABS: African American GFR (CKD) >90 (>60 ml/min/1.73 sqM); Anion Gap 11 mmol/L; Blood Urea Nitrogen 15 mg/dL (9-20); Calcium 9.7 mg/dL (8.4-10.2); Carbon Dioxide 22 mmol/L (22-30); Chloride 108 mmol/L (98-107); Glucose 112 mg/dL (74-99); Non-African American GFR(CKD) >90 (>60 ml/min/1.73 sqM); Potassium 2.9 mmol/L (3.5-5.1); Sodium 141 mmol/L (137-145)
== END | disposition home or self-care (01) ==
LOC: LABPAT 10:35
PROVIDERS: ATTEND Urology
DX: Z01.818 Encounter for other preprocedural examination (principal); N20.1 Calculus of ureter
CPT/HCPCS: 80048; 85025

== ENCOUNTER 2019-10-03 13:36 | Day surgery (SDC) | payer MEDICARE, OTHER ==
[2019-09-29 10:38] VITALS: BMI 25.7
--- NOTE | 2019-10-01 21:22 | P.GSHP ---
History of Present Illness H&P Date: 10/01/19 Chief Complaint: Left renal colic The patient is a 59-year-old white male undergoing treatment for pancreatic cancer. He has a history of calcium oxalate/apatite urolithiasis. He has recently experienced lower back pain. A computed tomography scan shows moderate left hydronephrosis due to two 6 mm left ureteral calculi, one in the proximal ureter and the other at the ureteropelvic junction. Alternative treatment options were reviewed in detail with the patient, namely ESWL versus ureteroscopy with laser lithotripsy. He has elected to undergo the latter. - Constitutional Constitutional: Denies chills, Denies fever - Gastrointestinal Gastrointestinal: Reports nausea, Reports vomiting - Genitourinary (Female) Genitourinary: Reports flank pain, Reports kidney stones, Denies hematuria Past Medical History Past Medical History: Cancer, GERD/Reflux Additional Past Medical History / Comment(s): last dose radiation last week to pancreas,last dose chemo-2 -3 months ago,Dx - pancreatic cancer 12/2018 in [place] had surgery in [place] and started chemo 03/22/19, EGD/colonoscopy d ated 11/2018 states pt has duodenitis/antral gastritis/antral ulcer/colon and rectal polyp , hx nephrolithiasis., diarrhea., [facility]. History of Any Multi-Drug Resistant Organisms: None Reported Past Surgical History: Back Surgery, Cholecystectomy, Orthopedic Surgery Additional Past Surgical History / Comment(s): Tail of pancreas removed along with spleen in [place], [facility], laminectomy L4-L5/S1-S2, lower back laser surgery to cut nerves, L knee arthroscopy-meniscal and ACL, L ankle reconstructive surgery x 3, R hand surgery d/t trauma, EGD/colonoscopy, lithostripsy. Past Anesthesia/Blood Transfusion Reactions: No Reported Reaction Additional Past Anesthesia/Blood Transfusion Reaction / Comment(s): Pt has received blood in past without reaction. Smoking Status: Former smoker - Past Family History Father History Unknown: Yes Additional Family Medical History / Comment(s): Pt does not know his father. Mother History Unknown: Yes Additional Family Medical History / Comment(s): Pt states he does not know mother's medical hx Medications and Allergies Home Medications Medication Instructions Recorded Confirmed Type Cannabidiol (Cbd) Extract 0 mg PO DIRECTED PRN 09/08/19 09/29/19 History [Epidiolex] HYDROcodone/APAP 5-325MG [Clark 1 tab PO Q6HR PRN 09/29/19 09/29/19 History 5-325] Potassium(Unk Dose) 1 dose PO DIRECTED 09/29/19 History Allergies Allergy/AdvReac Type Severity Reaction Status Date / Time No Known Allergies Allergy Verified 09/29/19 10:26 Surgical - Exam - General well developed, well nourished, no distress - Neck no masses, trachea midline - Respiratory normal respiratory effort, clear to auscultation - Cardiovascular Rhythm: regular Abnormal Heart Sounds: no systolic murmur, no diastolic murmur, no rub, no S3 Gallop, no S4 Gallop, no click, no other - Abdomen Abdomen: soft, non tender, no guarding, no rigid, no rebound - Genitourinary normal penis with no external lesions, testicles present - Psychiatric oriented to time, oriented to person, oriented to place, speech is normal, memory intact Results - Imaging CT scan - abdomen: report reviewed, image reviewed Assessment and Plan (1) Ureteral calculus, left Status: Acute Code(s): N20.1 - CALCULUS OF URETER SNOMED Code(s): 94898038 Plan: Cystoscopy, left ureteroscopy with Holmium laser lithotripsy and stent placement. The procedures were reviewed in detail with the patient. He is aware of potential risks, which include anesthesia, bleeding, infection, and ureteral injury. He is aware of the possible need for secondary treatment.
--- NOTE | 2019-10-03 14:30 | XR ---
EXAMINATION TYPE: XR KUB DATE OF EXAM: 10/03/2019 1:47 PM CLINICAL HISTORY: Preoperative for kidney stones TECHNIQUE: Single supine KUB image of the abdomen is obtained. COMPARISON: CT abdomen pelvis 09/10/2019. FINDINGS: There is a small 3 to 4 mm ovoid calcification overlying the left L3 transverse process ove r the expected course of the ureter. A rounded 5 mm density overlying the left renal shadow lower nisha e/lower collecting system region. Tiny 2 mm calcific density overlying the upper pole of the right re nal shadow is seen. Overall nonobstructive bowel gas pattern. Pelvic phleboliths. Right upper quadran t surgical clips. Degenerative changes of the spine. IMPRESSION: 1. 3 mm ovoid calcification overlying the left L3 transverse process over the expected course of the proximal ureter. 2. 5 mm calcification overlying the left renal lower pole/lower collecting system region could repre sent overlapping density versus reflux of the ureteral stone demonstrated on 08/2019 CT comparison. 3. 2 mm calcification overlying the right renal shadow corresponds with nephrolithiasis on CT compar enrique.
[2019-10-03] MEDS ORDERED: LACTATED RINGERS 1,000 ML IV ONE (14:33)
[2019-10-03] MEDS ORDERED: ONDANSETRON 4 MG/2 ML VIAL ONE (14:35)
[2019-10-03] MEDS ORDERED: ONDANSETRON 4 MG/2 ML VIAL IVP ONE (14:40)
[2019-10-03] MEDS ORDERED: DEXAMETHASONE SOD PHOSPHATE 10 MG/ML 1 ML VIAL IV ONE (14:40)
[2019-10-03] MEDS: POTASSIUM CHLORIDE 20 MEQ in WATER FOR INJECTION 1 100ML.BAG IVPB SCH ×2 (16:00→18:10)
[2019-10-03] MEDS ORDERED: POTASSIUM BICARBONATE/CIT AC 20 MEQ TABLET.EFF PO ONE (16:04)
[2019-10-03] MEDS ORDERED: fentaNYL (PF) 50 MCG/ML 2 ML AMP ONE ×2 (17:31→19:11)
[2019-10-03] MEDS ORDERED: fentaNYL (PF) 50 MCG/ML 2 ML AMP IVP ONE (17:36)
[2019-10-03] MEDS ORDERED: MIDAZOLAM 2 MG/2 ML VIAL ONE (19:11)
[2019-10-03] MEDS ORDERED: GLYCOPYRROLATE 0.2 MG/ML 2 ML VIAL ONE (19:11)
[2019-10-03] MEDS ORDERED: NEOSTIGMINE 1 MG/ML 10 ML VIAL ONE (19:11)
[2019-10-03] MEDS ORDERED: ROCURONIUM 10 MG/ML (5 ML VIAL) IV ONE (19:11)
[2019-10-03] MEDS ORDERED: SUCCINYLCHOLINE CHLORIDE 100 MG/5 ML SYR IV ONE (19:11)
[2019-10-03] MEDS ORDERED: LIDOCAINE 1% INJ 10MG/ML (20 ML MDV) ONE (19:11)
[2019-10-03] MEDS ORDERED: HYDROmorphone (PF) 1 MG/ML ONE (19:11)
[2019-10-03] MEDS ORDERED: PROPOFOL 10 MG/ML 20 ML VIAL IV ONE (19:11)
[2019-10-03] MEDS ORDERED: IOPAMIDOL-370 50ML BTL IRRIGATION ONE (19:49)
--- NOTE | 2019-10-03 20:43 | P.OP ---
Date of Procedure: 10/03/19 Preoperative Diagnosis: Left ureteral calculus, left renal calculus Postoperative Diagnosis: Same Procedure(s) Performed: Cystoscopy, left retrograde pyelogram, left ureteroscopy with Holmium laser lithotripsy, left ureteral stent insertion Anesthesia: NIKITA Surgeon: Karl Brown Estimated Blood Loss (ml): 0 IV fluids (ml): 200 Pathology: none sent Condition: stable Disposition: PACU Indications for Procedure: The patient is a 59-year-old white male undergoing treatment for pancreatic cancer. He has a history of calcium oxalate/apatite urolithiasis. He has recently experienced lower back pain. A computed tomography scan shows moderate left hydronephrosis due to two 6 mm left ureteral calculi, one in the proximal ureter and the other at the ureteropelvic junction. Alternative treatment options were reviewed in detail with the patient, namely ESWL versus ureteroscopy with laser lithotripsy. He has elected to undergo the latter. A preoperative KUB x-ray suggests that one of the calculi has refluxed back into the lower pole of the kidney. Operative Findings: 1) Left distal ureteral calculus. 2) Left lower pole renal calculus. Description of Procedure: The patient was taken to the operating room and placed in the dorsolithotomy position, with legs supported in Braxton stirrups. The external genitalia was prepped and draped sterilely. The 30 lens was used to introduce the 19-Cypriot Stortz cystoscopic sheath through the urethra and into the bladder under direct vision. The prostatic urethra showed evidence of mild lateral lobe enlargement. The bladder was examined in its entirety. Both ureteral orifices were normal anatomic location and configuration, and clear urine effluxed from both. No tumors or foreign bodies were seen. Using a 10-Cypriot cone-tipped catheter, a left retrograde pyelogram was performed. A calculus was identified within the left distal ureter. The cystoscope was removed, and the mini flexible ureteroscope was advanced in the bladder. The left ureteral orifice was cannulated, and the ureteroscope was advanced under direct vision until the calculus was identified. The 270 micron Holmium laser probe was passed through the ureteroscope, and lithotripsy was performed. The calculus was fragmented completely, and the majority of calculus fragments passed distally into the bladder. There is no evidence of ureteral perforation. The ureteroscope was slowly advanced under direct vision up to the kidney. Each calyx was examined. The calculus was identified within a lower pole calyx. Lithotripsy was performed, fragmenting the calculus completely. Once there were no residual calculus fragments exceeding the size of the laser fiber tip, lithotripsy was terminated. A 0.035 inch Glidewire was passed through the ureteroscope, which was then removed. The Glidewire was backloaded into the cystoscope, which was passed into the bladder. A 26 cm, 4.8-Cypriot double-J ureteral stent was placed over the wire. Proper stent positioning was verified fluoroscopically and endoscopically. The bladder was emptied and the cystoscope removed. The patient tolerated the procedure well and was taken to the recovery room in stable condition.
[2019-10-03 21:31] VITALS: BP 112/75; PULSE 65; RESP 18; TEMP 98
--- NOTE | 2019-10-04 06:56 | FL ---
EXAMINATION TYPE: FL urography retrograde DATE OF EXAM: 10/03/2019 COMPARISON: CT abdomen and pelvis September 10, 2019 HISTORY: Left sided kidney stones. TECHNIQUE: Fluoroscopy. FINDINGS: Fluoroscopic guidance was provided during left ureteroscope with lithotripsy and stent ins ertion procedure performed by Dr. Brown. A total of 27 seconds of fluoroscopic time was utilized du ring the procedure and single spot fluoroscopic intraoperative image is acquired. Single image acquir ed shows access at left UVJ and contrast injection. IMPRESSION: As Above.
[2019-10-04] MEDS ORDERED: CISATRACURIUM 2 MG/ML 5 ML VIAL IV ONE (16:21)
[2019-10-04] MEDS ORDERED: MIDAZOLAM 2 MG/2 ML VIAL ONE (16:21)
[2019-10-04] MEDS ORDERED: fentaNYL (PF) 50 MCG/ML 2 ML AMP ONE (16:21)
== END 2019-10-03 22:15 | disposition home or self-care (01) ==
LOC: OR 13:36 → 1SOBS 16:42 → OR 22:15
PROVIDERS: ATTEND Urology
DX: N13.2 Hydronephrosis with renal and ureteral calculous obstruction (principal); K21.9 Gastro-esophageal reflux disease without esophagitis; C61 Malignant neoplasm of prostate; Z79.899 Other long term (current) drug therapy; Z92.3 Personal history of irradiation; Z92.21 Personal history of antineoplastic chemotherapy; Z87.442 Personal history of urinary calculi; Z90.49 Acquired absence of other specified parts of digestive tract; Z90.411 Acquired partial absence of pancreas; Z90.81 Acquired absence of spleen; Z98.890 Other specified postprocedural states; Z85.07 Personal history of malignant neoplasm of pancreas; Z87.891 Personal history of nicotine dependence
CPT/HCPCS: 84132; 74420; 74018; 52356; J1100; J3480; J0690; J2405; J3010; Q9967

== ENCOUNTER 2019-10-05 20:13 | Emergency (ER) | payer MEDICARE, OTHER ==
[2019-10-05] MEDS ORDERED: SODIUM CHLORIDE 0.9% 1,000 ML IV STA (20:57)
--- NOTE | 2019-10-05 21:17 | ED ---
General Adult HPI - General Chief complaint: Syncope Stated complaint: Dizziness Time Seen by Provider: 10/05/19 20:40 Source: patient Mode of arrival: ambulatory Limitations: no limitations - History of Present Illness Initial comments: 59-year-old male with a past medical history of pancreatic cancer, GERD, presents to the emergency department for a chief complaint of syncope. Patient states he got up to walk to the bathroom and suddenly felt very lightheaded. Patient states he had a syncopal episode and woke up on the floor. He does not have headache or neck pain. Patient states he had a stent placed in the right ureter 2 days ago. States he has had immense pain with this and has been having hematuria as well. Patient reports that when he was walking to the bathroom he was in immense pain from the stent. He denies fevers or chills. He denies any cardiac history. Patient has no other complaints at this time including shortness of breath, chest pain, abdominal pain, nausea or vomiting, headache, or visual changes. - Related Data Home Medications Medication Instructions Recorded Confirmed Tamsulosin [Flomax] 0.4 mg PO DAILY 10/05/19 10/05/19 Tolterodine ER [Detrol LA] 4 mg PO DAILY 10/05/19 10/05/19 Allergies Allergy/AdvReac Type Severity Reaction Status Date / Time No Known Allergies Allergy Verified 10/05/19 22:44 Review of Systems ROS Statement: Those systems with pertinent positive or pertinent negative responses have been documented in the HPI. ROS Other: All systems not noted in ROS Statement are negative. Past Medical History Past Medical History: Cancer, GERD/Reflux Additional Past Medical History / Comment(s): Dx - pancreatic cancer 12/2018 in [place] had surgery in [place] and started chemo 03/22/19, EGD/colonoscopy dated 11/2018 states pt has duodenitis/antral gastritis/antral ulcer/colon and rectal polyp , hx nephrolithiasis., diarrhea., [facility]. History of Any Multi-Drug Resistant Organisms: None Reported Past Surgical History: Back Surgery, Cholecystectomy, Orthopedic Surgery Additional Past Surgical History / Comment(s): Tail of pancreas removed along with spleen in [place], [facility] [place], laminectomy L4-L5/S1-S2, lower back laser surgery to cut nerves, L knee arthroscopy-meniscal and ACL, L ankle reconst ructive surgery x 3, R hand surgery d/t trauma, EGD/colonoscopy, lithostripsy. Past Anesthesia/Blood Transfusion Reactions: No Reported Reaction Additional Past Anesthesia/Blood Transfusion Reaction / Comment(s): Pt has received blood in past without reaction. Past Psychological History: No Psychological Hx Reported Smoking Status: Vaper Past Alcohol Use History: Rare Past Drug Use History: Marijuana - Past Family History Father History Unknown: Yes Additional Family Medical History / Comment(s): Pt does not know his father. Mother History Unknown: Yes Additional Family Medical History / Comment(s): Pt states he does not know mother's medical hx General Exam Limitations: no limitations General appearance: alert, in no apparent distress Head exam: Present: atraumatic, normocephalic, normal inspection Eye exam: Present: normal appearance, PERRL, EOMI. Absent: scleral icterus, conjunctival injection, periorbital swelling ENT exam: Present: normal exam, mucous membranes moist Neck exam: Present: normal inspection, full ROM. Absent: tenderness, meningismus, lymphadenopathy Respiratory exam: Present: normal lung sounds bilaterally. Absent: respiratory distress, wheezes, rales, rhonchi, stridor Cardiovascular Exam: Present: regular rate, normal rhythm, normal heart sounds. Absent: systolic murmur, diastolic murmur, rubs, gallop, clicks GI/Abdominal exam: Present: soft, normal bowel sounds. Absent: distended, tenderness, guarding, rebound, rigid Neurological exam: Present: alert Course Vital Signs 10/05/19 10/05/19 10/05/19 20:15 22:00 23:00 Temperature 98.8 F Pulse Rate 92 76 64 Respiratory 18 16 16 Rate Blood Pressure 121/81 103/63 100/64 O2 Sat by Pulse 100 99 Oximetry 10/05/19 23:23 Temperature Pulse Rate Respiratory Rate Blood Pressure 115/85 O2 Sat by Pulse Oximetry Medical Decision Making - Medical Decision Making Vitals are stable. CBC and CMP are unremarkable. Troponin was negative. Urinalysis did show blood however this is to be expected after stent placement. Culture pending. Chest x-ray did show possible interstitial face pulmonary edema. However patient does not have any shortness of breath. BNP is 350. He is a 40 pack per year smoker. This x-ray was compared to June and is similar. Given these factors chest x-ray findings are likely chronic interstitial lung disease related. Patient was given Toradol and Dilaudid for pain. It is likely that his syncopal episode was vasovagal as he went from sitting to standing and was in pain. Patient will be discharged home to follow up with urologist. He actually has a 10:00 appointment tomorrow morning. He will return here if he has any worsening symptoms. This case was discussed with Dr. Ashford who is in agreement with this discharge plan. - Lab Data Result diagrams: 10/05/19 21:12 10/05/19 21:12 Lab Results 10/05/19 10/05/19 10/05/19 Range/Units 21:12 21:12 21:12 WBC 9.5 (3.8-10.6) k/uL RBC 4.56 (4.30-5.90) m/uL Hgb 13.9 (13.0-17.5) gm/dL Hct 43.7 (39.0-53.0) % MCV 95.9 (80.0-100.0) fL MCH 30.4 (25.0-35.0) pg MCHC 31.7 (31.0-37.0) g/dL RDW 15.0 (11.5-15.5) % Plt Count 256 (150-450) k/uL Neutrophils % 68 % Lymphocytes % 18 % Monocytes % 9 % Eosinophils % 3 % Basophils % 0 % Neutrophils # 6.4 (1.3-7.7) k/uL Lymphocytes # 1.7 (1.0-4.8) k/uL Monocytes # 0.8 (0-1.0) k/uL Eosinophils # 0.3 (0-0.7) k/uL Basophils # 0.0 (0-0.2) k/uL PT 9.6 (9.0-12.0) sec INR 0.9 (<1.2) APTT 22.9 (22.0-30.0) sec Sodium 139 (137-145) mmol/L Potassium 3.8 (3.5-5.1) mmol/L Chloride 110 H (98-107) mmol/L Carbon Dioxide 24 (22-30) mmol/L Anion Gap 5 mmol/L BUN 12 (9-20) mg/dL Creatinine 0.64 L (0.66-1.25) mg/dL Est GFR (CKD-EPI)AfAm >90 (>60 ml/min/1.73 sqM) Est GFR (CKD-EPI)NonAf >90 (>60 ml/min/1.73 sqM) Glucose 90 (74-99) mg/dL Calcium 9.1 (8.4-10.2) mg/dL Magnesium 1.9 (1.6-2.3) mg/dL Total Bilirubin 0.7 (0.2-1.3) mg/dL AST 28 (17-59) U/L ALT 10 (4-49) U/L Alkaline Phosphatase 87 (38-126) U/L Troponin I (0.000-0.034) ng/mL NT-Pro-B Natriuret Pep pg/mL Total Protein 5.8 L (6.3-8.2) g/dL Albumin 3.2 L (3.5-5.0) g/dL Urine Color Urine Appearance (Clear) Urine pH (5.0-8.0) Ur Specific [place] (1.001-1.035) Urine Protein (Negative) Urine Glucose (UA) (Negative) Urine Ketones (Negative) Urine Blood (Negative) Urine Nitrite (Negative) Urine Bilirubin (Negative) Urine Urobilinogen (<2.0) mg/dL Ur Leukocyte Esterase (Negative) Urine RBC (0-5) /hpf Urine WBC (0-5) /hpf Ur Squamous Epith Cells (0-4) /hpf Urine Bacteria (None) /hpf Urine Mucus (None) /hpf 10/05/19 10/05/19 10/05/19 Range/Units 21:12 21:12 21:19 WBC (3.8-10.6) k/uL RBC (4.30-5.90) m/uL Hgb (13.0-17.5) gm/dL Hct (39.0-53.0) % MCV (80.0-100.0) fL MCH (25.0-35.0) pg MCHC (31.0-37.0) g/dL RDW (11.5-15.5) % Plt Count (150-450) k/uL Neutrophils % % Lymphocytes % % Monocytes % % Eosinophils % % Basophils % % Neutrophils # (1.3-7.7) k/uL Lymphocytes # (1.0-4.8) k/uL Monocytes # (0-1.0) k/uL Eosinophils # (0-0.7) k/uL Basophils # (0-0.2) k/uL PT (9.0-12.0) sec INR (<1.2) APTT (22.0-30.0) sec Sodium (137-145) mmol/L Potassium (3.5-5.1) mmol/L Chloride (98-107) mmol/L Carbon Dioxide (22-30) mmol/L Anion Gap mmol/L BUN (9-20) mg/dL Creatinine (0.66-1.25) mg/dL Est GFR (CKD-EPI)AfAm (>60 ml/min/1.73 sqM) Est GFR (CKD-EPI)NonAf (>60 ml/min/1.73 sqM) Glucose (74-99) mg/dL Calcium (8.4-10.2) mg/dL Magnesium (1.6-2.3) mg/dL Total Bilirubin (0.2-1.3) mg/dL AST (17-59) U/L ALT (4-49) U/L Alkaline Phosphatase (38-126) U/L Troponin I <0.012 (0.000-0.034) ng/mL NT-Pro-B Natriuret Pep 366 pg/mL Total Protein (6.3-8.2) g/dL Albumin (3.5-5.0) g/dL Urine Color Yellow Urine Appearance Clear (Clear) Urine pH 6.0 (5.0-8.0) Ur Specific [place] 1.010 (1.001-1.035) Urine Protein 1+ H (Negative) Urine Glucose (UA) Negative (Negative) Urine Ketones Negative (Negative) Urine Blood Large H (Negative) Urine Nitrite Negative (Negative) Urine Bilirubin Negative (Negative) Urine Urobilinogen <2.0 (<2.0) mg/dL Ur Leukocyte Esterase Large H (Negative) Urine RBC >182 H (0-5) /hpf Urine WBC 16 H (0-5) /hpf Ur Squamous Epith Cells 1 (0-4) /hpf Urine Bacteria Occasional H (None) /hpf Urine Mucus Rare H (None) /hpf Disposition Clinical Impression: Vasovagal syncope, Flank pain Disposition: HOME SELF-CARE Condition: Good Instructions (If sedation given, give patient instructions): Syncope (ED), Flank Pain (ED) Additional Instructions: Continue to take Motrin for pain. If pain is severe take Tylenol 3. Follow up with your urologist at your appointment tomorrow morning. Follow-up with primary care as well. Return to the emergency room for any worsening symptoms. Is patient prescribed a controlled substance at d/c from ED?: No Referrals: Krystal Márquez MD [Primary Care Provider] - 1-2 days Time of Disposition: 23:12
[2019-10-05 21:30] LABS: Basophils % (A) 0 %; Eosinophils # (A) 0.3 k/uL (0-0.7); Eosinophils % (A) 3 %; HCT 43.7 % (39.0-53.0); HGB 13.9 gm/dL (13.0-17.5); Lymphocytes # (A) 1.7 k/uL (1.0-4.8); Lymphocytes % (A) 18 %; MCH 30.4 pg (25.0-35.0); MCHC 31.7 g/dL (31.0-37.0); MCV 95.9 fL (80.0-100.0); Mean Platelet Volume 8.6; Monocytes # (A) 0.8 k/uL (0-1.0); Monocytes % (A) 9 %; Neutrophils # (A) 6.4 k/uL (1.3-7.7); Neutrophils % (A) 68 %; Platelet Count 256 k/uL (150-450); RBC 4.56 m/uL (4.30-5.90); WBC 9.5 k/uL (3.8-10.6)
[2019-10-05 21:38] LABS: Appearance,Urine Clear (Clear); Bacteria,Urine Occasional /hpf; Bilirubin,Urine Negative (Negative); Blood,Urine Large (Negative); Color,Urine Yellow; Glucose,Urine (UA) Negative (Negative); Ketones,Urine Negative (Negative); Leukocyte Esterase,Urine Large (Negative); Mucus,Urine Rare /hpf; Nitrite,Urine Negative (Negative); Protein,Urine 1+ (Negative); RBC,Urine >182 /hpf (0-5); Squamous Epithelial Cell,Urine 1 /hpf (0-4); Urobilinogen,Urine <2.0 mg/dL (<2.0); WBC,Urine 16 /hpf (0-5)
[2019-10-05 21:51] LABS: ALT 10 U/L (4-49); AST 28 U/L (17-59); African American GFR (CKD) >90 (>60 ml/min/1.73 sqM); Albumin 3.2 g/dL (3.5-5.0); Alkaline Phosphatase 87 U/L (38-126); Anion Gap 5 mmol/L; Blood Urea Nitrogen 12 mg/dL (9-20); Calcium 9.1 mg/dL (8.4-10.2); Carbon Dioxide 24 mmol/L (22-30); Chloride 110 mmol/L (98-107); Glucose 90 mg/dL (74-99); Magnesium 1.9 mg/dL (1.6-2.3); Non-African American GFR(CKD) >90 (>60 ml/min/1.73 sqM); Sodium 139 mmol/L (137-145); Total Bilirubin 0.7 mg/dL (0.2-1.3); Total Protein 5.8 g/dL (6.3-8.2)
[2019-10-05 22:00] LABS: INR 0.9 (<1.2); Partial Thromboplastin Time 22.9 sec (22.0-30.0); Prothrombin Time 9.6 sec (9.0-12.0)
[2019-10-05 22:07] LABS: Potassium 3.8 mmol/L (3.5-5.1)
--- NOTE | 2019-10-05 22:10 | XR ---
EXAMINATION: XR chest 2V DATE AND TIME: 10/05/2019 9:30 PM CLINICAL INDICATION: PHH; syncope, abdominal pain TECHNIQUE: Departmental protocol COMPARISON: 06/23/2019 FINDINGS: Right subclavian port catheter tip superimposed over the upper SVC. There is a prominent interstitial pattern throughout the lungs bilaterally which silhouettes obscures the pulmonary vasculature bilaterally. There are septal lines bilaterally at the periphery. Findings are radiographically consistent with interstitial phase pulmonary edema. There is no cardiomegaly. Pleural spaces are negative. The bones and soft tissues are negative for acute findings. IMPRESSION: Interstitial phase pulmonary edema.
[2019-10-05] MEDS ORDERED: KETOROLAC 30 MG/ML 1 ML VIAL IVP STA (22:28)
[2019-10-05 22:31] VITALS: RESP 16
[2019-10-05] MEDS ORDERED: ACET/COD 300 MG/30 MG STARTER PACK 6 TAB BTL PO STA (23:08)
[2019-10-05] MEDS ORDERED: HYDROmorphone 0.5 MG/0.5 ML SYRINGE IVP STA (23:08)
[2019-10-05 23:56] VITALS: BP 110/73; PULSE 75; TEMP 98.9
== END 2019-10-05 23:53 | disposition home or self-care (01) ==
LOC: EC 20:13
DX: R55 Syncope and collapse (principal); R10.9 Unspecified abdominal pain; R31.9 Hematuria, unspecified; R42 Dizziness and giddiness; F17.290 Nicotine dependence, other tobacco product, uncomplicated; Z79.899 Other long term (current) drug therapy; Z85.07 Personal history of malignant neoplasm of pancreas
CPT/HCPCS: 36415; 93005; 83880; 80053; 83735; 84484; 85025; 85610; 85730; 81001; 87086; 71046; 99284; 96374; 96375; 96361; J1885; J1170

== ENCOUNTER 2019-10-11 15:41 | Emergency (ER) | payer MEDICARE, OTHER ==
[2019-10-11 15:47] VITALS: RESP 18
--- NOTE | 2019-10-11 16:11 | ED ---
Abdominal Pain HPI - General Chief Complaint: Abdominal Pain Stated Complaint: Blood in urine Abdominal pain low back pain Time Seen by Provider: 10/11/19 15:48 Source: patient Mode of arrival: ambulatory Limitations: no limitations - History of Present Illness Initial Comments: Patient is a 59-year-old male with history of pancreatic cancer and renal stones presenting to the emergency department with a chief complaint of abdominal pain. Patient is the a status post lithotripsy with stent placement. Patient states she feels like there is a "knot" in the left lower quadrant region. Patient reports the pain has been consistent ever since surgery. He does report no improvement in his hematuria since the surgery. Patient states he called Dr.Bet acosta' office advised him to come to the emergency department for evaluation. Patient denies any dysuria or increased frequency or urgency. Denies any difficulty with bowel movement, hematochezia or melena. Denies any chest pain shortness of breath. Patient states he took [place] prior to ED arrival. - Related Data Home Medications Medication Instructions Recorded Confirmed Acetaminophen-Codeine 300-30mg 1 tab PO Q6H PRN 10/11/19 10/11/19 [Tylenol w/codeine #3] HYDROcodone/APAP 5-325MG [[place] 1 tab PO Q4HR PRN 10/11/19 10/11/19 5-325] Previous Rx's Medication Instructions Recorded Cephalexin [Keflex] 500 mg PO Q6HR #40 cap 10/11/19 Allergies Allergy/AdvReac Type Severity Reaction Status Date / Time No Known Allergies Allergy Verified 10/11/19 16:41 Review of Systems ROS Statement: Those systems with pertinent positive or pertinent negative responses have been documented in the HPI. ROS Other: All systems not noted in ROS Statement are negative. Past Medical History Past Medical History: Cancer, GERD/Reflux Additional Past Medical History / Comment(s): Dx - pancreatic cancer 12/2018 in [place] had surgery in [place] and started chemo 03/22/19, EGD/colonoscopy dated 11/2018 states pt has duodenitis/antral gastritis/antral ulcer/colon and rectal polyp , hx nephrolithiasis., diarrhea., [facility]. History of Any Multi-Drug Resistant Organisms: None Reported Past Surgical History: Back Surgery, Cholecystectomy, Orthopedic Surgery Additional Past Surgical History / Comment(s): Tail of pancreas removed along with spleen in [place], [facility], laminectomy L4-L5/S1-S2, lower back laser surgery to cut nerves, L knee arthroscopy-meniscal and ACL, L ankle reconstructive surgery x 3, R hand surgery d/t trauma, EGD/colonoscopy, lithostripsy. Past Anesthesia/Blood Transfusion Reactions: No Reported Reaction Additional Past Anesthesia/Blood Transfusion Reaction / Comment(s): Pt has received blood in past without reaction. Past Psychological History: No Psychological Hx Reported Smoking Status: Vaper Past Alcohol Use History: Occasional Past Drug Use History: Marijuana - Past Family History Father History Unknown: Yes Additional Family Medical History / Comment(s): Pt does not know his father. Mother History Unknown: Yes Additional Family Medical History / Comment(s): Pt states he does not know mother's medical hx General Exam Limitations: no limitations General appearance: alert, in no apparent distress Head exam: Present: atraumatic, normocephalic, normal inspection Eye exam: Present: normal appearance, PERRL, EOMI Pupils: Present: normal accommodation ENT exam: Present: normal exam, normal oropharynx, mucous membranes moist Neck exam: Present: normal inspection, full ROM. Absent: tenderness Respiratory exam: Present: normal lung sounds bilaterally. Absent: respiratory distress, wheezes Cardiovascular Exam: Present: regular rate, normal rhythm, normal heart sounds GI/Abdominal exam: Present: soft, tenderness (Left lower quadrant). Absent: distended, guarding, rebound, rigid Extremities exam: Present: normal inspection, full ROM, normal capillary refill. Absent: tenderness Back exam: Present: normal inspection, full ROM, tenderness, CVA tenderness (L). Absent: CVA tenderness (R) Neurological exam: Present: alert, oriented X3, normal gait Psychiatric exam: Present: normal affect, normal mood Skin exam: Present: warm, dry, intact, normal color Course Vital Signs 10/11/19 15:44 Temperature 99.5 F Pulse Rate 95 Respiratory 18 Rate Blood Pressure 115/70 O2 Sat by Pulse 98 Oximetry Medical Decision Making - Medical Decision Making Patient is a 59-year-old male with history of pancreatic cancer and renal stones presenting to the emergency department with chief complaint of abdominal and low back pain. Physical examination reveals left CVA tenderness with some left lower quadrant and left flank pain. Vitals are stable. CBC and CMP are unremarkable. UA shows +2 protein, elevated leukocyte esterase, white blood catina ls and red blood cells. Urine culture pending. Urinary white blood cells have increased since the UA from 4 days ago. Patient will be started on Rocephin in the ED will be discharged with Keflex. CT of the pelvis reveals no acute processes. Stent appears to be in place With some postoperative changes. Patient is to see his urologist next week. Return parameters were thoroughly discussed with patient is a nursing agreeable. Case discussed with physician. - Lab Data Result diagrams: 10/11/19 16:43 10/11/19 16:43 Lab Results 10/11/19 10/11/19 10/11/19 Range/Units 16:43 16:43 16:43 WBC 7.6 (3.8-10.6) k/uL RBC 4.48 (4.30-5.90) m/uL Hgb 13.7 (13.0-17.5) gm/dL Hct 43.1 (39.0-53.0) % MCV 96.3 (80.0-100.0) fL MCH 30.6 (25.0-35.0) pg MCHC 31.7 (31.0-37.0) g/dL RDW 14.8 (11.5-15.5) % Plt Count 340 (150-450) k/uL Neutrophils % 62 % Lymphocytes % 23 % Monocytes % 8 % Eosinophils % 5 % Basophils % 0 % Neutrophils # 4.7 (1.3-7.7) k/uL Lymphocytes # 1.7 (1.0-4.8) k/uL Monocytes # 0.6 (0-1.0) k/uL Eosinophils # 0.3 (0-0.7) k/uL Basophils # 0.0 (0-0.2) k/uL Sodium 139 (137-145) mmol/L Potassium 3.6 (3.5-5.1) mmol/L Chloride 115 H (98-107) mmol/L Carbon Dioxide 20 L (22-30) mmol/L Anion Gap 4 mmol/L BUN 12 (9-20) mg/dL Creatinine 0.65 L (0.66-1.25) mg/dL Est GFR (CKD-EPI)AfAm >90 (>60 ml/min/1.73 sqM) Est GFR (CKD-EPI)NonAf >90 (>60 ml/min/1.73 sqM) Glucose 124 H (74-99) mg/dL Calcium 9.1 (8.4-10.2) mg/dL Total Bilirubin 0.4 (0.2-1.3) mg/dL AST 17 (17-59) U/L ALT 10 (4-49) U/L Alkaline Phosphatase 94 (38-126) U/L Total Protein 5.6 L (6.3-8.2) g/dL Albumin 3.1 L (3.5-5.0) g/dL Lipase 16 L (23-300) U/L Urine Color Dark Red Urine Appearance Turbid (Clear) Urine pH 6.0 (5.0-8.0) Ur Specific Banks 1.030 (1.001-1.035) Urine Protein 2+ H (Negative) Urine Glucose (UA) Negative (Negative) Urine Ketones Negative (Negative) Urine Blood Large H (Negative) Urine Nitrite Negative (Negative) Urine Bilirubin Negative (Negative) Urine Urobilinogen <2.0 (<2.0) mg/dL Ur Leukocyte Esterase Large H (Negative) Urine RBC >182 H (0-5) /hpf Urine WBC 172 H (0-5) /hpf Disposition Clinical Impression: Left flank pain, Hematuria Disposition: HOME SELF-CARE Condition: Stable Instructions (If sedation given, give patient instructions): Lithotripsy (DC) Additional Instructions: Take prescribed medication as directed. Follow-up with the urologist. Return to emergency department if symptoms worsen. Prescriptions: Cephalexin [Keflex] 500 mg PO Q6HR #40 cap Is patient prescribed a controlled substance at d/c from ED?: No Referrals: Krystal Márquez MD [Primary Care Provider] - 1-2 days Time of Disposition: 19:10
[2019-10-11] MEDS ORDERED: SODIUM CHLORIDE 0.9% 1,000 ML IV STA (16:13)
[2019-10-11 16:54] LABS: Basophils % (A) 0 %; Eosinophils # (A) 0.3 k/uL (0-0.7); Eosinophils % (A) 5 %; HCT 43.1 % (39.0-53.0); HGB 13.7 gm/dL (13.0-17.5); Lymphocytes # (A) 1.7 k/uL (1.0-4.8); Lymphocytes % (A) 23 %; MCH 30.6 pg (25.0-35.0); MCHC 31.7 g/dL (31.0-37.0); MCV 96.3 fL (80.0-100.0); Mean Platelet Volume 7.8; Monocytes # (A) 0.6 k/uL (0-1.0); Monocytes % (A) 8 %; Neutrophils # (A) 4.7 k/uL (1.3-7.7); Neutrophils % (A) 62 %; Platelet Count 340 k/uL (150-450); RBC 4.48 m/uL (4.30-5.90); RDW 14.8 % (11.5-15.5); WBC 7.6 k/uL (3.8-10.6)
[2019-10-11 17:04] LABS: ALT 10 U/L (4-49); AST 17 U/L (17-59); African American GFR (CKD) >90 (>60 ml/min/1.73 sqM); Albumin 3.1 g/dL (3.5-5.0); Alkaline Phosphatase 94 U/L (38-126); Anion Gap 4 mmol/L; Blood Urea Nitrogen 12 mg/dL (9-20); Calcium 9.1 mg/dL (8.4-10.2); Carbon Dioxide 20 mmol/L (22-30); Chloride 115 mmol/L (98-107); Glucose 124 mg/dL (74-99); Non-African American GFR(CKD) >90 (>60 ml/min/1.73 sqM); Potassium 3.6 mmol/L (3.5-5.1); Sodium 139 mmol/L (137-145); Total Bilirubin 0.4 mg/dL (0.2-1.3); Total Protein 5.6 g/dL (6.3-8.2)
[2019-10-11 17:09] LABS: Appearance,Urine Turbid (Clear); Bilirubin,Urine Negative (Negative); Blood,Urine Large (Negative); Color,Urine Dark Red; Glucose,Urine (UA) Negative (Negative); Ketones,Urine Negative (Negative); Leukocyte Esterase,Urine Large (Negative); Nitrite,Urine Negative (Negative); Protein,Urine 2+ (Negative); RBC,Urine >182 /hpf (0-5); Urobilinogen,Urine <2.0 mg/dL (<2.0); WBC,Urine 172 /hpf (0-5)
--- NOTE | 2019-10-11 18:15 | CT ---
EXAMINATION TYPE: CT abdomen pelvis wo con DATE OF EXAM: 10/11/2019 COMPARISON: Prior CT 09/10/2019 HISTORY: Lt sided pain with hematuria and pain with urination. Left sided stent placed [address] DLP: 605.6 mGycm Automated exposure control for dose reduction was used. TECHNIQUE: Helical acquisition of images from the lung bases through the pelvis. FINDINGS: Lack of intravenous contrast could compromise sensitivity of the exam. LUNG BASES: Interstitial changes are present at the lung bases. AORTA: No significant abnormality is appreciataed. LIVER/GB: No significant interval change is appreciated, patient is post cholecystectomy. PANCREAS: No significant interval change is seen, probable postprocedural changes. 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 ADRENALS: No significant abnormality is seen. KIDNEYS: Double-J left ureteral stent is in place. No definite left ureteral calculus is present. Per iureteral inflammatory changes are likely postprocedural There is left-sided hydronephrosis. Punctate nonobstructive right renal calculus is present. REPRODUCTIVE ORGANS: No significant interval change is seen, prostate is enlarged. URINARY BLADDER: Bladder wall thickening may be due to chronic outlet obstruction BOWEL: No significant abnormality is seen. FREE AIR: No Free Air is visible. ASCITES: None visible. PELVIC ADENOPATHY: None visualized. RETROPERITONEAL ADENOPATHY: No Retroperitoneal Adenopathy visible. OSSEOUS STRUCTURES: No significant interval change is seen. IMPRESSION: INTERVAL LEFT URETERAL STENT PLACEMENT, POST PROCEDURAL FINDINGS, NONOBSTRUCTIVE RIGHT.
[2019-10-11] MEDS ORDERED: cefTRIAXone IN SWFI 1,000 MG/10 ML SYRINGE IVP STA (19:02)
[2019-10-11 19:36] VITALS: BP 120/68; PULSE 90; TEMP 99
== END 2019-10-11 19:37 | disposition home or self-care (01) ==
LOC: EC 15:41
DX: R10.9 Unspecified abdominal pain (principal); R31.9 Hematuria, unspecified; M54.5 Low back pain; Z85.07 Personal history of malignant neoplasm of pancreas; Z87.442 Personal history of urinary calculi; Z90.49 Acquired absence of other specified parts of digestive tract; F17.290 Nicotine dependence, other tobacco product, uncomplicated
CPT/HCPCS: 36415; 80053; 83690; 85025; 81001; 87086; 74176; 99284; 96374; 96361 ×2; J0696

== ENCOUNTER → 2019-10-18 | Outpatient (CLI) | payer MEDICARE, OTHER ==
--- NOTE | 2019-10-18 15:29 | US ---
EXAMINATION TYPE: US kidneys/renal and bladder DATE OF EXAM: 10/18/2019 COMPARISON: CT 2019, US 2018 CLINICAL HISTORY: N20.1 Ureteral stone. Back pain, history of renal stones, left ureteral stent remov ed yesterday EXAM MEASUREMENTS: Right Kidney: 9.7 x 4.9 x 5.7 cm Left Kidney: 11.1 x 5.4 x 5.5 cm Right Kidney: no hydronephrosis or masses seen, stone seen on recent CT not seen on today's exam Left Kidney: hydronephrosis Bladder: wnl Bilateral Jets seen: no IMPRESSION: 1. Mild left hydronephrosis..
--- NOTE | 2019-10-18 17:14 | XR ---
EXAMINATION TYPE: XR KUB DATE OF EXAM: 10/18/2019 12:54 PM CLINICAL HISTORY: Ureteral stone TECHNIQUE: Supine images of the abdomen and pelvis were obtained COMPARISON: KUB 10/03/2019. CT abdomen pelvis 10/11/2019. FINDINGS: Nonspecific bowel gas pattern. Interval removal of left-sided ureteral stent. No calculi ov erlie the left renal shadow. Redemonstrated 2 mm calcification over the right renal upper pole shadow . Vascular calcifications. IMPRESSION: 1. Interval removal of left ureteral stent. 2. No left nephrolithiasis. 3. Redemonstrated 2 mm right nephrolithiasis.
== END | disposition home or self-care (01) ==
LOC: RADUSWWP 12:38
PROVIDERS: ATTEND Urology
DX: N13.2 Hydronephrosis with renal and ureteral calculous obstruction (principal)
CPT/HCPCS: 74018; 76770

== ENCOUNTER 2019-11-19 15:57 | Emergency (ER) | payer MEDICARE, OTHER ==
[2019-11-19 17:00] VITALS: BP 129/87; PULSE 98; RESP 18; TEMP 98.4
--- NOTE | 2019-11-19 18:49 | CT ---
EXAMINATION TYPE: CT brain wo con DATE OF EXAM: 11/19/2019 COMPARISON: 04/01/2019 HISTORY: Left arm shaking CT DLP: 1142.4 mGycm Automated exposure control for dose reduction was used. Ventricles and sulci appear normal. There is no mass effect nor midline shift. There is no sign of in tracranial hemorrhage. The calvarium is intact. There is no evidence of cerebral edema. IMPRESSION: Negative unenhanced head CT scan. No change.
[2019-11-19 19:44] LABS: Basophils % (A) 0 %; Eosinophils # (A) 0.4 k/uL (0-0.7); Eosinophils % (A) 4 %; Lymphocytes # (A) 2.6 k/uL (1.0-4.8); Lymphocytes % (A) 24 %; MCH 29.9 pg (25.0-35.0); MCHC 31.8 g/dL (31.0-37.0); MCV 94.3 fL (80.0-100.0); Mean Platelet Volume 7.9; Monocytes % (A) 9 %; Neutrophils # (A) 6.7 k/uL (1.3-7.7); Neutrophils % (A) 61 %; Platelet Count 389 k/uL (150-450); RBC 4.35 m/uL (4.30-5.90); RDW 14.7 % (11.5-15.5)
--- NOTE | 2019-11-19 19:45 | ED ---
General Adult HPI - General Source: patient, RN notes reviewed, old records reviewed Mode of arrival: ambulatory Limitations: no limitations <Joel Varma - Last Filed: 11/19/19 19:44> <Kenna Sandoval - Last Filed: 11/19/19 23:34> - General Chief complaint: Extremity Problem,Nontraumatic Stated complaint: left arm pain/hand weakness Time Seen by Provider: 11/19/19 17:39 - History of Present Illness Initial comments: 59-year-old male patient passed no history of a pancreatic cancer for which she had tumor resection and chemotherapy in his buttock be in remission appearance ED for evaluation. Patient reports that earlier today he had a muscle spasm involving his neck going down his arm is having some cramping and spasms in his arms signs. He denies any headache or changes in vision. Denies any anterior chest pain or shortness of breath. Denies any other acute complaints at this t zayra. Systemic: Pt denies fatigue, fever/chills, rash. Pt denies weakness, night sweats, weight loss. Neuro: Pt denies headache, visual disturbances, syncope or pre-syncope. HEENT: Pt denies ocular discharge or irritation, otalgia, rhinorrhea, pharyngitis or notable lymphadenopathy. Cardiopulmonary: Pt denies chest pain, SOB, heart palpitations, dyspnea on exertion. Abdominal/GI: Pt denies abdominal pain, n/v/d. : Pt denies dysuria, burning w/ urination, frequency/urgency. Denies new onset urinary or bowel incontinence. MSK: Pt denies myalgia, loss of strength or function in extremities. Neuro: Pt denies new onset weakness, paresthesias. (Joel Varma) - Related Data Home Medications Medication Instructions Recorded Confirmed Acetaminophen-Codeine 300-30mg 1 tab PO Q6H PRN 10/11/19 10/11/19 [Tylenol w/codeine #3] HYDROcodone/APAP 5-325MG [[place] 1 tab PO Q4HR PRN 10/11/19 10/11/19 5-325] Previous Rx's Medication Instructions Recorded Cephalexin [Keflex] 500 mg PO Q6HR #40 cap 10/11/19 Allergies Allergy/AdvReac Type Severity Reaction Status Date / Time No Known Allergies Allergy Verified 11/19/19 17:00 Review of Systems ROS Other: All systems not noted in ROS Statement are negative. <Joel Varma - Last Filed: 11/19/19 19:44> ROS Other: All systems not noted in ROS Statement are negative. <Kenna Sandoval - Last Filed: 11/19/19 23:34> ROS Statement: Those systems with pertinent positive or pertinent negative responses have been documented in the HPI. Past Medical History Past Medical History: Cancer, GERD/Reflux Additional Past Medical History / Comment(s): Dx - pancreatic cancer 12/2018 in [place] had surgery in [place] and started chemo 03/22/19, EGD/colonoscopy dated 11/2018 states pt has duodenitis/antral gastritis/antral ulcer/colon and rectal polyp , hx nephrolithiasis., diarrhea., [facility]. History of Any Multi-Drug Resistant Organisms: None Reported Past Surgical History: Back Surgery, Cholecystectomy, Orthopedic Surgery Additional Past Surgical History / Comment(s): Tail of pancreas removed along with spleen in [place], [facility], laminectomy L4-L5/S1-S2, lower back laser surgery to cut nerves, L knee arthroscopy-meniscal and ACL, L ankle reconstructive surgery x 3, R hand surgery d/t trauma, EGD/colonoscopy, lithostripsy. Past Anesthesia/Blood Transfusion Reactions: No Reported Reaction Additional Past Anesthesia/Blood Transfusion Reaction / Comment(s): Pt has received blood in past without reaction. Past Psychological History: No Psychological Hx Reported Smoking Status: Vaper Past Alcohol Use History: Occasional Past Drug Use History: Marijuana - Past Family History Father History Unknown: Yes Additional Family Medical History / Comment(s): Pt does not know his father. Mother History Unknown: Yes Additional Family Medical History / Comment(s): Pt states he does not know mother's medical hx <Joel Varma - Last Filed: 11/19/19 19:44> General Exam Limitations: no limitations <Joel Varma - Last Filed: 11/19/19 19:44> - General Exam Comments Initial Comments: Constitutional: NAD, AOX3, Pt has pleasant affect. HEENT: NC/AT, trachea midline, neck supple, no lymphadenopathy. Posterior pharynx non erythematous, without exudates. External ears appear normal, without discharge. Mucous membranes moist. Eyes PERRLA, EOM intact. There is no scleral icterus. No pallor noted. Cardiopulmonary: RRR, no murmurs, rubs or gallops, no JVD noted. Lungs CTAB in anterior and posterior whitaker. No peripheral edema. Abdominal exam: Abdomen soft and non-distended. Abdomen non-tender to palpation in all 4 quadrants. Bowel sounds active in LLQ. No hepatosplenomegaly. No ecchymosis Neuro: CN II-XII intact. No nuchal rigidity. No raccon eyes, no melo sign, no hemotympanum. No cervical spinal tenderness. MSK: Mild tenderness to left forearm and hand region. Neurovascular intact. No external skin changes. No posterior calf tenderness bilaterally, homans sign negative bilaterally. Posterior tibialis and radial pulse +2 bilaterally. Sensation intact in upper and lower extremities. Full active ROM in upper and lower extremities, 5/5 stregnth. (Joel Varma) Course Vital Signs 11/19/19 16:58 Temperature 98.4 F Pulse Rate 98 Respiratory 18 Rate Blood Pressure 129/87 O2 Sat by Pulse 98 Oximetry EKG Findings - EKG Comments: EKG Findings:: EKG obtained in was normal sinus rhythm with a ventricular rate of 76, CA interval 152, QRS duration 90, QT 386, QTc 434. No evidence of ST elevation or depression. <Kenna Sandoval - Last Filed: 11/19/19 23:34> Medical Decision Making - Lab Data Result diagrams: 11/19/19 19:35 <Joel Varma - Last Filed: 11/19/19 19:44> - Lab Data Result diagrams: 11/19/19 19:35 11/19/19 19:35 <Kenna Sandoval - Last Filed: 11/19/19 23:34> - Medical Decision Making 59-year-old male patient with NC for evaluation of muscle spasm. Patient vital signs are stable, afebrile. Physical exam doesn't display low but tenderness to the hand and the wrist. Neurovascularly intact. Neurologic exam is intact. CT brain negative for acute process. Patient is signed out to Kenna Sandoval NP pending labs and final disposition. (Joel Varma) 59-year-old male patient presented to the emergency department today for evaluation after he had onset of back pain and left arm pain today. Patient states that his back is hurting from his neck down to his waist. He states that he had some twitching in the left side of his neck and pain radiating down the left arm. Patient states that he now has pain to the elbow, wrist, and hand. He is still reporting back pain. Denies any shortness of breath or increased pain with breathing. Neurovascular status intact to the upper extremities. Lungs are clear to auscultation with good air movement. Vital signs are within normal ranges. Did have CT brain which was negative. Labs reviewed and were unremarkable. EKG showed normal sinus rhythm. Upon reevaluation patient is resting comfortably in bed. We did talk about cervical radiculopathy was cause for his symptoms. We discharged with instructions to follow-up with his primary care physician for recheck in 1-2 days. Return parameters were discussed in detail. He verbalizes understanding and agrees with this plan. (Kenna Sandoval) - Lab Data Lab Results 11/19/19 11/19/19 11/19/19 Range/Units 19:35 19:35 19:35 WBC 11.0 H (3.8-10.6) k/uL RBC 4.35 (4.30-5.90) m/uL Hgb 13.0 (13.0-17.5) gm/dL Hct 41.0 (39.0-53.0) % MCV 94.3 (80.0-100.0) fL MCH 29.9 (25.0-35.0) pg MCHC 31.8 (31.0-37.0) g/dL RDW 14.7 (11.5-15.5) % Plt Count 389 (150-450) k/uL Neutrophils % 61 % Lymphocytes % 24 % Monocytes % 9 % Eosinophils % 4 % Basophils % 0 % Neutrophils # 6.7 (1.3-7.7) k/uL Lymphocytes # 2.6 (1.0-4.8) k/uL Monocytes # 1.0 (0-1.0) k/uL Eosinophils # 0.4 (0-0.7) k/uL Basophils # 0.0 (0-0.2) k/uL PT 9.3 (9.0-12.0) sec INR 0.9 (<1.2) APTT 22.1 (22.0-30.0) sec Sodium 143 (137-145) mmol/L Potassium 4.0 (3.5-5.1) mmol/L Chloride 111 H (98-107) mmol/L Carbon Dioxide 24 (22-30) mmol/L Anion Gap 8 mmol/L BUN 13 (9-20) mg/dL Creatinine 1.01 (0.66-1.25) mg/dL Est GFR (CKD-EPI)AfAm >90 (>60 ml/min/1.73 sqM) Est GFR (CKD-EPI)NonAf 82 (>60 ml/min/1.73 sqM) Glucose 81 (74-99) mg/dL Calcium 9.5 (8.4-10.2) mg/dL Magnesium 1.9 (1.6-2.3) mg/dL Total Bilirubin 0.5 (0.2-1.3) mg/dL AST 21 (17-59) U/L ALT 15 (4-49) U/L Alkaline Phosphatase 123 (38-126) U/L Troponin I (0.000-0.034) ng/mL Total Protein 6.2 L (6.3-8.2) g/dL Albumin 3.6 (3.5-5.0) g/dL 11/19/19 Range/Units 19:35 WBC (3.8-10.6) k/uL RBC (4.30-5.90) m/uL Hgb (13.0-17.5) gm/dL Hct (39.0-53.0) % MCV (80.0-100.0) fL MCH (25.0-35.0) pg MCHC (31.0-37.0) g/dL RDW (11.5-15.5) % Plt Count (150-450) k/uL Neutrophils % % Lymphocytes % % Monocytes % % Eosinophils % % Basophils % % Neutrophils # (1.3-7.7) k/uL Lymphocytes # (1.0-4.8) k/uL Monocytes # (0-1.0) k/uL Eosinophils # (0-0.7) k/uL Basophils # (0-0.2) k/uL PT (9.0-12.0) sec INR (<1.2) APTT (22.0-30.0) sec Sodium (137-145) mmol/L Potassium (3.5-5.1) mmol/L Chloride (98-107) mmol/L Carbon Dioxide (22-30) mmol/L Anion Gap mmol/L BUN (9-20) mg/dL Creatinine (0.66-1.25) mg/dL Est GFR (CKD-EPI)AfAm (>60 ml/min/1.73 sqM) Est GFR (CKD-EPI)NonAf (>60 ml/min/1.73 sqM) Glucose (74-99) mg/dL Calcium (8.4-10.2) mg/dL Magnesium (1.6-2.3) mg/dL Total Bilirubin (0.2-1.3) mg/dL AST (17-59) U/L ALT (4-49) U/L Alkaline Phosphatase (38-126) U/L Troponin I <0.012 (0.000-0.034) ng/mL Total Protein (6.3-8.2) g/dL Albumin (3.5-5.0) g/dL Disposition <Joel Varma - Last Filed: 11/19/19 19:44> Is patient prescribed a controlled substance at d/c from ED?: No Time of Disposition: 21:00 <Kenna Sandoval - Last Filed: 11/19/19 23:34> Clinical Impression: Left arm pain, Cervical radiculopathy Disposition: HOME SELF-CARE Condition: Good Instructions (If sedation given, give patient instructions): Back Pain (ED), Arm Pain (ED) Additional Instructions: Follow-up with your primary care physician for recheck as soon as possible. If pain symptoms persist discuss further imaging or evaluation. Return to the emergency department immediately for any new, worsening, or concerning symptoms. Referrals: Krystal Márquez MD [Primary Care Provider] - 1-2 days
[2019-11-19 19:52] LABS: INR 0.9 (<1.2); Partial Thromboplastin Time 22.1 sec (22.0-30.0); Prothrombin Time 9.3 sec (9.0-12.0)
[2019-11-19 19:54] LABS: ALT 15 U/L (4-49); AST 21 U/L (17-59); African American GFR (CKD) >90 (>60 ml/min/1.73 sqM); Albumin 3.6 g/dL (3.5-5.0); Alkaline Phosphatase 123 U/L (38-126); Anion Gap 8 mmol/L; Blood Urea Nitrogen 13 mg/dL (9-20); Calcium 9.5 mg/dL (8.4-10.2); Carbon Dioxide 24 mmol/L (22-30); Chloride 111 mmol/L (98-107); Glucose 81 mg/dL (74-99); Magnesium 1.9 mg/dL (1.6-2.3); Non-African American GFR(CKD) 82 (>60 ml/min/1.73 sqM); Sodium 143 mmol/L (137-145); Total Bilirubin 0.5 mg/dL (0.2-1.3); Total Protein 6.2 g/dL (6.3-8.2)
[2019-11-19] MEDS ORDERED: HYDROcodone/APAP 5-325MG 1 EACH TAB PO STA (20:54)
== END 2019-11-19 21:40 | disposition home or self-care (01) ==
LOC: EC 15:57
DX: M54.12 Radiculopathy, cervical region (principal); F17.290 Nicotine dependence, other tobacco product, uncomplicated; C25.2 Malignant neoplasm of tail of pancreas; Z92.21 Personal history of antineoplastic chemotherapy
CPT/HCPCS: 36415; 70450; 80053; 83735; 84484; 85025; 85610; 85730; 93005; 99284

== ENCOUNTER → 2019-11-23 | Outpatient (CLI) | payer MEDICARE, OTHER ==
--- NOTE | 2019-11-23 10:24 | US ---
EXAMINATION TYPE: US kidneys/renal and bladder DATE OF EXAM: 11/23/2019 COMPARISON: CT 10/11/2019, x-ray 10/18/2019m, US 10/18/2019 CLINICAL HISTORY: N13.2 HYDRONEPHROSIS. History of hydro, follow up EXAM MEASUREMENTS: Right Kidney: 9.5 x 4.9 x 4.9 cm Left Kidney: 9.3 x 4.7 x 4.4 cm Right Kidney: No hydronephrosis or masses seen, possible tiny echogenic foci visualized measuring 0.3 cm Left Kidney: No hydronephrosis or masses seen. Possible tiny echogenic foci visualized measuring 0.4 cm Bladder: Not distended Bilateral Jets seen: No There is no evidence for hydronephrosis at this point in time No masses are identified. The urinary bladder is anechoic. Bilateral ureteral jets are seen. IMPRESSION: Nonobstructing nephrolithiasis noted.
== END | disposition home or self-care (01) ==
LOC: RADUSWWP 09:39
PROVIDERS: ATTEND Urology
DX: N20.0 Calculus of kidney (principal)
CPT/HCPCS: 76770

== ENCOUNTER → 2019-12-18 | Outpatient (CLI) | payer MEDICARE, OTHER ==
[2019-12-18 12:53] LABS: African American GFR (CKD) >90 (>60 ml/min/1.73 sqM); Blood Urea Nitrogen 12 mg/dL (9-20); Non-African American GFR(CKD) >90 (>60 ml/min/1.73 sqM)
--- NOTE | 2019-12-20 07:52 | CT ---
EXAMINATION TYPE: CT ChestAbdPelvis w con DATE OF EXAM: 12/18/2019 COMPARISON: 10/11/19 HISTORY: follow up pancreatic cancer CT DLP: 873 mGycm CONTRAST: CT scan of the chest, abdomen and pelvis is performed with Oral Contrast and with IV Contrast, patien t injected with 100 mL of Isovue 300. CT Chest: LUNGS: The lungs are clear and free of infiltrate or atelectasis. No pulmonary nodule or mass is det ected. Scattered subpleural fibrosis are redemonstrated. MEDIASTINUM: Thoracic aorta is of normal caliber. The heart is not enlarged. No evidence for media stinal mass or adenopathy. HILAR STRUCTURES: No evidence for mass. No hilar adenopathy is appreciated. OTHER: No significant abnormality. CONTRAST CT ABDOMEN AND PELVIS FINDINGS: LIVER/GB: The gallbladder surgically absent. No space occupying hepatic lesion. Biliary tree is of no rmal caliber. PANCREAS: Noted are partial pancreatectomy changes. No recurrent or residual mass seen. Visualized po rtions of the pancreatic head and uncinate process are within normal limits. SPLEEN: Postsplenectomy changes are redemonstrated. ADRENALS: No nodule. No thickening. KIDNEYS/BLADDER: No hydronephrosis. There is bilateral nonobstructing nephrolithiasis identified. No distinct renal mass. Previously noted left-sided stent has been removed. BOWEL: Normal appendix. Normal bowel caliber. No inflammation. Colonic wall thickening may reflect underlying colitis. GENITAL ORGANS: No gross abnormality. LYMPH NODES: No greater than 1cm abdominal or pelvic lymph nodes are appreciated. AORTA: No significant abnormality. OSSEOUS STRUCTURES: No significant abnormality is seen. OTHER: No significant additional abnormality is seen. IMPRESSION: 1. No evidence for metastatic disease or recurrent disease. Partial pancreatectomy changes redemonstr ated. 2. Subpleural pulmonary fibrosis.
== END | disposition home or self-care (01) ==
LOC: RADCTMAIN 12:08
PROVIDERS: ATTEND Internal Medicine Hematology & Oncology
DX: J84.10 Pulmonary fibrosis, unspecified (principal); C25.1 Malignant neoplasm of body of pancreas; Z90.411 Acquired partial absence of pancreas
CPT/HCPCS: 82565; 84520; 71260; 74177; 36415; Q9967

== ENCOUNTER 2020-01-05 18:24 | Inpatient (IN) | payer MEDICARE, OTHER ==
[2020-01-05] MEDS ORDERED: SODIUM CHLORIDE 0.9% 1,000 ML IV STA (19:05)
[2020-01-05 19:37] LABS: Basophils # (A) 0.1 k/uL (0-0.2); Basophils % (A) 0 %; Eosinophils # (A) 0.5 k/uL (0-0.7); Eosinophils % (A) 3 %; HCT 40.1 % (39.0-53.0); HGB 13.1 gm/dL (13.0-17.5); Lymphocytes # (A) 2.2 k/uL (1.0-4.8); Lymphocytes % (A) 14 %; MCH 30.7 pg (25.0-35.0); MCHC 32.8 g/dL (31.0-37.0); MCV 93.5 fL (80.0-100.0); Mean Platelet Volume 7.8; Monocytes # (A) 0.8 k/uL (0-1.0); Monocytes % (A) 5 %; Neutrophils # (A) 12.3 k/uL (1.3-7.7); Neutrophils % (A) 77 %; Platelet Count 354 k/uL (150-450); RBC 4.29 m/uL (4.30-5.90); RDW 13.8 % (11.5-15.5)
[2020-01-05 19:38] LABS: Appearance,Urine Clear (Clear); Bilirubin,Urine Negative (Negative); Blood,Urine Negative (Negative); Color,Urine Yellow; Glucose,Urine (UA) Negative (Negative); Ketones,Urine Negative (Negative); Leukocyte Esterase,Urine Negative (Negative); Nitrite,Urine Negative (Negative); Protein,Urine Trace (Negative); Specific Gravity,Urine 1.021 (1.001-1.035); Urobilinogen,Urine <2.0 mg/dL (<2.0)
[2020-01-05] MEDS ORDERED: HYDROmorphone 0.5 MG/0.5 ML SYRINGE IVP STA ×2 (19:46→22:08)
[2020-01-05 19:51] LABS: ALT 12 U/L (4-49); AST 18 U/L (17-59); African American GFR (CKD) >90 (>60 ml/min/1.73 sqM); Albumin 3.4 g/dL (3.5-5.0); Alkaline Phosphatase 106 U/L (38-126); Amylase 37 U/L (30-110); Anion Gap 9 mmol/L; Blood Urea Nitrogen 14 mg/dL (9-20); Calcium 9.2 mg/dL (8.4-10.2); Carbon Dioxide 23 mmol/L (22-30); Chloride 110 mmol/L (98-107); Glucose 123 mg/dL (74-99); Non-African American GFR(CKD) >90 (>60 ml/min/1.73 sqM); Potassium 3.3 mmol/L (3.5-5.1); Sodium 142 mmol/L (137-145); Total Bilirubin 0.4 mg/dL (0.2-1.3)
[2020-01-05] MEDS ORDERED: SODIUM CHLORIDE 0.9% 500 ML 500 ML IV ONE (20:15)
[2020-01-05] MEDS ORDERED: SODIUM CHLORIDE 0.9% 1,000 ML IV ONE (20:22)
[2020-01-05] MEDS: SODIUM CHLORIDE 0.9% 1,000 ML IV SCH (20:25)
--- NOTE | 2020-01-05 20:34 | CT ---
EXAMINATION TYPE: CT abdomen pelvis w con DATE OF EXAM: 01/05/2020 COMPARISON: 12/18/2019. HISTORY: Abdominal and back pain, history of pancreatic cancer. CT DLP: 983.9 mGycm Automated exposure control for dose reduction was used. TECHNIQUE: Helical acquisition of images was performed from the lung bases through the pelvis. CONTRAST: Performed without Oral Contrast and with IV Contrast, patient injected with 100 mL of Isovue 300. FINDINGS: LUNG BASES: Stable bibasilar chronic subpleural interstitial opacities, consistent with fibrosis. LIVER/GB: No acute abnormality is appreciated. Cholecystectomy and hepatic steatosis noted. PANCREAS: Stable partial pancreatomy with body and tail absent. SPLEEN: No significant abnormality is seen. ADRENALS: No significant abnormality is seen. KIDNEYS: No significant abnormality is seen. FREE AIR: No free air is visualized. RETROPERITONEAL ADENOPATHY: None visualized REPRODUCTIVE ORGANS: No significant abnormality is seen URINARY BLADDER: No significant abnormality is seen. PELVIC ADENOPATHY: None visualized. OSSEOUS STRUCTURES: No significant abnormality is seen. BOWEL: Nonspecific chronic mild wall thickening of the proximal duodenum. No bowel obstruction, free air or fluid. OTHER: None. IMPRESSION: NO ACUTE ABNORMALITY. CHRONIC AND INCIDENTAL FINDINGS ABOVE TO INCLUDE MILD WALL THICKENING OF THE PROXIMAL DUODENUM, WH ICH MAY RELATE TO PEPTIC ULCER DISEASE IN THE APPROPRIATE CLINICAL SETTING.
[2020-01-05] MEDS ORDERED: POTASSIUM CHLORIDE ER 20 MEQ TAB.ER PO STA (20:40)
[2020-01-05] MEDS ORDERED: PIPERACILLIN-TAZOBACTAM 3.375 GM in SODIUM CHLORIDE 0.9% 100 ML IVPB STA (20:57)
--- NOTE | 2020-01-05 21:07 | XR ---
EXAMINATION TYPE: XR chest 2V DATE OF EXAM: 01/05/2020 COMPARISON: 10/05/2019. HISTORY: Congestion and weakness. TECHNIQUE: Frontal and lateral views of the chest are obtained. FINDINGS: The right IJ port catheter remains in place. There is mild to moderate prominence of inter stitial and vascular markings. No pleural effusion, or pneumothorax seen. The cardiac silhouette siz e is within normal limits. The osseous structures are intact. IMPRESSION: Mild to moderate interstitial edema.
--- NOTE | 2020-01-05 21:27 | ED ---
Abdominal Pain HPI - General Chief Complaint: Abdominal Pain Stated Complaint: abdominal and back pain Time Seen by Provider: 01/05/20 18:40 Source: patient Mode of arrival: ambulatory Limitations: no limitations - History of Present Illness Initial Comments: 59-year-old male with history of pancreatic cancer in remission after surgery performed in [place] he states it was of the pancreatic tail he denies any current radiation or chemotherapy. 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 Patient states that for the past week he has had a cough congestion. He states he has had chills but no known fever. States that for the past 3 days he has had an aching right lower quadrant pain he states he has not had a previous appendectomy. He states at times it radiates to the right lower back. He states he did eat today denies any significant changes in appetite denied a known fever. Patient denies any melena hematochezia he states he does have chronic diarrhea denies vomiting has some slight nausea he denies any chest pain shortness of breath to pain arm pain. Patient denies any testicular pain urinary symptoms hematuria. Patient states he does have history of kidney stones but this does not feel similar. Patient is no additional complaints and upon arrival he appears nontoxic in no acute distress - Related Data Home Medications Medication Instructions Recorded Confirmed No Known Home Medications 01/05/20 01/05/20 Allergies Allergy/AdvReac Type Severity Reaction Status Date / Time No Known Allergies Allergy Verified 01/05/20 20:42 Review of Systems ROS Statement: Those systems with pertinent positive or pertinent negative responses have been documented in the HPI. ROS Other: All systems not noted in ROS Statement are negative. Past Medical History Past Medical History: Cancer, GERD/Reflux Additional Past Medical History / Comment(s): Dx - pancreatic cancer 12/2018 in [place] had surgery in [place] and started chemo 03/22/19, EGD/colonoscopy dated 11/2018 states pt has duodenitis/antral gastritis/antral ulcer/colon and rectal polyp , hx nephrolithiasis., diarrhea., [facility]. History of Any Multi-Drug Resistant Organisms: None Reported Past Surgical History: Back Surgery, Cholecystectomy, Orthopedic Surgery Additional Past Surgical History / Comment(s): Tail of pancreas removed along with spleen in [place], [facility], laminectomy L4-L5/S1-S2, lower back laser surgery to cut nerves, L knee arthroscopy-meniscal and ACL, L ankle reconstructive surgery x 3, R hand surgery d/t trauma, EGD/colonoscopy, lithost ripsy. Past Anesthesia/Blood Transfusion Reactions: No Reported Reaction Additional Past Anesthesia/Blood Transfusion Reaction / Comment(s): Pt has re ceived blood in past without reaction. Past Psychological History: No Psychological Hx Reported Smoking Status: Vaper Past Alcohol Use History: Occasional Past Drug Use History: Marijuana - Past Family History Father History Unknown: Yes Additional Family Medical History / Comment(s): Pt does not know his father. Mother History Unknown: Yes Additional Family Medical History / Comment(s): Pt states he does not know mother's medical hx General Exam - General Exam Comments Initial Comments: General: The patient is awake and alert, in no distress Eye: +3 mm pupils are equal, round and reactive to light, extra-ocular movements are intact. No nystagmus. There is normal conjunctiva bilaterally. No signs of icterus. Ears, nose, mouth and throat: There are moist mucous membranes and no oral lesions. Neck: The neck is supple, there is no tenderness or JVD. Cardiovascular: There is a regular rate and rhythm. No murmur, rub or gallop is appreciated. Respiratory: Respirations are non-labored, breath sounds are equal. No wheezes, stridor, rales. Rhonchi present. dry cough. Gastrointestinal: Soft, non-distended, non-tender abdomen without masses or organomegaly noted. There is no rebound or guarding present. No CVA tenderness. No ventral hernia identified no skin changes. linear scar midline of abdomen. Musculoskeletal: Normal ROM, no tenderness. Strength 5/5. Sensation intact. radial and DP pulses equal bilaterally 2+. Neurological: A&O x 3. CN II-XII intact, There are no obvious motor or sensory deficits. Coordination appears grossly intact. Speech is normal. Skin: Skin is warm and dry and no rashes or lesions are noted. Psychiatric: Cooperative, appropriate mood & affect, normal judgment. Limitations: no limitations Course Vital Signs 01/05/20 01/05/20 18:27 20:31 Temperature 98.7 F Pulse Rate 110 H 82 Respiratory 20 18 Rate Blood Pressure 118/78 123/76 O2 Sat by Pulse 99 98 Oximetry Medical Decision Making - Medical Decision Making She has leukocytosis increased lactic acid. No evidence of hernia on physical examination. CT negative for acute process aside from riding suggestive of possible peptic ulcer disease patient has no epigastric pain. Patient does have a cough, differential diagnosis does include a muscular strain of the right side of the abdomen. There is no hiding things of appendicitis at this time. Patient CXR has concerning findings for interstitial edema. no leg swelling, no knonw history of heart failure, no difficulty lying flat. Patient BNP < 150. Patient troponin (-) without acute EKG findings. Denies chest pain. Patient has obvious URI symptoms. Given history of appendectomy with possible pneumonia/suspected in fection, patient initiated on zosyn. I did consult my attending on multiple occasions for assistance with antibiotics regime, he reviewed the CXR. He is agreeable to admission. Patietn agreeable to admission.Covid testing pending. Dr. Ramsay accepted admission. Azithromycin initiated. - Lab Data Result diagrams: 01/05/20 19:13 01/05/20 19:13 Lab Results 01/05/20 01/05/20 01/05/20 Range/Units 19:13 19:13 19:13 WBC 16.0 H (3.8-10.6) k/uL RBC 4.29 L (4.30-5.90) m/uL Hgb 13.1 (13.0-17.5) gm/dL Hct 40.1 (39.0-53.0) % MCV 93.5 (80.0-100.0) fL MCH 30.7 (25.0-35.0) pg MCHC 32.8 (31.0-37.0) g/dL RDW 13.8 (11.5-15.5) % Plt Count 354 (150-450) k/uL Neutrophils % 77 % Lymphocytes % 14 % Monocytes % 5 % Eosinophils % 3 % Basophils % 0 % Neutrophils # 12.3 H (1.3-7.7) k/uL Lymphocytes # 2.2 (1.0-4.8) k/uL Monocytes # 0.8 (0-1.0) k/uL Eosinophils # 0.5 (0-0.7) k/uL Basophils # 0.1 (0-0.2) k/uL Sodium 142 (137-145) mmol/L Potassium 3.3 L (3.5-5.1) mmol/L Chloride 110 H (98-107) mmol/L Carbon Dioxide 23 (22-30) mmol/L Anion Gap 9 mmol/L BUN 14 (9-20) mg/dL Creatinine 0.68 (0.66-1.25) mg/dL Est GFR (CKD-EPI)AfAm >90 (>60 ml/min/1.73 sqM) Est GFR (CKD-EPI)NonAf >90 (>60 ml/min/1.73 sqM) Glucose 123 H (74-99) mg/dL Plasma Lactic Acid [place] (0.7-2.0) mmol/L Calcium 9.2 (8.4-10.2) mg/dL Total Bilirubin 0.4 (0.2-1.3) mg/dL AST 18 (17-59) U/L ALT 12 (4-49) U/L Alkaline Phosphatase 106 (38-126) U/L Troponin I (0.000-0.034) ng/mL NT-Pro-B Natriuret Pep pg/mL Total Protein 6.0 L (6.3-8.2) g/dL Albumin 3.4 L (3.5-5.0) g/dL Amylase 37 (30-110) U/L Lipase 22 L (23-300) U/L Urine Color Yellow Urine Appearance Clear (Clear) Urine pH 6.0 (5.0-8.0) Ur Specific [place] 1.021 (1.001-1.035) Urine Protein Trace H (Negative) Urine Glucose (UA) Negative (Negative) Urine Ketones Negative (Negative) Urine Blood Negative (Negative) Urine Nitrite Negative (Negative) Urine Bilirubin Negative (Negative) Urine Urobilinogen <2.0 (<2.0) mg/dL Ur Leukocyte Esterase Negative (Negative) 01/05/20 01/05/20 01/05/20 Range/Units 19:13 19:13 19:13 WBC (3.8-10.6) k/uL RBC (4.30-5.90) m/uL Hgb (13.0-17.5) gm/dL Hct (39.0-53.0) % MCV (80.0-100.0) fL MCH (25.0-35.0) pg MCHC (31.0-37.0) g/dL RDW (11.5-15.5) % Plt Count (150-450) k/uL Neutrophils % % Lymphocytes % % Monocytes % % Eosinophils % % Basophils % % Neutrophils # (1.3-7.7) k/uL Lymphocytes # (1.0-4.8) k/uL Monocytes # (0-1.0) k/uL Eosinophils # (0-0.7) k/uL Basophils # (0-0.2) k/uL Sodium (137-145) mmol/L Potassium (3.5-5.1) mmol/L Chloride (98-107) mmol/L Carbon Dioxide (22-30) mmol/L Anion Gap mmol/L BUN (9-20) mg/dL Creatinine (0.66-1.25) mg/dL Est GFR (CKD-EPI)AfAm (>60 ml/min/1.73 sqM) Est GFR (CKD-EPI)NonAf (>60 ml/min/1.73 sqM) Glucose (74-99) mg/dL Plasma Lactic Acid [place] 2.9 H* (0.7-2.0) mmol/L Calcium (8.4-10.2) mg/dL Total Bilirubin (0.2-1.3) mg/dL AST (17-59) U/L ALT (4-49) U/L Alkaline Phosphatase (38-126) U/L Troponin I <0.012 (0.000-0.034) ng/mL NT-Pro-B Natriuret Pep 105 pg/mL Total Protein (6.3-8.2) g/dL Albumin (3.5-5.0) g/dL Amylase (30-110) U/L Lipase (23-300) U/L Urine Color Urine Appearance (Clear) Urine pH (5.0-8.0) Ur Specific [place] (1.001-1.035) Urine Protein (Negative) Urine Glucose (UA) (Negative) Urine Ketones (Negative) Urine Blood (Negative) Urine Nitrite (Negative) Urine Bilirubin (Negative) Urine Urobilinogen (<2.0) mg/dL Ur Leukocyte Esterase (Negative) Disposition Clinical Impression: Interstitial edema, Cough, Congestion of nasal sinus, RLQ abdominal pain, Low back pain Disposition: ADMITTED IP TO THIS HOSP Condition: Stable Is patient prescribed a controlled substance at d/c from ED?: No Referrals: Krystal Márquez MD [Primary Care Provider] - 1-2 days Time of Disposition: 22:02 Decision to Admit Reason: Admit from EC Decision Date: 01/05/20 Decision Time: 22:02
[2020-01-05] MEDS ORDERED: AZITHROMYCIN 500 MG in SODIUM CHLORIDE 0.9% 250 ML IVPB STA (22:06)
[2020-01-05] MEDS ORDERED: NALOXONE 0.4 MG/ML 1 ML VIAL IV PRN (22:51)
--- NOTE | 2020-01-06 01:00 | P.HPIM ---
History of Present Illness H&P Date: 01/06/20 Patient is a 59-year-old male with a PMH of pancreatic cancer status post pancreatic tail resection and splenectomy over a year ago who presents to the ED with complaints of abdominal pain. The patient reports that his symptoms initially started 3 days ago when he developed mild URI-like symptoms with nasal congestion and facial fullness. The patient reports that his symptoms gradually improved though that he then developed cough productive of whitish phlegm 1-2 days ago. He also reports that 2 family members have similar symptoms. He reports however that over the past 1-2 days she has also experienced a right lower quadrant abdominal pain, 6-7 out of 10, nonradiating, nonpleuritic, with no clear alleviating or exacerbating features. The patient reports that this is similar to the pain that he had when he was diagnosed with kidney stones. He denied any additional complaints. Denied chest pain, shortness of breath, or fever. Denied nausea, vomiting, or diarrhea. Also denied lower extremity swelling or orthopnea. In the emergency room a chest x-ray was consistent with mild to moderate interstitial edema with EKG showing normal sinus rhythm at [address] abdomen and pelvis with contrast showing mild thickening of the proximal duodenum and bibasilar chronic subpleural interstitial opacities consistent with fibrosis. Laboratory evaluation revealed a lactic acid of 2.9, WBC count 16, proBNP 105, troponin less than 0.012, and potassium 3.3. Review of Systems Pertinent positives and negatives as discussed in HPI, a complete review of systems was performed and all other systems are negative. Past Medical History Past Medical History: Cancer, GERD/Reflux Additional Past Medical History / Comment(s): Dx - pancreatic cancer 12/2018 in [place] had surgery in [place] and started chemo 03/22/19, EGD/colonoscopy dated 11/2018 states pt has duodenitis/antral gastritis/antral ulcer/colon and rectal polyp , hx nephrolithiasis., diarrhea., [facility]. History of Any Multi-Drug Resistant Organisms: None Reported Past Surgical History: Back Surgery, Cholecystectomy, Orthopedic Surgery Additional Past Surgical History / Comment(s): Tail of pancreas removed along with spleen in [place], [facility], laminectomy L4-L5/S1-S2, lower back laser surgery to cut nerves, L knee arthroscopy-meniscal and ACL, L ankle reconstructive surgery x 3, R hand surgery d/t trauma, EGD/colonoscopy, lithostripsy. Past Anesthesia/Blood Transfusion Reactions: No Reported Reaction Additional Past Anesthesia/Blood Transfusion Reaction / Comment(s): Pt has received blood in past without reaction. Past Psychological History: No Psychological Hx Reported Smoking Status: Vaper Past Alcohol Use History: Occasional Past Drug Use History: Marijuana - Past Family History Father History Unknown: Yes Additional Family Medical History / Comment(s): Pt does not know his father. Mother History Unknown: Yes Additional Family Medical History / Comment(s): Pt states he does not know mother's medical hx Medications and Allergies Home Medications Medication Instructions Recorded Confirmed Type No Known Home Medications 01/05/20 01/05/20 History Allergies Allergy/AdvReac Type Severity Reaction Status Date / Time No Known Allergies Allergy Verified 01/05/20 20:42 Physical Exam Vitals: Vital Signs Temp Pulse Resp BP Pulse Ox 01/05/20 22:30 78 18 119/82 96 01/05/20 22:00 18 120/88 98 01/05/20 21:30 80 17 123/78 98 01/05/20 20:31 82 18 123/76 98 01/05/20 18:27 98.7 F 110 H 20 118/78 99 Intake and Output 01/05/20 01/05/20 01/06/20 14:59 22:59 06:59 Other: Weight 79.379 kg General: non toxic, no distress, appears at stated age, overweight Derm: no unusual rashes/lesions no unusual ecchymoses, warm, dry Head: atraumatic, normocephalic, symmetric Eyes: EOMI, no lid lag, anicteric sclera, pupils equal round reactive to light ENT: Nose and ears atraumatic, no thrush, no pharyngeal erythema Neck: No thyromegaly, no cervical lymphadenopathy, trachea midline, supple Mouth: no lip lesion, mucus membranes moist Cardiovascular: S1S2 reg, no murmur, positive posterior tibial pulse bilateral, no edema, capillary refill less than 2 seconds Lungs: CTA bilateral, no rhonchi, no rales , no accessory muscle use Abdominal: soft, minimal right lower quadrant tenderness to palpation, no guarding, no appreciable organomegaly, normal bowel sounds Ext: no gross muscle atrophy, muscle strength 5 out of 5 in all 4 extremities grossly, no contractures, Neuro: CN II-XI grossly intact, light touch intact all 4 extremities, finger to nose within normal limits, Psych: Alert, oriented, appropriate affect Results CBC & Chem 7: 01/05/20 19:13 01/05/20 19:13 Labs: Abnormal Lab Results - Last 24 Hours (Table) 01/05/20 01/05/20 01/05/20 Range/Units 19:13 19:13 19:13 WBC 16.0 H (3.8-10.6) k/uL RBC 4.29 L (4.30-5.90) m/uL Neutrophils # 12.3 H (1.3-7.7) k/uL Potassium 3.3 L (3.5-5.1) mmol/L Chloride 110 H (98-107) mmol/L Glucose 123 H (74-99) mg/dL Plasma Lactic Acid [place] (0.7-2.0) mmol/L Total Protein 6.0 L (6.3-8.2) g/dL Albumin 3.4 L (3.5-5.0) g/dL Lipase 22 L (23-300) U/L Urine Protein Trace H (Negative) 01/05/20 Range/Units 19:13 WBC (3.8-10.6) k/uL RBC (4.30-5.90) m/uL Neutrophils # (1.3-7.7) k/uL Potassium (3.5-5.1) mmol/L Chloride (98-107) mmol/L Glucose (74-99) mg/dL Plasma Lactic Acid Austin 2.9 H* (0.7-2.0) mmol/L Total Protein (6.3-8.2) g/dL Albumin (3.5-5.0) g/dL Lipase (23-300) U/L Urine Protein (Negative) Assessment and Plan Plan: Suspected atypical pneumonia versus Covid 19 -Continue with azithromycin and ceftriaxone for now -Follow-up Covid testing -Isolation precautions for now Lactic acidosis -Monitor resolution -Continue with IV fluids Hypokalemia -Replace and monitor Abdominal pain, suspected likely secondary to muscle spasm from coughing -CT abdomen and pelvis essentially benign DVT prophylaxis -Heparin subq The patient is admitted with an anticipated greater than 2 midnight stay for evaluation of suspected Covid CODE STATUS: Full Code Discussed with: Patient Anticipated discharge date: 01/[address]: Home A total of 40 minutes was spent on the care of this complex patient more than 5 0% of the time was spent in counseling and care coordination.
[2020-01-06 06:55] LABS: HCT 37.5 % (39.0-53.0); HGB 11.8 gm/dL (13.0-17.5); Hypochromasia Slight; MCH 30.1 pg (25.0-35.0); MCHC 31.5 g/dL (31.0-37.0); MCV 95.6 fL (80.0-100.0); Platelet Count 367 k/uL (150-450); RBC 3.92 m/uL (4.30-5.90); RDW 14.3 % (11.5-15.5); WBC 9.1 k/uL (3.8-10.6)
[2020-01-06 08:42] LABS: C Reactive Protein <5.0 mg/L (<10.0); LDH 280 U/L (313-618)
[2020-01-06 08:43] LABS: D-Dimer 0.59 mg/L FEU (<0.60); INR 0.9 (<1.2); Partial Thromboplastin Time 22.9 sec (22.0-30.0); Prothrombin Time 9.4 sec (9.0-12.0)
[2020-01-06 09:16] LABS: African American GFR (CKD) 120.6 (60.0-200.0); Albumin 3.4 g/dL (3.80-4.90); Anion Gap 6.8 mmol/L (4.00-12.00); BUN/Creat Ratio 18.57 Ratio (12.00-20.00); Calcium 8.6 mg/dL (8.7-10.3); Carbon Dioxide 23.2 mmol/L (21.6-31.8); Globulin 1.7 g/dL (1.6-3.3); Potassium 3.7 mmol/L (3.5-5.5); Total Bilirubin 0.3 mg/dL (0.3-1.2); Total Protein 5.1 g/dL (6.2-8.2)
[2020-01-06] MEDS: AZITHROMYCIN 500 MG TAB PO SCH (09:35)
[2020-01-06] MEDS: HEPARIN SODIUM,PORCINE 5,000 UNIT/ML 1 ML VIAL SQ SCH ×3 (09:36→23:00)
[2020-01-06] MEDS: SODIUM CHLORIDE 0.9% 1,000 ML IV SCH (09:36)
[2020-01-06] MEDS: HYDROcodone/APAP 5-325MG 1 EACH TAB PO PRN ×3 (10:34→21:41)
--- NOTE | 2020-01-06 10:39 | P.PN ---
Subjective Progress Note Date: 01/06/20 Patient was seen and evaluated by me today. He is complaining of low back pain and a vague pain in the right upper quadrant. He denies any nausea or vomiting. No fevers or chills. He is having intermittent cough that is occasionally productive. He reports feeling tired and generalized malaise. No documented fever since admission. Objective - Vital Signs Vital signs: Vital Signs Temp 98.2 F 01/06/20 07:00 Pulse 73 01/06/20 07:00 Resp 16 01/06/20 07:00 BP 106/71 01/06/20 07:00 Pulse Ox 95 01/06/20 07:00 Intake & Output 01/05/20 01/06/20 01/06/20 18:59 06:59 18:59 Intake Total 600 Balance 600 Weight 79.379 kg 79.379 kg Intake: Intake, IV Titration 600 Amount Sodium Chloride 0.9% 1, 600 000 ml @ 75 mls/hr IV . [id number] STA Rx#:[id number] Other: # Voids 2 - Exam General: The patient is awake and alert, in no distress Eye: there is normal conjunctiva bilaterally. Neck: The neck is supple, there is no JVD. Cardiovascular: Normal S1-S2, no S3-S4, no murmurs. Respiratory: Lungs clear to auscultation bilaterally Gastrointestinal: Abdomen is soft, nontender Musculoskeletal: There is no pedal edema. Neurological:. Speech is normal. Skin: Skin is warm and dry - Labs CBC & Chem 7: 01/06/20 06:38 01/06/20 06:38 Labs: Abnormal Lab Results - Last 24 Hours (Table) 01/05/20 01/05/20 01/05/20 Range/Units 19:13 19:13 19:13 WBC 16.0 H (3.8-10.6) k/uL RBC 4.29 L (4.30-5.90) m/uL Hgb (13.0-17.5) gm/dL Hct (39.0-53.0) % Neutrophils # 12.3 H (1.3-7.7) k/uL Potassium 3.3 L (3.5-5.1) mmol/L Chloride 110 H (98-107) mmol/L Glucose 123 H (74-99) mg/dL Plasma Lactic Acid [place] (0.7-2.0) mmol/L Calcium (8.7-10.3) mg/dL Lactate Dehydrogenase (313-618) U/L Total Protein 6.0 L (6.3-8.2) g/dL Albumin 3.4 L (3.5-5.0) g/dL Lipase 22 L (23-300) U/L Urine Protein Trace H (Negative) 01/05/20 01/06/20 01/06/20 Range/Units 19:13 06:38 06:38 WBC (3.8-10.6) k/uL RBC 3.92 L (4.30-5.90) m/uL Hgb 11.8 L (13.0-17.5) gm/dL Hct 37.5 L (39.0-53.0) % Neutrophils # (1.3-7.7) k/uL Potassium (3.5-5.1) mmol/L Chloride 114 H (98-107) mmol/L Glucose (74-99) mg/dL Plasma Lactic Acid [place] 2.9 H* (0.7-2.0) mmol/L Calcium 8.6 L (8.7-10.3) mg/dL Lactate Dehydrogenase (313-618) U/L Total Protein 5.1 L (6.3-8.2) g/dL Albumin 3.40 L (3.5-5.0) g/dL Lipase (23-300) U/L Urine Protein (Negative) 01/06/20 Range/Units 08:09 WBC (3.8-10.6) k/uL RBC (4.30-5.90) m/uL Hgb (13.0-17.5) gm/dL Hct (39.0-53.0) % Neutrophils # (1.3-7.7) k/uL Potassium (3.5-5.1) mmol/L Chloride (98-107) mmol/L Glucose (74-99) mg/dL Plasma Lactic Acid [place] (0.7-2.0) mmol/L Calcium (8.7-10.3) mg/dL Lactate Dehydrogenase 280 L (313-618) U/L Total Protein (6.3-8.2) g/dL Albumin (3.5-5.0) g/dL Lipase (23-300) U/L Urine Protein (Negative) Assessment and Plan Assessment: This is a 59-year-old male with extensive past medical history who presented to the emergency room with flulike symptoms and vague abdominal discomfort. Patient was evaluated in the ER and currently admitted to the hospital for further management of his medical problems noted below. 1. Viral URI: My suspicion for COVID-19 is zero based on his clinical presentation. D-dimer, CRP, and LDH are all normal. Patient was started on antibiotic for bacterial pneumonia which appears to be very less likely. I would continue antibiotic Awaiting pro-calcitonin. Check influenza A/B 2. Abdominal pain, vague in nature. Computed tomography scan of the abdomen and pelvis in the ER showed no acute findings. Mild wall thickening of the proximal duodenal noted. 3. History of antral erosive gastritis with history of superficial 1 cm antral ulcer noted on EGD in November 2018. Resume Protonix 40 mg daily. Patient said that he stopped taking Protonix as he thought his problem has resolved 4. History of pancreatic cancer status post partial pancreatectomy and chemotherapy. Now off chemotherapy. Patient said that he stopped taking pancreatic enzymes as he believes they do not work. I will resume pancreatic enzymes 3 times a day after meals. 5. Hypokalemia, replaced 6. DVT prophylaxis with subcu heparin
[2020-01-06 11:57] LABS: Ferritin 47.1 ng/mL (22.0-322.0)
[2020-01-06] MEDS: PANTOPRAZOLE 40 MG/10 ML VIAL IVP SCH (11:59)
[2020-01-06] MEDS: LIPASE 5,000/PROTEASE 17,000/AMYLASE 24,000 PO SCH ×2 (13:12→17:33)
[2020-01-07 08:26] VITALS: BP 119/73; PULSE 65; RESP 19; TEMP 98.2
[2020-01-07] MEDS: HEPARIN SODIUM,PORCINE 5,000 UNIT/ML 1 ML VIAL SQ SCH (08:34)
[2020-01-07] MEDS: PANTOPRAZOLE 40 MG/10 ML VIAL IVP SCH (08:34)
[2020-01-07] MEDS: AZITHROMYCIN 500 MG TAB PO SCH (08:35)
[2020-01-07] MEDS: LIPASE 5,000/PROTEASE 17,000/AMYLASE 24,000 PO SCH (08:35)
[2020-01-07] MEDS: HYDROcodone/APAP 5-325MG 1 EACH TAB PO PRN (08:45)
--- NOTE | 2020-01-07 11:05 | P.DS ---
Providers Date of admission: 01/05/20 22:17 Expected date of discharge: 01/07/20 Attending physician: Wellington Ramsay MD [facility] care [facility]: This is a 59-year-old male with extensive past medical history who presented to the emergency room with flulike symptoms and vague abdominal discomfort. Patient was evaluated in the ER and currently admitted to the hospital for further management of his medical problems noted below. 1. Viral URI: My suspicion for COVID-19 is zero based on his clinical presentation. D-dimer, CRP, and LDH are all normal. Patient was started on antibiotic for bacterial pneumonia which appears to be very less likely. Will finish 5 days course of antibiotic. Calcitonin normal. Influenza A and B-. 2. Abdominal pain, vague in nature. Computed tomography scan of the abdomen and pelvis in the ER showed no acute findings. Mild wall thickening of the proximal duodenal noted. 3. History of antral erosive gastritis with history of superficial 1 cm antral ulcer noted on EGD in November 2018. Resume Protonix 40 mg daily. 4. History of pancreatic cancer status post partial pancreatectomy and chemotherapy. Now off chemotherapy. Patient said that he stopped taking pancreatic enzymes as he believes they do not work. He is not interested in taking pancreatic enzymes again. 5. Hypokalemia, replaced Patient will be discharged home in a stable condition. For further details about this hospitalization please refer to the electronic chart. Time spent on discharge > 30 minutes including counseling and coordination of Patient Condition at Discharge: Stable Plan - Discharge Summary Discharge Rx Participant: Yes New Discharge Prescriptions: New Pantoprazole Sodium [Protonix] [facility]. Azithromycin 250 mg PO DAILY 3 Days #3 tab Cephalexin [Keflex] 500 mg PO Q8HR 9 Days #9 cap HYDROcodone/APAP 5-325MG [[place] 5-325] 1 tab PO Q6HR PRN 3 Days #12 tab PRN Reason: Pain Discharge Medication List Azithromycin 250 mg PO DAILY 3 Days #3 tab 01/07/20 [Rx] Cephalexin [Keflex] 500 mg PO Q8HR 9 Days #9 cap 01/07/20 [Rx] HYDROcodone/APAP 5-325MG [[place] 5-325] 1 tab PO Q6HR PRN 3 Days #12 tab 01/07/20 [Rx] Pantoprazole Sodium [Protonix] 40 mg PO [facility] #30 tablet. 01/07/20 [Rx] Follow up Appointment(s)/Referral(s): Krystal Márquez MD [Primary Care Provider] - 1-2 days Discharge Disposition: HOME SELF-CARE
== END 2020-01-07 11:43 | disposition home or self-care (01) | DRG 153 ==
LOC: EC 18:24 → OBSVTOIN 22:17 → 4SSUR 22:17
PROVIDERS: ADMIT Internal Medicine; ATTEND Internal Medicine
DX: J06.9 Acute upper respiratory infection, unspecified (principal); E87.2 Acidosis; E87.6 Hypokalemia; Z20.828 Contact with and (suspected) exposure to other viral communicable diseases; K21.9 Gastro-esophageal reflux disease without esophagitis; F17.290 Nicotine dependence, other tobacco product, uncomplicated; R10.11 Right upper quadrant pain; R10.31 Right lower quadrant pain; M62.838 Other muscle spasm; Z79.899 Other long term (current) drug therapy; Z85.07 Personal history of malignant neoplasm of pancreas; Z87.11 Personal history of peptic ulcer disease; Z87.442 Personal history of urinary calculi; Z90.411 Acquired partial absence of pancreas; Z90.49 Acquired absence of other specified parts of digestive tract; Z90.81 Acquired absence of spleen; Z86.010 Personal history of colon polyps; Z87.19 Personal history of other diseases of the digestive system; Z92.21 Personal history of antineoplastic chemotherapy; Z98.890 Other specified postprocedural states
CPT/HCPCS: 36415; 71046; 74177; 80053; 81003; 82150; 82728; 83605; 83615; 83690; 83880; 84145; 84484; 85025; 85027; 85379; 85610; 85730; 86140; 87040; 87502; 93005; 96361; 96365; 96367; 96375; 96376; 99285

== ENCOUNTER 2020-01-13 00:40 | Emergency (ER) | payer MEDICARE, OTHER ==
[2020-01-13] MEDS ORDERED: ONDANSETRON 4 MG/2 ML VIAL IVP STA (01:14)
[2020-01-13] MEDS ORDERED: MORPHINE SULFATE 2 MG/ML SYRINGE IVP STA ×2 (01:14→03:03)
[2020-01-13] MEDS ORDERED: SODIUM CHLORIDE 0.9% 1,000 ML IV STA (01:14)
--- NOTE | 2020-01-13 01:36 | ED ---
General Adult HPI - General Chief complaint: Abdominal Pain Stated complaint: Back pain Time Seen by Provider: 01/13/20 00:48 Source: patient Mode of arrival: ambulatory - History of Present Illness Initial comments: 59-year-old male patient with past medical history significant for peptic ulcer disease, pancreatic cancer status post partial pancreatectomy with chemotherapy, last dosage 6 months ago, and splenectomy presents to the emergency department today with complaints of back pain, abdominal discomfort, and worsening cough. Patient states he has had these symptoms for a little over a week. He was admitted to the hospital and underwent extensive evaluation including lab testing and CT abdomen and pelvis. It was determined that he had viral upper respiratory infection and potential return of his gastric ulcer and he was discharged on Azithromycin, Keflex, and protonix. He was also given norco for pain which he states did help, he ran out two days ago. Patient missed his follow up appointment with his PCP and has yet to make a GI appointment. Patient states the pain in his back extends from the lower back all the way up his shoulders and around his ribs. States that the pain worsens with movement and with deep breathing and coughing. He denies any lower extremity numbness, tingling, no anesthesia, loss of bowel or bladder control. He does report sputum production with his cough, denies hemoptysis. Reports mild shortness of breath. Reports nausea without vomiting. He is able to eat and drink. Does get regular follow up for monitoring of his pancreatic cancer. He denies any fever or chills. Patient denies any recent rash, diarrhea, constipation, back pain, numbness, tingling, dizziness, weakness, hematuria, dysuria, urinary urgency, urinary frequency, headache, visual changes, or any other complaints. - Related Data Previous Rx's Medication Instructions Recorded Azithromycin 250 mg PO DAILY 3 Days #3 tab 01/07/20 Cephalexin [Keflex] 500 mg PO Q8HR 9 Days #9 cap 01/07/20 HYDROcodone/APAP 5-325MG [[place] 1 tab PO Q6HR PRN 3 Days #12 tab 01/07/20 5-325] Pantoprazole Sodium [Protonix] 40 mg PO [facility] #30 tablet. 01/07/20 Tamsulosin HCl [Flomax] 0.4 mg PO DAILY #7 cap 01/13/20 guaiFENesin-DM 600/30MG [Mucinex 1 each PO Q12HR #10 tab.er.12h 01/13/20 Dm] Allergies Allergy/AdvReac Type Severity Reaction Status Date / Time No Known Allergies Allergy Verified 01/13/20 01:47 Review of Systems ROS Statement: Those systems with pertinent positive or pertinent negative responses have been documented in the HPI. ROS Other: All systems not noted in ROS Statement are negative. Past Medical History Past Medical History: Cancer, GERD/Reflux Additional Past Medical History / Comment(s): Dx - pancreatic cancer 12/2018 in [place] surgery in [place] and started chemo 03/22/19, EGD/colonoscopy dated 11/2018 states pt has duodenitis/antral gastritis/antral ulcer/colon and rectal polyp , hx nephrolithiasis., diarrhea., Mediport. History of Any Multi-Drug Resistant Organisms: None Reported Past Surgical History: Back Surgery, Cholecystectomy, Orthopedic Surgery Additional Past Surgical History / Comment(s): Tail of pancreas removed along with spleen in [place], [facility], laminectomy L4-L5/S1-S2, lower back laser surgery to cut nerves, L knee arthroscopy-meniscal and ACL, L ankle reconstructive surgery x 3, R hand surgery d/t trauma, EGD/colonoscopy, lithostripsy. Past Anesthesia/Blood Transfusion Reactions: No Reported Reaction Additional Past Anesthesia/Blood Transfusion Reaction / Comment(s): Pt has received blood in past without reaction. Past Psychological History: No Psychological Hx Reported Smoking Status: Vaper Past Alcohol Use History: Occasional Past Drug Use History: Marijuana - Past Family History Father History Unknown: Yes Additional Family Medical History / Comment(s): Pt does not know his father. Mother History Unknown: Yes Additional Family Medical History / Comment(s): Pt states he does not know mo ther's medical hx General Exam General appearance: alert, in no apparent distress, other (This is a well- developed, well-nourished adult male patient in no acute distress. Vital signs upon presentation are temperature 98.7 degrees; pulse 111, respirations 17, blood pressure 105/51, pulse ox 99% on room air.) Eye exam: Present: normal appearance, PERRL, EOMI. Absent: scleral icterus, conjunctival injection, periorbital swelling ENT exam: Present: normal exam, normal oropharynx, mucous membranes moist Respiratory exam: Present: normal lung sounds bilaterally, other (Intermittent cough noted throughout exam). Absent: respiratory distress, wheezes, rales, rhonchi, stridor Cardiovascular Exam: Present: regular rate, normal rhythm, normal heart sounds. Absent: systolic murmur, diastolic murmur, rubs, gallop, clicks GI/Abdominal exam: Present: soft, normal bowel sounds. Absent: distended, tenderness, guarding, rebound, rigid Neurological exam: Present: alert, oriented X3, CN II-XII intact Psychiatric exam: Present: normal affect, normal mood Skin exam: Present: warm, dry, intact, normal color. Absent: rash Course Vital Signs 01/13/20 01/13/20 00:46 02:10 Temperature 98.7 F 98.4 F Pulse Rate 111 H 98 Respiratory 17 16 Rate Blood Pressure 105/51 106/65 O2 Sat by Pulse 99 98 Oximetry Medical Decision Making - Medical Decision Making 59-year-old male patient with past medical history significant for peptic ulcer disease, pancreatic cancer status post partial pancreatectomy with chemotherapy, last dosage 6 months ago, and splenectomy presents to the emergency department today with complaints of back pain, abdominal discomfort, and worsening cough. His examination did reveal clear equal lung sounds. Abdomen is soft and nontender. He does have some flank tenderness. Neurovascular status is intact to the lower extremities. No neurologic deficits. No concerning symptoms for cauda equina. Labs reviewed and did reveal decreased potassium at 3.4. Urinalysis did show mild increase in red and white blood cells as well as presence of calcium oxylate crystals. Chest x-ray showed no acute cardiopulmonary process but changes consistent with emphysema. Given patient's symptoms a do feel that he has developed bronchitis we will treat with Mucinex DM he did complete is arising Keflex a few days ago. Patient does have a history of kidney stones and given urine findings we'll treat with Flomax and Tylenol with codeine starter pack for possible stone he is instructed to follow- up with urology. We'll discharge also to follow-up with his primary care physician for recheck in 1-2 days. Return parameters were discussed in detail. He verbalizes understanding and agrees with this plan. - Lab Data Result diagrams: 01/13/20 01:49 01/13/20 01:49 Lab Results 10/31/20 10/31/20 10/31/20 Range/Units 01:49 01:49 01:49 WBC 10.3 (3.8-10.6) k/uL RBC 4.32 (4.30-5.90) m/uL Hgb 13.2 (13.0-17.5) gm/dL Hct 41.2 (39.0-53.0) % MCV 95.2 (80.0-100.0) fL MCH 30.6 (25.0-35.0) pg MCHC 32.1 (31.0-37.0) g/dL RDW 14.4 (11.5-15.5) % Plt Count 360 (150-450) k/uL Neutrophils % 65 % Lymphocytes % 19 % Monocytes % 7 % Eosinophils % 5 % Basophils % 1 % Neutrophils # 6.7 (1.3-7.7) k/uL Lymphocytes # 2.0 (1.0-4.8) k/uL Monocytes # 0.8 (0-1.0) k/uL Eosinophils # 0.6 (0-0.7) k/uL Basophils # 0.1 (0-0.2) k/uL PT (9.0-12.0) sec INR (<1.2) APTT (22.0-30.0) sec Sodium 141 (137-145) mmol/L Potassium 3.4 L (3.5-5.1) mmol/L Chloride 112 H (98-107) mmol/L Carbon Dioxide 22 (22-30) mmol/L Anion Gap 7 mmol/L BUN 12 (9-20) mg/dL Creatinine 0.72 (0.66-1.25) mg/dL Est GFR (CKD-EPI)AfAm >90 (>60 ml/min/1.73 sqM) Est GFR (CKD-EPI)NonAf >90 (>60 ml/min/1.73 sqM) Glucose 104 H (74-99) mg/dL Calcium 9.4 (8.4-10.2) mg/dL Total Bilirubin 0.4 (0.2-1.3) mg/dL AST 20 (17-59) U/L ALT 14 (4-49) U/L Alkaline Phosphatase 101 (38-126) U/L Troponin I (0.000-0.034) ng/mL Total Protein 6.3 (6.3-8.2) g/dL Albumin 3.6 (3.5-5.0) g/dL Lipase 21 L (23-300) U/L Urine Color Yellow Urine Appearance Cloudy (Clear) Urine pH 6.0 (5.0-8.0) Ur Specific [place] 1.022 (1.001-1.035) Urine Protein Trace H (Negative) Urine Glucose (UA) Negative (Negative) Urine Ketones Negative (Negative) Urine Blood Negative (Negative) Urine Nitrite Negative (Negative) Urine Bilirubin Negative (Negative) Urine Urobilinogen <2.0 (<2.0) mg/dL Ur Leukocyte Esterase Small H (Negative) Urine RBC 8 H (0-5) /hpf Urine WBC 11 H (0-5) /hpf Calcium Oxalate Crystal Few H (None) /hpf Urine Mucus Occasional H (None) /hpf 01/13/20 01/13/20 Range/Units 01:49 01:49 WBC (3.8-10.6) k/uL RBC (4.30-5.90) m/uL Hgb (13.0-17.5) gm/dL Hct (39.0-53.0) % MCV (80.0-100.0) fL MCH (25.0-35.0) pg MCHC (31.0-37.0) g/dL RDW (11.5-15.5) % Plt Count (150-450) k/uL Neutrophils % % Lymphocytes % % Monocytes % % Eosinophils % % Basophils % % Neutrophils # (1.3-7.7) k/uL Lymphocytes # (1.0-4.8) k/uL Monocytes # (0-1.0) k/uL Eosinophils # (0-0.7) k/uL Basophils # (0-0.2) k/uL PT 9.4 (9.0-12.0) sec INR 0.9 (<1.2) APTT 23.0 (22.0-30.0) sec Sodium (137-145) mmol/L Potassium (3.5-5.1) mmol/L Chloride (98-107) mmol/L Carbon Dioxide (22-30) mmol/L Anion Gap mmol/L BUN (9-20) mg/dL Creatinine (0.66-1.25) mg/dL Est GFR (CKD-EPI)AfAm (>60 ml/min/1.73 sqM) Est GFR (CKD-EPI)NonAf (>60 ml/min/1.73 sqM) Glucose (74-99) mg/dL Calcium (8.4-10.2) mg/dL Total Bilirubin (0.2-1.3) mg/dL AST (17-59) U/L ALT (4-49) U/L Alkaline Phosphatase (38-126) U/L Troponin I <0.012 (0.000-0.034) ng/mL Total Protein (6.3-8.2) g/dL Albumin (3.5-5.0) g/dL Lipase (23-300) U/L Urine Color Urine Appearance (Clear) Urine pH (5.0-8.0) Ur Specific [place] (1.001-1.035) Urine Protein (Negative) Urine Glucose (UA) (Negative) Urine Ketones (Negative) Urine Blood (Negative) Urine Nitrite (Negative) Urine Bilirubin (Negative) Urine Urobilinogen (<2.0) mg/dL Ur Leukocyte Esterase (Negative) Urine RBC (0-5) /hpf Urine WBC (0-5) /hpf Calcium Oxalate Crystal (None) /hpf Urine Mucus (None) /hpf - EKG Data EKG shows normal: sinus rhythm Rate: normal EKG Comments: EKG showing normal sinus rhythm was obtained at 1:30. Ventricular rate of 92, ME interval 144, QRS duration 90, QT/QTc 366/452. Interpreted a normal ECG - Radiology Data Radiology results: report reviewed, image reviewed Two-view x-ray of the chest is obtained. Report was reviewed in its entirety. Impression by Dr. Chacko shows prominent interstitial markings throughout both lungs, unchanged since previous, consistent with mild emphysema. No new infiltrates are identified. Disposition Clinical Impression: Back pain, Hematuria, Acute bronchitis Disposition: HOME SELF-CARE Condition: Good Instructions (If sedation given, give patient instructions): Acute Bronchitis (ED), Back Pain (ED) Additional Instructions: Take medications as directed. Take Flomax and pain medication for possible kidney stone. Use cough medication as needed. Follow-up through primary care physician for recheck as soon as possible. Follow-up with urology as needed. Return to the emergency department immediately for any new, worsening, or concerning symptoms. Prescriptions: Tamsulosin HCl [Flomax] 0.4 mg PO DAILY #7 cap guaiFENesin-DM 600/30MG [Mucinex Dm] 1 each PO Q12HR #10 tab.er.12h Is patient prescribed a controlled substance at d/c from ED?: No Referrals: Krystal Márquez MD [Primary Care Provider] - 1-2 days Karl Brown MD [STAFF PHYSICIAN] - 1-2 days Time of Disposition: 03:00
[2020-01-13 01:58] LABS: Basophils # (A) 0.1 k/uL (0-0.2); Basophils % (A) 1 %; Eosinophils # (A) 0.6 k/uL (0-0.7); Eosinophils % (A) 5 %; HCT 41.2 % (39.0-53.0); HGB 13.2 gm/dL (13.0-17.5); Lymphocytes % (A) 19 %; MCH 30.6 pg (25.0-35.0); MCHC 32.1 g/dL (31.0-37.0); MCV 95.2 fL (80.0-100.0); Mean Platelet Volume 7.8; Monocytes # (A) 0.8 k/uL (0-1.0); Monocytes % (A) 7 %; Neutrophils # (A) 6.7 k/uL (1.3-7.7); Neutrophils % (A) 65 %; Platelet Count 360 k/uL (150-450); RBC 4.32 m/uL (4.30-5.90); RDW 14.4 % (11.5-15.5); WBC 10.3 k/uL (3.8-10.6)
[2020-01-13 02:02] LABS: Appearance,Urine Cloudy (Clear); Bilirubin,Urine Negative (Negative); Blood,Urine Negative (Negative); Calcium Oxalate Crystals,Urine Few /hpf; Color,Urine Yellow; Glucose,Urine (UA) Negative (Negative); Ketones,Urine Negative (Negative); Leukocyte Esterase,Urine Small (Negative); Mucus,Urine Occasional /hpf; Nitrite,Urine Negative (Negative); Protein,Urine Trace (Negative); RBC,Urine 8 /hpf (0-5); Specific Gravity,Urine 1.022 (1.001-1.035); Urobilinogen,Urine <2.0 mg/dL (<2.0); WBC,Urine 11 /hpf (0-5)
[2020-01-13 02:09] LABS: INR 0.9 (<1.2); Prothrombin Time 9.4 sec (9.0-12.0)
--- NOTE | 2020-01-13 02:13 | XR ---
EXAM: XR Chest, 2 Views CLINICAL HISTORY: ITS.REASON XR Reason: Rib pain/ cough TECHNIQUE: Frontal and lateral views of the chest. COMPARISON: January 05, 2020 FINDINGS: Lungs: There are prominent interstitial markings throughout both lungs, unchanged since previous, consistent with mild emphysema. No new infiltrates are identified. Pleural space: Unremarkable. No pneumothorax. Heart: Unremarkable. No cardiomegaly. Mediastinum: Unremarkable. Bones/joints: Mild degenerative changes in the lower thoracic spine. Tubes, lines and devices: There is a Port-A-Cath on the right with the catheter tip at the junction of the brachycephalic vein and superior vena cava, unchanged. IMPRESSION: There are prominent interstitial markings throughout both lungs, unchanged since previous, consistent with mild emphysema. No new infiltrates are identified.
[2020-01-13 02:15] LABS: ALT 14 U/L (4-49); AST 20 U/L (17-59); African American GFR (CKD) >90 (>60 ml/min/1.73 sqM); Albumin 3.6 g/dL (3.5-5.0); Alkaline Phosphatase 101 U/L (38-126); Anion Gap 7 mmol/L; Blood Urea Nitrogen 12 mg/dL (9-20); Calcium 9.4 mg/dL (8.4-10.2); Carbon Dioxide 22 mmol/L (22-30); Chloride 112 mmol/L (98-107); Glucose 104 mg/dL (74-99); Lipase 21 U/L (23-300); Non-African American GFR(CKD) >90 (>60 ml/min/1.73 sqM); Potassium 3.4 mmol/L (3.5-5.1); Sodium 141 mmol/L (137-145); Total Bilirubin 0.4 mg/dL (0.2-1.3); Total Protein 6.3 g/dL (6.3-8.2)
[2020-01-13 02:17] VITALS: RESP 16
[2020-01-13] MEDS ORDERED: POTASSIUM CHLORIDE ER 20 MEQ TAB.ER PO STA (02:35)
[2020-01-13] MEDS ORDERED: ACET/COD 300 MG/30 MG STARTER PACK 6 TAB BTL PO STA (03:00)
[2020-01-13] MEDS ORDERED: TAMSULOSIN 0.4 MG CAP.ER.24H PO STA (03:00)
[2020-01-13 03:21] VITALS: BP 108/72; PULSE 76; TEMP 98
== END 2020-01-13 03:15 | disposition home or self-care (01) ==
LOC: EC 00:40
DX: J20.9 Acute bronchitis, unspecified (principal); R31.9 Hematuria, unspecified; M54.9 Dorsalgia, unspecified; Z85.07 Personal history of malignant neoplasm of pancreas; Z90.411 Acquired partial absence of pancreas; Z90.81 Acquired absence of spleen
CPT/HCPCS: 36415; 93005; 80053; 83690; 84484; 85025; 85610; 85730; 81001; 87086; 87077; 87186; 71046; 99284; 96374; 96375; 96376; 96361; J2405; J2270

== ENCOUNTER 2020-01-26 13:56 | Emergency (ER) | payer MEDICARE, OTHER ==
[2020-01-26 14:14] VITALS: TEMP 99.5
[2020-01-26] MEDS ORDERED: SODIUM CHLORIDE 0.9% 500 ML 500 ML IV STA (15:02)
[2020-01-26] MEDS ORDERED: MORPHINE SULFATE 2 MG/ML SYRINGE IVP ONE (15:03)
--- NOTE | 2020-01-26 15:37 | ED ---
Abdominal Pain HPI - General Chief Complaint: Abdominal Pain Stated Complaint: Lower back, ABD pain Time Seen by Provider: 01/26/20 14:47 Source: patient Mode of arrival: wheelchair Limitations: no limitations - History of Present Illness Initial Comments: Patient is a 59-year-old male, with past medical history of altered disease, pancreatic cancer status post partial pancreatectomy with chemotherapy, last dose this is months ago and splenectomy, presenting to the emergency Department with complaints of low back pain, right sided rib pain as well as right abdominal pain that has been ongoing for 5 weeks. Patient states he was seen in the ER a few weeks ago for same complaint and the diagnosed him with a possible viral respiratory infection. Patient states the pain in his low back is getting worse and as well as the pain in his right side of his abdomen is also increasing. Patient states he does take pain medicine at home on off for this but is not helping. He denies any falls or trauma to his back. He does have history of low back surgery many years ago. He denies any numbness and tingling into his extremities, no loss of bowel or bladder control. He does continue to have a mild cough, no sputum production. He denies any fever, chills, chest pain, shortness of breath. Denies any dizziness, weakness, hematuria, dysuria. He has no further complaints at this time. Upon arrival to the ER, his vital signs are stable. - Related Data Previous Rx's Medication Instructions Recorded Azithromycin 250 mg PO DAILY 3 Days #3 tab 01/07/20 Cephalexin [Keflex] 500 mg PO Q8HR 9 Days #9 cap 01/07/20 HYDROcodone/APAP 5-325MG [[place] 1 tab PO Q6HR PRN 3 Days #12 tab 01/07/20 5-325] Pantoprazole Sodium [Protonix] 40 mg PO AC-BRKFST #30 tablet.dr 01/07/20 Tamsulosin HCl [Flomax] 0.4 mg PO DAILY #7 cap 01/13/20 guaiFENesin-DM 600/30MG [Mucinex 1 each PO Q12HR #10 tab.er.12h 01/13/20 Dm] Hydrocodone/Acetaminophen [[place] 1 tab PO Q6HR PRN #10 tab 01/26/20 5-325] Allergies Allergy/AdvReac Type Severity Reaction Status Date / Time No Known Allergies Allergy Verified 01/26/20 14:13 Review of Systems ROS Statement: Those systems with pertinent positive or pertinent negative responses have been documented in the HPI. ROS Other: All systems not noted in ROS Statement are negative. Past Medical History Past Medical History: Cancer, GERD/Reflux Additional Past Medical History / Comment(s): Dx - pancreatic cancer 12/2018 in [place] surgery [place] and started chemo 03/22/19, EGD/colonoscopy dated 11/2018 states pt has duodenitis/antral gastritis/antral ulcer/colon and rectal polyp , hx nephrolithiasis., diarrhea., Mediport. History of Any Multi-Drug Resistant Organisms: None Reported Past Surgical History: Back Surgery, Cholecystectomy, Orthopedic Surgery Additional Past Surgical History / Comment(s): Tail of pancreas removed along with spleen in [place], [facility], laminectomy L4-L5/S1-S2, lower back laser surgery to cut nerves, L knee arthroscopy-meniscal and ACL, L ankle reconstructive surgery x 3, R hand surgery d/t trauma, EGD/colonoscopy, lithostripsy. Past Anesthesia/Blood Transfusion Reactions: No Reported Reaction Additional Past Anesthesia/Blood Transfusion Reaction / Comment(s): Pt has received blood in past without reaction. Past Psychological History: No Psychological Hx Reported Smoking Status: Vaper Past Alcohol Use History: Occasional Past Drug Use History: Marijuana - Past Family History Father History Unknown: Yes Additional Family Medical History / Comment(s): Pt does not know his father. Mother History Unknown: Yes Additional Family Medical History / Comment(s): Pt states he does not know mother's medical hx General Exam - General Exam Comments Initial Comments: GENERAL: Patient is well-developed and well-nourished. Patient is nontoxic and in no acute distress. HEAD: Atraumatic, normocephalic. EYES: Pupils equal round and reactive to light, extraocular movements intact, sclera anicteric, conjunctiva are normal. Eyelids were unremarkable. ENT: TMs normal, nares patent, oropharynx clear without exudates. Moist mucous membranes. NECK: Normal range of motion, supple without lymphadenopathy or JVD. LUNGS: Unlabored respirations. Breath sounds clear to auscultation bilaterally and equal. No wheezes rales or rhonchi. HEART: Regular rate and rhythm without murmurs, rubs or gallops. ABDOMEN: Soft, nontender, normoactive bowel sounds. No guarding, no rebound. No masses appreciated. : Deferred MUSCULOSKELETAL: Normal extremities with adequate strength and normal range of motion, no pitting or edema. No clubbing or cyanosis. Mild pain to palpation of the lumbar spine, lumbar paraspinals. He does have full trunk range of motion. NEUROLOGICAL: Patient is alert and oriented x 3. Motor and sensory are also intact. Cranial nerves II through XII grossly intact. Symmetrical smile. Normal speech, normal gait. PSYCH: Normal mood, normal affect. SKIN: Warm, Dry, normal turgor, no rashes or lesions noted. Limitations: no limitations Course Vital Signs 01/26/20 01/26/20 14:10 16:54 Temperature 99.5 F Pulse Rate 96 66 Respiratory 16 18 Rate Blood Pressure 136/94 116/73 O2 Sat by Pulse 98 99 Oximetry Medical Decision Making - Medical Decision Making Patient is a 59-year-old male with history of pancreatic cancer, status post partial pancreatectomy, splenectomy, presenting for low back pain, right abdominal pain that has been ongoing for 5 weeks. Patient was seen in the ER a few weeks ago for same complaint. He has yet to follow up with his doctor. His vital signs are stable. His exam revealsscant abdominal tenderness, mild lumbar area tenderness. Labs show a stable hemoglobin, no acute process, lactic acid is 1.0, lipase is 31. Urine shows no evidence of infection. I did do CT of the lumbar spine which shows L2-L3 disc bulges, no other acute process. I did do a CT of the abdomen which shows changes the pancreas, concerning for pancreatic carcinoma, they recommend pancreatic MRI. Chest x-ray shows no acute findings. I discussed these findings with the patient. I recommended he follow-up with his oncologist on Wednesday. Patient states he does have a follow-up with him but not until March, recommended making the appointment sooner. At this time patient's pain is controlled, to give him some fluids. I did give him a short course of [place] as to help with his pain. He is stable for discharge. Return parameters were discussed with the patient and he verbalized understanding. Case discussed with Dr. Clifford. - Lab Data Result diagrams: 01/26/20 15:28 01/26/20 15:28 Lab Results 01/26/20 01/26/20 01/26/20 Range/Units 15:28 15:28 15:28 WBC 11.7 H (3.8-10.6) k/uL RBC 4.80 (4.30-5.90) m/uL Hgb 14.4 (13.0-17.5) gm/dL Hct 44.3 (39.0-53.0) % MCV 92.3 (80.0-100.0) fL MCH 30.0 (25.0-35.0) pg MCHC 32.5 (31.0-37.0) g/dL RDW 14.3 (11.5-15.5) % Plt Count 378 (150-450) k/uL MPV 8.1 Neutrophils % 66 % Lymphocytes % 22 % Monocytes % 6 % Eosinophils % 4 % Basophils % 0 % Neutrophils # 7.7 (1.3-7.7) k/uL Lymphocytes # 2.6 (1.0-4.8) k/uL Monocytes # 0.7 (0-1.0) k/uL Eosinophils # 0.5 (0-0.7) k/uL Basophils # 0.0 (0-0.2) k/uL PT 9.4 (9.0-12.0) sec INR 0.9 (<1.2) APTT 23.2 (22.0-30.0) sec Sodium 142 (137-145) mmol/L Potassium 3.4 L (3.5-5.1) mmol/L Chloride 112 H (98-107) mmol/L Carbon Dioxide 23 (22-30) mmol/L Anion Gap 7 mmol/L BUN 16 (9-20) mg/dL Creatinine 0.74 (0.66-1.25) mg/dL Est GFR (CKD-EPI)AfAm >90 (>60 ml/min/1.73 sqM) Est GFR (CKD-EPI)NonAf >90 (>60 ml/min/1.73 sqM) Glucose 91 (74-99) mg/dL Plasma Lactic Acid [place] (0.7-2.0) mmol/L Calcium 9.8 (8.4-10.2) mg/dL Magnesium 1.9 (1.6-2.3) mg/dL Total Bilirubin 0.4 (0.2-1.3) mg/dL AST 19 (17-59) U/L ALT 12 (4-49) U/L Alkaline Phosphatase 144 H (38-126) U/L Total Protein 6.8 (6.3-8.2) g/dL Albumin 3.9 (3.5-5.0) g/dL Amylase 43 (30-110) U/L Lipase 31 (23-300) U/L Urine Color Urine Appearance (Clear) Urine pH (5.0-8.0) Ur Specific [place] (1.001-1.035) Urine Protein (Negative) Urine Glucose (UA) (Negative) Urine Ketones (Negative) Urine Blood (Negative) Urine Nitrite (Negative) Urine Bilirubin (Negative) Urine Urobilinogen (<2.0) mg/dL Ur Leukocyte Esterase (Negative) Urine RBC (0-5) /hpf Urine WBC (0-5) /hpf Urine Mucus (None) /hpf 01/26/20 01/26/20 Range/Units 15:28 15:30 WBC (3.8-10.6) k/uL RBC (4.30-5.90) m/uL Hgb (13.0-17.5) gm/dL Hct (39.0-53.0) % MCV (80.0-100.0) fL MCH (25.0-35.0) pg MCHC (31.0-37.0) g/dL RDW (11.5-15.5) % Plt Count (150-450) k/uL MPV Neutrophils % % Lymphocytes % % Monocytes % % Eosinophils % % Basophils % % Neutrophils # (1.3-7.7) k/uL Lymphocytes # (1.0-4.8) k/uL Monocytes # (0-1.0) k/uL Eosinophils # (0-0.7) k/uL Basophils # (0-0.2) k/uL PT (9.0-12.0) sec INR (<1.2) APTT (22.0-30.0) sec Sodium (137-145) mmol/L Potassium (3.5-5.1) mmol/L Chloride (98-107) mmol/L Carbon Dioxide (22-30) mmol/L Anion Gap mmol/L BUN (9-20) mg/dL Creatinine (0.66-1.25) mg/dL Est GFR (CKD-EPI)AfAm (>60 ml/min/1.73 sqM) Est GFR (CKD-EPI)NonAf (>60 ml/min/1.73 sqM) Glucose (74-99) mg/dL Plasma Lactic Acid [place] 1.0 (0.7-2.0) mmol/L Calcium (8.4-10.2) mg/dL Magnesium (1.6-2.3) mg/dL Total Bilirubin (0.2-1.3) mg/dL AST (17-59) U/L ALT (4-49) U/L Alkaline Phosphatase (38-126) U/L Total Protein (6.3-8.2) g/dL Albumin (3.5-5.0) g/dL Amylase (30-110) U/L Lipase (23-300) U/L Urine Color Yellow Urine Appearance Clear (Clear) Urine pH 6.0 (5.0-8.0) Ur Specific [place] 1.020 (1.001-1.035) Urine Protein Trace H (Negative) Urine Glucose (UA) Negative (Negative) Urine Ketones Negative (Negative) Urine Blood Trace H (Negative) Urine Nitrite Negative (Negative) Urine Bilirubin Negative (Negative) Urine Urobilinogen <2.0 (<2.0) mg/dL Ur Leukocyte Esterase Trace H (Negative) Urine RBC 11 H (0-5) /hpf Urine WBC 2 (0-5) /hpf Urine Mucus Rare H (None) /hpf Disposition Clinical Impression: Pancreatic lesion, Low back pain, RLQ abdominal pain Disposition: HOME SELF-CARE Condition: Stable Instructions (If sedation given, give patient instructions): Abdominal Pain (ED) Additional Instructions: Please return to the Emergency Department if symptoms worsen or any other concerns. May take Tylenol for pain, may take [place] for severe pain. Follow-up with your oncologist as discussed on Wednesday. Prescriptions: Hydrocodone/Acetaminophen [[place] 5-325] 1 tab PO Q6HR PRN #10 tab PRN Reason: Pain Is patient prescribed a controlled substance at d/c from ED?: Yes When asked, does pt state using other controlled substances?: No If prescribed controlled substance>3 days was MAPS reviewed?: Prescribed <3 Days If opioid is for acute pain is fill amount 7 days or less?: Yes If Rx opioid, was Start Talking consent form obtained?: Yes Referrals: Krystal Márquez MD [Primary Care Provider] - 1-2 days Raghu Pascal MD [STAFF PHYSICIAN] - 1-2 days
[2020-01-26 15:40] LABS: Basophils % (A) 0 %; Eosinophils # (A) 0.5 k/uL (0-0.7); Eosinophils % (A) 4 %; HCT 44.3 % (39.0-53.0); HGB 14.4 gm/dL (13.0-17.5); Lymphocytes # (A) 2.6 k/uL (1.0-4.8); Lymphocytes % (A) 22 %; MCHC 32.5 g/dL (31.0-37.0); MCV 92.3 fL (80.0-100.0); Mean Platelet Volume 8.1; Monocytes # (A) 0.7 k/uL (0-1.0); Monocytes % (A) 6 %; Neutrophils # (A) 7.7 k/uL (1.3-7.7); Neutrophils % (A) 66 %; Platelet Count 378 k/uL (150-450); RDW 14.3 % (11.5-15.5); WBC 11.7 k/uL (3.8-10.6)
[2020-01-26 15:49] LABS: ALT 12 U/L (4-49); AST 19 U/L (17-59); African American GFR (CKD) >90 (>60 ml/min/1.73 sqM); Albumin 3.9 g/dL (3.5-5.0); Alkaline Phosphatase 144 U/L (38-126); Amylase 43 U/L (30-110); Anion Gap 7 mmol/L; Blood Urea Nitrogen 16 mg/dL (9-20); Calcium 9.8 mg/dL (8.4-10.2); Carbon Dioxide 23 mmol/L (22-30); Chloride 112 mmol/L (98-107); Glucose 91 mg/dL (74-99); Lipase 31 U/L (23-300); Magnesium 1.9 mg/dL (1.6-2.3); Non-African American GFR(CKD) >90 (>60 ml/min/1.73 sqM); Potassium 3.4 mmol/L (3.5-5.1); Sodium 142 mmol/L (137-145); Total Bilirubin 0.4 mg/dL (0.2-1.3); Total Protein 6.8 g/dL (6.3-8.2)
[2020-01-26 15:59] LABS: Appearance,Urine Clear (Clear); Bilirubin,Urine Negative (Negative); Blood,Urine Trace (Negative); Color,Urine Yellow; Glucose,Urine (UA) Negative (Negative); Ketones,Urine Negative (Negative); Leukocyte Esterase,Urine Trace (Negative); Mucus,Urine Rare /hpf; Nitrite,Urine Negative (Negative); Protein,Urine Trace (Negative); RBC,Urine 11 /hpf (0-5); Urobilinogen,Urine <2.0 mg/dL (<2.0); WBC,Urine 2 /hpf (0-5)
[2020-01-26 16:11] LABS: INR 0.9 (<1.2); Partial Thromboplastin Time 23.2 sec (22.0-30.0); Prothrombin Time 9.4 sec (9.0-12.0)
--- NOTE | 2020-01-26 16:40 | CT ---
EXAMINATION TYPE: CT abdomen pelvis w con DATE OF EXAM: 01/26/2020 COMPARISON: CT 01/05/2020 HISTORY: Low back and right sided abdominal and hip pain. History of pancreatic cancer. CT DLP: 937.6 mGycm Automated exposure control for dose reduction was used. TECHNIQUE: Helical acquisition of images from the lung bases through the pelvis have been completed. CONTRAST: Performed without Oral Contrast and with IV Contrast, patient injected with 100 mL of Isovue 300. FINDINGS: LUNG BASES: Patchy density at the lung bases is stable and may represent scarring, no pleural or peggy cardial effusion.. AORTA: No significant abnormality is appreciated. LIVER/GB: Patient is post cholecystectomy. Liver shows low attenuation possibly due to hepatic steato sis PANCREAS: There is a calcification present at the head of the pancreas level, on axial image #26, axi al image 27 shows an area of abnormal soft tissue density measuring 2.7 x 3.1 centimeters, some abnor mal soft tissue is also present along the celiac axis, superior mesenteric artery, coronal image 47. There may be involvement of the portal vein at this level with a short segment not well seen, there i s a caliber reduction and also within the celiac axis. SPLEEN: Not seen. ADRENALS: No significant abnormality is seen. KIDNEYS: Nonobstructive calcification present in the upper pole the left kidney measures approximatel y 9 x 1 mm in the upper pole, punctate calcification in the midpole the right kidney is also present, no ureteral calcifications or hydronephrosis. REPRODUCTIVE ORGANS: No significant abnormality is seen BOWEL: There is inflammatory changes adjacent to the duodenum, some increased groundglass density wi thin the surrounding fat. There are fluid-filled loops of bowel present. No evident bowel obstruction . FREE AIR: No Free Air visible. ASCITES: None visible. PELVIC ADENOPATHY: None visualized. RETROPERITONEAL ADENOPATHY: No Retroperitoneal Adenopathy visible. URINARY BLADDER: No significant abnormality is seen. OSSEOUS STRUCTURES: No significant abnormality is seen. IMPRESSION: FINDINGS COULD POSSIBLY REPRESENT PANCREATIC CARCINOMA, PANCREATIC MRI LIKELY WOULD BE OF BENEFIT.
--- NOTE | 2020-01-26 16:43 | XR ---
EXAMINATION TYPE: XR chest 2V DATE OF EXAM: 01/26/2020 COMPARISON: 01/13/2020 HISTORY: Cough TECHNIQUE: FINDINGS: There is coarse interstitial density in the lungs. There is no pulmonary consolidation. Hea rt size is normal. There are no hilar masses. There is right central venous catheter with tip in the superior vena cava. There is no sign of pleural effusion. IMPRESSION: Pulmonary interstitial fibrosis unchanged. Normal heart.
--- NOTE | 2020-01-26 16:48 | CT ---
EXAMINATION TYPE: CT lumbar spine wo con DATE OF EXAM: 01/26/2020 COMPARISON: CT abdomen pelvis same date HISTORY: Low back and right sided abdominal and hip pain. History of pancreatic cancer. CT DLP: 961.5 mGycm Automated exposure control for dose reduction was used. An unenhanced CT of the lumbar spine was performed. Bone and soft tissue window settings are submitt ed as well as coronal and sagittal reconstructions. FINDINGS: Lumbar vertebral bodies show preserved height and alignment, bone mineralization. Mild degenerative d isc disease is present with posterior disc bulges at L4-5, L3-4, L2-3 causing anterior mass effect on the thecal sac. Bilateral kidney stones are present as noted on CT. Abnormalities seen at the root o f the mesentery, celiac axis are noted as described in prior report same date. L1-L2: Normal disc space height. No disc herniation protrusion or central stenosis. Mild facet joint arthropathy. No evidence for foraminal encroachment. L2-L3: Posterior broad-based disc bulge causes anterior mass effect on the thecal sac. Circumferentia l extension endplate disc complex causes some foraminal encroachment right greater than left. There i s some facet arthropathy. L3-L4: Posterior broad-based disc bulge causes anterior mass effect on the thecal sac somewhat eccent marck towards the left. Circumferential extension endplate disc complex causes foraminal encroachment l eft greater than right. There is facet arthropathy change. L4-L5: Right-sided laminectomy is present. Posterior broad-based disc bulge causes slight anterior ma ss effect on the thecal sac. Some facet arthropathy changes present. Circumferential extension endpla te disc complex causes bilateral foraminal encroachment. L5-S1: Normal disc space height. No disc herniation protrusion or central stenosis. No facet joint arthropathy. No evidence for foraminal encroachment. IMPRESSION: Degenerative disc disease, facet arthropathy, postop changes. Findings consistent with patient's hist ory of pancreatic carcinoma.
[2020-01-26 16:54] VITALS: BP 116/73; PULSE 66; RESP 18
[2020-01-26] MEDS ORDERED: HYDROcodone/APAP 5-325MG 1 EACH TAB PO STA (17:24)
== END 2020-01-26 18:00 | disposition home or self-care (01) ==
LOC: EC 13:56
DX: K86.89 Other specified diseases of pancreas (principal); R10.31 Right lower quadrant pain; M54.5 Low back pain; R07.81 Pleurodynia; F17.290 Nicotine dependence, other tobacco product, uncomplicated; Z85.07 Personal history of malignant neoplasm of pancreas; Z87.19 Personal history of other diseases of the digestive system; Z92.21 Personal history of antineoplastic chemotherapy; Z87.442 Personal history of urinary calculi; Z90.49 Acquired absence of other specified parts of digestive tract; Z98.890 Other specified postprocedural states
CPT/HCPCS: 36415; 80053; 82150; 83605; 83690; 83735; 85025; 85610; 85730; 81001; 71046; 72131; 74177; 99284; 96374; 96361 ×2; J2270; Q9967

== ENCOUNTER → 2020-03-18 | Outpatient (CLI) | payer MEDICARE, OTHER ==
--- NOTE | 2020-03-18 12:18 | CT ---
EXAMINATION TYPE: CT ChestAbdPelvis w con DATE OF EXAM: 03/18/2020 COMPARISON: CT January 26, 2020 and older CTs HISTORY: follow up pancreatic cancer CT DLP: 964.5 mGycm. Automated Exposure Control for Dose Reduction was Utilized. CONTRAST: CT scan of the thorax, abdomen and pelvis is performed with oral and with IV Contrast, patient inject ed with 100 mL of Isovue 300. FINDINGS: LUNGS: Bilateral peripheral reticulation and fibrotic change remains present greatest in the upper rossy ngs. No new nodules or masses. No pleural effusion or pneumothorax seen bilaterally. MEDIASTINUM: There are no new greater than 1 cm hilar or mediastinal lymph nodes. No cardiomegaly o r pericardial effusion is seen. OTHER: Stable right subclavian Mediport catheter. LIVER/GB: Cholecystectomy clips redemonstrated. Persistent low-attenuation in the liver. PANCREAS: Postsurgical change redemonstrated. Worsening soft tissue encasing celiac artery axial imag e 60 causing more prominent narrowing is noted. This abnormal soft tissue extends anteriorly to the f ocus of calcification on image 62, this area appears similar to prior studies except there is new 13 x 9 mm low dense lesion in the level of the pancreatic head axial image 63. Abnormal soft tissue incr easing severity surrounds or in cases the SMA axial image 63 without significant stenosis at this lev el. This abnormal soft tissue extends to the anterior margin of the origin of the bilateral renal art eries on current study axial image 64. Pancreatic tissue appears unremarkable in the inferior head an d uncinate process level near axial image 68. SPLEEN: Spleen not seen and surgically absent ADRENALS: No significant abnormality is seen. KIDNEYS: Stable 4 mm calculus right kidney midpole level axial image 68. Stable larger 10 mm calculus upper pole left kidney on image 63 BOWEL: Oral contrast reaches level of rectum. No suspicious small and large bowel dilatation. There i s moderate to severe wall thickening involving the midportion of the right and transverse colon. Ther e is mild wall thickening in the sigmoid rectal colon. Mild wall thickening in the duodenal sweep. GENITAL ORGANS: Mildly enlarged prostate consistent with BPH. LYMPH NODES: No new greater than 1cm abdominal or pelvic lymph nodes are appreciated. OSSEOUS STRUCTURES: Moderate axial joint space loss both hips.. Arthropathy lower lumbar levels. OTHER: No significant additional abnormality is seen. IMPRESSION: Local neoplastic recurrence strongly suspected as detailed above. No new metastatic dise ase is identified. Persistent enterocolitis thought present. Correlate clinically.
== END | disposition home or self-care (01) ==
LOC: RADPROMAIN 09:03
PROVIDERS: ATTEND Internal Medicine Hematology & Oncology
DX: K52.9 Noninfective gastroenteritis and colitis, unspecified (principal); C25.1 Malignant neoplasm of body of pancreas
CPT/HCPCS: 71260; 74177; J1642; Q9967

== ENCOUNTER → 2020-03-25 | Outpatient (CLI) | payer MEDICARE, OTHER ==
--- NOTE | 2020-03-26 03:42 | MR ---
EXAMINATION TYPE: MR lumbar spine wo con DATE OF EXAM: 03/25/2020 COMPARISON: None HISTORY: LBP, RLE weakness, hx surgery 2000, pancreatic cancer 2019. Multiplanar multiecho imaging of the lumbar spine was performed without contrast. Lumbar vertebra have fairly normal alignment. There is degenerative disc space narrowing from L2 to S 1. This is more severe at L4-5 L5-S1. There is mild posterior disc herniation from L2 to L5. There is developmentally adequate spinal canal and no spinal stenosis. There is no lumbar paraspinal mass. Sa croiliac joints appear intact. I see no bony destructive process. There is bilateral multilevel neura l foraminal narrowing due to disc space narrowing and facet arthropathy. IMPRESSION: Multilevel spondylotic changes. Multilevel neural foraminal narrowing. No spinal stenosis.
== END | disposition home or self-care (01) ==
LOC: RADMRIMAIN 17:58
PROVIDERS: ATTEND Family Medicine
DX: M48.061 Spinal stenosis, lumbar region without neurogenic claudication (principal); M47.816 Spondylosis without myelopathy or radiculopathy, lumbar region
CPT/HCPCS: 72148

== ENCOUNTER → 2020-04-17 | Outpatient (CLI) | payer MEDICARE, OTHER ==
--- NOTE | 2020-04-18 01:09 | MR ---
EXAMINATION TYPE: MR pancreas wo/w con DATE OF EXAM: 04/17/2020 COMPARISON: None HISTORY: History of Pancreatic Cancer CONTRAST: Standard multiplanar, multisequence MRI departmental protocol utilizing 8 mL intravenous Gadavist lore olinium contrast. There is laminectomy and apparent resection of the body and tail of the pancreas. There is some bulki ness of the anterior aspect of the pancreatic head which measures 3.5 cm and consistent with a mass. There is intermediate signal in the retroperitoneum around the celiac artery consistent with tumor th at measures up to 11 mm in thickness. Liver shows no focal defect. The bile ducts are not dilated. The stomach is intact. There is no adrenal mass. Kidneys have normal size. There is no hydronephrosis. There is 1.5 cm area of nodular enhancement in the anterior pancreatic head that could be focal necrosis. There is no ascites. Kidneys show satisfactory contrast opacification. There is no hydronephrosis. Th ere is no adrenal mass. There is no evidence of pleural effusion. IMPRESSION: Bulkiness of the pancreatic head consistent with persistent tumor. Area of nonenhancement that could be cystic change or necrosis in the anterior pancreatic head. Retroperitoneal density around the celiac artery consistent with tumor involvement. Appearance is not significantly different than the CT scan of 03/18/2020.
== END | disposition home or self-care (01) ==
LOC: RADMRIMAIN 15:35
PROVIDERS: ATTEND Radiology Radiation Oncology
DX: C25.2 Malignant neoplasm of tail of pancreas (principal); C77.9 Secondary and unspecified malignant neoplasm of lymph node, unspecified; Z92.3 Personal history of irradiation
CPT/HCPCS: 74183; A9585

== ENCOUNTER 2020-05-30 15:42 | Observation (INO) | payer MEDICARE, OTHER ==
[2020-05-30 18:59] LABS: Appearance,Urine Cloudy (Clear); Bacteria,Urine Rare /hpf; Bilirubin,Urine 1+ (Negative); Blood,Urine Large (Negative); Calcium Oxalate Crystals,Urine Few /hpf; Color,Urine Dark Yellow; Glucose,Urine (UA) Negative (Negative); Ketones,Urine Negative (Negative); Leukocyte Esterase,Urine Small (Negative); Mucus,Urine Many /hpf; Nitrite,Urine Negative (Negative); PH, Urine 5.5 (5.0-8.0); Protein,Urine Trace (Negative); RBC,Urine >182 /hpf (0-5); Urobilinogen,Urine <2.0 mg/dL (<2.0); WBC,Urine 24 /hpf (0-5)
[2020-05-30] MEDS ORDERED: ONDANSETRON 4 MG/2 ML VIAL IVP STA (19:05)
[2020-05-30] MEDS ORDERED: MORPHINE SULFATE 4 MG/ML SYRINGE IV STA (19:05)
[2020-05-30] MEDS ORDERED: SODIUM CHLORIDE 0.9% 1,000 ML IV STA (19:05)
[2020-05-30 19:51] LABS: Basophils % (A) 0 %; Eosinophils # (A) 0.6 k/uL (0-0.7); Eosinophils % (A) 8 %; HCT 37.8 % (39.0-53.0); HGB 12.8 gm/dL (13.0-17.5); Lymphocytes # (A) 2.3 k/uL (1.0-4.8); Lymphocytes % (A) 31 %; MCHC 33.8 g/dL (31.0-37.0); MCV 88.7 fL (80.0-100.0); Mean Platelet Volume 8.4; Monocytes # (A) 0.7 k/uL (0-1.0); Monocytes % (A) 10 %; Neutrophils # (A) 3.6 k/uL (1.3-7.7); Neutrophils % (A) 49 %; Platelet Count 336 k/uL (150-450); RBC 4.26 m/uL (4.30-5.90); RDW 14.6 % (11.5-15.5); WBC 7.4 k/uL (3.8-10.6)
[2020-05-30 20:01] LABS: INR 0.9 (<1.2); Partial Thromboplastin Time 24.9 sec (22.0-30.0); Prothrombin Time 10.1 sec (9.0-12.0)
[2020-05-30 20:07] LABS: ALT 157 U/L (4-49); AST 176 U/L (17-59); African American GFR (CKD) >90 (>60 ml/min/1.73 sqM); Albumin 3.2 g/dL (3.5-5.0); Alkaline Phosphatase 358 U/L (38-126); Anion Gap 6 mmol/L; Blood Urea Nitrogen 13 mg/dL (9-20); Calcium 9.1 mg/dL (8.4-10.2); Carbon Dioxide 24 mmol/L (22-30); Chloride 111 mmol/L (98-107); Creatine Kinase 32 U/L (55-170); Glucose 77 mg/dL (74-99); Lipase 14 U/L (23-300); Non-African American GFR(CKD) >90 (>60 ml/min/1.73 sqM); Potassium 3.9 mmol/L (3.5-5.1); Sodium 141 mmol/L (137-145); Total Bilirubin 1.8 mg/dL (0.2-1.3); Total Protein 6.2 g/dL (6.3-8.2)
--- NOTE | 2020-05-30 20:31 | CT ---
EXAMINATION TYPE: CT chest angio for PE DATE OF EXAM: 05/30/2020 COMPARISON: Chest CT scan 03/18/2020 HISTORY: Abdominal pain x5 days, hx of pancreatic CA CT DLP: 331 mGycm Automated exposure control for dose reduction was used. CONTRAST: Performed with IV Contrast, patient injected with 100 mL of Isovue 370. There are 3-D post processed images. There is some patchy reticular infiltrates scattered throughout the lung whitaker. There is no suspicio us pulmonary mass. There is no pleural effusion. Heart size is normal. There is no pericardial effusi on. There is no mediastinal adenopathy. There are no hilar masses. Thoracic aorta is intact. There is no aneurysm or dissection. The ascending aorta measures 3.5 cm. There is normal contrast opacification of the pulmonary arteries. There are no filling defects. There is some fusiform narrowing of the proximal celiac artery which appears improved compared to old exam . Thoracic spine is intact. There is no compression fracture. There is some free fluid around the liver and in the left paracolic gutter. Spleen appears absent. IMPRESSION: No evidence of pulmonary embolism. There is coarse reticular interstitial pulmonary infiltrates simil ar to old exam and consistent with pulmonary interstitial fibrosis. Normal heart. There is mild abdominal ascites fluid which appears new compared to old exam.
--- NOTE | 2020-05-30 20:45 | CT ---
EXAMINATION TYPE: CT abdomen pelvis w con DATE OF EXAM: 05/30/2020 COMPARISON: 03/18/2020 HISTORY: Abdominal pain x5 days, hx of pancreatic CA CT DLP: 985.6 mGycm Automated exposure control for dose reduction was used. CONTRAST: Performed with IV Contrast, patient injected with 100 mL of Isovue 300. Images obtained from the diaphragm to the floor the pelvis with IV contrast. There is mild abdominal ascites fluid. There are clips from cholecystectomy. There is 2.2 cm low-dens ity mass anterior and grade head. Spleen is absent. The body in the tail of the pancreas appears abse nt. There is 1 cm hypodensity inferior lateral right lobe of the liver. There is 1 cm hypodensity ant erior right lobe of the liver. The stomach is intact. There is 1.8 cm low-density right adrenal mass. There is increased density around the upper abdominal aorta at the origins of the celiac artery and superior mesenteric artery consistent with adenopathy. Left adrenal gland appears normal. Kidneys show satisfactory contrast opacification. There is no hydronephrosis. Delayed images show nor mal renal excretion. There is 1 cm calculus upper pole left kidney. There is 3 mm calculus lateral ri ght kidney. Ureters are not dilated. There is no evidence of pelvic mass. There is no inguinal hernia . There is no evidence of pelvic lymphadenopathy. Lumbar vertebra have normal alignment. There is no compression fracture. Bony pelvis is intact. The h ip joints are intact. IMPRESSION: Low-density liver lesions appear new compared to old exam and suggestive of metastatic disease. Low d ensity mass in the anterior pancreatic head increased compared to old exam and consistent with recurr ent or progression of tumor. There is increased retroperitoneal adenopathy compared to old exam. Ther e is new right adrenal mass consistent with metastatic disease compared to old exam. Mild new Abdominal ascites compared to old exam. Stable nonobstructing renal calculi.
[2020-05-30] MEDS ORDERED: cefTRIAXone IN SWFI 1,000 MG/10 ML SYRINGE IVP STA (21:20)
[2020-05-30] MEDS ORDERED: MORPHINE SULFATE 4 MG/ML SYRINGE IVP STA (22:05)
[2020-05-30] MEDS ORDERED: MORPHINE SULFATE 4 MG/ML SYRINGE IV PRN (22:21)
[2020-05-30] MEDS ORDERED: NALOXONE 0.4 MG/ML 1 ML VIAL IV PRN (22:21)
[2020-05-30] MEDS ORDERED: ONDANSETRON 4 MG/2 ML VIAL IVP PRN (22:21)
--- NOTE | 2020-05-30 22:21 | ED ---
General Adult HPI - General Chief complaint: Abdominal Pain Stated complaint: abd pain/nausea/sob Time Seen by Provider: 05/30/20 16:05 Source: patient Mode of arrival: wheelchair Limitations: no limitations - History of Present Illness Initial comments: 60-year-old male with past medical history of pancreatic cancer who presents emergency Department with bilateral rib pain, abdominal pain and nausea for 5 days. Patient reports to poor oral intake due to his significant nausea. Patient denies chest pain but does feel short of breath. Reports to tenderness along the lower ribs which spans from the right side to the left. Also reports right upper quadrant abdominal pain. Denies vomiting. No hematemesis. No ripping or tearing sensation to his back. No fevers or chills. States that his cancer is in remission. Normally follows with Dr. Pascal. He recently had a pancreas MRI and was told that it showed "scar tissue" in his pancreas. Patient is not undergoing any Current chemo or radiation. Denies previous cardiac history. No sick contacts. No other alleviating, precipitating or modifying factors - Related Data Previous Rx's Medication Instructions Recorded Erythromycin Ophth Oint [Romycin 1 applic BOTH EYES Q24H 7 Days #1 06/02/20 Ophth Oint] tube Gabapentin [Neurontin] 400 mg PO TID #21 cap 06/02/20 HYDROcodone/APAP 10-325MG [[place] 1 tab PO Q6HR PRN 3 Days #60 tab 06/02/20 10-325] fentaNYL 12MCG/HR PATCH [Duragesic 1 patch TRANSDERM Q72H 3 Days #5 06/02/20 12MCG/HR] patch Allergies Allergy/AdvReac Type Severity Reaction Status Date / Time No Known Allergies Allergy Verified 05/30/20 18:34 Review of Systems ROS Statement: Those systems with pertinent positive or pertinent negative responses have been documented in the HPI. ROS Other: All systems not noted in ROS Statement are negative. Past Medical History Past Medical History: Cancer, GERD/Reflux Additional Past Medical History / Comment(s): Dx - pancreatic cancer 12/2018 in [place] had surgery in [place] and started chemo 03/22/19, EGD/colonoscopy dated 11/2018 states pt has duodenitis/antral gastritis/antral ulcer/colon and rectal polyp , hx nephrolithiasis., diarrhea., Mediport. History of Any Multi-Drug Resistant Organisms: None Reported Past Surgical History: Back Surgery, Cholecystectomy, Orthopedic Surgery Additional Past Surgical History / Comment(s): Tail of pancreas removed along with spleen in [place], [facility], laminectomy L4-L5/S1-S2, lower back laser surgery to cut nerves, L knee arthroscopy-meniscal and ACL, L ankle reconst ructive surgery x 3, R hand surgery d/t trauma, EGD/colonoscopy, lithostripsy. Past Anesthesia/Blood Transfusion Reactions: No Reported Reaction Additional Past Anesthesia/Blood Transfusion Reaction / Comment(s): Pt has received blood in past without reaction. Past Psychological History: No Psychological Hx Reported Smoking Status: Vaper Past Alcohol Use History: Occasional Past Drug Use History: Marijuana - Past Family History Father History Unknown: Yes Additional Family Medical History / Comment(s): Pt does not know his father. Mother History Unknown: Yes Additional Family Medical History / Comment(s): Pt states he does not know mother's medical hx General Exam Limitations: no limitations General appearance: alert, in no apparent distress Head exam: Present: atraumatic, normocephalic, normal inspection Eye exam: Present: normal appearance, PERRL, EOMI. Absent: scleral icterus, conjunctival injection, periorbital swelling ENT exam: Present: normal exam, mucous membranes moist Neck exam: Present: normal inspection. Absent: tenderness, meningismus, lymphadenopathy Respiratory exam: Present: normal lung sounds bilaterally. Absent: respiratory distress, wheezes, rales, rhonchi, stridor Cardiovascular Exam: Present: regular rate, normal rhythm, normal heart sounds. Absent: systolic murmur, diastolic murmur, rubs, gallop, clicks GI/Abdominal exam: Present: soft, tenderness (generalized), normal bowel sounds. Absent: distended, guarding, rebound, rigid Extremities exam: Present: normal inspection, full ROM, normal capillary refill. Absent: tenderness, pedal edema, joint swelling, calf tenderness Back exam: Present: normal inspection Neurological exam: Present: alert, oriented X3, CN II-XII intact Psychiatric exam: Present: normal affect, normal mood Skin exam: Present: warm, dry, intact, normal color. Absent: rash Course Vital Signs 05/30/20 05/30/20 05/30/20 16:06 18:36 21:02 Temperature 98.8 F Pulse Rate 98 73 77 Respiratory 18 18 18 Rate Blood Pressure 106/72 120/60 130/73 O2 Sat by Pulse 99 100 100 Oximetry 05/30/20 05/31/20 22:00 05:00 Temperature 97.6 F Pulse Rate 76 71 Respiratory 18 16 Rate Blood Pressure 125/79 88/55 O2 Sat by Pulse 99 96 Oximetry EKG Findings - EKG Comments: EKG Findings:: EKG demonstrates sinus rhythm with PACs. Rate of 76. HI interval 136. QRS 92. QTC 429. No acute ST segment elevations or depressions Medical Decision Making - Medical Decision Making The patient is originally placed in the hallway . A thorough history and physical exam is performed. IV is established. The patient was given a liter bolus of normal saline followed by her per hour. He is given Zofran and morphine for pain and nausea. Laboratory studies were conducted and reviewed. Due demonstrates elevated AST, ALT and alk phos. Urinalysis is positive for rare bacteria. Blood cultures obtained and the patient given a dose of Rocephin. CT of the chest and pelvis is performed. No signs of PE. Coarse reticular interstitial pulmonary infiltrates similar to old exam. CT the patient's abdomen and pelvis demonstrates low-density liver lesions which are new, increase in the size of the density and the pancreatic head, increased retroperitoneal adenopathy and a new right adrenal mass. Concerns for proggressive metastatic disease. The results are discussed the patient. I did recommend admission for evaluation by oncology. Patient agreed to this. Pain and nausea medications ordered. Spoke with Dr. Maher who agreed to admit the patient - Lab Data Result diagrams: 06/01/20 04:59 06/01/20 04:59 Lab Results 05/30/20 05/30/20 05/30/20 Range/Units 18:43 19:35 19:35 WBC (3.8-10.6) k/uL RBC (4.30-5.90) m/uL Hgb (13.0-17.5) gm/dL Hct (39.0-53.0) % MCV (80.0-100.0) fL MCH (25.0-35.0) pg MCHC (31.0-37.0) g/dL RDW (11.5-15.5) % Plt Count (150-450) k/uL MPV Neutrophils % % Lymphocytes % % Monocytes % % Eosinophils % % Basophils % % Neutrophils # (1.3-7.7) k/uL Lymphocytes # (1.0-4.8) k/uL Monocytes # (0-1.0) k/uL Eosinophils # (0-0.7) k/uL Basophils # (0-0.2) k/uL PT (9.0-12.0) sec INR (<1.2) APTT (22.0-30.0) sec Sodium (137-145) mmol/L Potassium (3.5-5.1) mmol/L Chloride (98-107) mmol/L Carbon Dioxide (22-30) mmol/L Anion Gap mmol/L BUN (9-20) mg/dL Creatinine (0.66-1.25) mg/dL Est GFR (CKD-EPI)AfAm (>60 ml/min/1.73 sqM) Est GFR (CKD-EPI)NonAf (>60 ml/min/1.73 sqM) Glucose (74-99) mg/dL Plasma Lactic Acid [place] (0.7-2.0) mmol/L Calcium (8.4-10.2) mg/dL Total Bilirubin (0.2-1.3) mg/dL AST (17-59) U/L ALT (4-49) U/L Alkaline Phosphatase (38-126) U/L Creatine Kinase (55-170) U/L Troponin I (0.000-0.034) ng/mL Total Protein (6.3-8.2) g/dL Albumin (3.5-5.0) g/dL Lipase (23-300) U/L CA 19-9 Antigen (0.0-34.9) U/mL Urine Color Dark Yellow Urine Appearance Cloudy (Clear) Urine pH 5.5 (5.0-8.0) Ur Specific [place] 1.020 (1.001-1.035) Urine Protein Trace H (Negative) Urine Glucose (UA) Negative (Negative) Urine Ketones Negative (Negative) Urine Blood Large H (Negative) Urine Nitrite Negative (Negative) Urine Bilirubin 1+ H (Negative) Urine Urobilinogen <2.0 (<2.0) mg/dL Ur Leukocyte Esterase Small H (Negative) Urine RBC >182 H (0-5) /hpf Urine WBC 24 H (0-5) /hpf Calcium Oxalate Crystal Few H (None) /hpf Urine Bacteria Rare H (None) /hpf Urine Mucus Many H (None) /hpf Coronavirus (PCR) Not Detected (Not Detectd) Influenza Type A RNA Not Detected (Not Detectd) Influenza Type B (PCR) Not Detected (Not Detectd) 05/30/20 05/30/20 05/30/20 Range/Units 19:43 19:43 19:43 WBC 7.4 (3.8-10.6) k/uL RBC 4.26 L (4.30-5.90) m/uL Hgb 12.8 L (13.0-17.5) gm/dL Hct 37.8 L (39.0-53.0) % MCV 88.7 (80.0-100.0) fL MCH 30.0 (25.0-35.0) pg MCHC 33.8 (31.0-37.0) g/dL RDW 14.6 (11.5-15.5) % Plt Count 336 (150-450) k/uL MPV 8.4 Neutrophils % 49 % Lymphocytes % 31 % Monocytes % 10 % Eosinophils % 8 % Basophils % 0 % Neutrophils # 3.6 (1.3-7.7) k/uL Lymphocytes # 2.3 (1.0-4.8) k/uL Monocytes # 0.7 (0-1.0) k/uL Eosinophils # 0.6 (0-0.7) k/uL Basophils # 0.0 (0-0.2) k/uL PT 10.1 (9.0-12.0) sec INR 0.9 (<1.2) APTT 24.9 (22.0-30.0) sec Sodium 141 (137-145) mmol/L Potassium 3.9 (3.5-5.1) mmol/L Chloride 111 H (98-107) mmol/L Carbon Dioxide 24 (22-30) mmol/L Anion Gap 6 mmol/L BUN 13 (9-20) mg/dL Creatinine 0.67 (0.66-1.25) mg/dL Est GFR (CKD-EPI)AfAm >90 (>60 ml/min/1.73 sqM) Est GFR (CKD-EPI)NonAf >90 (>60 ml/min/1.73 sqM) Glucose 77 (74-99) mg/dL Plasma Lactic Acid [place] (0.7-2.0) mmol/L Calcium 9.1 (8.4-10.2) mg/dL Total Bilirubin 1.8 H (0.2-1.3) mg/dL AST 176 H (17-59) U/L ALT 157 H (4-49) U/L Alkaline Phosphatase 358 H (38-126) U/L Creatine Kinase 32 L (55-170) U/L Troponin I (0.000-0.034) ng/mL Total Protein 6.2 L (6.3-8.2) g/dL Albumin 3.2 L (3.5-5.0) g/dL Lipase 14 L (23-300) U/L CA 19-9 Antigen (0.0-34.9) U/mL Urine Color Urine Appearance (Clear) Urine pH (5.0-8.0) Ur Specific [place] (1.001-1.035) Urine Protein (Negative) Urine Glucose (UA) (Negative) Urine Ketones (Negative) Urine Blood (Negative) Urine Nitrite (Negative) Urine Bilirubin (Negative) Urine Urobilinogen (<2.0) mg/dL Ur Leukocyte Esterase (Negative) Urine RBC (0-5) /hpf Urine WBC (0-5) /hpf Calcium Oxalate Crystal (None) /hpf Urine Bacteria (None) /hpf Urine Mucus (None) /hpf Coronavirus (PCR) (Not Detectd) Influenza Type A RNA (Not Detectd) Influenza Type B (PCR) (Not Detectd) 05/30/20 05/30/20 05/30/20 Range/Units 19:43 19:43 19:43 WBC (3.8-10.6) k/uL RBC (4.30-5.90) m/uL Hgb (13.0-17.5) gm/dL Hct (39.0-53.0) % MCV (80.0-100.0) fL MCH (25.0-35.0) pg MCHC (31.0-37.0) g/dL RDW (11.5-15.5) % Plt Count (150-450) k/uL MPV Neutrophils % % Lymphocytes % % Monocytes % % Eosinophils % % Basophils % % Neutrophils # (1.3-7.7) k/uL Lymphocytes # (1.0-4.8) k/uL Monocytes # (0-1.0) k/uL Eosinophils # (0-0.7) k/uL Basophils # (0-0.2) k/uL PT (9.0-12.0) sec INR (<1.2) APTT (22.0-30.0) sec Sodium (137-145) mmol/L Potassium (3.5-5.1) mmol/L Chloride (98-107) mmol/L Carbon Dioxide (22-30) mmol/L Anion Gap mmol/L BUN (9-20) mg/dL Creatinine (0.66-1.25) mg/dL Est GFR (CKD-EPI)AfAm (>60 ml/min/1.73 sqM) Est GFR (CKD-EPI)NonAf (>60 ml/min/1.73 sqM) Glucose (74-99) mg/dL Plasma Lactic Acid [place] 1.1 (0.7-2.0) mmol/L Calcium (8.4-10.2) mg/dL Total Bilirubin (0.2-1.3) mg/dL AST (17-59) U/L ALT (4-49) U/L Alkaline Phosphatase (38-126) U/L Creatine Kinase (55-170) U/L Troponin I <0.012 (0.000-0.034) ng/mL Total Protein (6.3-8.2) g/dL Albumin (3.5-5.0) g/dL Lipase (23-300) U/L CA 19-9 Antigen 2297.7 H (0.0-34.9) U/mL Urine Color Urine Appearance (Clear) Urine pH (5.0-8.0) Ur Specific [place] (1.001-1.035) Urine Protein (Negative) Urine Glucose (UA) (Negative) Urine Ketones (Negative) Urine Blood (Negative) Urine Nitrite (Negative) Urine Bilirubin (Negative) Urine Urobilinogen (<2.0) mg/dL Ur Leukocyte Esterase (Negative) Urine RBC (0-5) /hpf Urine WBC (0-5) /hpf Calcium Oxalate Crystal (None) /hpf Urine Bacteria (None) /hpf Urine Mucus (None) /hpf Coronavirus (PCR) (Not Detectd) Influenza Type A RNA (Not Detectd) Influenza Type B (PCR) (Not Detectd) Disposition Clinical Impression: Abdominal pain, Pancreatic lesion, Chest pain, Vomiting Disposition: ADMITTED IP TO THIS HOSP Condition: Stable Is patient prescribed a controlled substance at d/c from ED?: No Decision to Admit Reason: Admit from EC Decision Date: 05/30/20 Decision Time: 22:21
[2020-05-30] MEDS ORDERED: 0.9% NACL WITH KCL 20 MEQ/L 1,000 ML IV SCH (22:30)
[2020-05-31] MEDS ORDERED: ARTIFICIAL TEARS-HYPROMELLOSE DROPS 15 ML BTL BOTH EYES PRN (00:15)
--- NOTE | 2020-05-31 00:38 | P.HPIM ---
History of Present Illness H&P Date: 05/30/20 Chief Complaint: abd pain 60 year old male with history of pancreatic cancer in remission patient comes in due to abd pain , of 5 days duration , described as sharp constant, 8/10 in severity , with nausea , no vomiting , denies any fever, chills, he claims having chronic loose stools that has not changed, and occasional blood in his stool for the past year, unchanged. he describes the pain over his lower ribs, shots across his upper belly he had MRI recently and reported to be normal to him, a colonoscopy couple months ago , also supposed to be normal . he is here as the pain intensified, and was unable to eat or drink today, currently he feels better with pain meds, and requesting some food to eat. he denies any recent travel, sick contact, or hospitalization , denies any changes in his medications, denies any unsanitary food or drink. in the ED workup showed, elevated liver enzymes CT of the abd was suspicious for new lesions on liver, pancrease and adrenal gland , suspicious for mets. Review of Systems Pertinent positives as noted in HPI. All other systems were reviewed and are negative Past Medical History Past Medical History: Cancer, GERD/Reflux Additional Past Medical History / Comment(s): Dx - pancreatic cancer 12/2018 in [place] had surgery in [place] and started chemo 03/22/19, EGD/colonoscopy dated 11/2018 states pt has duodenitis/antral gastritis/antral ulcer/colon and rectal polyp , hx nephrolithiasis., diarrhea., [facility]. History of Any Multi-Drug Resistant Organisms: None Reported Past Surgical History: Back Surgery, Cholecystectomy, Orthopedic Surgery Additional Past Surgical History / Comment(s): Tail of pancreas removed along with spleen in [place], [facility], laminectomy L4-L5/S1-S2, lower back laser surgery to cut nerves, L knee arthroscopy-meniscal and ACL, L ankle reconstructive surgery x 3, R hand surgery d/t trauma, EGD/colonoscopy, lithostripsy. Past Anesthesia/Blood Transfusion Reactions: No Reported Reaction Additional Past Anesthesia/Blood Transfusion Reaction / Comment(s): Pt has received blood in past without reaction. Past Psychological History: No Psychological Hx Reported Smoking Status: Vaper Past Alcohol Use History: Occasional Past Drug Use History: Marijuana - Past Family History Father History Unknown: Yes Additional Family Medical History / Comment(s): Pt does not know his father. Mother History Unknown: Yes Additional Family Medical History / Comment(s): Pt states he does not know mother's medical hx Medications and Allergies Home Medications Medication Instructions Recorded Confirmed Type Gabapentin [Neurontin] 300 mg PO TID 05/30/20 05/30/20 History traMADol HCL [Ultram ER] 100 mg PO DAILY 05/30/20 05/30/20 History Allergies Allergy/AdvReac Type Severity Reaction Status Date / Time No Known Allergies Allergy Verified 05/30/20 18:34 Physical Exam Vitals: Vital Signs Temp Pulse Resp BP Pulse Ox 05/30/20 21:02 77 18 130/73 100 05/30/20 18:36 73 18 120/60 100 05/30/20 16:06 98.8 F 98 18 106/72 99 Intake and Output 05/30/20 05/30/20 05/30/20 06:59 14:59 22:59 Other: Weight 77.111 kg Constitutional: No acute distress, conversant, pleasant Eyes: Anicteric sclerae, swollen right eyelid no discharge but excessive lacrimation , conjunctiva congested, no ophthalmoplegia Pupils equal round reactive to light ENMT: NC/AT Oropharynx clear, no erythema, or exudates Neck: Supple, FROM, no masses, or JVD No carotid bruits No thyromegaly Lungs: Clear to auscultation Clear to percussion Normal respiratory effort, no accessory muscle use Cardiovascular: Heart regular in rate and rhythm, No murmurs, gallops, or rubs No peripheral edema Abdominal: Soft, mild distention tenderness to palpation generalized , mainly upper abd with voluntary guarding , no rebound or rigidity Abdomen moving with respiration Normoactive bowel sounds No hepatomegaly, No splenomegaly No palpable mass No abdominal wall hernia noted Skin: Normal temperature, tone, texture, turgor No induration No subcutaneous nodules No rash, lesions No ulcers Extremities: No digital cyanosis No clubbing Pedal pulses intact and symmetrical Radial pulses intact and symmetrical No calf tenderness Psychiatric: Alert and oriented to person, place and time Appropriate affect fair judgement Neuro Muscles Strength 5/5 in all 4 extremities Sensation to light touch grossly present throughout Cranial nerves II-XII grossly intact No focal sensory deficits Lymphatics: no palpable cervical or supraclavicular , or inguinal lymph nodes Results CBC & Chem 7: 05/30/20 19:43 05/30/20 19:43 Labs: Abnormal Lab Results - Last 24 Hours (Table) 05/30/20 05/30/20 05/30/20 Range/Units 18:43 19:43 19:43 RBC 4.26 L (4.30-5.90) m/uL Hgb 12.8 L (13.0-17.5) gm/dL Hct 37.8 L (39.0-53.0) % Chloride 111 H (98-107) mmol/L Total Bilirubin 1.8 H (0.2-1.3) mg/dL AST 176 H (17-59) U/L ALT 157 H (4-49) U/L Alkaline Phosphatase 358 H (38-126) U/L Creatine Kinase 32 L (55-170) U/L Total Protein 6.2 L (6.3-8.2) g/dL Albumin 3.2 L (3.5-5.0) g/dL Lipase 14 L (23-300) U/L Urine Protein Trace H (Negative) Urine Blood Large H (Negative) Urine Bilirubin 1+ H (Negative) Ur Leukocyte Esterase Small H (Negative) Urine RBC >182 H (0-5) /hpf Urine WBC 24 H (0-5) /hpf Calcium Oxalate Crystal Few H (None) /hpf Urine Bacteria Rare H (None) /hpf Urine Mucus Many H (None) /hpf Assessment and Plan Assessment: lower ribs, upper abd pain , suspected mets history of pancreatic cancer in remission s/p surgery, chemo and radiation elevated liver enzymes plan IVF hydration with normal saline symptomatic control supportive care oncology consultation abd CT findings showing Coarse reticular interstitial pulmonary infiltrates similar to old exam. CT the patient's abdomen and pelvis demonstrates low-density liver lesions which are new, increase in the size of the density and the pancreatic head, increased retroperitoneal adenopathy and a new right adrenal mass. Concerns for proggressive metastatic disease. follow up labs diet as tolerated pain control with opioids blepharitis warm compresssors artificial tears erythromycine oint possible UTI follow up cultures rocephine daily IVPB 1 gm CODE STATUS:full code DVT prophylaxis: Lovenox sc Discussed with: Patient, ER Anticipated length of stay <than [address]: home A total of 70 minutes was spent on the care of this complex patient more than 50% of the time was spent in counseling and care coordination.
[2020-05-31] MEDS: GABAPENTIN 300 MG CAP PO SCH ×3 (00:53→16:16)
[2020-05-31] MEDS: ERYTHROMYCIN 5 MG/GM OPHTH OINT 3.5 GM TUBE BOTH EYES SCH ×2 (00:54→23:55)
[2020-05-31] MEDS: HYDROmorphone 0.5 MG/0.5 ML SYRINGE IVP PRN ×5 (00:58→20:48)
[2020-05-31 05:17] LABS: Basophils % (A) 0 %; Eosinophils # (A) 0.5 k/uL (0-0.7); Eosinophils % (A) 8 %; HCT 34.7 % (39.0-53.0); HGB 11.3 gm/dL (13.0-17.5); Lymphocytes # (A) 1.7 k/uL (1.0-4.8); Lymphocytes % (A) 29 %; MCH 29.6 pg (25.0-35.0); MCHC 32.6 g/dL (31.0-37.0); MCV 90.8 fL (80.0-100.0); Mean Platelet Volume 8.2; Monocytes # (A) 0.6 k/uL (0-1.0); Monocytes % (A) 11 %; Neutrophils # (A) 2.8 k/uL (1.3-7.7); Neutrophils % (A) 49 %; Platelet Count 284 k/uL (150-450); RBC 3.83 m/uL (4.30-5.90); RDW 14.8 % (11.5-15.5); WBC 5.7 k/uL (3.8-10.6)
[2020-05-31 05:33] LABS: African American GFR (CKD) >90 (>60 ml/min/1.73 sqM); Anion Gap 4 mmol/L; Blood Urea Nitrogen 11 mg/dL (9-20); Calcium 8.7 mg/dL (8.4-10.2); Carbon Dioxide 26 mmol/L (22-30); Chloride 111 mmol/L (98-107); Glucose 135 mg/dL (74-99); Non-African American GFR(CKD) >90 (>60 ml/min/1.73 sqM); Potassium 3.9 mmol/L (3.5-5.1); Sodium 141 mmol/L (137-145)
[2020-05-31] MEDS: SODIUM CHLORIDE 0.9% 1,000 ML IV SCH ×2 (08:53→20:48)
[2020-05-31] MEDS: ENOXAPARIN 40 MG/0.4 ML SYRINGE SQ SCH (08:53)
[2020-05-31] MEDS ORDERED: HYDROcodone/APAP 7.5-325MG 1 EACH TAB PO PRN (09:14)
--- NOTE | 2020-05-31 10:53 | P.PN ---
Subjective Progress Note Date: 05/31/20 Principal diagnosis: abdominal pain Patient is a 60 yo CM with a hx of pancreatic cancer s/p ressection of pancreatic body and tail, chemo, and radiation with a hx of chronic back pain who presented to the emergency department due to intractable abdominal pain. His vital signs were within normal limits on arrival. Laboratory analysis was negative for elevated bilirubin of 1.8, AST 176, ALT 157, alkaline phosphatase of 358. Repeat CT abdomen and pelvis were obtained which showed low-density liver lesions suggestive of minutes to metastatic disease, low density mass in the anterior pancreatic head increased in size compared with old exam, increased retroperitoneal adenopathy, and right adrenal mass. Patient was admitted for intractable pain and oncology evaluation. Oncologic history: Patient has been following with Dr. Pascal and Dr. Wetzel for the last year and a half and had been previously diagnosed with pancreatic cancer that was in remission. This was initially found when he was on a work trip to [place] and he underwent resection of the pancreatic body and tail. Then upon return to [place] he underwent radiation as well as chemotherapy. 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 He then had a MRI of the pancreas on 04/17/20 which had bulkiness of the pancreatic head consitent with pancreatic tumor, on that image the liver showed no focal defect and it specifically stated on adrenal mass noted. Dr. Wetzel and Dr. Pascal felt this imaging was consistent with his hx of radiation to that site. Patient seen and examined at bedside. He reports that he continues to have some abdominal pain, it is much improved with his Dilaudid. He denies any nausea, vomiting, diarrhea, or constipation. He reports increasing low back pain. He states that he has a known history of degenerative disc disease of prior back surgery over his pain began increasing. He has been following up Dr. Gordon and just had MRI of the spine completed on Wednesday. He reports that he has been able to handle IV morphine in the past as well as [place] and OxyContin. 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 At home he was currently taking Ultram and gabapentin for his pain. General: non toxic, no distress, appears at stated age Derm: warm, dry Head: atraumatic, normocephalic, symmetric Eyes: EOMI, no lid lag, anicteric sclera Mouth: no lip lesion, mucus membranes moist Cardiovascular: S1S2 reg, no murmur, positive posterior tibial pulse bilateral, Lungs: Decreased bs bilateral, no rhonchi, no rales , no accessory muscle use Abdominal: soft, + tender to palpation RUQ, no guarding, no appreciable organomegaly Ext: no gross muscle atrophy, no edema, no contractures Neuro: CN II-XI grossly intact, no focal neuro deficits Psych: Alert, oriented, having a difficult time focusing he states secondary to Dilaudid use. Intractable abdominal pain, suspect secondary to recurrence of pancreatic cancer Pancreatic mass Liver lesion X 2 Right Adrena mass Retroparitoneal lymphadenopathy Transaminitis, likely secondary to liver infiltration Exacerbation of Chronic back pain -Dr. Wetzel updated over the phone -Await medical oncology recommendations -Add oral hydrocodone and attempt to minimize IV Dilaudid requirements. -Suspect patient to be discharged home once pain is controlled on an oral regimen. -Out patient follow-up Objective - Vital Signs Vital signs: Vital Signs Temp 97.8 F 05/31/20 07:00 Pulse 65 05/31/20 07:00 Resp 16 05/31/20 07:00 BP 95/64 05/31/20 07:00 Pulse Ox 97 05/31/20 07:00 Intake & Output 05/30/20 05/31/20 05/31/20 18:59 06:59 18:59 Intake Total 100 240 Balance 100 240 Weight 77.111 kg Intake: IV 100 0.9% NaCl with KCl 20 Meq 100 /l 1,000 ml @ 100 mls/hr IV .Q10H [facility] Rx#: [id number] Oral 240 - Labs CBC & Chem 7: 05/31/20 04:47 05/31/20 04:47 Labs: Abnormal Lab Results - Last 24 Hours (Table) 05/30/20 05/30/20 05/30/20 Range/Units 18:43 19:43 19:43 RBC 4.26 L (4.30-5.90) m/uL Hgb 12.8 L (13.0-17.5) gm/dL Hct 37.8 L (39.0-53.0) % Chloride 111 H (98-107) mmol/L Glucose (74-99) mg/dL Total Bilirubin 1.8 H (0.2-1.3) mg/dL AST 176 H (17-59) U/L ALT 157 H (4-49) U/L Alkaline Phosphatase 358 H (38-126) U/L Creatine Kinase 32 L (55-170) U/L Total Protein 6.2 L (6.3-8.2) g/dL Albumin 3.2 L (3.5-5.0) g/dL Lipase 14 L (23-300) U/L Urine Protein Trace H (Negative) Urine Blood Large H (Negative) Urine Bilirubin 1+ H (Negative) Ur Leukocyte Esterase Small H (Negative) Urine RBC >182 H (0-5) /hpf Urine WBC 24 H (0-5) /hpf Calcium Oxalate Crystal Few H (None) /hpf Urine Bacteria Rare H (None) /hpf Urine Mucus Many H (None) /hpf 05/31/20 05/31/20 Range/Units 04:47 04:47 RBC 3.83 L (4.30-5.90) m/uL Hgb 11.3 L (13.0-17.5) gm/dL Hct 34.7 L (39.0-53.0) % Chloride 111 H (98-107) mmol/L Glucose 135 H (74-99) mg/dL Total Bilirubin (0.2-1.3) mg/dL AST (17-59) U/L ALT (4-49) U/L Alkaline Phosphatase (38-126) U/L Creatine Kinase (55-170) U/L Total Protein (6.3-8.2) g/dL Albumin (3.5-5.0) g/dL Lipase (23-300) U/L Urine Protein (Negative) Urine Blood (Negative) Urine Bilirubin (Negative) Ur Leukocyte Esterase (Negative) Urine RBC (0-5) /hpf Urine WBC (0-5) /hpf Calcium Oxalate Crystal (None) /hpf Urine Bacteria (None) /hpf Urine Mucus (None) /hpf
[2020-05-31] MEDS: HYDROcodone/APAP 10-325MG 1 EACH TAB PO PRN (12:49)
[2020-05-31 13:09] LABS: Albumin/Globulin Ratio 1.5 (1.60-3.17); Bilirubin, Conjugated 0.7 mg/dL (0.20-0.40); Bilirubin,Unconjugated 0.5 mg/dL; Total Bilirubin 1.2 mg/dL (0.3-1.2)
[2020-05-31] MEDS ORDERED: IBUPROFEN 600 MG TAB PO PRN (15:38)
[2020-05-31] MEDS ORDERED: diphenhydrAMINE 25 MG CAP PO PRN (16:28)
[2020-05-31 16:40] LABS: Total Bilirubin 1.2 mg/dL (0.2-1.2)
--- NOTE | 2020-05-31 18:13 | P.CONS ---
History of Present Illness - Reason for Consult Consult date: 05/31/20 pancreatic Requesting physician: Mary Perry - Chief Complaint abdominal pain - History of Present Illness This is a very nice patient who I first saw as inpatient at [facility] on 02/04/2019 when was admitted for urosepsis related to kidney stones,he started to have abdominal pain in November/2018,went to [facility],had a CT scan of abdomen which was reported mild hepatospenomegaly,had EGD/colonoscopy which were unremarkable,the he moved to [place],had recurrent abdominal pain,was re admitted to the hospital in December/2018, had a repeat CT scan of abdomen which showed ill defined mass in the body of the pancreas,MRI of abdomen confirmed a mass in the body of pancreas. On 12/29/2018,he had a core biopsy which was positive for adenocarcinoma. On 01/03/2019,he had distal pancreatectomy and splenectomy,pathology revealed adenocarcinoma infiltrating surrounding peripancreatic soft tissu and directly invades 2/9 peripancreatic nodes,closely approach serosal surface and extends to multiple cut surfaces at distal margins,proximal margins were negative,+ perineural invasion and LVI,the tumor measured 7.1cm. The above treatment was in [place]. He relocated t [place] in January/2019. He had repeat CT scan of abdomen/pelvis on 02/25/2019 which revealed cystic le silverio in the body of pancreas. 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 He had total of 4 cycles of mFOLFIRINOx,last was on 05/08/2019 and he decided to stop it On 06/14/2019,CA19-9 was down to 18. He resumed mFOLFIRINOX on ,with further dose reduction,however,he had recurrent diarrhea,dehydration. Repeat CT scan of chest/abdomen/pelvis on 07/27/2019 revealed possible thrombus in SMV and he was started on eliquis - MRI was performed and confirmed no evidence of partial thrombus in SMV and eliquis was stopped. He completed Xelda concurrent with radiation on 09/22/2019. On 12/18/2019,repeat CT scan of chest/abdomen/pelvis revealed no evidence of progression. On 03/18/2020,repeat CT scan of chest/abdomen/pelvis revealed increasing soft at site of surgery and XRT and 13 mm low density lesion at the head of pancreas. On 04/17/2020,MRI of pancreas revealed similar finding. He now presents with complaints of pain in abdomen and labile nausea. CT scan is concerning for recurrence, Review of Systems All systems: negative Constitutional: Reports as per HPI Past Medical History Past Medical History: Cancer, GERD/Reflux Additional Past Medical History / Comment(s): Dx - pancreatic cancer 12/2018 in [place] had surgery in [place] and has had chemotherapy in [place] and here and radiation treatment here, EGD/colonoscopy dated 11/2018 states pt has duodenitis/antral gastritis/antral ulcer/colon and rectal polyp , hx nephrolithiasis with surgery, chronic back pain. History of Any Multi-Drug Resistant Organisms: None Reported Past Surgical History: Back Surgery, Cholecystectomy, Orthopedic Surgery Additional Past Surgical History / Comment(s): Tail of pancreas removed along with spleen in [place], [facility], laminectomy L4-L5/S1-S2, lower back laser surgery to cut nerves, L knee arthroscopy-meniscal and ACL, L ankle reconstructive surgery x 3, R hand surgery d/t trauma, EGD/colonoscopy, litho stripsies. Past Anesthesia/Blood Transfusion Reactions: No Reported Reaction Additional Past Anesthesia/Blood Transfusion Reaction / Comm: Pt has received blood in past without reaction. Smoking Status: Former smoker, Vaper - Past Family History Father History Unknown: Yes Additional Family Medical History / Comment(s): Pt does not know his father. Mother History Unknown: Yes Additional Family Medical History / Comment(s): Pt states he does not know mother's medical hx Medications and Allergies Home Medications Medication Instructions Recorded Confirmed Type Gabapentin [Neurontin] 300 mg PO TID 05/30/20 05/30/20 History traMADol HCL [Ultram ER] 100 mg PO DAILY 05/30/20 05/30/20 History Allergies Allergy/AdvReac Type Severity Reaction Status Date / Time No Known Allergies Allergy Verified 05/30/20 18:34 Physical Exam Vitals: Vital Signs Temp Pulse Pulse Resp BP BP Pulse Ox 05/31/20 15:00 98.0 F 58 L 19 129/76 99 05/31/20 07:00 97.8 F 65 16 95/64 97 05/31/20 06:25 98.1 F 78 18 97/62 95 05/31/20 05:00 97.6 F 71 16 88/55 96 05/30/20 22:00 76 18 125/79 99 05/30/20 21:02 77 18 130/73 100 05/30/20 18:36 73 18 120/60 100 Intake and Output 05/31/20 05/31/20 05/31/20 06:59 14:59 22:59 Intake Total 100 840 Balance 100 840 Intake: IV 100 0.9% NaCl with KCl 20 Meq 100 /l 1,000 ml @ 100 mls/hr IV .Q10H [facility] Rx#: [id number] Intake, IV Titration 600 Amount Sodium Chloride 0.9% 1, 600 000 ml @ 75 mls/hr IV . [id number] [facility] Rx#:[id number] Oral 240 Other: # Voids 1 # Bowel Movements 1 Weight 77.111 kg - Constitutional General appearance: cooperative, no acute distress - EENT Eyes: EOMI, PERRLA ENT: hard of hearing, NA/AT - Respiratory Respiratory: bilateral: diminished - Cardiovascular Rhythm: regular Heart sounds: normal: S1, S2 - Gastrointestinal General gastrointestinal: distended, soft, tenderness - Integumentary Integumentary: pale - Neurologic Neurologic: CNII-XII intact - Musculoskeletal Musculoskeletal: generalized weakness - Psychiatric Psychiatric: A&O x's 3, appropriate affect, intact judgment & insight Results CBC & Chem 7: 05/31/20 04:47 05/31/20 04:47 Labs: Abnormal Lab Results - Last 24 Hours (Table) 05/30/20 05/30/20 05/30/20 Range/Units 18:43 19:43 19:43 RBC 4.26 L (4.30-5.90) m/uL Hgb 12.8 L (13.0-17.5) gm/dL Hct 37.8 L (39.0-53.0) % Chloride 111 H (98-107) mmol/L Glucose (74-99) mg/dL Total Bilirubin 1.8 H (0.2-1.3) mg/dL Conjugated Bilirubin (0.20-0.40) mg/dL AST 176 H (17-59) U/L ALT 157 H (4-49) U/L Alkaline Phosphatase 358 H (38-126) U/L Creatine Kinase 32 L (55-170) U/L Total Protein 6.2 L (6.3-8.2) g/dL Albumin 3.2 L (3.5-5.0) g/dL Albumin/Globulin Ratio (1.60-3.17) g/dL Lipase 14 L (23-300) U/L Urine Protein Trace H (Negative) Urine Blood Large H (Negative) Urine Bilirubin 1+ H (Negative) Ur Leukocyte Esterase Small H (Negative) Urine RBC >182 H (0-5) /hpf Urine WBC 24 H (0-5) /hpf Calcium Oxalate Crystal Few H (None) /hpf Urine Bacteria Rare H (None) /hpf Urine Mucus Many H (None) /hpf 05/31/20 05/31/20 05/31/20 Range/Units 04:47 04:47 04:47 RBC 3.83 L (4.30-5.90) m/uL Hgb 11.3 L (13.0-17.5) gm/dL Hct 34.7 L (39.0-53.0) % Chloride 111 H (98-107) mmol/L Glucose 135 H (74-99) mg/dL Total Bilirubin (0.2-1.3) mg/dL Conjugated Bilirubin 0.70 H (0.20-0.40) mg/dL AST 125 H (17-59) U/L ALT 147 H (4-49) U/L Alkaline Phosphatase 327 H (38-126) U/L Creatine Kinase (55-170) U/L Total Protein 5.0 L (6.3-8.2) g/dL Albumin 3.00 L (3.5-5.0) g/dL Albumin/Globulin Ratio 1.50 L (1.60-3.17) g/dL Lipase (23-300) U/L Urine Protein (Negative) Urine Blood (Negative) Urine Bilirubin (Negative) Ur Leukocyte Esterase (Negative) Urine RBC (0-5) /hpf Urine WBC (0-5) /hpf Calcium Oxalate Crystal (None) /hpf Urine Bacteria (None) /hpf Urine Mucus (None) /hpf 05/31/20 Range/Units 09:20 RBC (4.30-5.90) m/uL Hgb (13.0-17.5) gm/dL Hct (39.0-53.0) % Chloride (98-107) mmol/L Glucose (74-99) mg/dL Total Bilirubin (0.2-1.3) mg/dL Conjugated Bilirubin (0.20-0.40) mg/dL AST 126 H (17-59) U/L ALT 144 H (4-49) U/L Alkaline Phosphatase (38-126) U/L Creatine Kinase (55-170) U/L Total Protein (6.3-8.2) g/dL Albumin (3.5-5.0) g/dL Albumin/Globulin Ratio (1.60-3.17) g/dL Lipase (23-300) U/L Urine Protein (Negative) Urine Blood (Negative) Urine Bilirubin (Negative) Ur Leukocyte Esterase (Negative) Urine RBC (0-5) /hpf Urine WBC (0-5) /hpf Calcium Oxalate Crystal (None) /hpf Urine Bacteria (None) /hpf Urine Mucus (None) /hpf CT scan - abdomen: report reviewed CT scan - chest: report reviewed CT scan - pelvis: report reviewed Assessment and Plan (1) Abdominal pain Current Visit: Yes Status: Acute Code(s): R10.9 - UNSPECIFIED ABDOMINAL PAIN SNOMED Code(s): 86956661 (2) History of pancreatic cancer Current Visit: No Status: Chronic Priority: Medium Code(s): Z85.07 - PERSONAL HISTORY OF MALIGNANT NEOPLASM OF PANCREAS SNOMED Code(s): 00304710054263 (3) Nausea & vomiting Current Visit: No Status: Resolved Priority: High Code(s): R11.2 - NAUSEA WITH VOMITING, UNSPECIFIED SNOMED Code(s): 51113588 Plan: Concern for recurrence/progression At this time continue pain management, await pain services for evaluation of celiac plexus block Ca19-9 Supportive care Physician attest: I have completed the full history and physical ans agree with above dictation, dictated as a scribe.
[2020-05-31] MEDS: GABAPENTIN 400 MG CAP PO SCH (20:54)
[2020-06-01] MEDS: HYDROcodone/APAP 10-325MG 1 EACH TAB PO PRN ×2 (08:42→19:42)
[2020-06-01] MEDS: GABAPENTIN 400 MG CAP PO SCH ×3 (08:42→19:42)
[2020-06-01] MEDS: ENOXAPARIN 40 MG/0.4 ML SYRINGE SQ SCH (08:42)
[2020-06-01 09:10] LABS: HCT 34.4 % (39.6-50.0); HGB 11.1 g/dL (13.0-17.0); MCH 28.7 pg (27.0-32.0); MCHC 32.3 g/dL (32.0-37.0); MCV 88.9 fL (80.0-97.0); Mean Platelet Volume 11.5 fL (9.5-12.2); Platelet Count 326 X 10*3/uL (140-440); RBC 3.87 X 10*6/uL (4.40-5.60); RDW 15.9 % (11.5-14.5); WBC 6.61 X 10*3/uL (4.50-10.00)
[2020-06-01 10:13] LABS: African American GFR (CKD) 113.3 (60.0-200.0); Albumin 2.9 g/dL (3.80-4.90); Albumin/Globulin Ratio 1.38 (1.60-3.17); BUN/Creat Ratio 18.75 Ratio (12.00-20.00); Globulin 2.1 g/dL (1.6-3.3); Non-African American GFR(CKD) 97.8 (60.0-200.0); Total Bilirubin 1.6 mg/dL (0.2-1.2)
--- NOTE | 2020-06-01 11:28 | P.PN ---
Subjective Progress Note Date: 06/01/20 Principal diagnosis: abdominal pain Patient is a 60 yo CM with a hx of pancreatic cancer s/p ressection of pancreatic body and tail, chemo, and radiation with a hx of chronic back pain who presented to the emergency department due to intractable abdominal pain. His vital signs were within normal limits on arrival. Laboratory analysis was negative for elevated bilirubin of 1.8, AST 176, ALT 157, alkaline phosphatase of 358. Repeat CT abdomen and pelvis were obtained which showed low-density liver lesions suggestive of minutes to metastatic disease, low density mass in the anterior pancreatic head increased in size compared with old exam, increased retroperitoneal adenopathy, and right adrenal mass. Patient was admitted for intractable pain and oncology evaluation. Oncologic history: Patient has been following with Dr. Pascal and Dr. Wetzel for the last year and a half and had been previously diagnosed with pancreatic cancer that was in remission. This was initially found when he was on a work trip to [place] and he underwent resection of the pancreatic body and tail. Then upon return to [place] he underwent radiation as well as chemotherapy. 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 He then had a MRI of the pancreas on 04/17/20 which had bulkiness of the pancreatic head consitent with pancreatic tumor, on that image the liver showed no focal defect and it specifically stated on adrenal mass noted. Dr. Wetzel and Dr. Pascal felt this imaging was consistent with his hx of radiation to that site. Patient seen and examined at bedside. He reports pain and is asking for dil audid, we discussed that he did not require any pain meds overnight and that we need to try the norco and are not going to go back to dilaudid. He does not want morphine. + nausea, no vomiting. General: non toxic, no distress, appears at stated age Derm: warm, dry Head: atraumatic, normocephalic, symmetric Eyes: EOMI, no lid lag, anicteric sclera Mouth: no lip lesion, mucus membranes moist Cardiovascular: S1S2 reg, no murmur, positive posterior tibial pulse bilateral, Lungs: Decreased bs bilateral, no rhonchi, no rales , no accessory muscle use Abdominal: soft, + tender to palpation diffusely, no guarding, no appreciable organomegaly Ext: no gross muscle atrophy, no edema, no contractures Neuro: CN II-XI grossly intact, no focal neuro deficits Psych: Alert, oriented, having a difficult time focusing he states secondary to Dilaudid use. Intractable abdominal pain, suspect secondary to recurrence of pancreatic cancer Pancreatic mass Liver lesion X 2 Right Adrena mass Retroparitoneal lymphadenopathy Transaminitis, likely secondary to liver infiltration Exacerbation of Chronic back pain Blephritis- erythromycin intermittent Possible UTI- await culture results, rocephin until cultures are available. Anemia, chronic, unchanged -D/W Dr. Howell, add fentanyl patch, eval for ciliac block to hope to come off pain medications -off oral dilaudid - hope for discharge in AM, if pain controlled. - follow liver enzymes DVT prophylaxis: Lovenox Discussed with: patient, nursing, Dr. Howell Anticipated discharge: in AM Anticipated discharge place: home A total of 25 minutes was spent on the care of this complex patient more than 50% of the time was spent in counseling and care coordination. Objective - Vital Signs Vital signs: Vital Signs Temp 98 F 06/01/20 06:50 Pulse 67 06/01/20 06:50 Resp 16 06/01/20 06:50 BP 104/66 06/01/20 06:50 Pulse Ox 96 06/01/20 06:50 Intake & Output 05/31/20 06/01/20 06/01/20 18:59 06:59 18:59 Intake Total 840 900 Balance 840 900 Weight 77.111 kg Intake: Intake, IV Titration 600 900 Amount Sodium Chloride 0.9% 1, 600 900 000 ml @ 75 mls/hr IV . [id number] [facility] Rx#:[id number] Oral 240 Other: # Voids 1 3 # Bowel Movements 1 1 - Labs CBC & Chem 7: 06/01/20 04:59 06/01/20 04:59 Labs: Abnormal Lab Results - Last 24 Hours (Table) 05/30/20 05/31/20 05/31/20 Range/Units 19:43 04:47 09:20 RBC (4.40-5.60) X 10*6/uL Hgb (13.0-17.0) g/dL Hct (39.6-50.0) % RDW (11.5-14.5) % Chloride (96-109) mmol/L Total Bilirubin (0.2-1.2) mg/dL Conjugated Bilirubin 0.70 H (0.20-0.40) mg/dL AST 125 H 126 H (14-35) U/L ALT 147 H 144 H (10-49) U/L Alkaline Phosphatase 327 H (41-126) U/L Total Protein 5.0 L (6.2-8.2) g/dL Albumin 3.00 L (3.80-4.90) g/dL Albumin/Globulin Ratio 1.50 L (1.60-3.17) g/dL CA 19-9 Antigen 2297.7 H (0.0-34.9) U/mL 06/01/20 06/01/20 Range/Units 04:59 04:59 RBC 3.87 L (4.40-5.60) X 10*6/uL Hgb 11.1 L (13.0-17.0) g/dL Hct 34.4 L (39.6-50.0) % RDW 15.9 H (11.5-14.5) % Chloride 111 H (96-109) mmol/L Total Bilirubin 1.6 H (0.2-1.2) mg/dL Conjugated Bilirubin (0.20-0.40) mg/dL AST 139 H (14-35) U/L ALT 152 H (10-49) U/L Alkaline Phosphatase 356 H (41-126) U/L Total Protein 5.0 L (6.2-8.2) g/dL Albumin 2.90 L (3.80-4.90) g/dL Albumin/Globulin Ratio 1.38 L (1.60-3.17) g/dL CA 19-9 Antigen (0.0-34.9) U/mL Microbiology - Last 24 Hours (Table) 05/30/20 21:59 Blood Culture - Preliminary Blood No Growth after 24 hours 05/30/20 19:43 Urine Culture - Preliminary Urine,Voided
[2020-06-01] MEDS: SODIUM CHLORIDE 0.9% 1,000 ML IV SCH ×2 (19:41→23:11)
[2020-06-01] MEDS: ERYTHROMYCIN 5 MG/GM OPHTH OINT 3.5 GM TUBE BOTH EYES SCH (19:43)
--- NOTE | 2020-06-01 19:46 | P.PN ---
Subjective Progress Note Date: 06/01/20 The patient was sleeping, but easily arousable. On making up he stated that his pain was as bad as the time of admission and he felt no better. He was also complaining of some nausea. However he had actually not required any when necessary been medication for the past 10-12 hours. He still having regular bowel movements which are loose, chronic for him. Objective - Vital Signs Vital signs: Vital Signs Temp 97.9 F 06/01/20 13:35 Pulse 63 06/01/20 13:35 Resp 14 06/01/20 13:35 BP 122/74 06/01/20 13:35 Pulse Ox 97 06/01/20 13:35 Intake & Output 06/01/20 06/01/20 06/02/20 06:59 18:59 06:59 Intake Total 900 Balance 900 Intake: Intake, IV Titration 900 Amount Sodium Chloride 0.9% 1, 900 000 ml @ 75 mls/hr IV . [id number] [facility] Rx#:[id number] Other: # Voids 3 1 # Bowel Movements 1 - Constitutional General appearance: Present: no acute distress - EENT Eyes: Present: EOMI ENT: Present: hearing grossly normal, normal oropharynx - Respiratory Respiratory: bilateral: CTA - Cardiovascular Rhythm: regular Heart sounds: normal: S1, S2 - Gastrointestinal General gastrointestinal: Present: normal bowel sounds, soft Localized gastrointestinal: tender: epigastric periumbilical - Integumentary Integumentary: Present: normal - Neurologic Neurologic: Present: CNII-XII intact - Musculoskeletal Musculoskeletal: Present: strength equal bilaterally - Labs CBC & Chem 7: 06/01/20 04:59 06/01/20 04:59 Labs: Abnormal Lab Results - Last 24 Hours (Table) 05/30/20 06/01/20 06/01/20 Range/Units 19:43 04:59 04:59 RBC 3.87 L (4.40-5.60) X 10*6/uL Hgb 11.1 L (13.0-17.0) g/dL Hct 34.4 L (39.6-50.0) % RDW 15.9 H (11.5-14.5) % Chloride 111 H (96-109) mmol/L Total Bilirubin 1.6 H (0.2-1.2) mg/dL AST 139 H (14-35) U/L ALT 152 H (10-49) U/L Alkaline Phosphatase 356 H (41-126) U/L Total Protein 5.0 L (6.2-8.2) g/dL Albumin 2.90 L (3.80-4.90) g/dL Albumin/Globulin Ratio 1.38 L (1.60-3.17) g/dL CA 19-9 Antigen 2297.7 H (0.0-34.9) U/mL Microbiology - Last 24 Hours (Table) 05/30/20 21:59 Blood Culture - Preliminary Blood No Growth after 24 hours 05/30/20 19:43 Urine Culture - Preliminary Urine,Voided Assessment and Plan (1) Abdominal pain Narrative/Plan: This appears to be related to neoplasm, specifically most likely, recurrence of his malignancy given the radiologic appearance. Patient is currently on Davilla when necessary and had actually not required any pain medication for several hours. However at the time of my evaluation he was complaining that his pain was as bad as the time of admission. - MS Contin was ordered. However case was subsequently discussed with the admitting service. The patient refused MS Contin as he had a prior history of addiction related to the same. Therefore it is felt to be appropriate to place him on fentanyl 25 g. Continue Davilla when necessary - Anesthesia has been consulted for celiac plexus block Current Visit: Yes Status: Acute Code(s): R10.9 - UNSPECIFIED ABDOMINAL PAIN SNOMED Code(s): 93645526 (2) History of pancreatic cancer Narrative/Plan: It was discussed with the patient that the radiologic appearance is highly suggestive of recurrence, with metastasis involving retroperitoneal nodes and liver. Patient's CA-19-9-9 also came back markedly elevated at 2297. If the patient still wants additional evidence, PET scan can be performed as an outpatient - Follow-up with Dr. Pascal to discuss options for systemic treatment. Current Visit: No Status: Chronic Priority: Medium Code(s): Z85.07 - PERSONAL HISTORY OF MALIGNANT NEOPLASM OF PANCREAS SNOMED Code(s): 34859529852230
[2020-06-02 07:51] VITALS: RESP 16; TEMP 98.3
[2020-06-02] MEDS: GABAPENTIN 400 MG CAP PO SCH (08:02)
[2020-06-02] MEDS: HYDROcodone/APAP 10-325MG 1 EACH TAB PO PRN ×2 (08:02→13:40)
[2020-06-02] MEDS: ENOXAPARIN 40 MG/0.4 ML SYRINGE SQ SCH (08:03)
[2020-06-02] MEDS: SODIUM CHLORIDE 0.9% 1,000 ML IV SCH (09:08)
--- NOTE | 2020-06-02 09:22 | P.PN ---
Subjective Progress Note Date: 06/02/20 Principal diagnosis: abdominal pain Patient is a 60 yo CM with a hx of pancreatic cancer s/p ressection of pancreatic body and tail, chemo, and radiation with a hx of chronic back pain who presented to the emergency department due to intractable abdominal pain. His vital signs were within normal limits on arrival. Laboratory analysis was negative for elevated bilirubin of 1.8, AST 176, ALT 157, alkaline phosphatase of 358. Repeat CT abdomen and pelvis were obtained which showed low-density liver lesions suggestive of minutes to metastatic disease, low density mass in the anterior pancreatic head increased in size compared with old exam, increased retroperitoneal adenopathy, and right adrenal mass. Patient was admitted for intractable pain and oncology evaluation. His pain medications have been optimized. He will need to see pain management for possible celiac block. Oncologic history: Patient has been following with Dr. Pascal and Dr. Wetzel for the last year and a half and had been previously diagnosed with pancreatic cancer that was in remission. This was initially found when he was on a work trip to [place] and he underwent resection of the pancreatic body and tail. Then upon return to [place] he underwent radiation as well as chemotherapy. 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 He then had a MRI of the pancreas on 04/17/20 which had bulkiness of the pancreatic head consitent with pancreatic tumor, on that image the liver showed no focal defect and it specifically stated on adrenal mass noted. Dr. Wetzel and Dr. Pascal felt this imaging was consistent with his hx of radiation to that site. Patient seen and examined at bedside. He reports pain and is asking for dilaudid, we discussed that he did not require any pain meds overnight and that we need to try the norco and are not going to go back to dilaudid. He does not want morphine. + nausea, no vomiting. General: non toxic, no distress, appears at stated age Derm: warm, dry Head: atraumatic, normocephalic, symmetric Eyes: EOMI, no lid lag, anicteric sclera Mouth: no lip lesion, mucus membranes moist Cardiovascular: S1S2 reg, no murmur, positive posterior tibial pulse bilateral, Lungs: Decreased bs bilateral, no rhonchi, no rales , no accessory muscle use Abdominal: soft, + tender to palpation diffusely, no guarding, no appreciable organomegaly Ext: no gross muscle atrophy, no edema, no contractures Neuro: CN II-XI grossly intact, no focal neuro deficits Psych: Alert, oriented, withdrawn with flat affect Patient states that he is still having pain, but did not take any additional medications overnight, states that he thinks we think he is a drug seeker. I confirmed that we do not and added a fentanyl patch yesterday. I asked what we can do for him and he had no response other than the celiac block. I spoke with him that the cilaic block will likely be completed as outpatient. He says he will not tell me what to do and I can discharge him if I want. I again tried to ask if his pain control is adaquate and he says the pain always comes back, I suggested pain is likely from return of malignancy and that we can given meds but I don't expect the pain to stop. We discussed likely home today after seen by oncology. Intractable abdominal Pain secondary to malignancy Recurrent metastatic pancreatic cancer Transaminitis due to above Excaerbation of chronic back pain Blephritis UTI ruled out with negative culture- stop abx microscopic hematuria- follow as outpatient Chronic anemia - continue with norco, fentanyl, increased gabapentin. Outpatient follow-up with anesthesia pain services. DVT prophylaxis: Lovenox Discussed with: patient, nursing Anticipated discharge: today Anticipated discharge place: home A total of 25 minutes was spent on the care of this complex patient more than 50% of the time was spent in counseling and care coordination. Objective - Vital Signs Vital signs: Vital Signs Temp 98.3 F 06/02/20 07:00 Pulse 58 L 06/02/20 07:00 Resp 16 06/02/20 07:00 BP 103/63 06/02/20 07:00 Pulse Ox 96 06/02/20 07:00 Intake & Output 06/01/20 06/02/20 06/02/20 18:59 06:59 18:59 Intake Total 200 Balance 200 Intake: Oral 200 Other: Voiding Method Toilet # Voids 1 1 # Bowel Movements 3 - Labs CBC & Chem 7: 06/01/20 04:59 06/01/20 04:59 Labs: Abnormal Lab Results - Last 24 Hours (Table) 06/01/20 06/01/20 Range/Units 04:59 04:59 RBC 3.87 L (4.40-5.60) X 10*6/uL Hgb 11.1 L (13.0-17.0) g/dL Hct 34.4 L (39.6-50.0) % RDW 15.9 H (11.5-14.5) % Chloride 111 H (96-109) mmol/L Total Bilirubin 1.6 H (0.2-1.2) mg/dL AST 139 H (14-35) U/L ALT 152 H (10-49) U/L Alkaline Phosphatase 356 H (41-126) U/L Total Protein 5.0 L (6.2-8.2) g/dL Albumin 2.90 L (3.80-4.90) g/dL Albumin/Globulin Ratio 1.38 L (1.60-3.17) g/dL Microbiology - Last 24 Hours (Table) 05/30/20 21:59 Blood Culture - Preliminary Blood No Growth after 48 hours 05/30/20 19:43 Urine Culture - Final Urine,Voided
--- NOTE | 2020-06-02 12:26 | P.PN ---
Subjective Progress Note Date: 06/02/20 The patient states that he still has pain, but level is tolerable on current pain regimen. He has some mild nausea off and on. Appetite is diminished but reasonable. He is having regular bowel movements, somewhat loose Objective - Vital Signs Vital signs: Vital Signs Temp 98.3 F 06/02/20 07:00 Pulse 58 L 06/02/20 07:00 Resp 16 06/02/20 08:00 BP 103/63 06/02/20 07:00 Pulse Ox 96 06/02/20 07:00 Intake & Output 06/01/20 06/02/20 06/02/20 18:59 06:59 18:59 Intake Total 200 Balance 200 Intake: Oral 200 Other: Voiding Method Toilet Toilet # Voids 1 1 # Bowel Movements 3 - Constitutional General appearance: Present: no acute distress - EENT Eyes: Present: EOMI ENT: Present: hearing grossly normal, normal oropharynx - Respiratory Respiratory: bilateral: CTA - Cardiovascular Rhythm: regular Heart sounds: normal: S1, S2 - Gastrointestinal General gastrointestinal: Present: normal bowel sounds, soft Localized gastrointestinal: tender: epigastric periumbilical - Integumentary Integumentary: Present: normal - Neurologic Neurologic: Present: CNII-XII intact - Musculoskeletal Musculoskeletal: Present: generalized weakness, strength equal bilaterally - Psychiatric Psychiatric: Present: A&O x's 3 - Labs CBC & Chem 7: 06/01/20 04:59 06/01/20 04:59 Labs: Microbiology - Last 24 Hours (Table) 05/30/20 21:59 Blood Culture - Preliminary Blood No Growth after 48 hours 05/30/20 19:43 Urine Culture - Final Urine,Voided Assessment and Plan (1) Abdominal pain Narrative/Plan: The level is reduced, and appears to be tolerable on current regimen of fentanyl 12 g, and [place] 10/325. Patient is still having regular bowel movements. Discussed with admitting service. It appears patient is felt to be appropriate for discharge, from the standpoint. Agree with same on current regimen, with o utpatient follow-up with anesthesia to consider celiac plexus block. - MAPS performed - Scrip for fentanyl 12 g, and [place] 10/325, 2 week supply prescribed - Opioid start talking form discussed with patient, who signed the same. Current Visit: Yes Status: Acute Code(s): R10.9 - UNSPECIFIED ABDOMINAL PAIN SNOMED Code(s): 72240457 (2) History of pancreatic cancer Narrative/Plan: It was discussed with the patient that the CT appearance, as well as a high CA 19-9 is highly suggestive of metastatic recurrence, as already suspected. Therefore patient will need to follow-up with Dr. Pascal as an outpatient to discuss further management options for Current Visit: No Status: Chronic Priority: Medium Code(s): Z85.07 - PERSONAL HISTORY OF MALIGNANT NEOPLASM OF PANCREAS SNOMED Code(s): 99228078408753
--- NOTE | 2020-06-02 13:39 | P.DS ---
Providers Date of admission: 05/30/20 22:21 Expected date of discharge: 06/02/20 Attending physician: Naina Maher MD Consults: 05/30/20 22:30 Consult Physician Urgent Consulting Provider: Raghu Pascal Consult Reason/Comments: pancreatic cancer, possible metastatic disease Do you want consulting provider notified?: Yes 06/01/20 08:37 Consult to Anesthesia Routine Consulting Provider: Anesthesia,Services Consult Reason/Comments: Celiac plexus block [facility]: Discharge Diagnosis: Intractable abdominal Pain secondary to malignancy Recurrent metastatic pancreatic cancer Transaminitis due to above Excaerbation of chronic back pain Blephritis UTI ruled out with negative culture- stop abx microscopic hematuria- follow as outpatient Chronic anemia Hospital Course: Patient is a 60 yo CM with a hx of pancreatic cancer s/p ressection of pancreatic body and tail, chemo, and radiation with a hx of chronic back pain who presented to the emergency department due to intractable abdominal pain. His vital signs were within normal limits on arrival. Laboratory analysis was negative for elevated bilirubin of 1.8, AST 176, ALT 157, alkaline phosphatase of 358. Repeat CT abdomen and pelvis were obtained which showed low-density liver lesions suggestive of minutes to metastatic disease, low density mass in the anterior pancreatic head increased in size compared with old exam, increased retroperitoneal adenopathy, and right adrenal mass. Patient was admitted for intractable pain and oncology evaluation. His pain medications have been optimized. He will follow with pain management for possible celiac block. He was discharged home with fentanyl patch, norco and increased gabapentin. He will follow with Dr. Pascal next week. For Physical Exam see progress note same date A total of 25 minutes of time were spent preparing this complex discharge summary . Patient Condition at Discharge: Stable Plan - Discharge Summary Discharge Rx Participant: No New Discharge Prescriptions: New fentaNYL 12MCG/HR PATCH [Duragesic 12MCG/HR] 1 patch TRANSDERM Q72H 3 Days #5 patch Gabapentin [Neurontin] 400 mg PO TID #21 cap HYDROcodone/APAP 10-325MG [[place] 10-325] 1 tab PO Q6HR PRN 3 Days #60 tab PRN Reason: Pain Control Erythromycin Ophth Oint [Romycin Ophth Oint] 1 applic BOTH EYES Q24H 7 Days #1 tube Discontinued Gabapentin [Neurontin] 300 mg PO TID Discharge Medication List Erythromycin Ophth Oint [Romycin Ophth Oint] 1 applic BOTH EYES Q24H 7 Days #1 tube 06/02/20 [Rx] Gabapentin [Neurontin] 400 mg PO TID #21 cap 06/02/20 [Rx] HYDROcodone/APAP 10-325MG [[place] 10-325] 1 tab PO Q6HR PRN 3 Days #60 tab 06/02/20 [Rx] fentaNYL 12MCG/HR PATCH [Duragesic 12MCG/HR] 1 patch TRANSDERM Q72H 3 Days #5 patch 06/02/20 [Rx] Follow up Appointment(s)/Referral(s): Krystal Márquez MD [Primary Care Provider] - 1-2 days Jeanie Kramer MD [STAFF PHYSICIAN] - 1 Week Keyur Wetzel MD [STAFF PHYSICIAN] - 1 Week Raghu Pascal MD [STAFF PHYSICIAN] - 1 Week Activity/Diet/Wound Care/Special Instructions: Activity: as tolerated Diet: regular Special Instructions: No driving or operating heavy machinery while on pain medications Discharge Disposition: HOME SELF-CARE
[2020-06-02 13:40] VITALS: BP 103/66; PULSE 69
== END 2020-06-02 14:05 | disposition home or self-care (01) ==
LOC: EC 15:42 → 6NMEDSUR 22:21
PROVIDERS: ADMIT Internal Medicine; ATTEND Internal Medicine
DX: G89.3 Neoplasm related pain (acute) (chronic) (principal); C25.9 Malignant neoplasm of pancreas, unspecified; K76.9 Liver disease, unspecified; E27.9 Disorder of adrenal gland, unspecified; R59.0 Localized enlarged lymph nodes; F11.21 Opioid dependence, in remission; K21.9 Gastro-esophageal reflux disease without esophagitis; H01.009 Unspecified blepharitis unspecified eye, unspecified eyelid; Z20.822 Contact with and (suspected) exposure to COVID-19; G89.29 Other chronic pain; M54.9 Dorsalgia, unspecified; R31.29 Other microscopic hematuria; D64.9 Anemia, unspecified; N20.0 Calculus of kidney; Z79.899 Other long term (current) drug therapy; Z87.11 Personal history of peptic ulcer disease; Z90.49 Acquired absence of other specified parts of digestive tract; Z92.3 Personal history of irradiation; Z92.21 Personal history of antineoplastic chemotherapy; Z86.010 Personal history of colon polyps; Z87.19 Personal history of other diseases of the digestive system; Z87.442 Personal history of urinary calculi; Z87.891 Personal history of nicotine dependence; Z85.07 Personal history of malignant neoplasm of pancreas
CPT/HCPCS: 96376 ×4; 96366 ×2; 96372 ×3; 96375 ×3; 96368; 96361; 96365; 99285; 36415; 93005; 80053 ×2; 80048; 80076; 82247; 82550; 83605; 83690; 84450; 84460; 84484; 85025 ×2; 85027; 85610; 85730; 81001; 87040; 86301; 87086; 87502; 87635; 71275; 74177; G0378 ×4; J2270; J2405 ×2; J1650 ×3; J0696 ×3; J1642; J1170; Q9967

== ENCOUNTER 2020-06-11 11:37 | Inpatient (IN) | payer MEDICARE, OTHER ==
[2020-06-11] MEDS ORDERED: SODIUM CHLORIDE 0.9% 1,000 ML IV ONE (13:33)
--- NOTE | 2020-06-11 13:34 | ED ---
General Adult HPI - General Chief complaint: Recheck/Abnormal Lab/Rx Stated complaint: abn labs Time Seen by Provider: 06/11/20 13:00 Source: patient, RN notes reviewed, old records reviewed Mode of arrival: wheelchair Limitations: no limitations - History of Present Illness Initial comments: 60-year-old male with recurrent stage IV pancreatitis presenting with jaundice and abnormal outpatient labs. Patient was sent to the emergency department with significant elevated liver enzymes. He was sent by his oncologist. He did initiate chemotherapy yesterday. He was recently found have liver metastases from primary pancreatic cancer according to the patient. He states he does have epigastric abdominal pain which is unchanged from baseline, controlled with [place]. Patient has had significant nausea without vomiting. No fever. No cough or dyspnea. - Related Data Home Medications Medication Instructions Recorded Confirmed Erythromycin Ophth Oint [Romycin 1 applic BOTH EYES DAILY 06/11/20 06/11/20 Ophth Oint] Previous Rx's Medication Instructions Recorded Gabapentin [Neurontin] 400 mg PO TID #21 cap 06/02/20 HYDROcodone/APAP 10-325MG [[place] 1 tab PO Q6HR PRN 3 Days #60 tab 06/02/20 10-325] fentaNYL 12MCG/HR PATCH [[place]ages[place] 1 patch TRANSDERM Q72H 3 Days #5 06/02/20 12MCG/HR] patch Allergies Allergy/AdvReac Type Severity Reaction Status Date / Time No Known Allergies Allergy Verified 06/11/20 13:50 Review of Systems ROS Statement: Those systems with pertinent positive or pertinent negative responses have been documented in the HPI. ROS Other: All systems not noted in ROS Statement are negative. Past Medical History Past Medical History: Cancer, GERD/Reflux Additional Past Medical History / Comment(s): Dx - pancreatic cancer 12/2018 in [place] had surgery in [place] and started chemo 03/22/19, EGD/colonoscopy dated 11/2018 states pt has duodenitis/antral gastritis/antral ulcer/colon and rectal polyp , hx nephrolithiasis., diarrhea., [facility]. History of Any Multi-Drug Resistant Organisms: None Reported Past Surgical History: Back Surgery, Cholecystectomy, Orthopedic Surgery Additional Past Surgical History / Comment(s): Tail of pancreas removed along with spleen in [place], [facility], laminectomy L4-L5/S1-S2, lower back laser surgery to cut nerves, L knee arthroscopy-meniscal and ACL, L ankle reconstructive surgery x 3, R hand surgery d/t trauma, EGD/colonoscopy, lithostripsy. Past Anesthesia/Blood Transfusion Reactions: No Reported Reaction Additional Past Anesthesia/Blood Transfusion Reaction / Comment(s): Pt has received blood in past without reaction. Past Psychological History: No Psychological Hx Reported Smoking Status: Vaper Past Alcohol Use History: Occasional Past Drug Use History: Marijuana - Past Family History Father History Unknown: Yes Additional Family Medical History / Comment(s): Pt does not know his father. Mother History Unknown: Yes Additional Family Medical History / Comment(s): Pt states he does not know mother's medical hx General Exam Limitations: no limitations General appearance: alert, in no apparent distress Head exam: Present: atraumatic, normocephalic Eye exam: Present: normal appearance, PERRL, scleral icterus ENT exam: Present: normal exam Neck exam: Present: normal inspection. Absent: tenderness, meningismus Respiratory exam: Present: normal lung sounds bilaterally. Absent: respiratory distress, wheezes, rales Cardiovascular Exam: Present: regular rate, normal rhythm GI/Abdominal exam: Present: tenderness. Absent: soft, distended Extremities exam: Present: normal inspection, normal capillary refill. Absent: pedal edema, calf tenderness Neurological exam: Present: alert, oriented X3, CN II-XII intact. Absent: motor sensory deficit Skin exam: Present: warm, dry, intact, other (Jaundice) Course Vital Signs 06/11/20 12:44 Temperature 98.1 F Pulse Rate 86 Respiratory 18 Rate Blood Pressure 119/80 O2 Sat by Pulse 97 Oximetry Medical Decision Making - Medical Decision Making 60-year-old male with abnormal outpatient labs. Patient has stable hemodynamics, he is jaundice with scleral icterus. Bilirubin showing total bili of 13 which was normal 10 days ago. He also has a elevated AST and ALT. Hemoglobin is stable. I discussed case with the admitting physician Dr. Trevizo as well as Dr. Farris does recommend repeat CT. These results are pending. Patient has been admitted with both GI and oncology on consult. - Lab Data Result diagrams: 06/11/20 13:52 06/11/20 13:52 Lab Results 06/11/20 06/11/20 06/11/20 Range/Units 13:52 13:52 13:52 WBC 8.8 (3.8-10.6) k/uL RBC 3.88 L (4.30-5.90) m/uL Hgb 11.3 L (13.0-17.5) gm/dL Hct 35.4 L (39.0-53.0) % MCV 91.3 (80.0-100.0) fL MCH 29.1 (25.0-35.0) pg MCHC 31.9 (31.0-37.0) g/dL RDW 16.3 H (11.5-15.5) % Plt Count 288 (150-450) k/uL MPV 10.5 Neutrophils % 81 % Lymphocytes % 11 % Monocytes % 7 % Eosinophils % 1 % Basophils % 0 % Neutrophils # 7.1 (1.3-7.7) k/uL Lymphocytes # 1.0 (1.0-4.8) k/uL Monocytes # 0.6 (0-1.0) k/uL Eosinophils # 0.1 (0-0.7) k/uL Basophils # 0.0 (0-0.2) k/uL Anisocytosis Slight PT 9.5 (9.0-12.0) sec INR 0.9 (<1.2) APTT 26.7 (22.0-30.0) sec Sodium 135 L (137-145) mmol/L Potassium 4.0 (3.5-5.1) mmol/L Chloride 106 (98-107) mmol/L Carbon Dioxide 24 (22-30) mmol/L Anion Gap 5 mmol/L BUN 21 H (9-20) mg/dL Creatinine 0.60 L (0.66-1.25) mg/dL Est GFR (CKD-EPI)AfAm >90 (>60 ml/min/1.73 sqM) Est GFR (CKD-EPI)NonAf >90 (>60 ml/min/1.73 sqM) Glucose 148 H (74-99) mg/dL Plasma Lactic Acid [place] (0.7-2.0) mmol/L Calcium 8.7 (8.4-10.2) mg/dL Total Bilirubin 13.2 H (0.2-1.3) mg/dL AST 93 H (17-59) U/L ALT 76 H (4-49) U/L Alkaline Phosphatase 248 H (38-126) U/L Total Protein 6.0 L (6.3-8.2) g/dL Albumin 2.8 L (3.5-5.0) g/dL Amylase <30 L (30-110) U/L Lipase <10 L (23-300) U/L 06/11/20 Range/Units 13:52 WBC (3.8-10.6) k/uL RBC (4.30-5.90) m/uL Hgb (13.0-17.5) gm/dL Hct (39.0-53.0) % MCV (80.0-100.0) fL MCH (25.0-35.0) pg MCHC (31.0-37.0) g/dL RDW (11.5-15.5) % Plt Count (150-450) k/uL MPV Neutrophils % % Lymphocytes % % Monocytes % % Eosinophils % % Basophils % % Neutrophils # (1.3-7.7) k/uL Lymphocytes # (1.0-4.8) k/uL Monocytes # (0-1.0) k/uL Eosinophils # (0-0.7) k/uL Basophils # (0-0.2) k/uL Anisocytosis PT (9.0-12.0) sec INR (<1.2) APTT (22.0-30.0) sec Sodium (137-145) mmol/L Potassium (3.5-5.1) mmol/L Chloride (98-107) mmol/L Carbon Dioxide (22-30) mmol/L Anion Gap mmol/L BUN (9-20) mg/dL Creatinine (0.66-1.25) mg/dL Est GFR (CKD-EPI)AfAm (>60 ml/min/1.73 sqM) Est GFR (CKD-EPI)NonAf (>60 ml/min/1.73 sqM) Glucose (74-99) mg/dL Plasma Lactic Acid [place] 1.8 (0.7-2.0) mmol/L Calcium (8.4-10.2) mg/dL Total Bilirubin (0.2-1.3) mg/dL AST (17-59) U/L ALT (4-49) U/L Alkaline Phosphatase (38-126) U/L Total Protein (6.3-8.2) g/dL Albumin (3.5-5.0) g/dL Amylase (30-110) U/L Lipase (23-300) U/L Disposition Clinical Impression: Pancreatic lesion, History of pancreatic cancer, Hyperbilirubinemia Disposition: ADMITTED IP TO THIS HOSP Condition: Stable Is patient prescribed a controlled substance at d/c from ED?: No Referrals: Krystal Márquez MD [Primary Care Provider] - 1-2 days Decision to Admit Reason: Admit from EC Decision Date: 06/11/20 Decision Time: 14:50
[2020-06-11 14:10] LABS: INR 0.9 (<1.2); Partial Thromboplastin Time 26.7 sec (22.0-30.0); Prothrombin Time 9.5 sec (9.0-12.0)
[2020-06-11 14:16] LABS: ALT 76 U/L (4-49); AST 93 U/L (17-59); African American GFR (CKD) >90 (>60 ml/min/1.73 sqM); Albumin 2.8 g/dL (3.5-5.0); Alkaline Phosphatase 248 U/L (38-126); Amylase <30 U/L (30-110); Anion Gap 5 mmol/L; Blood Urea Nitrogen 21 mg/dL (9-20); Calcium 8.7 mg/dL (8.4-10.2); Carbon Dioxide 24 mmol/L (22-30); Chloride 106 mmol/L (98-107); Glucose 148 mg/dL (74-99); Lipase <10 U/L (23-300); Non-African American GFR(CKD) >90 (>60 ml/min/1.73 sqM); Sodium 135 mmol/L (137-145); Total Bilirubin 13.2 mg/dL (0.2-1.3)
[2020-06-11 14:22] LABS: Anisocytosis Slight; Basophils % (A) 0 %; Eosinophils # (A) 0.1 k/uL (0-0.7); Eosinophils % (A) 1 %; HCT 35.4 % (39.0-53.0); HGB 11.3 gm/dL (13.0-17.5); Lymphocytes % (A) 11 %; MCH 29.1 pg (25.0-35.0); MCHC 31.9 g/dL (31.0-37.0); MCV 91.3 fL (80.0-100.0); Mean Platelet Volume 10.5; Monocytes # (A) 0.6 k/uL (0-1.0); Monocytes % (A) 7 %; Neutrophils # (A) 7.1 k/uL (1.3-7.7); Neutrophils % (A) 81 %; Platelet Count 288 k/uL (150-450); RBC 3.88 m/uL (4.30-5.90); RDW 16.3 % (11.5-15.5); WBC 8.8 k/uL (3.8-10.6)
[2020-06-11] MEDS ORDERED: NALOXONE 0.4 MG/ML 1 ML VIAL IV PRN (14:40)
[2020-06-11] MEDS ORDERED: ONDANSETRON 4 MG/2 ML VIAL IVP PRN (14:40)
[2020-06-11] MEDS: SODIUM CHLORIDE 0.9% 1,000 ML IV SCH ×2 (14:49→14:51)
[2020-06-11 15:11] LABS: Appearance,Urine Clear (Clear); Bacteria,Urine Rare /hpf; Bilirubin,Urine 3+ (Negative); Blood,Urine Trace (Negative); Color,Urine Dark Brown; Glucose,Urine (UA) Negative (Negative); Hyaline Casts,Urine 1 /lpf (0-2); Ketones,Urine Negative (Negative); Leukocyte Esterase,Urine Trace (Negative); Mucus,Urine Few /hpf; Nitrite,Urine Negative (Negative); Protein,Urine Trace (Negative); RBC,Urine 1 /hpf (0-5); Specific Gravity,Urine 1.026 (1.001-1.035); Squamous Epithelial Cell,Urine 1 /hpf (0-4); WBC,Urine 12 /hpf (0-5)
--- NOTE | 2020-06-11 15:12 | P.HPIM ---
History of Present Illness H&P Date: 06/11/20 This is a 60-year-old male past medical history significant for stage IV pancreatic cancer with history of resection of pancreatic body and tail status post chemoradiation therapy who presented to the emergency room sent from Dr. Navarrete for further evaluation of jaundice and elevated bilirubin. Patient will bilirubin was normal 10 days ago and today was found to be 13. Patient denies any worsening abdominal pain other than his usual. No nausea or vomiting. No specific concerns or complaints. Patient was evaluated by me in the ER. He is scheduled to have a computed tomography scan of the abdomen and pelvis for further evaluation. He denies any fevers or chills. Review of Systems Review of system: 14 points review of systems were obtained and were negative except to what were mentioned in the HPI. Past Medical History Past Medical History: Cancer, GERD/Reflux Additional Past Medical History / Comment(s): Dx - pancreatic cancer 12/2018 in [place] had surgery in [place] and started chemo 03/22/19, EGD/colonoscopy dated 11/2018 states pt has duodenitis/antral gastritis/antral ulcer/colon and rectal polyp , hx nephrolithiasis., diarrhea., [facility]. History of Any Multi-Drug Resistant Organisms: None Reported Past Surgical History: Back Surgery, Cholecystectomy, Orthopedic Surgery Additional Past Surgical History / Comment(s): Tail of pancreas removed along with spleen in [place], [facility] [place] [facility], laminectomy L4-L5/S1-S2, lower back laser surgery to cut nerves, L knee arthroscopy-meniscal and ACL, L ankle r econstructive surgery x 3, R hand surgery d/t trauma, EGD/colonoscopy, lithostripsy. Past Anesthesia/Blood Transfusion Reactions: No Reported Reaction Additional Past Anesthesia/Blood Transfusion Reaction / Comment(s): Pt has received blood in past without reaction. Past Psychological History: No Psychological Hx Reported Smoking Status: Vaper Past Alcohol Use History: Occasional Past Drug Use History: Marijuana - Past Family History Father History Unknown: Yes Additional Family Medical History / Comment(s): Pt does not know his father. Mother History Unknown: Yes Additional Family Medical History / Comment(s): Pt states he does not know mother's medical hx Medications and Allergies Home Medications Medication Instructions Recorded Confirmed Type Gabapentin [Neurontin] 400 mg PO TID #21 cap 06/02/20 06/11/20 Rx HYDROcodone/APAP 10-325MG [[place] 1 tab PO Q6HR PRN 3 Days #60 tab 06/02/20 06/11/20 Rx 10-325] fentaNYL 12MCG/HR PATCH [Duragesic 1 patch TRANSDERM Q72H 3 Days #5 06/02/20 06/11/20 Rx 12MCG/HR] patch Erythromycin Ophth Oint [Romycin 1 applic BOTH EYES DAILY 06/11/20 06/11/20 History Ophth Oint] Allergies Allergy/AdvReac Type Severity Reaction Status Date / Time No Known Allergies Allergy Verified 06/11/20 13:50 Physical Exam Vitals: Vital Signs Temp Pulse Resp BP Pulse Ox 06/11/20 12:44 98.1 F 86 18 119/80 97 Intake and Output 06/11/20 06/11/20 06/11/20 06:59 14:59 22:59 Other: Weight 81.647 kg General: The patient is awake and alert, in no distress Eye: there is normal conjunctiva bilaterally. Neck: The neck is supple, there is no JVD. Cardiovascular: Normal S1-S2, no S3-S4, no murmurs. Respiratory: Lungs clear to auscultation bilaterally Gastrointestinal: Abdomen is soft, nontender Musculoskeletal: There is no pedal edema. Neurological:. Speech is normal. Skin: Skin is warm and dry Results CBC & Chem 7: 06/11/20 13:52 06/11/20 13:52 Labs: Abnormal Lab Results - Last 24 Hours (Table) 06/11/20 06/11/20 Range/Units 13:52 13:52 RBC 3.88 L (4.30-5.90) m/uL Hgb 11.3 L (13.0-17.5) gm/dL Hct 35.4 L (39.0-53.0) % RDW 16.3 H (11.5-15.5) % Sodium 135 L (137-145) mmol/L BUN 21 H (9-20) mg/dL Creatinine 0.60 L (0.66-1.25) mg/dL Glucose 148 H (74-99) mg/dL Total Bilirubin 13.2 H (0.2-1.3) mg/dL AST 93 H (17-59) U/L ALT 76 H (4-49) U/L Alkaline Phosphatase 248 H (38-126) U/L Total Protein 6.0 L (6.3-8.2) g/dL Albumin 2.8 L (3.5-5.0) g/dL Amylase <30 L (30-110) U/L Lipase <10 L (23-300) U/L Assessment and Plan Assessment: This is a 60-year-old male with past medical history significant for metastatic creatinine cancer who presented to the emergency room sent by his PCP for further evaluation of jaundice and abnormal bilirubin. Patient will be placed on observation for further management of his medical problems noted below. 1. Jaundice with elevated bilirubin, most likely obstructive jaundice secondary to malignancy burden. Repeat computed tomography scan of the abdomen and pelvis ordered. 2. Metastatic pancreatic cancer status post resection of pancreatic body and tail, status post chemoradiation therapy 3. DVT prophylaxis with subcu Lovenox 4. Patient is full code. Per his wishes Today, I reviewed his medication list and lab work results. Continue gentle IV fluid hydration. Awaiting computed tomography scan report. GI and oncology consulted by ER staff. Repeat liver function test in the morning.
--- NOTE | 2020-06-11 15:33 | CT ---
EXAMINATION TYPE: CT abdomen pelvis w con DATE OF EXAM: 06/11/2020 COMPARISON: 05/30/2020 INDICATION: hyperbilirubinemia, history of pancreatic cancer DLP: 1087.5 mGycm, Automated exposure control for dose reduction was used. CONTRAST: 100 mL of Isovue 300. Study performed without Oral Contrast TECHNIQUE: Axial images were obtained from above the diaphragm to the pubic rami in the axial plane a t 5 mm thick sections. Reconstructed images are reviewed on the computer in the coronal plane. FINDINGS: Limited CT sections are obtained the lung bases. The lung bases are clear. CT ABDOMEN: Liver: Biliary dilatation is evident. Ascites is adjacent. Cyst is on the inferior lateral right lobe liver. Spleen: Not identified Pancreas: There is a 2.2 x 1.6 cm hypodensity in the uncinate process. The pancreatic head is ill-def ined. Body and tail of pancreas appear to be resected. Adrenal glands: The adrenal glands are normal. Gallbladder: Normal Kidneys: Nonobstructing renal stones are present bilaterally.. No hydronephrosis is present. No cys ts are present. Aorta: Vascular calcification is within the aorta. Inferior vena cava: Normal. CT PELVIS: There is a periumbilical hernia just to the right of midline with an opening 1.9 cm. Small amount of fluid is within this hernia sac. No loops of bowel are involved. Some incarcerated hernia is not excluded. May be some wall thickening of the descending colon and maximal sigmoid colon. Correlate for colitis. The study is without oral contrast limiting bowel evaluation. Appendix: Normal as visualized. Urinary bladder: Normal. Genitourinary structures: The prostate appears unremarkable Osseous structures: No suspicious lytic or sclerotic lesions. Facet degenerative changes are in the l ower lumbar spine. IMPRESSIONS: 1. Status post pancreatic resection. Hypodense mass may remain within the head of the pancreas. 2. Hepatic biliary dilatation. 3. Ascites. 4. Nonobstructing bilateral renal stones. 5. Periumbilical hernia containing mesenteric fat.
[2020-06-11] MEDS: HYDROmorphone 0.5 MG/0.5 ML SYRINGE IVP PRN ×2 (16:43→21:45)
--- NOTE | 2020-06-11 17:36 | HP ---
HISTORY AND PHYSICAL DATE OF DICTATION: 06/11/2020 REASON FOR CONSULTATION: History of pancreatic cancer and jaundice. HISTORY OF PRESENT ILLNESS: The patient is a 60-year-old pleasant white male who was diagnosed with stage IV pancreatic cancer in December of 2018 while in [place]. He underwent resection of the pancreatic tail and splenectomy. Subsequently he underwent chemoradiation and did well. He moved from [place] about a year ago and has been under the care of Dr. Pascal. He was admitted to the hospital about [address] scan showed evidence of recurrence, and he was started on chemotherapy and received his first cycle yesterday. He had routine labs done yesterday and was noted to have elevated bilirubin, and patient was asked to go to the emergency room and he was subsequently admitted for further evaluation. Today his labs show a bilirubin of 13 and about 10 days ago it was 1.3. The patient complains of diffuse abdominal pain for the last 7-8 months' duration. He has been noticing pale-colored stools and dark-colored urine for the last 1 or 2 weeks' duration. He denies any nausea, vomiting. No fever, chills or night sweats. He had a CT of the abdomen and pelvis done in the emergency room that did show evidence of biliary ductal dilation that was not evident on the prior CT scan done 10 days ago. Also there was some small amount of ascites noted. There was a 2.2 x 1.5 cm hyperdensity in the uncinate process and the pancreatic head is ill-defined. Evidence of pancreatic resection in the tail of the pancreas noted. PAST MEDICAL HISTORY: Significant for stage IV pancreatic cancer diagnosed in December of 2018 with recurrence diagnosed 10 days ago, presently on chemotherapy. Last cycle was yesterday. PAST SURGICAL HISTORY: Back surgery, cholecystectomy, distal pancreatectomy with splenectomy, laminectomy, left knee arthroscopy. MEDICATIONS: Current medications at home: Erythromycin, ophthalmic ointment, Tylenol p.r.n. ALLERGIES: NONE. SOCIAL HISTORY: No smoking. No alcohol use. FAMILY HISTORY: Unremarkable. REVIEW OF SYSTEMS: CARDIOPULMONARY: He denies any chest pain or shortness of breath. GENITOURINARY: No dysuria or hematuria. MUSCULOSKELETAL: Unremarkable. SKIN: Unremarkable. ENDOCRINE: Unremarkable. ONCOLOGY: As mentioned above. NEUROLOGY: Unremarkable. GI: As mentioned above. ENT/VISION: Unremarkable. CONSTITUTIONAL: Weight loss of 5 pounds. No fever, chills, night sweats. PHYSICAL EXAMINATION: He appears comfortable. No apparent distress. Vital signs are stable. Blood pressure 132/86, pulse rate 88 per minute and afebrile. HEENT examination unremarkable. Conjunctivae pink. Sclerae slightly icteric. Oral cavity no lesions. NECK: No JVD or lymph node enlargement. HEART: Regular rate and rhythm. ABDOMEN: Soft. Bowel sounds are positive. There was mild diffuse tenderness throughout the abdomen. EXTREMITIES: No pedal edema. SKIN: No rashes. NEUROLOGIC: He alert and oriented x3. No focal deficits. LABS: Labs done at the time of admission to the hospital showed WBC of 8.8, hemoglobin 11.3, platelets normal. Basic metabolic panel is within normal limits. PT and INR are within normal limits. BUN is 21, creatinine 0.60. T-bilirubin is 13.2, AST 93, ALT 76, alkaline phosphatase is 248. Amylase and lipase are normal. Coronavirus PCR is negative. IMPRESSION: This is a patient with stage IV pancreatic cancer diagnosed in January of 2019 in [place], status post distal pancreatectomy with splenectomy followed by chemoradiation therapy. He was admitted to the hospital 10 days ago with abdominal pain and was noted to have minimal elevation of serum transaminases and bilirubin of 1.3. A CT scan done at that time showed new lesions in the liver suspicious for metastasis. The patient was started on chemotherapy for recurrence, and yesterday routine labs showed elevated LFTs with jaundice and a bilirubin of 13.2 and alkaline phosphatase of 248. Repeat CT scan done today showed intrahepatic biliary ductal dilation suspicious for biliary obstruction. RECOMMENDATIONS: 1. I had a lengthy discussion with the patient regarding proceeding with ERCP for biliary decompression. I discussed with him risks, benefits and complications of the procedure, and he is agreeable to it. In the meantime, pain medications as needed. 2. Start him on a regular diet and will keep him n.p.o. after midnight. 3. Repeat labs in the morning. We will follow with you closely. Thank you for this consultation. MMODL / IJN: [id number] /
[2020-06-11 18:04] LABS: Bilirubin, Conjugated 7.7 mg/dL (0.0-0.3); Bilirubin, Delta 2.6 mg/dL (0.0-0.2); Bilirubin,Unconjugated 2.6 mg/dL (0.0-1.1); Total Bilirubin 12.9 mg/dL (0.2-1.3)
[2020-06-11] MEDS: GABAPENTIN 400 MG CAP PO SCH ×2 (18:08→21:48)
[2020-06-11] MEDS: HYDROcodone/APAP 10-325MG 1 EACH TAB PO PRN (23:22)
[2020-06-12] MEDS: HYDROmorphone 0.5 MG/0.5 ML SYRINGE IVP PRN ×5 (04:25→20:26)
[2020-06-12] MEDS: GABAPENTIN 400 MG CAP PO SCH ×4 (06:08→20:22)
[2020-06-12] MEDS: HYDROcodone/APAP 10-325MG 1 EACH TAB PO PRN (06:08)
[2020-06-12 08:51] LABS: Anisocytosis Slight; Basophils % (A) 0 %; Eosinophils # (A) 0.1 k/uL (0-0.7); Eosinophils % (A) 1 %; HCT 31.7 % (39.0-53.0); HGB 10.6 gm/dL (13.0-17.5); Lymphocytes % (A) 18 %; MCH 30.4 pg (25.0-35.0); MCHC 33.4 g/dL (31.0-37.0); MCV 91.2 fL (80.0-100.0); Mean Platelet Volume 9.8; Monocytes # (A) 0.4 k/uL (0-1.0); Monocytes % (A) 6 %; Neutrophils # (A) 4.4 k/uL (1.3-7.7); Neutrophils % (A) 74 %; Platelet Count 250 k/uL (150-450); RBC 3.48 m/uL (4.30-5.90); WBC 5.9 k/uL (3.8-10.6)
[2020-06-12] MEDS: PANTOPRAZOLE 40 MG/10 ML VIAL IV SCH (08:55)
[2020-06-12] MEDS: ERYTHROMYCIN 5 MG/GM OPHTH OINT 3.5 GM TUBE BOTH EYES SCH (08:56)
[2020-06-12] MEDS: SODIUM CHLORIDE 0.9% 1,000 ML IV SCH (09:00)
[2020-06-12] MEDS ORDERED: ENOXAPARIN 40 MG/0.4 ML SYRINGE SQ SCH (09:00)
[2020-06-12 09:06] LABS: ALT 101 U/L (4-49); AST 161 U/L (17-59); African American GFR (CKD) >90 (>60 ml/min/1.73 sqM); Albumin 2.4 g/dL (3.5-5.0); Albumin/Globulin Ratio 0.8; Alkaline Phosphatase 207 U/L (38-126); Anion Gap 4 mmol/L; Blood Urea Nitrogen 19 mg/dL (9-20); Calcium 8.6 mg/dL (8.4-10.2); Carbon Dioxide 24 mmol/L (22-30); Chloride 111 mmol/L (98-107); Globulin 2.9 g/dL; Glucose 94 mg/dL (74-99); Non-African American GFR(CKD) >90 (>60 ml/min/1.73 sqM); Potassium 4.1 mmol/L (3.5-5.1); Sodium 139 mmol/L (137-145); Total Bilirubin 13.8 mg/dL (0.2-1.3); Total Protein 5.3 g/dL (6.3-8.2)
--- NOTE | 2020-06-12 11:41 | P.PN ---
<Johnny Ross - Last Filed: 06/12/20 11:12> Subjective Progress Note Date: 06/12/20 Principal diagnosis: Jaundice with Elevated bilirubin Hospital course: Patient is a 60-year-old male who was diagnosed with stage IV pancreatic cancer in December 2018 and underwent resection of the pancreatic tail and splenectomy accompanied by chemotherapy resulting in resolution of cancer and followed by recent diagnosis of recurrence resulting in re-starting chemotherapy under Dr. Navarrete with first treatment being completed on 06/10/20. Pt presented to the hospital on 06/11/20 with complaints of diffuse abdominal pain, pale colored stools, and dark urine accompanied by jaundice and routine lab findings revealing an elevated bilirubin. Patient seen and fully evaluated in the emergency department and found to have an elevated total bilirubin of 12.9, conjugated bilirubin of 7.7, unconjugated bilirubin 2.6, delta bilirubin 2.6, AST 93, ALP 76, and alkaline phosphatase of 248. CT of abdomen and pelvis with contrast was completed with findings reported status post pancreatic resection a hypodense mass may remain within the head of the pancreas, hepatic biliary dilation present accompanied by ascites, nonobstructing bilateral renal stones and a periumbilical hernia. Patient was admitted under our team was consulted GI for continued medical management. Morning labs revealed patient to have continued elevation of bilirubin and liver profile with total bilirubin resulting at 13.8, AST 161, ALP 101, an alkaline phosphatase of 207. Patient is scheduled for an ERCP for biliary decompression this afternoon with Dr. Farris. Physical exam: General: non toxic, no distress, appears at stated age Derm: warm, dry Head: atraumatic, normocephalic, symmetric Eyes: EOMI, no lid lag, anicteric sclera Mouth: no lip lesion, mucus membranes moist Cardiovascular: S1S2 reg, no murmur, positive posterior tibial pulse bilateral, Lungs: CTA bilateral, no rhonchi, no rales , no accessory muscle use Abdominal: soft, nontender to palpation, no guarding, no appreciable organomegaly Ext: no gross muscle atrophy, no edema, no contractures Neuro: CN II-XI grossly intact, no focal neuro deficits Psych: Alert, oriented, appropriate affect Assessment and Plan of care: Jaundice with elevated bilirubin. -Morning labs revealed patient to have continued elevation of bilirubin and liver profile with total bilirubin resulting at 13.8, AST 161, ALP 101, an alkaline phosphatase of 207 -CT of abdomen and pelvis with contrast was completed with findings reported status post pancreatic resection a hypodense mass may remain within the head of the pancreas, hepatic biliary dilation present accompanied by ascites, nonobstructing bilateral renal stones and a periumbilical hernia. -Continued close monitoring of bilirubin levels and LFTs with repeat a.m. labs. -Gastroenterology following, plan is for ERCP this afternoon for biliary de compression with Dr. Farris. Metastatic Pancreatic Cancer status post resection of pancreatic body and tail -Oncology following, appreciate further recommendations. -Pain management. Nephrolithiasis -CT abdomen and pelvis with IV contrast revealed nonobstructing bilateral renal stones. CODE STATUS: Full code DVT prophylaxis: Lovenox Discussed with: Patient and RN Anticipated discharge date: Clinical course to determine Anticipated discharge place: Home A total of 40 minutes was spent on the care of this complex patient more than 50% of the time was spent in counseling and care coordination. Objective - Vital Signs Vital signs: Vital Signs Temp 98.3 F 06/12/20 05:04 Pulse 72 06/12/20 05:04 Resp 20 06/12/20 05:04 BP 93/56 06/12/20 05:04 Pulse Ox 94 L 06/12/20 05:04 Intake & Output 06/11/20 06/12/20 06/12/20 18:59 06:59 18:59 Intake Total 100 Output Total 300 Balance -200 Weight 81.647 kg Intake: Oral 100 Output: Urine 300 Other: # Voids 2 # Bowel Movements 0 - Labs CBC & Chem 7: 06/12/20 08:13 06/12/20 08:13 Labs: Abnormal Lab Results - Last 24 Hours (Table) 06/11/20 06/11/20 06/11/20 Range/Units 13:52 13:52 13:52 RBC 3.88 L (4.30-5.90) m/uL Hgb 11.3 L (13.0-17.5) gm/dL Hct 35.4 L (39.0-53.0) % RDW 16.3 H (11.5-15.5) % Sodium 135 L (137-145) mmol/L Chloride (98-107) mmol/L BUN 21 H (9-20) mg/dL Creatinine 0.60 L (0.66-1.25) mg/dL Glucose 148 H (74-99) mg/dL Total Bilirubin 13.2 H 12.9 H (0.2-1.3) mg/dL Conjugated Bilirubin 7.7 H (0.0-0.3) mg/dL Unconjugated Bilirubin 2.6 H (0.0-1.1) mg/dL Delta Bilirubin 2.6 H (0.0-0.2) mg/dL AST 93 H (17-59) U/L ALT 76 H (4-49) U/L Alkaline Phosphatase 248 H (38-126) U/L Total Protein 6.0 L (6.3-8.2) g/dL Albumin 2.8 L (3.5-5.0) g/dL Amylase <30 L (30-110) U/L Lipase <10 L (23-300) U/L Urine Protein (Negative) Urine Blood (Negative) Urine Bilirubin (Negative) Ur Leukocyte Esterase (Negative) Urine WBC (0-5) /hpf Urine Bacteria (None) /hpf Urine Mucus (None) /hpf 06/11/20 06/12/20 06/12/20 Range/Units 14:58 08:13 08:13 RBC 3.48 L (4.30-5.90) m/uL Hgb 10.6 L (13.0-17.5) gm/dL Hct 31.7 L (39.0-53.0) % RDW 16.0 H (11.5-15.5) % Sodium (137-145) mmol/L Chloride 111 H (98-107) mmol/L BUN (9-20) mg/dL Creatinine (0.66-1.25) mg/dL Glucose (74-99) mg/dL Total Bilirubin 13.8 H (0.2-1.3) mg/dL Conjugated Bilirubin (0.0-0.3) mg/dL Unconjugated Bilirubin (0.0-1.1) mg/dL Delta Bilirubin (0.0-0.2) mg/dL AST 161 H (17-59) U/L ALT 101 H (4-49) U/L Alkaline Phosphatase 207 H (38-126) U/L Total Protein 5.3 L (6.3-8.2) g/dL Albumin 2.4 L (3.5-5.0) g/dL Amylase (30-110) U/L Lipase (23-300) U/L Urine Protein Trace H (Negative) Urine Blood Trace H (Negative) Urine Bilirubin 3+ H (Negative) Ur Leukocyte Esterase Trace H (Negative) Urine WBC 12 H (0-5) /hpf Urine Bacteria Rare H (None) /hpf Urine Mucus Few H (None) /hpf Microbiology - Last 24 Hours (Table) 06/11/20 14:58 Urine Culture - Preliminary Urine,Clean Catch <Mary Perry A - Last Filed: 06/12/20 16:40> Objective - Vital Signs Vital signs: Vital Signs Temp 98.5 F 06/12/20 11:59 Pulse 65 06/12/20 11:59 Resp 16 06/12/20 11:59 BP 108/65 06/12/20 11:59 Pulse Ox 96 06/12/20 11:59 Intake & Output 06/11/20 06/12/20 06/12/20 18:59 06:59 18:59 Intake Total 100 500 Output Total 300 450 Balance -200 50 Weight 81.647 kg Intake: IV 500 Oral 100 Output: Urine 300 450 Other: Voiding Method Urinal # Voids 2 # Bowel Movements 0 - Labs CBC & Chem 7: 06/12/20 08:13 06/12/20 08:13 Labs: Abnormal Lab Results - Last 24 Hours (Table) 06/11/20 06/12/20 06/12/20 Range/Units 13:52 08:13 08:13 RBC 3.48 L (4.30-5.90) m/uL Hgb 10.6 L (13.0-17.5) gm/dL Hct 31.7 L (39.0-53.0) % RDW 16.0 H (11.5-15.5) % Chloride 111 H (98-107) mmol/L Total Bilirubin 12.9 H 13.8 H (0.2-1.3) mg/dL Conjugated Bilirubin 7.7 H (0.0-0.3) mg/dL Unconjugated Bilirubin 2.6 H (0.0-1.1) mg/dL Delta Bilirubin 2.6 H (0.0-0.2) mg/dL AST 161 H (17-59) U/L ALT 101 H (4-49) U/L Alkaline Phosphatase 207 H (38-126) U/L Total Protein 5.3 L (6.3-8.2) g/dL Albumin 2.4 L (3.5-5.0) g/dL Microbiology - Last 24 Hours (Table) 06/11/20 14:58 Urine Culture - Preliminary Urine,Clean Catch Assessment and Plan Assessment: Patient seen and examined independently. Patient was also seen by Johnny Ross NP and case was discussed. I am in agreement with subjective, physical exam, assessment and plan as written above and amended below. General: non toxic, no distress, appears at stated age Derm: warm, dry Head: atraumatic, normocephalic, symmetric Eyes: EOMI, no lid lag, anicteric sclera Mouth: no lip lesion, mucus membranes moist Cardiovascular: S1S2 reg, no murmur, positive posterior tibial pulse bilateral, Lungs: Decreased bs bilateral, no rhonchi, no rales , no accessory muscle use Abdominal: soft, +tender to palpation diffusely, no guarding, no appreciable organomegaly Ext: no gross muscle atrophy, no edema, no contractures Neuro: CN II-XI grossly intact, no focal neuro deficits Psych: Alert, oriented, appropriate affect Case discussed with optimal physician advisor. Initially they wanted patient change back to observation. I disagree with this as patient has acute liver failure as demonstrated by a bilirubin greater than 13 along with dilated biliary duct on CT. Discharge at this point in time would put patient at increased risk for further liver failure, potentially hepatic encephalopathy and even . Patient will remain as inpatient. Case was discussed with Jasvir Guo NP from gastroenterology. Dr. Gillis was unable to successfully cannulate the 5 mm stricture. She has recommended patient be transferred to a tertiary care center. Case was discussed with Santosh Velazquez. Currently no beds available but they have accepted the patient. Case was discussed with Dr. Valenzuela.
[2020-06-12] MEDS ORDERED: LEVOFLOXACIN 500MG-D5W PMX 500 MG in DEXTROSE/WATER 1 100ML.BAG IVPB SCH (12:00)
[2020-06-12] MEDS ORDERED: INDOMETHACIN 50MG SUPPOSITORY RECTAL ONE (12:00)
--- NOTE | 2020-06-12 12:47 | P.CONS ---
History of Present Illness - Reason for Consult Consult date: 06/12/20 metastatic cancer Requesting physician: Richie Riojas - Chief Complaint Jaundice - History of Present Illness This is a very nice patient who I first saw as inpatient at [facility] on 02/04/2019 when was admitted for urosepsis related to kidney stones,he started to have a bdominal pain in November/2018,went to [facility],had a CT scan of abdomen which was reported mild hepatospenomegaly,had EGD/colonoscopy which were unremarkable,the he moved to [place],had recurrent abdominal pain,was re admitted to the hospital in December/2018, had a repeat CT scan of abdomen which showed ill defined mass in the body of the pancreas,MRI of abdomen confirmed a mass in the body of pancreas. On 12/29/2018,he had a core biopsy which was positive for adenocarcinoma. On 01/03/2019,he had distal pancreatectomy and splenectomy,pathology revealed adenocarcinoma infiltrating surrounding peripancreatic soft tissu and directly invades 2/9 peripancreatic nodes,closely approach serosal surface and extends to multiple cut surfaces at distal margins,proximal margins were negative,+ perineu ral invasion and LVI,the tumor measured 7.1cm. The above treatment was in [place]. He relocated t [place] in January/2019. He had repeat CT scan of abdomen/pelvis on 02/25/2019 which revealed cystic lesion in the body of pancreas. 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 He had total of 4 cycles of mFOLFIRINOx,last was on 05/08/2019 and he decided to stop it On 06/14/2019,CA19-9 was down to 18. He resumed mFOLFIRINOX on ,with further dose reduction,however,he had recurrent diarrhea,dehydration. Repeat CT scan of chest/abdomen/pelvis on 07/27/2019 revealed possible thrombus in SMV and he was started on eliquis - MRI was performed and confirmed no evidence of partial thrombus in SMV and eliquis was stopped. He completed Xelda concurrent with radiation on 09/22/2019. On 12/18/2019,repeat CT scan of chest/abdomen/pelvis revealed no evidence of progression. On 03/18/2020,repeat CT scan of chest/abdomen/pelvis revealed increasing soft at site of surgery and XRT and 13 mm low density lesion at the head of pancreas. On 04/17/2020,MRI of pancreas revealed similar finding. He was admitted to the hospital in May/2020 for worsening abnominal pain,repeat CT scan of abdomen/pelvis on 05/30/2020 revealed new liver lesions suspicious for metastatic disease,increased pancreatic mass,and new retroperitoneal nodes,CMP revealed AST 139,ALT 152,ALK 356 and TB 1.6 He feels feels tired,lost weight,has abdominal pain,controlled with norco as needed,also he is on gabapentin,lost weight,no nausea,vomiting He was called yesterday by oncology regarding increased liver function Review of Systems All systems: negative Constitutional: Reports as per HPI Past Medical History Past Medical History: Cancer, GERD/Reflux Additional Past Medical History / Comment(s): Dx - pancreatic cancer 12/2018 in [place] had surgery in [place] and started chemo 03/22/19, EGD/colonoscopy dated 11/2018 states pt has duodenitis/antral gastritis/antral ulcer/colon and rectal polyp , hx nephrolithiasis., diarrhea., [facility]. History of Any Multi-Drug Resistant Organisms: None Reported Past Surgical History: Back Surgery, Cholecystectomy, Orthopedic Surgery Additional Past Surgical History / Comment(s): Tail of pancreas removed along with spleen in [place], [facility], laminectomy L4-L5/S1-S2, lower back laser surgery to cut nerves, L knee arthroscopy-meniscal and ACL, L ankle reconstructive surgery x 3, R hand surgery d/t trauma, EGD/colonoscopy, lithostripsy. Past Anesthesia/Blood Transfusion Reactions: No Reported Reaction Additional Past Anesthesia/Blood Transfusion Reaction / Comm: Pt has received blood in past without reaction. Past Psychological History: No Psychological Hx Reported Additional Psychological History / Comment(s): Pt resides in a home with 1 step. He lives with his adult children and grandchildren. He uses a cane. He does not drive, his kids are helpful and drive pt to appts. Smoking Status: Vaper Past Alcohol Use History: Occasional Additional Past Alcohol Use History / Comment(s): started smoking in 1969 and quit in 2018 Past Drug Use History: Marijuana - Past Family History Father History Unknown: Yes Additional Family Medical History / Comment(s): Pt does not know his father. Mother History Unknown: Yes Additional Family Medical History / Comment(s): Pt states he does not know mother's medical hx Medications and Allergies Home Medications Medication Instructions Recorded Confirmed Type Gabapentin [Neurontin] 400 mg PO TID #21 cap 06/02/20 06/11/20 Rx HYDROcodone/APAP 10-325MG [[place] 1 tab PO Q6HR PRN 3 Days #60 tab 06/02/20 06/11/20 Rx 10-325] fentaNYL 12MCG/HR PATCH [Duragesic 1 patch TRANSDERM Q72H 3 Days #5 06/02/20 06/11/20 Rx 12MCG/HR] patch Erythromycin Ophth Oint [Romycin 1 applic BOTH EYES DAILY 06/11/20 06/11/20 History Ophth Oint] Allergies Allergy/AdvReac Type Severity Reaction Status Date / Time No Known Allergies Allergy Verified 06/11/20 13:50 Physical Exam Vitals: Vital Signs Temp Pulse Pulse Resp BP BP Pulse Ox 06/12/20 05:04 98.3 F 72 20 93/56 94 L 06/11/20 22:00 60 06/11/20 21:45 97.3 F L 60 20 126/74 95 06/11/20 20:54 67 18 100/56 94 L 06/11/20 20:00 18 06/11/20 18:11 62 18 106/61 96 06/11/20 12:44 98.1 F 86 18 119/80 97 Intake and Output 06/11/20 06/12/20 06/12/20 22:59 06:59 14:59 Intake Total 100 0 Output Total 300 Balance 100 -300 Intake: Oral 100 0 Output: Urine 300 Other: # Voids 2 # Bowel Movements 0 - Constitutional General appearance: cooperative, no acute distress - EENT Eyes: EOMI, scleral icterus ENT: NA/AT - Neck Neck: normal ROM - Respiratory Respiratory: bilateral: diminished - Cardiovascular Rhythm: regular - Gastrointestinal General gastrointestinal: distended, soft, tenderness - Integumentary Integumentary: jaundiced - Neurologic Neurologic: CNII-XII intact - Musculoskeletal Musculoskeletal: generalized weakness, strength equal bilaterally - Psychiatric Psychiatric: A&O x's 3, appropriate affect Results CBC & Chem 7: 06/12/20 08:13 06/12/20 08:13 Labs: Abnormal Lab Results - Last 24 Hours (Table) 06/11/20 06/11/20 06/11/20 Range/Units 13:52 13:52 13:52 RBC 3.88 L (4.30-5.90) m/uL Hgb 11.3 L (13.0-17.5) gm/dL Hct 35.4 L (39.0-53.0) % RDW 16.3 H (11.5-15.5) % Sodium 135 L (137-145) mmol/L BUN 21 H (9-20) mg/dL Creatinine 0.60 L (0.66-1.25) mg/dL Glucose 148 H (74-99) mg/dL Total Bilirubin 13.2 H 12.9 H (0.2-1.3) mg/dL Conjugated Bilirubin 7.7 H (0.0-0.3) mg/dL Unconjugated Bilirubin 2.6 H (0.0-1.1) mg/dL Delta Bilirubin 2.6 H (0.0-0.2) mg/dL AST 93 H (17-59) U/L ALT 76 H (4-49) U/L Alkaline Phosphatase 248 H (38-126) U/L Total Protein 6.0 L (6.3-8.2) g/dL Albumin 2.8 L (3.5-5.0) g/dL Amylase <30 L (30-110) U/L Lipase <10 L (23-300) U/L Urine Protein (Negative) Urine Blood (Negative) Urine Bilirubin (Negative) Ur Leukocyte Esterase (Negative) Urine WBC (0-5) /hpf Urine Bacteria (None) /hpf Urine Mucus (None) /hpf 06/11/20 Range/Units 14:58 RBC (4.30-5.90) m/uL Hgb (13.0-17.5) gm/dL Hct (39.0-53.0) % RDW (11.5-15.5) % Sodium (137-145) mmol/L BUN (9-20) mg/dL Creatinine (0.66-1.25) mg/dL Glucose (74-99) mg/dL Total Bilirubin (0.2-1.3) mg/dL Conjugated Bilirubin (0.0-0.3) mg/dL Unconjugated Bilirubin (0.0-1.1) mg/dL Delta Bilirubin (0.0-0.2) mg/dL AST (17-59) U/L ALT (4-49) U/L Alkaline Phosphatase (38-126) U/L Total Protein (6.3-8.2) g/dL Albumin (3.5-5.0) g/dL Amylase (30-110) U/L Lipase (23-300) U/L Urine Protein Trace H (Negative) Urine Blood Trace H (Negative) Urine Bilirubin 3+ H (Negative) Ur Leukocyte Esterase Trace H (Negative) Urine WBC 12 H (0-5) /hpf Urine Bacteria Rare H (None) /hpf Urine Mucus Few H (None) /hpf Microbiology - Last 24 Hours (Table) 06/11/20 14:58 Urine Culture - Preliminary Urine,Clean Catch CT scan - abdomen: report reviewed CT scan - pelvis: report reviewed Assessment and Plan Plan: Assessment and recommendations: Recurrent/Progressive Pancreatic Cancer: - Concern for further progression Hyperbilirubinemia with Biliary duct Dilation - GI is following - ERCP per GI today planned Hepatic Encephalopathy: - Secondary to above Addendum: - Review of ERCP procedure note:Impression stated 5 cm long irregular distal common bile duct stricture with proximal biliary dilation, unable to place the common bile stent as the wire could not be passed through the stricture into the proximal CBD Recommendations: The findings of this examination were discussed with the patient . Will discuss with the family and will plan on transferring him to [facility] for ERCP with CBD stent placement Agree with GI plan to transfer to tertiary hospital, [facility] will follow back up with Dr. Pascal after discharge. Continue supportive care and will follow along
[2020-06-12] MEDS ORDERED: LIDOCAINE 1% INJ 10MG/ML (20 ML MDV) ONE (13:25)
[2020-06-12] MEDS ORDERED: PROPOFOL 10 MG/ML 20 ML VIAL IV ONE (13:25)
[2020-06-12] MEDS ORDERED: KETAMINE 10 MG/ML 20 ML VIAL ONE (13:25)
[2020-06-12] MEDS ORDERED: MIDAZOLAM 2 MG/2 ML VIAL ONE (13:25)
[2020-06-12] MEDS ORDERED: fentaNYL (PF) 50 MCG/ML 2 ML AMP ONE (13:25)
[2020-06-12] MEDS ORDERED: IV FLUID CONTINUATION 1,000 ML IV ONE ×2 (13:27)
[2020-06-12] MEDS ORDERED: IOPAMIDOL-300 50ML BTL INJ ONE (14:14)
--- NOTE | 2020-06-12 14:24 | P.PCN ---
Date of Procedure: 06/12/20 Procedure(s) Performed: Brief history: Patient is a very [facility] with jaundice. He was diagnosed with metastatic pancreatic cancer in December 2089 and is status post distal pancreatectomy with splenectomy followed by chemoradiation. He developed records a month ago and was started on chemotherapy again. He presents to the hospital with painless jaundice on routine labs and CT of abdomen showed biliary ductal lesion with a mass in the uncinate process of the pancreas. Hence scheduled for an ERCP for biliary decompression today. Procedure performed: ERCP Preoperative diagnoses: of second jaundice/history of metastatic pain pancreaticcancer IV sedation per anesthesia: Procedure: After informed consent was obtained from the patient and after the risks benefits and complications including bleeding perforation and pancreatitis explained in detail the patient was brought into the endoscopy unit. The patient was placed in prone position and IV conscious sedation was administered by anesthesia under continuous monitoring. The Olympus side-viewing duodenoscope was then inserted into the mouth and esophagus intubated without any difficulty. The scope was gradually advanced into the stomach and duodenum. The major papilla was identified without any difficulty. initial cannulation wi th a taper-tip catheter resulted in cannulation pancreatic duct. Subsequently I was able to cannulate the common bile duct and upon injection of the dye there was a long irregular distal CBD stricture measuring at least 5 cm in length with proximal biliary dilation. Despite multiple times I was not able to pass the wire through the stricture into the proximal CBD. After trying several times the procedure was terminated. The patient tolerated the procedure well. Impression: 5 cm long irregular distal common bile duct stricture with proximal biliary dilation, unable to place the common bile stent as the wire could not be passed through the stricture into the proximal CBD Recommendations: The findings of this examination were discussed with the patient . Will discuss with the family and will plan on transferring him to [facility] for ERCP with CBD stent placement
--- NOTE | 2020-06-12 14:47 | FL ---
Fluoroscopy HISTORY pancreatic carcinoma, hyperbilirubinemia 55 seconds fluoroscopy time supplied to the referring clinician. 1 intraoperative C-arm images docum ent the procedure. See dictated report from gastroenterology.
--- NOTE | 2020-06-12 18:42 | P.DS ---
<Johnny Ross - Last Filed: 06/12/20 18:33> Hospital Course: Discharge Diagnosis: Jaundice with elevated bilirubin. Metastatic Pancreatic Cancer status post resection of pancreatic body and tail Nephrolithiasis Hospital Course: Patient is a 60-year-old male who was diagnosed with stage IV pancreatic cancer in December 2018 and underwent resection of the pancreatic tail and splenectomy accompanied by chemotherapy resulting in resolution of cancer and followed by recent diagnosis of recurrence resulting in re-starting chemotherapy under Dr. Navarrete with first treatment being completed on 06/10/20. Pt presented to the hospital on 06/11/20 with complaints of diffuse abdominal pain, pale colored stools, and dark urine accompanied by jaundice and routine lab findings revealing an elevated bilirubin. Patient seen and fully evaluated in the [facility] department and found to have an elevated total bilirubin of 12.9, conjugated bilirubin of 7.7, unconjugated bilirubin 2.6, delta bilirubin 2.6, AST 93, ALP 76, and alkaline phosphatase of 248. CT of abdomen and pelvis with contrast was completed with findings reported status post pancreatic resection a hypodense mass may remain within the head of the pancreas, hepatic biliary dilation present accompanied by ascites, nonobstructing bilateral renal stones and a periumbilical hernia. Patient was admitted under our team was consulted GI for continued medical management. Morning labs revealed patient to have continued elevation of bilirubin and liver profile with total bilirubin resulting at 13.8, AST 161, ALP 101, an alkaline phosphatase of 207. Patient went down for an ERCP for biliary decompression this afternoon with Dr. Farris. ERCP was unsuccessful as patient reportedly had 5 cm long irregular distal common bile duct stricture with proximal biliary dilation, Dr. Farris was unable to place the common bile stent as the wire could not be passed through the stricture into the proximal CBD. Dr. Farris recommended transferring patient to [facility] for ERCP with CBD stent placement. Report was called to [facility] and Dr. Perry discussed case with Dr. Valenzuela. Patient has been accepted for transfer to [facility] and currently awaiting bed assignment as there are no beds available at this time. Patient is in agreement with transfer to [facility]. Patient stable for transfer once bed is available. Physical exam: General: non toxic, no acute distress, appears chronically ill Derm: warm, dry, jaundiced Head: atraumatic, normocephalic, symmetric Eyes: EOMI, no lid lag, scleral icterus present Mouth: No lip lesion, mucus membranes moist Cardiovascular: S1S2 reg, no murmur, positive posterior tibial pulses bilaterally Lungs: Lungs CTA bilaterally, no rhonchi, no rales , no accessory muscle use Abdominal: Soft, diffuse tenderness to palpation throughout all quadrants, no guarding, no appreciable organomegaly Ext: No gross muscle atrophy, no edema, no contractures Neuro: CN II-XI grossly intact, no focal neuro deficits Psych: Alert, oriented, appropriate affect A total of 35 minutes of time were spent preparing this complex discharge summary. Patient Condition at Discharge: Stable Plan - Discharge Summary New Discharge Prescriptions: New diphenhydrAMINE [Benadryl] 25 mg PO TID PRN cap PRN Reason: Itching fentaNYL 25MCG/HR PATCH [Duragesic 25MCG/HR] 1 patch TRANSDERM Q72H patch HYDROcodone/APAP 10-325MG [[place] 10-325] 1 each PO Q6HR PRN tab PRN Reason: Pain Control Continue Gabapentin [Neurontin] 400 mg PO TID #21 cap HYDROcodone/APAP 10-325MG [[place] 10-325] 1 tab PO Q6HR PRN 3 Days #60 tab PRN Reason: Pain Control Erythromycin Ophth Oint [Romycin Ophth Oint] 1 applic BOTH EYES DAILY No Action fentaNYL 12MCG/HR PATCH [Duragesic 12MCG/HR] 1 patch TRANSDERM Q72H 3 Days #5 patch Discharge Medication List Gabapentin [Neurontin] 400 mg PO TID #21 cap 06/02/20 [Rx] HYDROcodone/APAP 10-325MG [[place] 10-325] 1 tab PO Q6HR PRN 3 Days #60 tab 06/02/20 [Rx] fentaNYL 12MCG/HR PATCH [Duragesic 12MCG/HR] 1 patch TRANSDERM Q72H 3 Days #5 patch 06/02/20 [Rx] Erythromycin Ophth Oint [Romycin Ophth Oint] 1 applic BOTH EYES DAILY 06/11/20 [History] HYDROcodone/APAP 10-325MG [[place] 10-325] 1 each PO Q6HR PRN tab 06/13/20 [Rx] diphenhydrAMINE [Benadryl] 25 mg PO TID PRN cap 06/13/20 [Rx] fentaNYL 25MCG/HR PATCH [Duragesic 25MCG/HR] 1 patch TRANSDERM Q72H patch 06/13/20 [Rx] Follow up Appointment(s)/Referral(s): Krystal Márquez MD [Primary Care Provider] - 1-2 days Discharge Disposition: OTHER INSTITUTION NOT DEFINED <Mary Perry - Last Filed: 06/13/20 17:34> Providers Date of admission: 06/11/20 14:40 Attending physician: Sandra Trevizo Consults: 06/11/20 14:41 Consult Physician Routine Consulting Provider: Raghu Pascal Consult Reason/Comments: Pancreatic cancer, hyperbilirubinemia Do you want consulting provider notified?: Yes Consult Physician Routine Consulting Provider: Angelita Farris Consult Reason/Comments: Pancreatic cancer, hyperbilirubinemia Do you want consulting provider notified?: Yes Primary care physician: Krystal Márquez [facility] Course: Patient seen and examined independently. Patient was also seen by Johnny Ross NP and case was discussed. I am in agreement with subjective, physical exam, assessment and plan as written above and amended below. See physical exam and plan on PF note same date
[2020-06-13] MEDS: HYDROcodone/APAP 10-325MG 1 EACH TAB PO PRN (00:23)
[2020-06-13] MEDS: SODIUM CHLORIDE 0.9% 1,000 ML IV SCH ×2 (01:47→07:43)
[2020-06-13] MEDS: HYDROmorphone 0.5 MG/0.5 ML SYRINGE IVP PRN ×4 (01:48→14:43)
[2020-06-13] MEDS: PANTOPRAZOLE 40 MG/10 ML VIAL IV SCH (07:42)
[2020-06-13] MEDS: GABAPENTIN 400 MG CAP PO SCH (07:43)
[2020-06-13] MEDS: ERYTHROMYCIN 5 MG/GM OPHTH OINT 3.5 GM TUBE BOTH EYES SCH ×2 (07:43→07:50)
[2020-06-13 11:43] LABS: HCT 29.9 % (39.6-50.0); HGB 10.3 g/dL (13.0-17.0); MCH 29.2 pg (27.0-32.0); MCHC 34.4 g/dL (32.0-37.0); MCV 84.7 fL (80.0-97.0); Mean Platelet Volume 13.3 fL (9.5-12.2); Platelet Count 219 X 10*3/uL (140-440); RBC 3.53 X 10*6/uL (4.40-5.60); RDW 17.1 % (11.5-14.5); WBC 5.69 X 10*3/uL (4.50-10.00)
[2020-06-13 12:18] LABS: African American GFR (CKD) 113.3 (60.0-200.0); Albumin/Globulin Ratio 1.36 (1.60-3.17); Anion Gap 10.3 mmol/L (4.00-12.00); BUN/Creat Ratio 23.75 Ratio (12.00-20.00); Calcium 8.8 mg/dL (8.7-10.3); Carbon Dioxide 23.7 mmol/L (21.6-31.8); Globulin 2.2 g/dL (1.6-3.3); Magnesium 1.8 mg/dL (1.5-2.4); Non-African American GFR(CKD) 97.8 (60.0-200.0); Total Protein 5.2 g/dL (6.2-8.2)
[2020-06-13 12:38] VITALS: BP 111/71; PULSE 68; RESP 17; TEMP 98.3
[2020-06-13] MEDS ORDERED: diphenhydrAMINE 25 MG CAP PO PRN (13:42)
--- NOTE | 2020-06-13 14:32 | P.DS ---
<Johnny Ross - Last Filed: 06/13/20 14:20> Hospital Course: Discharge Diagnosis: Jaundice with elevated bilirubin. Metastatic Pancreatic Cancer status post resection of pancreatic body and tail Nephrolithiasis Hospital Course: Patient is a 60-year-old male who was diagnosed with stage IV pancreatic cancer in December 2018 and underwent resection of the pancreatic tail and splenectomy accompanied by chemotherapy resulting in resolution of cancer and followed by recent diagnosis of recurrence resulting in re-starting chemotherapy under Dr. Navarrete with first treatment being completed on 06/10/20. Pt presented to the hospital on 06/11/20 with complaints of diffuse abdominal pain, pale colored stools, and dark urine accompanied by jaundice and routine lab findings revealing an elevated bilirubin. Patient seen and fully evaluated in the [facility] department and found to have an elevated total bilirubin of 12.9, conjugated bilirubin of 7.7, unconjugated bilirubin 2.6, delta bilirubin 2.6, AST 93, ALP 76, and alkaline phosphatase of 248. CT of abdomen and pelvis with contrast was completed with findings reported status post pancreatic resection a hypodense mass may remain within the head of the pancreas, hepatic biliary dilation present accompanied by ascites, nonobstructing bilateral renal stones and a periumbilical hernia. Patient was admitted under our team was consulted GI for continued medical management. On 06/12/20, patient went down for an ERCP for biliary decompression with Dr. Farris. ERCP was unsuccessful secondary to reports of a 5 cm long irregular distal common bile duct stricture with proximal biliary dilation, Dr. Farris was unable to place the common bile stent as the wire could not be passed through the stricture into the proximal CBD. Dr. Farris recommended transferring patient to [facility] for ERCP with CBD stent placement. Patient is in agreement with transfer. Report was called to [facility] and Dr. Perry discussed patient's case with Dr. Valenzuela. Patient has been accepted for transfer to [facility] by Dr. Valenzuela on 06/02/20 and currently awaiting an available bed for assignment at this time. Pending transfer we will continue to monitor patient closely, provide symptomatic care and pain management, and closely follow liver function and bilirubin levels. Morning labs revealed patient to have further elevation of bilirubin and liver profile with total bilirubin resulting at a critical level of 18.0, AST 189, ALP 128, and alkaline phosphatase of 266. Physical exam: Patient seen and fully evaluated at the bedside this morning. He continues to await a bed assignment for transfer to [facility]. Patient appears to be in good spirits, reports continued pain but states it is currently controlled. Patient was able to eat breakfast and tolerated well. He denies having any needs or concerns at this time. Patient denies having any headache, lightheadedness, dizziness, changes in vision or hearing, chest pain or palpitations, shortness of breath, episodes of vomiting, or experiencing any numbness/tingling/weakness in extremities. General: non toxic, no acute distress, appears chronically ill Derm: warm, dry, jaundiced Head: atraumatic, normocephalic, symmetric Eyes: EOMI, no lid lag, scleral icterus present Mouth: No lip lesion, mucus membranes moist Cardiovascular: S1S2 reg, no murmur, positive posterior tibial pulses bilaterally Lungs: Lungs CTA bilaterally, no rhonchi, no rales , no accessory muscle use Abdominal: Soft, diffuse tenderness to palpation throughout all quadrants, no guarding, no appreciable organomegaly Ext: No gross muscle atrophy, no edema, no contractures Neuro: CN II-XI grossly intact, no focal neuro deficits Psych: Alert, oriented, appropriate affect A total of 40 minutes of time were spent preparing this complex discharge summary. Patient Condition at Discharge: Stable Plan - Discharge Summary New Discharge Prescriptions: New diphenhydrAMINE [Benadryl] 25 mg PO TID PRN cap PRN Reason: Itching fentaNYL 25MCG/HR PATCH [Duragesic 25MCG/HR] 1 patch TRANSDERM Q72H patch HYDROcodone/APAP 10-325MG [[place] 10-325] 1 each PO Q6HR PRN tab PRN Reason: Pain Control Continue Gabapentin [Neurontin] 400 mg PO TID #21 cap HYDROcodone/APAP 10-325MG [[place] 10-325] 1 tab PO Q6HR PRN 3 Days #60 tab PRN Reason: Pain Control Erythromycin Ophth Oint [Romycin Ophth Oint] 1 applic BOTH EYES DAILY No Action fentaNYL 12MCG/HR PATCH [Duragesic 12MCG/HR] 1 patch TRANSDERM Q72H 3 Days #5 patch Discharge Medication List Gabapentin [Neurontin] 400 mg PO TID #21 cap 06/02/20 [Rx] HYDROcodone/APAP 10-325MG [[place] 10-325] 1 tab PO Q6HR PRN 3 Days #60 tab [Rx] fentaNYL 12MCG/HR PATCH [Duragesic 12MCG/HR] 1 patch TRANSDERM Q72H 3 Days #5 patch 06/02/20 [Rx] Erythromycin Ophth Oint [Romycin Ophth Oint] 1 applic BOTH EYES DAILY 06/11/20 [History] HYDROcodone/APAP 10-325MG [[place] 10-325] 1 each PO Q6HR PRN tab 06/13/20 [Rx] diphenhydrAMINE [Benadryl] 25 mg PO TID PRN cap 06/13/20 [Rx] fentaNYL 25MCG/HR PATCH [Duragesic 25MCG/HR] 1 patch TRANSDERM Q72H patch 06/13/20 [Rx] Follow up Appointment(s)/Referral(s): Krystal Márquez MD [Primary Care Provider] - 1-2 days Discharge Disposition: OTHER INSTITUTION NOT DEFINED <Mary Perry - Last Filed: 06/13/20 17:27> Providers Date of admission: 06/11/20 14:40 Attending physician: Sandra Trevizo Consults: 06/11/20 14:41 Consult Physician Routine Consulting Provider: Raghu Pascal Consult Reason/Comments: Pancreatic cancer, hyperbilirubinemia Do you want consulting provider notified?: Yes Consult Physician Routine Consulting Provider: Angelita Farris Consult Reason/Comments: Pancreatic cancer, hyperbilirubinemia Do you want consulting provider notified?: Yes Primary care physician: Krystal Márquez Pending Studies Pending Results: Patient seen and examined independently. Patient was also seen by Johnny Ross NP and case was discussed. I am in agreement with subjective, physical exam, assessment and plan as written above and amended below. He continues to have abdominal pain. States Dilaudid and fentanyl patch are not helping. We discussed increasing his fentanyl patch secondary to this likely being chronic pain. Patient is in agreement. He is aware that he is awaiting for bed at [facility] and is stable for discharge and appointment time once bed is available. General: non toxic, no distress, appears at stated age Derm: warm, dry, Head: atraumatic, normocephalic, symmetric Eyes: EOMI, no lid lag, + scleral icterus Mouth: no lip lesion, mucus membranes moist Cardiovascular: S1S2 reg, no murmur, positive posterior tibial pulse bilateral, Lungs: CTA bilateral, no rhonchi, no rales , no accessory muscle use Abdominal: soft, + tender to palpation diffusely, no guarding, no appreciable organomegaly Ext: no gross muscle atrophy, no edema, no contractures Neuro: CN II-XI grossly intact, no focal neuro deficits Psych: Alert, oriented, blunted affect, slow thinking
--- NOTE | 2020-06-13 15:51 | PN ---
PROGRESS NOTE DATE OF DICTATION: June 13, 2020 Patient is a 60-year-old pleasant white male with metastatic pancreatic cancer admitted to the hospital with obstructive jaundice. He underwent an ERCP yesterday that showed long irregular distal common bile duct stricture with proximal biliary dilation, but the CBD stent could not be placed as the wire could not be advanced through the stricture. The patient is being transferred to [facility]. In the meantime, he is doing well. He does complain of some abdominal pain but no nausea or vomiting. PHYSICAL EXAMINATION: He appears comfortable. Vital signs are stable. Blood pressure 111/71, pulse rate is 68, temperature 98.3. HEENT EXAMINATION: Unremarkable. Conjunctivae pink. Sclerae deeply icteric. Oral cavity, no lesions. NECK: No JVD or lymph node enlargement. CHEST: Was clear to auscultation. HEART: Regular rate and rhythm. ABDOMEN: Soft. There was tenderness in the epigastric area. Bowel sounds are positive. No organomegaly. EXTREMITIES: No pedal edema. NEURO: He is alert and oriented x3. No focal deficits. LABS: WBC 5.6, hemoglobin 10.3, platelets 219. Bilirubin is 18, alkaline phosphatase 266. AST and ALT are 189 and 123 respectively. IMPRESSION: 1. Metastatic pancreatic cancer with obstructive jaundice, status post ERCP yesterday which revealed a distal common bile duct stricture with proximal biliary dilation. CBD stent could not be placed as the wire could not be traversed through the stricture. 2. Elevated LFTs and jaundice secondary to obstructive jaundice. RECOMMENDATION: The patient is being transferred to [facility] for possible ERCP with metal stent placement. I discussed with him about the findings from yesterday's procedure. He is agreeable to the transfer. Thank you for this consultation. MMODL / IJN: [id number] /
--- NOTE | 2020-06-13 20:22 | P.PN ---
Subjective Progress Note Date: 06/13/20 Transfer [facility] hopefully today Objective - Vital Signs Vital signs: Vital Signs Temp 98.3 F 06/13/20 12:37 Pulse 68 06/13/20 12:37 Resp 17 06/13/20 12:37 BP 111/71 06/13/20 12:37 Pulse Ox 99 06/13/20 12:37 Intake & Output 06/12/20 06/13/20 06/13/20 18:59 06:59 18:59 Intake Total 1300 240 800 Output Total 750 Balance 550 240 800 Intake: IV 500 800 Sodium Chloride 0.9% 1, 800 000 ml @ 100 mls/hr IV . Q10H RENETTA Rx#:[id number] Intake, IV Titration 800 Amount Sodium Chloride 0.9% 1, 800 000 ml @ 100 mls/hr IV . Q10H RENETTA Rx#:[id number] Oral 240 Output: Urine 750 Other: Voiding Method Urinal Urinal # Voids 0 # Bowel Movements 0 - Exam - Constitutional General appearance: cooperative, no acute distress - EENT Eyes: EOMI, scleral icterus ENT: NA/AT - Neck Neck: normal ROM - Respiratory Respiratory: bilateral: diminished - Cardiovascular Rhythm: regular - Gastrointestinal General gastrointestinal: distended, soft, tenderness - Integumentary Integumentary: jaundiced - Neurologic Neurologic: CNII-XII intact - Musculoskeletal Musculoskeletal: generalized weakness, strength equal bilaterally - Psychiatric Psychiatric: A&O x's 3, appropriate affect - Labs CBC & Chem 7: 06/13/20 06:44 06/13/20 06:44 Labs: Abnormal Lab Results - Last 24 Hours (Table) 06/13/20 06/13/20 Range/Units 06:44 06:44 RBC 3.53 L (4.40-5.60) X 10*6/uL Hgb 10.3 L (13.0-17.0) g/dL Hct 29.9 L (39.6-50.0) % RDW 17.1 H (11.5-14.5) % MPV 13.3 H (9.5-12.2) fL BUN/Creatinine Ratio 23.75 H (12.00-20.00) Ratio Total Bilirubin 18.0 H* (0.2-1.2) mg/dL AST 189 H (14-35) U/L ALT 128 H (10-49) U/L Alkaline Phosphatase 266 H (41-126) U/L Total Protein 5.2 L (6.2-8.2) g/dL Albumin 3.00 L (3.80-4.90) g/dL Albumin/Globulin Ratio 1.36 L (1.60-3.17) g/dL Microbiology - Last 24 Hours (Table) 06/11/20 14:58 Urine Culture - Final Urine,Clean Catch Assessment and Plan Plan: Assessment and recommendations: Recurrent/Progressive Pancreatic Cancer: - Concern for further progression Hyperbilirubinemia with Biliary duct Dilation - GI is following - ERCP per GI today planned - today 18.1 Hepatic Encephalopathy: - Secondary to above Addendum: - Review of ERCP procedure note:Impression stated 5 cm long irregular distal common bile duct stricture with proximal biliary dilation, unable to place the common bile stent as the wire could not be passed through the stricture into the proximal CBD Recommendations: The findings of this examination were discussed with the patient . Will discuss with the family and will plan on transferring him to [facility] for ERCP with CBD stent placement Agree with GI plan to transfer to tertiary hospital, Gio will follow back up with Dr. Pascal after discharge. transfer planned today Continue supportive care and will follow along
== END 2020-06-13 16:48 | disposition other institution (70) | DRG 435 ==
LOC: EC 11:37 → 5NMEDONC 14:40
PROVIDERS: ADMIT Internal Medicine; ATTEND Internal Medicine
PROC: 0FJB8ZZ Inspection of Hepatobiliary Duct, Via Natural or Artificial Opening Endoscopic (ICD-10-PCS; principal; 2020-06-12 07:45)
DX: C78.7 Secondary malignant neoplasm of liver and intrahepatic bile duct (principal); K83.1 Obstruction of bile duct; K72.00 Acute and subacute hepatic failure without coma; K85.90 Acute pancreatitis without necrosis or infection, unspecified; C25.9 Malignant neoplasm of pancreas, unspecified; R18.8 Other ascites; Z92.21 Personal history of antineoplastic chemotherapy; Z20.822 Contact with and (suspected) exposure to COVID-19; Z90.411 Acquired partial absence of pancreas; Z92.3 Personal history of irradiation; Z90.81 Acquired absence of spleen; E86.0 Dehydration; G89.3 Neoplasm related pain (acute) (chronic); K42.9 Umbilical hernia without obstruction or gangrene; N20.0 Calculus of kidney; Z87.11 Personal history of peptic ulcer disease; Z87.442 Personal history of urinary calculi
CPT/HCPCS: 36415; 43260; 74177; 74330; 80053; 81001; 82150; 82248; 83605; 83690; 83735; 85025; 85027; 85610; 85730; 87086; 87635; 99285